=== PATIENT | male | born 1955 | race Caucasian/White ===

== ENCOUNTER 2017-07-20 21:57 | Inpatient (IN) | payer OTHER ==
[~2017-07-20] VITALS: Ht 172.7 cm; Wt 52.8 kg
[~2017-07-20 21:57] MED LIST: ALBUAER3 INH; AZIT250T3 PO; HYDR25TA5 PO; PRED20 PO; SYMB160A INH; TRAM50TA PO; TRAZ50TA12 PO; VENTAER INH
[2017-07-20 22:01] VITALS: BP 163/53; PULSE 104; RESP 24; TEMP 97.5; O2SAT 88
[2017-07-20 22:06] VITALS: BP 163/83; PULSE 104; RESP 26; TEMP 97.5; O2SAT 87
[2017-07-20] MEDS ORDERED: CLAR10CA3 PO (22:18)
[2017-07-20] MEDS ORDERED: GUAI400T32 (22:18)
[2017-07-20] MEDS ORDERED: NICO1DIS2 (22:18)
[2017-07-20 22:19] VITALS: BP 176/97; PULSE 101; RESP 24; O2SAT 96
[2017-07-20 22:25] VITALS: O2SAT 95
[2017-07-20 22:26] VITALS: BP_SYST 137; BP_SYST 150; BP_DIAS 87; BP_DIAS 91; PULSE 102; RESP 24
--- NOTE | 2017-07-20 22:27 | PD ---
HPI Chief Complaint: Respiratory Distress Time Seen by Provider: 22:17 Travel History International Travel<30 days: No Contact w/Intl Traveler<30days: No Traveled to known affect area: No History of Present Illness HPI 61-year-old male with history of emphysema/COPD who presents for evaluation of chest pain and dyspnea. He reports that symptoms started 4 days ago when he turned in bed and felt sudden substernal chest pressure "like an elephant sitting on my chest" which has been constant since then and somewhat improved when he leans forward. Associated dyspnea. He has been using his albuterol nebulizers at home but symptoms persisted which prompted evaluation. He endorses a dry cough. Denies fevers or chills, nausea or vomiting, diaphoresis , abdominal pain. Endorses mild hypertension as well as tobacco use. No personal history of coronary artery disease. No other complaints at this time. PFSH Past Medical History High Cholesterol: Yes COPD: Yes Musculoskeletal: Yes (CHRONIC KNEE AND BACK PAIN, FEET PAIN ) Neurologic: Yes (KHRIS. FEET TOES NUMBNESS) Respiratory: Yes (COPD) Immunizations Current: Yes Past Surgical History Abdominal Surgery: Yes (LEFT ING. HERNIA REP.) Joint Replacement: Yes (LEFT HIP) Oral Surgery: Yes (TONSILLECTOMY) Tonsillectomy: Yes Other Surgery: Yes (CANCEROUS MOLE LEFT BROW, INGUINAL HERNIA REPAIR) Social History Alcohol Use: No Tobacco Use: Yes (1 PACK PER 3 DAYS) Substance Use: No Allergies-Medications (Allergen,Severity, Reaction): Coded Allergies: No Known Allergies (Unverified Allergy, Unknown, 07/21/17) Reported Meds & Prescriptions Reported Meds & Active Scripts Active Proair Hfa 8.5 GM Inh (Albuterol Sulfate) 90 Mcg/Act Aer 2 Puff INH Q4-6H PRN 108 mcg/actuation Reported Claritin (Loratadine) 10 Mg Cap 10 Mg PO DAILY Nicotine Transdermal Syst (Nicotine) 21 Mg/24 Hour Dis Guaifenesin 400 Mg Tab 400 DAILY Hydrochlorothiazide 25 Mg Tab 25 Mg PO DAILY Ventolin Hfa 18 GM Inh (Albuterol Sulfate) 90 Mcg/Act Aer 2 Puff INH Q4-6H PRN Symbicort Inh (Budesonide/Formoterol Fumarate) 160-4.5 Mcg/Act Aero 2 Puff INH Q12HR Trazodone (Trazodone HCl) 50 Mg Tab 50 Mg PO HS Review of Systems Except as stated in HPI: all other systems reviewed are Neg Physical Exam Narrative GENERAL: Well-nourished male, somewhat tachypneic on initial examination. SKIN: Warm and dry. HEAD: Atraumatic. Normocephalic. EYES: Pupils equal and round. No scleral icterus. No injection or drainage. ENT: No nasal bleeding or discharge. Mucous membranes pink and moist. NECK: Trachea midline. No JVD. CARDIOVASCULAR: Regular rate and rhythm. No murmur appreciated. RESPIRATORY: Prolonged expiratory phase, slight wheezing, diminished breath sounds, accessory muscle use noted. GASTROINTESTINAL: Abdomen soft, non-tender, nondistended. Hepatic and splenic margins not palpable. MUSCULOSKELETAL: No obvious deformities. No clubbing. No cyanosis. No edema. NEUROLOGICAL: Awake and alert. No obvious cranial nerve deficits. Motor grossly within normal limits. Normal speech. PSYCHIATRIC: Appropriate mood and affect; insight and judgment normal. Data Data Last Documented VS Vital Signs Date Time Temp Pulse Resp B/P (MAP) Pulse Ox O2 Delivery O2 Flow Rate FiO2 07/20/17 22:26 102 24 150/91 (110) 137/87 (104) 07/20/17 22:25 95 Nasal Cannula 2.00 07/20/17 22:06 97.5 Orders Orders Electrocardiogram (07/20/17 22:23) Basic Metabolic Panel (Bmp) (07/20/17 22:23) Ckmb (Isoenzyme) Profile (07/20/17 22:23) Complete Blood Count With Diff (07/20/17 22:23) Magnesium (Mg) (07/20/17 22:23) Prothrombin Time / Inr (Pt) (07/20/17 22:23) Act Partial Throm Time (Ptt) (07/20/17 22:23) Troponin I (07/20/17 22:23) Chest, Single Ap (07/20/17 22:23) Ecg Monitoring (07/20/17 22:23) Bilateral Bp Monitoring (07/20/17 22:23) Iv Access Insert/Monitor (07/20/17 22:23) Oximetry (07/20/17 22:23) Oxygen Administration (07/20/17 22:23) Aspirin Chew (Aspirin Chew) (07/20/17 22:30) Sodium Chloride 0.9% Flush (Ns Flush) (07/20/17 22:30) Nitroglycerin Sl (Nitrostat Sl) (07/20/17 22:30) Methylprednisolone So Succ Inj (Solumedr (07/20/17 22:30) Albuterol-Ipratropium Neb (Duoneb Neb) (07/20/17 22:30) Lidocaine 1% Inj (50 Ml) (Xylocaine 1% I (07/20/17 23:00) Morphine Inj (Morphine Inj) (07/20/17 23:00) CKMB (07/20/17 22:47) CKMB% (07/20/17 22:47) Admit Order (Ed Use Only) (07/20/17 23:42) Labs Laboratory Tests Test 07/20/17 22:47 White Blood Count 12.1 TH/MM3 Red Blood Count 4.67 MIL/MM3 Hemoglobin 15.2 GM/DL Hematocrit 45.4 % Mean Corpuscular Volume 97.1 FL Mean Corpuscular Hemoglobin 32.5 PG Mean Corpuscular Hemoglobin Concent 33.4 % Red Cell Distribution Width 14.8 % Platelet Count 403 TH/MM3 Mean Platelet Volume 7.8 FL Neutrophils (%) (Auto) 79.9 % Lymphocytes (%) (Auto) 11.9 % Monocytes (%) (Auto) 6.8 % Eosinophils (%) (Auto) 1.1 % Basophils (%) (Auto) 0.3 % Neutrophils # (Auto) 9.7 TH/MM3 Lymphocytes # (Auto) 1.4 TH/MM3 Monocytes # (Auto) 0.8 TH/MM3 Eosinophils # (Auto) 0.1 TH/MM3 Basophils # (Auto) 0.0 TH/MM3 CBC Comment DIFF FINAL Differential Comment Prothrombin Time 12.0 SEC Prothromb Time International Ratio 1.2 RATIO Activated Partial Thromboplast Time 27.3 SEC Blood Urea Nitrogen 26 MG/DL Creatinine 1.02 MG/DL Random Glucose 125 MG/DL Calcium Level 9.4 MG/DL Magnesium Level 2.2 MG/DL Sodium Level 135 MEQ/L Potassium Level 3.7 MEQ/L Chloride Level 97 MEQ/L Carbon Dioxide Level 29.4 MEQ/L Anion Gap 9 MEQ/L Estimat Glomerular Filtration Rate 74 ML/MIN Total Creatine Kinase 140 U/L Creatine Kinase MB 5.7 NG/ML Troponin I 0.50 NG/ML MDM Medical Decision Making Medical Screen Exam Complete: Yes Emergency Medical Condition: Yes Medical Record Reviewed: Yes Interpretation(s) EKG reveals sinus tachycardia, rate 100, LVH, T-wave abnormalities noted in V4 and 5, poor baseline Differential Diagnosis copd exacerbation, pneumothorax, acute coronary syndrome, aortic dissection, pleural effusion, pneumonia Narrative Course The patient was placed on ECG monitoring and pulse oximetry. Twelve-lead EKG obtained. Plan is for basic lab work, chest x-ray, he'll be given DuoNeb therapy, Solu-Medrol, sublingual nitroglycerin, aspirin. Chest x-ray reveals CONCLUSION: At least moderate pneumothorax on the right. After informed consent was obtained, attempt was made with Dr. Macias perform thoracostomy however upon making incision at the fifth intercostal space there was blood vessel bleeding. Bleeding was controlled with 1-0 simple interrupted silk sutures, total 4. Dr. Macias discussed with on-call cardiothoracic surgeon Dr. Conner will see the patient in consultation in place up until in the morning. In addition his laboratory is been reviewed and his troponin is elevated at 0.5. Discussed with on-call gun welder Dr. Alcala who will admit the patient. Procedures EKG Prior to Arrival: Yes Diagnosis Primary Impression: Pneumothorax Qualified Codes: J93.11 - Primary spontaneous pneumothorax Additional Impression: Elevated troponin Admitting Information Admitting Physician Requests: Admit Scripts Prednisone (Prednisone) 20 Mg Tab 20 MG PO DIRECTED for Inflammation, #11 TAB 0 Refills Take 40mg daily for 3 days, 20mg daily for 3 days, 10mg daily for 3 days, 5 mg daily for 3 days, then stop. Prov: Jarred Stout MD 07/22/17 Aspirin (Aspirin DR) 81 Mg Tabdr 81 MG PO DAILY for Blood Clot Prevention, #31 TAB Prov: Jarred Stout MD 07/22/17 Azithromycin (Azithromycin) 250 Mg Tab 250 MG PO DAILY for Infection, #4 TAB Prov: Jarred Stout MD 07/22/17 Tramadol (Tramadol) 50 Mg Tab 50 MG PO Q6H Y for PAIN, #30 TAB 0 Refills Prov: Jarred Stout MD 07/22/17 Bertrand Blanchard Jul 20, 2017 22:27
[2017-07-20] MEDS ORDERED: ASPIRIN 81 MG CHEW TAB PO ONE (22:30)
[2017-07-20] MEDS ORDERED: SODIUM CHLORIDE 0.9% FLUSH 10 ML FLUSH IVF PRN (22:30)
[2017-07-20] MEDS ORDERED: methylPREDNISolone SOD SUCC 125 MG/2 ML VIAL IV PUSH ONE (22:30)
[2017-07-20] MEDS: NITROGLYCERIN 0.4 MG SL 25 TABS/BTL SL SCH ×3 (22:35→22:40)
[2017-07-20] MEDS: RESP: ALBUTEROL 2.5 MG/IPRATROPIUM 0.5 MG NEB (SCH) INH ×2 (22:45→23:00)
--- NOTE | 2017-07-20 22:54 | RADRPT ---
EXAM DATE/TIME: 07/20/2017 22:37 [facility] COMPARISON: No previous studies available for comparison. INDICATIONS : Shortness of breath. MEDICAL HISTORY : Chronic obstructive pulmonary disease. scoliosis SURGICAL HISTORY : None. ENCOUNTER: Initial ACUITY: 1 day PAIN SCORE: 0/10 LOCATION: Bilateral chest FINDINGS: There is at least a moderate pneumothorax seen along the lateral right chest. This measures up to 4 c m in thickness. There is questionable shift of the heart and mediastinal structures towards the left. 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 There is some atelectasis at the right lung base. The left lung is clear. The heart size is normal. CONCLUSION: At least moderate pneumothorax on the right. This information was relayed by telephone to Genie Hutton MD on July 20, 2017 at 22:48 Board Certified Radiologist. This report was verified electronically.
[2017-07-20] MEDS ORDERED: LIDOCAINE HCL 1% 50 ML VIAL INFIL ONE (23:00)
[2017-07-20] MEDS ORDERED: MORPHINE SULFATE 4 MG/ML INJ IV PUSH ONE (23:00)
[2017-07-20 23:02] LABS: AUTOMATED NEUTROPHIL # 9.7 TH/MM3 (1.8-7.7); BASOPHIL % 0.3 % (0.0-2.0); EOSINOPHIL # 0.1 TH/MM3 (0-0.4); EOSINOPHIL % 1.1 % (0.0-4.0); HEMATOCRIT 45.4 % (39.0-51.0); HEMO FLAGS DIFF FINAL; LYMPH % 11.9 % (9.0-44.0); LYMPHOCYTE # 1.4 TH/MM3 (1.0-4.8); MEAN CELL VOLUME 97.1 FL (80.0-100.0); MEAN CORPUSCULAR HEMOGLOBIN 32.5 PG (27.0-34.0); MEAN CORPUSCULAR HGB CONC 33.4 % (32.0-36.0); MONO % 6.8 % (0.0-8.0); NEUT % 79.9 % (16.0-70.0); PLATELET COUNT 403 TH/MM3 (150-450); RED BLOOD COUNT 4.67 MIL/MM3 (4.50-5.90); RED CELL DISTRIBUTION WIDTH 14.8 % (11.6-17.2); WHITE BLOOD COUNT 12.1 TH/MM3 (4.0-11.0)
[2017-07-20 23:12] LABS: APTT (PATIENT) 27.3 SEC (24.3-30.1); INTERNATIONAL NORMALIZED RATIO 1.2 RATIO
[2017-07-20 23:13] LABS: ANION GAP 9 MEQ/L (5-15); BICARBONATE 29.4 MEQ/L (21.0-32.0); BLOOD UREA NITROGEN 26 MG/DL (7-18); CHLORIDE 97 MEQ/L (98-107); GLOMERULAR FILTRATION RATE 74 ML/MIN (>89); MAGNESIUM 2.2 MG/DL (1.5-2.5); POTASSIUM 3.7 MEQ/L (3.5-5.1); SODIUM (NA) 135 MEQ/L (136-145)
[2017-07-20 23:17] LABS: CREATINE KINASE 140 U/L (39-308)
[2017-07-20 23:31] LABS: CKMB 5.7 NG/ML (0.5-3.6)
--- NOTE | 2017-07-20 23:58 | HHI.HP ---
[facility] Service Critical Care Medicine Primary Care Physician Valentin [facility] Admission Diagnosis spontaneous pneumothorax, elevated troponin Diagnosis: Travel History International Travel<30 Days: No Contact w/Intl Traveler <30 Da: No Traveled to Known Affected Are: No History of Present Illness 61-year-old male with history of emphysema/COPD presents for evaluation of chest pain and dyspnea. His symptoms started 4 days ago when he turned in bed and felt sudden substernal chest pressure "like an elephant sitting on my chest " which has been constant since then and somewhat improved when he leans forward. Associated dyspnea. He has been using his albuterol nebulizers at home but symptoms persisted which prompted evaluation. He endorses a dry cough. The chest x-ray performed in the emergency department shows moderate- sized pneumothorax on the right side. Review of Systems Constitutional: DENIES: Diaphoretic episodes, Fatigue, Fever, Weight gain, Weight loss, Chills, Dizziness, Change in appetite, Night Sweats Endocrine: DENIES: Heat/cold intolerance, Polydipsia, Polyuria, Polyphagia Eyes: DENIES: Blurred vision, Diplopia, Eye inflammation, Eye pain, Vision loss , Photosensitivity, Double Vision Ears, nose, mouth, throat: DENIES: Tinnitus, Hearing loss, Vertigo, Nasal discharge, Oral lesions, Throat pain, Hoarseness, Ear Pain, Running Nose, Epistaxis, Sinus Pain, Toothache, Odynophagia Respiratory: COMPLAINS OF: Cough, Shortness of breath, DENIES: Apneas, Snoring , Wheezing, Hemoptysis, Sputum production Cardiovascular: COMPLAINS OF: Chest pain, Dyspnea on Exertion, DENIES: Palpitations, Syncope, PND, Lower Extremity Edema, Orthopnea, Claudication Gastrointestinal: DENIES: Abdominal pain, Black stools, Bloody stools, Constipation, Diarrhea, Nausea, Vomiting, Difficulty Swallowing, Anorexia Genitourinary: DENIES: Sexual dysfunction, Urinary frequency, Urinary incontinence, Urgency, Hematuria, Dysuria, Nocturia, Penile Discharge, Testicular Pain, Testicular Swelling Musculoskeletal: DENIES: Joint pain, Muscle aches, Stiffness, Joint Swelling, Back pain, Neck pain Integumentary: DENIES: Abnormal pigmentation, Nail changes, Pruritus, Rash Hematologic/lymphatic: DENIES: Bruising, Lymphadenopathy Immunologic/allergic: DENIES: Eczema, Urticaria Neurologic: DENIES: Abnormal gait, Headache, Localized weakness, Paresthesias, Seizures, Speech Problems, Tremor, Poor Balance Psychiatric: DENIES: Anxiety, Confusion, Mood changes, Depression, Hallucinations, Agitation, Suicidal Ideation, Homicidal Ideation, Delusions Past Family Social History Allergies: Coded Allergies: No Known Allergies (Unverified Allergy, Unknown, 07/21/17) Past Medical History High Cholesterol: Yes COPD: Yes Musculoskeletal: Yes (CHRONIC KNEE AND BACK PAIN, FEET PAIN ) Neurologic: Yes (KHRIS. FEET TOES NUMBNESS) Respiratory: Yes (COPD) Immunizations Current: Yes Past Surgical History Abdominal Surgery: Yes (LEFT ING. HERNIA REP.) Joint Replacement: Yes (LEFT HIP) Oral Surgery: Yes (TONSILLECTOMY) Tonsillectomy: Yes Other Surgery: Yes (CANCEROUS MOLE LEFT BROW, INGUINAL HERNIA REPAIR) Reported Medications Reported Meds & Active Scripts Active Proair Hfa 8.5 GM Inh (Albuterol Sulfate) 90 Mcg/Act Aer 2 Puff INH Q4-6H PRN 108 mcg/actuation Prednisone 20 Mg Tab 50 Mg PO DAILY 5 Days Azithromycin 250 Mg Tab 250 Mg PO DIRECTED Take 2 tabs (500 mg) on day 1 then 1 tab daily x 4 days. Reported Claritin (Loratadine) 10 Mg Cap 10 Mg PO DAILY Nicotine Transdermal Syst (Nicotine) 21 Mg/24 Hour Dis Guaifenesin 400 Mg Tab 400 DAILY Hydrochlorothiazide 25 Mg Tab 25 Mg PO DAILY Ventolin Hfa 18 GM Inh (Albuterol Sulfate) 90 Mcg/Act Aer 2 Puff INH Q4-6H PRN Symbicort Inh (Budesonide/Formoterol Fumarate) 160-4.5 Mcg/Act Aero 2 Puff INH Q12HR Trazodone (Trazodone HCl) 50 Mg Tab 50 Mg PO HS Tramadol (Tramadol HCl) 50 Mg Tab 50 Mg PO Q6H PRN Active Ordered Medications Current Medications Medications (Trade) Dose Ordered Sig/Jacqueline Route PRN Reason Start Time Stop Time Status Last Admin Dose Admin Albuterol Sulfate (Proair Hfa Inh) 2 puff Q4H PRN INH SHORTNESS OF BREATH 07/21/17 00:15 Azithromycin (Zithromax) 250 mg DAILY PO 07/21/17 09:00 Budesonide/ Formoterol Fumarate (Symbicort 160-4.5 Mcg Inh) 2 puff Q12HR INH 07/21/17 09:00 Loratadine (Claritin) 10 mg DAILY PO 07/21/17 09:00 Prednisone (Deltasone) 50 mg DAILY PO 07/21/17 09:00 Trazodone HCl (Desyrel) 50 mg HS PO 07/21/17 21:00 Sodium Chloride 1,000 ml @ 84 mls/hr [id number] IV 07/21/17 00:03 07/21/17 00:42 Sodium Chloride (NS Flush) 2 ml UNSCH PRN IV FLUSH FLUSH AFTER USING IV ACCESS 07/21/17 00:15 Sodium Chloride (NS Flush) 2 ml BID IV FLUSH 07/21/17 09:00 Oxycodone/ Acetaminophen (Percocet 5-325 Mg) 1 tab Q4H PRN PO PAIN SCALE 1 TO 5 07/21/17 00:15 07/21/17 04:15 Morphine Sulfate (Morphine Inj) 2 mg Q2H PRN IV PAIN 6-10 07/21/17 00:15 07/21/17 02:00 Famotidine (Pepcid Inj) 20 mg Q12HR IV PUSH 07/21/17 09:00 Ondansetron HCl (Zofran Inj) 4 mg Q6H PRN IV PUSH NAUSEA OR VOMITING 07/21/17 00:15 Zolpidem Tartrate (Ambien) 5 mg HS PRN PO INSOMNIA 07/21/17 00:15 Miscellaneous Information 1 [id number] XX 07/21/17 00:15 Chlorhexidine Gluconate (Chlorhexidine 2% Cloth) 3 pack Taper DAILY@04 TOP 07/21/17 04:00 07/17/18 03:59 07/21/17 03:25 Chlorhexidine Gluconate (Chlorhexidine 2% Cloth) 3 pack UNSCH PRN TOP HYGIENIC CARE 07/21/17 00:15 Senna/Docusate Sodium (Michelle-Colace) 1 tab BID PO 07/21/17 09:00 Magnesium Hydroxide (Milk Of Magnesia Liq) 30 ml Q12H PRN PO Mild constipation 07/21/17 00:15 Sennosides (Senokot) 17.2 mg Q12H PRN PO Moderate constipation 07/21/17 00:15 Bisacodyl (Dulcolax Supp) 10 mg DAILY PRN RECTAL SEVERE CONSITIPATION 07/21/17 00:15 Lactulose (Lactulose Liq) 30 ml DAILY PRN PO SEVERE CONSITIPATION 07/21/17 00:15 Potassium Chloride 100 ml @ 50 mls/hr Q2H PRN IV For Potassium 2.8 - 3.2 mEq/L 07/21/17 02:45 Potassium Chloride 100 ml @ 50 mls/hr Q2H PRN IV For Potassium 2.8 - 3.2 mEq/L 07/21/17 02:45 Potassium Bicarb/ Potassium Chloride (K-Lyte Cl Eff) 50 meq UNSCH PRN PO For Potassium 3.3 - 3.5 mEq/L 07/21/17 02:45 Potassium Chloride 100 ml @ 25 mls/hr UNSCH PRN IV For Potassium 3.3 - 3.5 mEq/L 07/21/17 02:45 Potassium Chloride 100 ml @ 50 mls/hr Q2H PRN IV For Potassium 3.3 - 3.5 mEq/L 07/21/17 02:45 Magnesium Sulfate 4 gm/Sodium Chloride 100 ml @ 50 mls/hr UNSCH PRN IV For Magnesium 0.9 - 1.1 mg/dL 07/21/17 02:45 Magnesium Oxide (Mag-Ox) 800 mg UNSCH PRN PO For Magnesium 1.2 - 1.6 mg/dL 07/21/17 02:45 Magnesium Sulfate 2 gm/Sodium Chloride 100 ml @ 50 mls/hr UNSCH PRN IV For Magnesium 1.2 - 1.6 mg/dL 07/21/17 02:45 Potassium Phosphate (K-Phos) 2,000 mg Q4H PRN PO For Phosphorus < 2.5 mg/dL 07/21/17 02:45 Sodium Phosphate 30 mmol/Sodium Chloride 250 ml @ 42 mls/hr UNSCH PRN IV For Phosphorus < 2.5 mg/dL 07/21/17 02:45 Potassium Phosphate (K-Phos) 2,000 mg UNSCH PRN PO/TUBE SEE LABEL COMMENTS 07/21/17 02:45 Potassium Phosphate 30 mmol/ Sodium Chloride 260 ml @ 42 mls/hr UNSCH PRN IV SEE LABEL COMMENTS 07/21/17 02:45 Family History No Family history significant for early coronary artery disease or malignancy Social History Alcohol Use: No Tobacco Use: Yes (1 PACK PER 3 DAYS) Substance Use: No Physical Exam Vital Signs Vital Signs Date Time Temp Pulse Resp B/P (MAP) Pulse Ox O2 Delivery O2 Flow Rate FiO2 07/20/17 22:26 102 24 150/91 (110) 137/87 (104) 07/20/17 22:25 95 Nasal Cannula 2.00 07/20/17 22:25 Nasal Cannula 2.00 07/20/17 22:19 101 24 176/97 (123) 96 Nasal Cannula 2.00 07/20/17 22:09 102 26 90 Nasal Cannula 2.00 07/20/17 22:06 97.5 104 26 163/83 (109) 87 07/20/17 22:01 97.5 104 24 163/53 (89) 88 Room Air Physical Exam GENERAL: Cachectic sick gentleman in moderate respiratory distress SKIN: Warm and dry. HEAD: Normocephalic. EYES: No scleral icterus. No injection or drainage. NECK: Supple, trachea midline. No JVD or lymphadenopathy. CARDIOVASCULAR: Regular rate and rhythm without murmurs, gallops, or rubs. RESPIRATORY: Breath sounds equal bilaterally. No accessory muscle use. GASTROINTESTINAL: Abdomen soft, non-tender, nondistended. MUSCULOSKELETAL: No cyanosis, or edema. BACK: Nontender without obvious deformity. NEURO EXAM: GCS: M 6V 5 E4 Mental Status: The patient is alert and oriented to person, place, and time with normal speech. Cranial Nerves: Visual acuity intact bilaterally. Visual [place] normal in all quadrants. Pupils are round, reactive to light. Extraocular movements are intact without ptosis. Hearing is normal bilaterally. Voice is normal. Tongue protrudes midline and moves symmetrically. Reflexes: Biceps, patellar, and Achilles are 2/4 bilaterally. No clonus. Laboratory Laboratory Tests Test 07/20/17 22:47 White Blood Count 12.1 Red Blood Count 4.67 Hemoglobin 15.2 Hematocrit 45.4 Mean Corpuscular Volume 97.1 Mean Corpuscular Hemoglobin 32.5 Mean Corpuscular Hemoglobin Concent 33.4 Red Cell Distribution Width 14.8 Platelet Count 403 Mean Platelet Volume 7.8 Neutrophils (%) (Auto) 79.9 Lymphocytes (%) (Auto) 11.9 Monocytes (%) (Auto) 6.8 Eosinophils (%) (Auto) 1.1 Basophils (%) (Auto) 0.3 Neutrophils # (Auto) 9.7 Lymphocytes # (Auto) 1.4 Monocytes # (Auto) 0.8 Eosinophils # (Auto) 0.1 Basophils # (Auto) 0.0 CBC Comment DIFF FINAL Differential Comment Prothrombin Time 12.0 Prothromb Time International Ratio 1.2 Activated Partial Thromboplast Time 27.3 Blood Urea Nitrogen 26 Creatinine 1.02 Random Glucose 125 Calcium Level 9.4 Magnesium Level 2.2 Sodium Level 135 Potassium Level 3.7 Chloride Level 97 Carbon Dioxide Level 29.4 Anion Gap 9 Estimat Glomerular Filtration Rate 74 Total Creatine Kinase 140 Creatine Kinase MB 5.7 Troponin I 0.50 Result Diagram: 07/20/17224607/20/172246 Imaging Last 24 hours Impressions Chest X-Ray 07/21/17 0000 Signed Impressions: Service Date/Time: Friday, July 21, 2017 02:19 - CONCLUSION: The right chest tube is located very peripherally in the right mid hemithorax with near-complete resolution of the right pneumothorax. Only a small right apical pneumothorax remains. Smooth Nunez MD Chest X-Ray 07/20/172222 Signed Impressions: Service Date/Time: June 22:37 - CONCLUSION: At least moderate pneumothorax on the right. This information was relayed by telephone to Jp David. MD Pam Peralesi VTE Risk Assessment Caprini VTE Risk Assessment: Mod/High Risk (score >= 2) Caprini Risk Assessment Model Point Value = 1 Point Value = 2 Point Value = 3 Point Value = 5 Age 41-60 Minor surgery BMI > 25 kg/m2 Swollen legs Varicose veins or History of unexplained or recurrent spontaneous Oral contraceptives or hormone replacement Sepsis (< 1 month) Serious lung disease, including pneumonia (< 1 month) Abnormal pulmonary function Acute myocardial infarction Congestive heart failure (< 1 month) History of inflammatory bowel disease Medical patient at bed rest Age 61-74 Arthroscopic surgery Major open surgery (> 45 min) Laparoscopic surgery (> 45 min) Malignancy Confined to bed (> 72 hours) Immobilizing plaster cast Central venous access Age >= 75 History of VTE Family history of VTE Factor V Leiden Prothrombin [id number] Lupus anticoagulant Anticardiolipin antibodies Elevated serum homocysteine Heparin-induced thrombocytopenia Other congenital or acquired thrombophilia Stroke (< 1 month) Elective arthroplasty Hip, pelvis, or leg fracture Acute spinal cord injury (< 1 month) Prophylaxis Regimen Total Risk Factor Score Risk Level Prophylaxis Regimen 0-1 Low Early ambulation 2 Moderate Order ONE of the following: *Sequential Compression Device (SCD) *Heparin 5000 units SQ BID 3-4 Higher Order ONE of the following medications: *Heparin 5000 units SQ TID *Enoxaparin/Lovenox 40 mg SQ daily (WT < 150 kg, CrCl > 30 mL/min) *Enoxaparin/Lovenox 30 mg SQ daily (WT < 150 kg, CrCl > 10-29 mL/min) *Enoxaparin/Lovenox 30 mg SQ BID (WT < 150 kg, CrCl > 30 mL/min) AND/OR *Sequential Compression Device (SCD) 5 or more Highest Order ONE of the following medications: *Heparin 5000 units SQ TID (Preferred with Epidurals) *Enoxaparin/Lovenox 40 mg SQ daily (WT < 150 kg, CrCl > 30 mL/min) *Enoxaparin/Lovenox 30 mg SQ daily (WT < 150 kg, CrCl > 10-29 mL/min) *Enoxaparin/Lovenox 30 mg SQ BID (WT < 150 kg, CrCl > 30 mL/min) AND *Sequential Compression Device (SCD) Assessment and Plan Assessment and Plan Pneumothorax - Emergent chest tube placement with resolution of pneumothorax - The chest tube was dislodged during patient's positioning - Repeat x-ray without pneumothorax - Continue to monitor and repeat CXR in 6 hours COPD - Continue DuoNeb scheduled and when necessary - No indication for steroid Chest pain with elevated troponin - No EKG changes suggestive acute coronary syndrome - Series of EKGs and troponins to follow - Cardiology consult DVT GI prophylaxis - Teds SCDs - Early aggressive mobilization - Regular diet Critical Care: The total critical care time was 35 minutes. Time to perform other separately billable procedures was not included in the critical care time. Carrillo Alcala MD Jul 20, 2017 23:58
[2017-07-21] VITALS (15 sets, daily range): BP systolic 144–178; BP diastolic 72–99; PULSE 81–103; RESP 16–36; TEMP 97.8–98.6; O2SAT 94–99
[2017-07-21] MEDS ORDERED: ONDANSETRON HCL 4 MG/2 ML VIAL IV PUSH PRN (00:15)
[2017-07-21] MEDS ORDERED: MAGNESIUM HYDROXIDE SUSP 30 ML CUP PO PRN (00:15)
[2017-07-21] MEDS ORDERED: ALBUTEROL SULFATE 90 MCG/ACT HFA 8 GM INHALER INH PRN ×2 (00:15)
[2017-07-21] MEDS ORDERED: LACTULOSE SYRUP 20 GM/30 ML CUP PO PRN (00:15)
[2017-07-21] MEDS ORDERED: CHLORHEXIDINE GLUCONATE 2 % 1 PACK (2 CLOTHS) TOP PRN (00:15)
[2017-07-21] MEDS ORDERED: ZOLPIDEM TARTRATE 5 MG TAB PO PRN (00:15)
[2017-07-21] MEDS ORDERED: SENNOSIDES 8.6 MG TAB PO PRN (00:15)
[2017-07-21] MEDS ORDERED: BISACODYL 10 MG SUPP RECTAL PRN (00:15)
[2017-07-21] MEDS ORDERED: SODIUM CHLORIDE 0.9% FLUSH 10 ML FLUSH IV FLUSH PRN (00:15)
[2017-07-21] MEDS ORDERED: traMADol HCL 50 MG TAB PO PRN (00:15)
[2017-07-21] MEDS ORDERED: MISCELLANEOUS NURSING INFORMATION XX SCH (00:15)
[2017-07-21] MEDS ORDERED: MORPHINE SULFATE 4 MG/ML INJ IV PUSH ONE (00:30)
[2017-07-21] MEDS: SODIUM CHLOR 0.9% 1000 ML INJ 1,000 ML IV SCH ×3 (00:42→11:58)
[2017-07-21] MEDS ORDERED: LIDOCAINE 1%/EPINEPHrine 1:100,000 SOLN 20 ML VIAL ONE (02:00)
[2017-07-21] MEDS: MORPHINE SULFATE 2 MG/ML INJ IV PRN ×3 (02:00→23:31)
[2017-07-21] MEDS ORDERED: MAGNESIUM OXIDE 400 MG TAB PO PRN (02:45)
[2017-07-21] MEDS ORDERED: MAGNESIUM SULFATE INJ 2 GM in SODIUM CHLORIDE 0.9% INJ 96 ML IV PRN (02:45)
[2017-07-21] MEDS ORDERED: POTASSIUM PHOSPHATE MONOBASIC 500 MG TAB PO PRN (02:45)
[2017-07-21] MEDS ORDERED: POTASSIUM PHOSPHATE INJ 30 MMOL in SODIUM CHLOR 0.9% 250 ML INJ 250 ML IV PRN (02:45)
[2017-07-21] MEDS ORDERED: POTASSIUM CHLOR 20 MEQ PREMIX 100 ML IV PRN ×2 (02:45)
[2017-07-21] MEDS ORDERED: MAGNESIUM SULFATE INJ 4 GM in SODIUM CHLORIDE 0.9% INJ 92 ML IV PRN (02:45)
[2017-07-21] MEDS ORDERED: POTASSIUM CHLORIDE 25 MEQ EFFERVESCENT TAB PO PRN (02:45)
[2017-07-21] MEDS ORDERED: POTASSIUM PHOSPHATE MONOBASIC 500 MG TAB PO/TUBE PRN (02:45)
[2017-07-21] MEDS ORDERED: SODIUM PHOSPHATE INJ 30 MMOL in SODIUM CHLOR 0.9% 250 ML INJ 240 ML IV PRN (02:45)
[2017-07-21] MEDS ORDERED: POTASSIUM CHLOR 40 MEQ PREMIX 100 ML IV PRN ×2 (02:45)
[2017-07-21] MEDS: CHLORHEXIDINE GLUCONATE 2 % 1 PACK (2 CLOTHS) TOP SCH (03:25)
--- NOTE | 2017-07-21 03:37 | RADRPT ---
EXAM DATE/TIME: 07/21/2017 02:19 [facility] COMPARISON: CHEST SINGLE AP, July 20, 2017, 22:37. INDICATIONS : Evaluate right side chest tube placement MEDICAL HISTORY : Chronic obstructive pulmonary disease. SURGICAL HISTORY : None. ENCOUNTER: Subsequent ACUITY: 1 day PAIN SCORE: 7/10 LOCATION: Bilateral chest FINDINGS: Rotated portable AP view of the chest demonstrates a right chest tube in place laterally in the mid h emithorax. The pneumothorax has nearly completely resolved with a small residual right apical pneumot horax remaining. There is mild right chest wall subcutaneous air. No other acute finding is identifie d. CONCLUSION: The right chest tube is located very peripherally in the right mid hemithorax with near-complete reso lution of the right pneumothorax. Only a small right apical pneumothorax remains. Smooth Nunez MD on July 21, 2017 at 3:35 Board Certified Radiologist. This report was verified electronically.
[2017-07-21] MEDS: oxyCODONE/ACETAMINOPHEN 5 MG/325 MG TAB PO PRN ×4 (04:15→18:24)
--- NOTE | 2017-07-21 05:24 | PD.PROCEDR ---
Procedure Note Procedure Chest tube placement Procedure: CHEST TUBE Indication: Large pneumothorax Performed by: Carrillo Gutierrez time out procedure was performed Initials Consent obtained JV Correct patient JV Correct procedure JV Correct site JV Correct positioning JV Correct supplies JV Patient was positioned, prepped and draped in usual sterile fashion. ccs 1% Lidocaine was used to anesthetize the area. An incision was made and blunt dissection was performed and curved forceps were used to enter the pleural space. A 10 fr chest tube was placed to 15cm. The tube was secured and taped. A chest xray was ordered to evaluate for placement of the chest tube. A pigtail catheter was placed using the seldinger technique. Initial Fluid Removed: 50 Patient tolerated the procedure well and there were no complications. Carrillo Alcala MD Jul 21, 2017 5:24 am
--- NOTE | 2017-07-21 05:57 | RADRPT ---
EXAM DATE/TIME: 07/21/2017 05:00 [facility] COMPARISON: CHEST SINGLE AP, July 21, 2017, 2:19. INDICATIONS : Chest tube removal- Evaluate pneumothorax MEDICAL HISTORY : Chronic obstructive pulmonary disease. SURGICAL HISTORY : None. ENCOUNTER: Subsequent ACUITY: 2 days PAIN SCORE: 7/10 LOCATION: Bilateral chest FINDINGS: Portable AP view of the chest demonstrates a normal-sized cardiac silhouette. Patient is rotated seco ndary to the dextroscoliosis of the thoracic spine. The right chest tube has been removed. No pneumot horax is visualized. There is mild right chest wall subcutaneous air. No pleural effusion is present. CONCLUSION: The right chest tube has been removed and no pneumothorax is visualized. There is minimal right chest wall subcutaneous air. Smooth Nunez MD on July 21, 2017 at 5:55 Board Certified Radiologist. This report was verified electronically.
[2017-07-21] MEDS: AZITHROMYCIN 250 MG TAB PO SCH (08:28)
[2017-07-21] MEDS: FAMOTIDINE 20 MG/2 ML VIAL IV PUSH SCH ×2 (08:28→20:48)
[2017-07-21] MEDS: DOCUSATE SODIUM 50 MG/SENNA 8.6 MG TAB PO SCH ×2 (08:29→20:54)
[2017-07-21] MEDS: LORATADINE 10 MG TAB PO SCH (08:29)
[2017-07-21] MEDS: predniSONE 50 MG TAB PO SCH (08:29)
[2017-07-21] MEDS: SODIUM CHLORIDE 0.9% FLUSH 10 ML FLUSH IV FLUSH SCH ×2 (09:00→20:53)
--- NOTE | 2017-07-21 11:01 | MB ---
cc: GUERRERO STEWART DATE OF CONSULTATION 07/21/2017 DATE OF 1955 REASON FOR CONSULTATION Elevated troponins HISTORY OF PRESENT ILLNESS 61-year-old male with a past medical history significant for COPD, chronic smoker, hypercholesterinemia, hypertension who was admitted to the hospital with sudden onset of acute chest pressure associated with dyspnea. This was improved by leaning forward. Chest x-ray done in the emergency department showed a moderate size pneumothorax for which an emergent chest tube was placed with resolution of symptoms. Cardiology has been consulted because of elevated troponins of 0.5 and 0.39. EKG normal sinus rhythm with an acute ST changes and LVH. REVIEW OF SYSTEMS Negative except for what is mentioned in the HPI. PAST MEDICAL HISTORY 1. COPD 2. Chronic smoker 3. Hypertension 4. Hyperlipidemia PAST SURGICAL HISTORY 1. Hernia repair 2. Tonsillectomy 3. Left hip surgery. CARDIAC HOME MEDICATIONS Hydrochlorothiazide 25 mg p.o. daily FAMILY HISTORY Noncontributory SOCIAL HISTORY He is chronic smoker. No illicit drug use. PHYSICAL EXAM VITAL SIGNS: Temperature 98.3, respiratory rate 18, heart rate 81, blood pressure 157/78, O2 sat 99% on room air. GENERAL: He is awake, alert, and oriented in no acute distress. NECK: No JVD or carotid bruits. HEART: Regular rate and rhythm. No murmurs, rubs or gallops. LUNGS: Bilateral wheezing. ABDOMEN: Benign. EXTREMITIES: No cyanosis or edema. Pulses throughout. LABORATORY DATA CBC hemoglobin 15, hematocrit 45, platelet count 403, INR 1.2. Chemistries sodium 135, potassium 3.7, BUN 26, creatinine 1.02, troponin 0.5 and 0.39, INR 1.2. ASSESSMENT/PLAN 61-year-old male with cardiac risk factors that include age, hypertension, chronic smoker who presented to the hospital with chest pain in the setting of a spontaneous pneumothorax. The patient has been successfully treated with chest tube which was has been pulled out. The patient denies any chest pain, shortness of breath, palpitations, syncope or PND. EKG, no acute ST changes. Troponin slightly elevated. Troponin elevation secondary to the pneumothorax likely from demand ischemia. No need for a cardiac workup at this time. However, the patient should definitely have aggressive medical management for cardiac risk factors and therapeutic lifestyle changes such as smoking cessation. Thank you for the opportunity to take part in the care of this patient. Will be available on a as needed basis for any other questions or concerns. MD YOKO Pratt/ISAIAH /10:39 AM /10:50 AM DREA
--- NOTE | 2017-07-21 12:14 | RADRPT ---
EXAM DATE/TIME: 07/21/2017 11:48 [facility] COMPARISON: CHEST SINGLE AP, July 21, 2017, 5:00. INDICATIONS : Evaluate pneumothorax. MEDICAL HISTORY : Chronic obstructive pulmonary disease. SURGICAL HISTORY : None. ENCOUNTER: Subsequent ACUITY: 1 day PAIN SCORE: 0/10 LOCATION: Bilateral chest FINDINGS: The chest is stable following chest tube removal. There is no evidence of pneumothorax. Pulmonary hyperinflation is again noted. There is no subacute airspace disease. Heart and mediastinal structures are stable. CONCLUSION: Stable chest without evidence of pneumothorax. COPD. Sebastian Barreto MD on July 21, 2017 at 12:10 Board Certified Radiologist. This report was verified electronically.
[2017-07-21] MEDS: NICOTINE 14 MG/24 HR PATCH T-DERMAL SCH (15:19)
--- NOTE | 2017-07-21 16:51 | EKG ---
Date Performed: 07/20/2017 Time Performed: 22:28:05 PTAGE: 61 years EKG: Sinus rhythm MINIMAL VOLTAGE CRITERIA FOR LVH, CONSIDER NORMAL VARIANT NONSPECIFIC T-WAVE ABNORMALITY Since previ ous tracing, no significant change noted BORDERLINE ECG PREVIOUS TRACING : 08/18/2016 14.03 DOCTOR: Trini Prieto Interpretating Date/Time 07/21/2017 16:50:22
--- NOTE | 2017-07-21 16:51 | EKG ---
Date Performed: 07/21/2017 Time Performed: 03:54:54 PTAGE: 61 years EKG: Sinus rhythm . Leftward axis Possible septal infarct - age undetermined Lateral T wave changes may be due to myoca rdial ischemia Since previous tracing, no significant change noted Abnormal ECG PREVIOUS TRACING : 07/20/2017 22.28.05 DOCTOR: Trini Prieto Interpretating Date/Time 07/21/2017 16:51:34
--- NOTE | 2017-07-21 16:52 | EKG ---
Date Performed: 07/21/2017 Time Performed: 06:50:23 PTAGE: 61 years EKG: Sinus rhythm SEPTAL MYOCARDIAL INFARCTION , PROBABLY OLD Since previous tracing, no significant change noted ABNO RMAL ECG PREVIOUS TRACING : 03.54.54 DOCTOR: Trini Prieto Interpretating Date/Time 07/21/2017 16:52:05
--- NOTE | 2017-07-21 17:18 | MB ---
cc: IVONNE CORONADO DATE OF CONSULTATION 07/21/17 REASON FOR CONSULTATION Spontaneous pneumothorax status post chest tube removal. HISTORY OF PRESENT ILLNESS Mr. Johnson is a 61-year-old male with known history of COPD, long heavy smoking history, continues to smoke up until the time of presentation to the hospital. The patient presents to the emergency room with chest pain and chest x-ray evidence of a pneumothorax which was drained via chest tube with resolution. Chest x-ray remained stable post chest tube removal. The patient does have less than half a block dyspnea on exertion. No fever or chills. No cough, no expectoration or hemoptysis. His troponin was noted to be elevated. He was seen by cardiology without evidence of significant cardiac abnormality. PAST MEDICAL HISTORY 1. COPD 2. Hypertension 3. Hyperlipidemia, 4. Previous hernia surgery 5. Tonsillectomy and adenoidectomy as a child 6. Left hip surgery. MEDICATIONS At one HCTZ one a day. SOCIAL HISTORY Long heavy smoking history, a pack a day, continues to smoke until present. Does not use drugs and drinks alcohol socially. No TB or industrial exposure. FAMILY HISTORY Noncontributory. REVIEW OF SYSTEMS A 12-point review of systems as per HPI and past history otherwise negative. PHYSICAL EXAMINATION VITAL SIGNS: Temperature 98, pulse 80, respirations 16, blood pressure 160/80. HEENT: Exam unremarkable. Eyes without icterus. NECK: Without adenopathy or thyroid enlargement. Central trachea. CHEST: Without dullness to percussion, clear to auscultation. CARDIAC: PMI not appreciated. S1-S2 audible. No murmur or rub. ABDOMEN: Lax, bowel sounds audible. EXTREMITIES: No clubbing, cyanosis or edema. SKIN: Normal. No lymphadenopathy. IMAGING STUDIES Chest x-ray upon presentation with a moderate right pneumothorax. Follow up done on July 20, 2017. Follow up today post chest tube removal without evidence of pneumothorax. LABORATORY DATA White count 12,000, hemoglobin 15, hematocrit 45, platelets at 403,000. Sodium 135, potassium 3.7, BUN 26, creatinine 1.0, INR 1.2. IMPRESSION 1. Spontaneous pneumothorax resolved with chest tube placement and subsequent removal 2. Chronic obstructive pulmonary disease 3. Hypertension 4. Hyperlipidemia 5. Tobacco abuse. PLAN The patient is stable at present without respiratory distress. His bronchodilator therapy should be should be maintained. Should he remains stable without recurrent symptomatology, he may be discharged and followed as an outpatient with precautions to be followed in view of the recent pneumothorax, especially as far as exercise limitation, weight lifting and so forth. I do thank you for asking me to partake in Mr. Johnson' care. Ivonne Coronado MD WWW/ /4:15 PM /4:55 PM
--- NOTE | 2017-07-21 17:21 | HHI.CCPN ---
Subjective Remarks/Hospital Course 07/20: 61-year-old male with history of emphysema/COPD presents for evaluation of chest pain and dyspnea. His symptoms started 4 days ago when he turned in bed and felt sudden substernal chest pressure "like an elephant sitting on my chest" which has been constant since then and somewhat improved when he leans forward. Associated dyspnea. He has been using his albuterol nebulizers at home but symptoms persisted which prompted evaluation. He endorses a dry cough. The chest x-ray performed in the emergency department shows moderate- sized pneumothorax on the right side. 07/21: Resting comfortably in bed. Pigtail catheter dislodged early this morning however subsequent chest x-ray does not show any residual pneumothorax. Objective Vital Signs Date Time Temp Pulse Resp B/P (MAP) Pulse Ox O2 Delivery O2 Flow Rate FiO2 07/21/17 16:00 98.4 85 18 178/84 (115) 97 07/21/17 00:51 Nasal Cannula 4.00 Intake and Output 07/21/17 07/21/17 07/22/17 08:00 16:00 00:00 Intake Total 906 ml 574 ml 2052 ml Output Total 400 ml 850 ml Balance 506 ml 574 ml 1202 ml Result Diagram: 07/20/17 2247 07/20/17 2247 Imaging Last Impressions Chest X-Ray 07/21/17 1200 Signed Impressions: Service Date/Time: Friday, July 21, 2017 11:48 - CONCLUSION: Stable chest without evidence of pneumothorax. COPD. Sebastian Barreto MD Objective Remarks GENERAL: Cachectic sick gentleman in moderate respiratory distress SKIN: Warm and dry. HEAD: Normocephalic. EYES: No scleral icterus. No injection or drainage. NECK: Supple, trachea midline. No JVD or lymphadenopathy. CARDIOVASCULAR: Regular rate and rhythm without murmurs, gallops, or rubs. RESPIRATORY: Breath sounds equal bilaterally. No accessory muscle use. GASTROINTESTINAL: Abdomen soft, non-tender, nondistended. MUSCULOSKELETAL: No cyanosis, or edema. BACK: Nontender without obvious deformity. NEURO EXAM: GCS: M 6V 5 E4 Mental Status: The patient is alert and oriented to person, place, and time with normal speech. Cranial Nerves: Visual acuity intact bilaterally. Visual [place] normal in all quadrants. Pupils are round, reactive to light. Extraocular movements are intact without ptosis. Hearing is normal bilaterally. Voice is normal. Tongue protrudes midline and moves symmetrically. Reflexes: Biceps, patellar, and Achilles are 2/4 bilaterally. No clonus. A/P Assessment and Plan Pneumothorax - Emergent chest tube placement with resolution of pneumothorax - The chest tube was dislodged during patient's positioning - Repeat x-ray without pneumothorax - Continue to monitor and repeat CXR in 6 hours did not show any pneumothorax. COPD - Continue DuoNeb scheduled and when necessary - No indication for steroid Chest pain with elevated troponin - No EKG changes suggestive acute coronary syndrome - Cardiology consult noted-no intervention planned DVT GI prophylaxis - Teds SCDs - Early aggressive mobilization - Regular diet Patient will be transferred out of ICU. Transfer to hospitalist service for further medical management. Pulmonary consult requested. Critical care signing off, please reconsult if needed. Justin Covington MD Jul 21, 2017 17:21
[2017-07-21] MEDS: ASPIRIN EC 81 MG TABEC PO SCH (18:24)
[2017-07-21] MEDS: BUDESONIDE-FORMOTEROL 160/4.5 MCG INHALER INH SCH (20:47)
[2017-07-21] MEDS ORDERED: traZODone HCL 50 MG TAB PO SCH (21:00)
[2017-07-22] VITALS (7 sets, daily range): BP systolic 152–158; BP diastolic 62–79; PULSE 73–99; RESP 18–20; TEMP 97.4–98.6; O2SAT 96–97
[2017-07-22] MEDS: SODIUM CHLOR 0.9% 1000 ML INJ 1,000 ML IV SCH (01:40)
[2017-07-22] MEDS: CHLORHEXIDINE GLUCONATE 2 % 1 PACK (2 CLOTHS) TOP SCH (03:35)
[2017-07-22] MEDS: MORPHINE SULFATE 2 MG/ML INJ IV PRN (03:36)
[2017-07-22 05:17] LABS: AUTOMATED NEUTROPHIL # 13.2 TH/MM3 (1.8-7.7); BASOPHIL % 0.2 % (0.0-2.0); EOSINOPHIL % 0.1 % (0.0-4.0); HEMATOCRIT 35.6 % (39.0-51.0); HEMO FLAGS DIFF FINAL; LYMPH % 9.8 % (9.0-44.0); LYMPHOCYTE # 1.6 TH/MM3 (1.0-4.8); MEAN CELL VOLUME 97.1 FL (80.0-100.0); MEAN CORPUSCULAR HEMOGLOBIN 33.7 PG (27.0-34.0); MEAN CORPUSCULAR HGB CONC 34.7 % (32.0-36.0); MONO % 7.8 % (0.0-8.0); NEUT % 82.1 % (16.0-70.0); PLATELET COUNT 324 TH/MM3 (150-450); RED BLOOD COUNT 3.67 MIL/MM3 (4.50-5.90); RED CELL DISTRIBUTION WIDTH 14.6 % (11.6-17.2)
[2017-07-22 05:32] LABS: ALKALINE PHOSPHATASE 30 U/L (45-117); ALT (GPT) 24 U/L (12-78); ANION GAP 8 MEQ/L (5-15); AST (GOT) 21 U/L (15-37); BICARBONATE 23.5 MEQ/L (21.0-32.0); BLOOD UREA NITROGEN 19 MG/DL (7-18); CHLORIDE 109 MEQ/L (98-107); GLOMERULAR FILTRATION RATE 131 ML/MIN (>89); MAGNESIUM 2.2 MG/DL (1.5-2.5); POTASSIUM 3.7 MEQ/L (3.5-5.1); SODIUM (NA) 140 MEQ/L (136-145); TOTAL BILIRUBIN ADULT 0.6 MG/DL (0.2-1.0)
[2017-07-22 05:38] LABS: INTERNATIONAL NORMALIZED RATIO 1.2 RATIO; PROTHROMBIN TIME - PATIENT 12.6 SEC (9.8-11.6)
--- NOTE | 2017-07-22 06:23 | RADRPT ---
EXAM DATE/TIME: 07/22/2017 05:06 [facility] COMPARISON: CHEST SINGLE AP, July 21, 2017, 11:48. INDICATIONS : Evaluate for pneumothorax MEDICAL HISTORY : Chronic obstructive pulmonary disease. SURGICAL HISTORY : None. ENCOUNTER: Subsequent ACUITY: 2 days PAIN SCORE: 7/10 LOCATION: Bilateral chest FINDINGS: Portable AP view of the chest demonstrates a normal-sized cardiac silhouette. Lungs are hyperaerated plated. No effusion, consolidation, or pneumothorax is appreciated. Bones and soft tissues demonstrat e no acute finding. There is dextroscoliosis of the thoracic spine. CONCLUSION: Stable chest x-ray without findings characteristic of emphysema. Otherwise, no acute finding is ident ified. No pneumothorax is visualized. Smooth Nunez MD on July 22, 2017 at 6:20 Board Certified Radiologist. This report was verified electronically.
[2017-07-22] MEDS: FAMOTIDINE 20 MG/2 ML VIAL IV PUSH SCH (08:38)
[2017-07-22] MEDS: AZITHROMYCIN 250 MG TAB PO SCH (08:38)
[2017-07-22] MEDS: NICOTINE 14 MG/24 HR PATCH T-DERMAL SCH (08:38)
[2017-07-22] MEDS: predniSONE 50 MG TAB PO SCH (08:38)
[2017-07-22] MEDS: ASPIRIN EC 81 MG TABEC PO SCH (08:38)
[2017-07-22] MEDS: LORATADINE 10 MG TAB PO SCH (08:38)
[2017-07-22] MEDS: DOCUSATE SODIUM 50 MG/SENNA 8.6 MG TAB PO SCH (08:38)
[2017-07-22] MEDS: BUDESONIDE-FORMOTEROL 160/4.5 MCG INHALER INH SCH (08:41)
[2017-07-22] MEDS: oxyCODONE/ACETAMINOPHEN 5 MG/325 MG TAB PO PRN ×2 (08:48→13:07)
[2017-07-22] MEDS: SODIUM CHLORIDE 0.9% FLUSH 10 ML FLUSH IV FLUSH SCH (08:49)
[2017-07-22] MEDS ORDERED: REMOVE OLD PATCH T-DERMAL SCH (09:00)
[2017-07-22] MEDS ORDERED: GLUCAGON 1 MG/ML VIAL IV PUSH ONE (12:45)
[2017-07-22] MEDS ORDERED: AZIT250T3 PO (13:03)
[2017-07-22] MEDS ORDERED: TRAM50TA PO (13:03)
[2017-07-22] MEDS ORDERED: ECASA81 PO (13:03)
[2017-07-22] MEDS ORDERED: PRED20 PO (13:03)
--- NOTE | 2017-07-22 13:04 | HHI.DCPOC ---
Discharge Care Plan Diagnosis: (1) Left ventricular hypertrophy by electrocardiogram (2) Lung nodule, solitary (3) COPD exacerbation (4) Elevated troponin (5) Pneumothorax Goals to Promote Your Health * To prevent worsening of your condition and complications * To maintain your health at the optimal level Directions to Meet Your Goals Take your medications as prescribed Follow your dietary instruction Follow activity as directed Keep your appointments as scheduled Take your immunizations and boosters as scheduled If your symptoms worsen call your PCP, if no PCP go to Urgent Care Center or Emergency Room Smoking is Dangerous to Your Health. Avoid second hand smoke Call the 24-hour hour crisis hotline for domestic abuse at Jarred Stout MD Jul 22, 2017 13:04
--- NOTE | 2017-07-22 13:08 | HHI.DS ---
Discharge Summary Admission Date Jul 20, 2017 at 23:43 Discharge Date: Jul 22, 2017 Admitting Diagnosis spontaneous pneumothorax, elevated troponin Brief History - From Admission 61-year-old male with history of emphysema/COPD presents for evaluation of chest pain and dyspnea. His symptoms started 4 days ago when he turned in bed and felt sudden substernal chest pressure "like an elephant sitting on my chest " which has been constant since then and somewhat improved when he leans forward. Associated dyspnea. He has been using his albuterol nebulizers at home but symptoms persisted which prompted evaluation. He endorses a dry cough. The chest x-ray performed in the emergency department shows moderate- sized pneumothorax on the right side. CBC/BMP: 07/22/17 0326 07/22/17 0326 Significant Findings Laboratory Tests Test 07/20/17 22:47 07/21/17 01:00 07/21/17 05:25 07/21/17 12:14 White Blood Count 12.1 TH/MM3 (4.0-11.0) Neutrophils (%) (Auto) 79.9 % (16.0-70.0) Neutrophils # (Auto) 9.7 TH/MM3 (1.8-7.7) Prothrombin Time 12.0 SEC (9.8-11.6) Blood Urea Nitrogen 26 MG/DL (7-18) Random Glucose 125 MG/DL (74-106) Sodium Level 135 MEQ/L (136-145) Chloride Level 97 MEQ/L (98-107) Estimat Glomerular Filtration Rate 74 ML/MIN (>89) Creatine Kinase MB 5.7 NG/ML (0.5-3.6) Troponin I 0.50 NG/ML (0.02-0.05) 0.39 NG/ML (0.02-0.05) 0.38 NG/ML (0.02-0.05) Test 07/22/17 03:26 White Blood Count 16.0 TH/MM3 (4.0-11.0) Red Blood Count 3.67 MIL/MM3 (4.50-5.90) Hemoglobin 12.4 GM/DL (13.0-17.0) Hematocrit 35.6 % (39.0-51.0) Neutrophils (%) (Auto) 82.1 % (16.0-70.0) Neutrophils # (Auto) 13.2 TH/MM3 (1.8-7.7) Monocytes # (Auto) 1.3 TH/MM3 (0-0.9) Prothrombin Time 12.6 SEC (9.8-11.6) Blood Urea Nitrogen 19 MG/DL (7-18) Total Protein 6.1 GM/DL (6.4-8.2) Albumin 3.0 GM/DL (3.4-5.0) Phosphorus Level 2.2 MG/DL (2.5-4.9) Alkaline Phosphatase 30 U/L (45-117) Chloride Level 109 MEQ/L (98-107) Imaging Last Impressions Chest X-Ray 07/22/17 0000 Signed Impressions: Service Date/Time: Monday, July 22, 2017 05:06 - CONCLUSION: Stable chest x-ray without findings characteristic of emphysema. Otherwise, no acute finding is identified. No pneumothorax is visualized. Smooth Nunez MD Pt Condition on Discharge: Stable Discharge Disposition: Discharge Home Discharge Time: <= 30 minutes Discharge Instructions DIET: Follow Instructions for: As Tolerated, No Restrictions Activities you can perform: See Additionl Instruction Activities to Avoid: Lifting/Bending, Strenuous Activity Other Activity Instructions: Avoid lifting heavy objects, also doing strenous exercises. Follow up Referrals: PCP Follow-up - 2-3 Days New Medications: Prednisone (Prednisone) 20 Mg Tab 20 MG PO DIRECTED for Inflammation, #11 TAB 0 Refills Take 40mg daily for 3 days, 20mg daily for 3 days, 10mg daily for 3 days, 5 mg daily for 3 days, then stop. Aspirin DR (Aspirin DR) 81 Mg Tabdr 81 MG PO DAILY for Blood Clot Prevention, #31 TAB Azithromycin (Azithromycin) 250 Mg Tab 250 MG PO DAILY for Infection, #4 TAB Continued Medications: Albuterol 18 GM Inh (Ventolin Hfa 18 GM Inh) 90 Mcg/Act Aer 2 PUFF INH Q4-6H PRN for SHORTNESS OF BREATH, #1 INHALER 0 Refills Albuterol 8.5 GM Inh (Proair Hfa 8.5 GM Inh) 90 Mcg/Act Aer 2 PUFF INH Q4-6H PRN for SHORTNESS OF BREATH, #1 INHALER 108 mcg/actuation Budesonide-Formoterol Inh (Symbicort Inh) 160-4.5 Mcg/Act Aero 2 PUFF INH Q12HR, #1 INHALER 0 Refills Guaifenesin (Guaifenesin) 400 Mg Tab 400 DAILY Hydrochlorothiazide (Hydrochlorothiazide) 25 Mg Tab 25 MG PO DAILY, #30 TAB Loratadine (Claritin) 10 Mg Cap 10 MG PO DAILY for Allergy Management, CAP 0 Refills Nicotine (Nicotine Transdermal Syst) 21 Mg/24 Hour Dis Tramadol (Tramadol) 50 Mg Tab 50 MG PO Q6H PRN for PAIN, #30 TAB 0 Refills (This prescription has been renewed ) Trazodone (Trazodone) 50 Mg Tab 50 MG PO HS for Control Depression, #30 TAB 0 Refills Discontinued Medications: Azithromycin (Azithromycin) 250 Mg Tab 250 MG PO DIRECTED for Infection, #6 TAB Take 2 tabs (500 mg) on day 1 then 1 tab daily x 4 days. Prednisone (Prednisone) 20 Mg Tab 50 MG PO DAILY for 5 Days, TAB Jarred Stout MD Jul 22, 2017 13:08
== END 2017-07-22 14:55 | disposition home or self-care (01) | DRG 200 ==
LOC: NEPC 21:57 → NEDA 23:43 → HIME 07-21 01:10 → N04B 07-21 17:10
PROVIDERS: ADMIT Hospitalist; ATTEND Hospitalist
PROC: 0W9930Z Drainage of Right Pleural Cavity with Drainage Device, Percutaneous Approach (ICD-10-PCS; principal; 2017-07-21)
DX: J93.11 Primary spontaneous pneumothorax (principal); I24.8 Other forms of acute ischemic heart disease; R64 Cachexia; Z68.1 Body mass index [BMI] 19.9 or less, adult; F17.210 Nicotine dependence, cigarettes, uncomplicated; Z96.642 Presence of left artificial hip joint; M54.9 Dorsalgia, unspecified; G89.29 Other chronic pain; I10 Essential (primary) hypertension; J44.9 Chronic obstructive pulmonary disease, unspecified; E78.00 Pure hypercholesterolemia, unspecified; Z85.820 Personal history of malignant melanoma of skin
CPT/HCPCS: 32551; 71010; 80048; 80053; 82550; 82552; 83735; 84100; 84484; 85025; 85610; 85730; 87641; 93005; 96374; 96375; J2270; J2930; J7030; J7512

== ENCOUNTER 2017-07-25 08:39 | Inpatient (IN) | payer OTHER ==
[2017-07-25] VITALS (8 sets, daily range): BP systolic 138–213; BP diastolic 79–96; PULSE 77–97; RESP 18–22; TEMP 96.7–97.9; O2SAT 88–100
[~2017-07-25] VITALS: Ht 167.6 cm; Wt 55.0 kg
[~2017-07-25 08:39] MED LIST changes: +CLAR10CA3 PO; +ECASA81 PO; +GUAI400T32; +NICO1DIS2
[2017-07-25] MEDS ORDERED: LIDOCAINE HCL 1% 50 ML VIAL INFIL ONE (09:00)
[2017-07-25] MEDS ORDERED: LIDOCAINE 1%/EPINEPHrine 1:100,000 SOLN 20 ML VIAL INFIL ONE (09:00)
[2017-07-25] MEDS ORDERED: MORPHINE SULFATE 4 MG/ML INJ IV PUSH ONE ×2 (09:00→10:15)
--- NOTE | 2017-07-25 09:00 | PD ---
HPI Chief Complaint: Respiratory Distress Time Seen by Provider: 08:50 Travel History International Travel<30 days: No Contact w/Intl Traveler<30days: No History of Present Illness HPI This is a 61-year-old male who has a history of COPD who was recently hospitalized in the setting of a spontaneous pneumothorax who woke up this morning with sudden onset shortness of breath, and severe right sided chest discomfort, constant, described as a pressure feeling like he can't take a deep breath. Patient was just hospitalized and discharged 3 days ago in the setting of a spontaneous pneumothorax. At that time he had a chest tube placed and he had resolution of the pneumothorax. PFSH Past Medical History Cancer: No Cardiovascular Problems: No High Cholesterol: Yes COPD: Yes Diabetes: No Endocrine: No Gastrointestinal Disorders: No Genitourinary: No Hepatitis: No Hiatal Hernia: No Hypertension: No Immune Disorder: No Medical other: No Musculoskeletal: Yes (CHRONIC KNEE AND BACK PAIN, FEET PAIN ) Neurologic: Yes (KHRIS. FEET TOES NUMBNESS) Psychiatric: No Respiratory: Yes (COPD) Immunizations Current: Yes Thyroid Disease: No Past Surgical History Abdominal Surgery: Yes (LEFT ING. HERNIA REP.) AICD: No Joint Replacement: Yes (LEFT HIP) Oral Surgery: Yes (TONSILLECTOMY) Pacemaker: No Tonsillectomy: Yes Other Surgery: Yes (CANCEROUS MOLE LEFT BROW, INGUINAL HERNIA REPAIR) Social History Alcohol Use: No Tobacco Use: Yes (1 PACK PER 3 DAYS) Substance Use: No Allergies-Medications (Allergen,Severity, Reaction): Coded Allergies: No Known Allergies (Unverified Allergy, Unknown, 07/21/17) Reported Meds & Prescriptions Reported Meds & Active Scripts Active Prednisone 20 Mg Tab 20 Mg PO DIRECTED Take 40mg daily for 3 days, 20mg daily for 3 days, 10mg daily for 3 days, 5 mg daily for 3 days, then stop. Aspirin DR (Aspirin) 81 Mg Tabdr 81 Mg PO DAILY Azithromycin 250 Mg Tab 250 Mg PO DAILY Tramadol (Tramadol HCl) 50 Mg Tab 50 Mg PO Q6H PRN Proair Hfa 8.5 GM Inh (Albuterol Sulfate) 90 Mcg/Act Aer 2 Puff INH Q4-6H PRN 108 mcg/actuation Reported Claritin (Loratadine) 10 Mg Cap 10 Mg PO DAILY Nicotine Transdermal Syst (Nicotine) 21 Mg/24 Hour Dis Guaifenesin 400 Mg Tab 400 DAILY Hydrochlorothiazide 25 Mg Tab 25 Mg PO DAILY Ventolin Hfa 18 GM Inh (Albuterol Sulfate) 90 Mcg/Act Aer 2 Puff INH Q4-6H PRN Symbicort Inh (Budesonide/Formoterol Fumarate) 160-4.5 Mcg/Act Aero 2 Puff INH Q12HR Trazodone (Trazodone HCl) 50 Mg Tab 50 Mg PO HS Review of Systems Except as stated in HPI: all other systems reviewed are Neg Physical Exam Narrative GENERAL: Uncomfortable appearing. SKIN: Focused skin assessment warm and dry. HEAD: Atraumatic. Normocephalic. EYES: Pupils equal and round. No injection or drainage. ENT: Moist mucous membranes NECK: Trachea midline. CARDIOVASCULAR: Regular rate and rhythm. No murmur appreciated. RESPIRATORY: Splinting, tachypneic, accessory muscle use, poor air movement on the right GASTROINTESTINAL: Abdomen soft, non-tender, nondistended. MUSCULOSKELETAL: No obvious deformities. NEUROLOGICAL: Awake and alert. No obvious cranial nerve deficits. Moving all extremities. PSYCHIATRIC: Appropriate mood and affect; insight and judgment normal. Data Data Last Documented VS Vital Signs Date Time Temp Pulse Resp B/P (MAP) Pulse Ox O2 Delivery O2 Flow Rate FiO2 07/25/17 09:59 85 18 138/91 (107) 98 Nasal Cannula 2.00 07/25/17 08:40 97.9 Orders Orders Prothrombin Time / Inr (Pt) (07/25/17 08:50) Act Partial Throm Time (Ptt) (07/25/17 08:50) Complete Blood Count With Diff (07/25/17 08:50) Basic Metabolic Panel (Bmp) (07/25/17 08:50) ^ Insert Iv (07/25/17 08:50) Chest, Single Ap (07/25/17 ) Lidocai-Epi 1%-1:100,000 Inj (Xylocaine- (07/25/17 09:00) Morphine Inj (Morphine Inj) (07/25/17 09:00) Lidocaine 1% Inj (50 Ml) (Xylocaine 1% I (07/25/17 09:00) Chest, Single Ap (07/25/17 ) Morphine Inj (Morphine Inj) (07/25/17 10:15) Admit Order (Ed Use Only) (07/25/17 11:24) Labs Laboratory Tests Test 07/25/17 08:00 07/25/17 08:18 07/25/17 09:01 White Blood Count 18.3 TH/MM3 Red Blood Count 4.21 MIL/MM3 Hemoglobin 14.4 GM/DL Hematocrit 41.1 % Mean Corpuscular Volume 97.8 FL Mean Corpuscular Hemoglobin 34.3 PG Mean Corpuscular Hemoglobin Concent 35.1 % Red Cell Distribution Width 14.7 % Platelet Count 397 TH/MM3 Mean Platelet Volume 7.6 FL Neutrophils (%) (Auto) 81.7 % Lymphocytes (%) (Auto) 10.0 % Monocytes (%) (Auto) 8.0 % Eosinophils (%) (Auto) 0.2 % Basophils (%) (Auto) 0.1 % Neutrophils # (Auto) 15.0 TH/MM3 Lymphocytes # (Auto) 1.8 TH/MM3 Monocytes # (Auto) 1.5 TH/MM3 Eosinophils # (Auto) 0.0 TH/MM3 Basophils # (Auto) 0.0 TH/MM3 CBC Comment DIFF FINAL Differential Comment Blood Urea Nitrogen 33 MG/DL Creatinine 1.00 MG/DL Random Glucose 107 MG/DL Calcium Level 9.3 MG/DL Sodium Level 138 MEQ/L Potassium Level 4.4 MEQ/L Chloride Level 102 MEQ/L Carbon Dioxide Level 28.8 MEQ/L Anion Gap 7 MEQ/L Estimat Glomerular Filtration Rate 76 ML/MIN Prothrombin Time 11.8 SEC Prothromb Time International Ratio 1.2 RATIO Activated Partial Thromboplast Time 21.9 SEC MDM Medical Decision Making Medical Screen Exam Complete: Yes Emergency Medical Condition: Yes Interpretation(s) Afebrile, tachycardic, hypertensive, hypoxic Last 24 hours Impressions Chest X-Ray 07/25/17 0000 Signed Impressions: Service Date/Time: Tuesday, July 25, 2017 10:09 - CONCLUSION: 1. Right chest tube placement with significant decrease in the right pneumothorax Pj Li MD Chest X-Ray 07/25/17 0000 Signed Impressions: Service Date/Time: Tuesday, July 25, 2017 09:00 - CONCLUSION: Pneumothorax on right requiring chest tube. Yovani Jiménez MD FACR Differential Diagnosis Pneumothorax, hemothorax, COPD exacerbation Narrative Course This is a 61-year-old male who presents to the emergency department with chest discomfort and shortness of breath. He has a history of a recent pneumothorax. Chest x-ray confirmed right sided pneumothorax. Pigtail catheter was placed on the right and patient improved significantly. He has some residual pain in his right shoulder from holding his arm up during the procedure. He was given morphine and patient will be admitted for further management. Critical Care Narrative CHEST TUBE THORACOSTOMY: The right chest was prepped with chlorhexidine and sterilely draped. The area of the fifth intercostal interspace was infiltrated with 1% lidocaine plain. A 1 centimeter incision was made with a scalpel at the fifth intercostal space. A pigtail catheter was inserted. Tube draining well. The thoracostomy tube was secured with sterile dressing. Patient tolerated procedure well. Physician Communication Physician Communication Discussed with Dr. Luis Diagnosis Primary Impression: Spontaneous pneumothorax Admitting Information Admitting Physician Requests: Admit Jeni Alanis MD Jul 25, 2017 09:00
[2017-07-25 09:30] LABS: BASOPHIL % 0.1 % (0.0-2.0); EOSINOPHIL % 0.2 % (0.0-4.0); HEMATOCRIT 41.1 % (39.0-51.0); HEMO FLAGS DIFF FINAL; LYMPHOCYTE # 1.8 TH/MM3 (1.0-4.8); MEAN CELL VOLUME 97.8 FL (80.0-100.0); MEAN CORPUSCULAR HEMOGLOBIN 34.3 PG (27.0-34.0); MEAN CORPUSCULAR HGB CONC 35.1 % (32.0-36.0); NEUT % 81.7 % (16.0-70.0); PLATELET COUNT 397 TH/MM3 (150-450); RED BLOOD COUNT 4.21 MIL/MM3 (4.50-5.90); RED CELL DISTRIBUTION WIDTH 14.7 % (11.6-17.2); WHITE BLOOD COUNT 18.3 TH/MM3 (4.0-11.0)
[2017-07-25 09:39] LABS: APTT (PATIENT) 21.9 SEC (24.3-30.1); INTERNATIONAL NORMALIZED RATIO 1.2 RATIO; PROTHROMBIN TIME - PATIENT 11.8 SEC (9.8-11.6)
--- NOTE | 2017-07-25 09:47 | RADRPT ---
EXAM DATE/TIME: 07/25/2017 09:00 [facility] COMPARISON: CHEST SINGLE AP, July 22, 2017, 5:06. INDICATIONS : Short of breath chest tube removed 3 days ago. MEDICAL HISTORY : Chronic obstructive pulmonary disease. SURGICAL HISTORY : Chest tube. ENCOUNTER: Initial ACUITY: 1 day PAIN SCORE: 0/10 LOCATION: Bilateral chest FINDINGS: Moderate pneumothorax on the right knee to chest tube. Left lung is clear. Moderate scoliosis. CONCLUSION: Pneumothorax on right requiring chest tube. Yovani Jiménez MD FACR on July 25, 2017 at 9:44 Board Certified Radiologist. This report was verified electronically.
[2017-07-25 09:58] LABS: BICARBONATE 28.8 MEQ/L (21.0-32.0); POTASSIUM 4.4 MEQ/L (3.5-5.1)
--- NOTE | 2017-07-25 10:53 | RADRPT ---
EXAM DATE/TIME: 07/25/2017 10:09 [facility] COMPARISON: CHEST SINGLE AP, July 25, 2017, 9:00. INDICATIONS : Evaluate for pneumothorax. MEDICAL HISTORY : Chronic obstructive pulmonary disease. SURGICAL HISTORY : None. ENCOUNTER: Subsequent ACUITY: 1 day PAIN SCORE: 9/10 LOCATION: Right chest FINDINGS: The cardiac silhouette is normal in transverse diameter. A right-sided chest tube is in place with si gnificant decrease in the right pneumothorax with approximately 2 cm separation of the apex. There ar e no signs of tension. The lungs are free of acute parenchymal opacity. No effusions are identified. CONCLUSION: 1. Right chest tube placement with significant decrease in the right pneumothorax Pj Li MD on July 25, 2017 at 10:50 Board Certified Radiologist. This report was verified electronically.
[2017-07-25] MEDS ORDERED: CYCLOBENZAPRINE HCL 10 MG TAB PO ONE (12:15)
[2017-07-25] MEDS: HEPARIN SODIUM - SQ 10,000 UNITS/ML VIAL SQ SCH ×2 (15:45→20:13)
[2017-07-25] MEDS ORDERED: NALOXONE HCL 0.4 MG/ML AMP IV PUSH PRN (15:45)
[2017-07-25] MEDS ORDERED: BISACODYL 10 MG SUPP RECTAL PRN (15:45)
[2017-07-25] MEDS ORDERED: MAGNESIUM HYDROXIDE SUSP 30 ML CUP PO PRN (15:45)
[2017-07-25] MEDS ORDERED: HYDROmorphone HCL PF 1 MG/ML VIAL IV PUSH PRN (15:45)
[2017-07-25] MEDS ORDERED: SODIUM CHLORIDE 0.9% FLUSH 10 ML FLUSH IV FLUSH PRN (15:45)
[2017-07-25] MEDS ORDERED: LACTULOSE SYRUP 20 GM/30 ML CUP PO PRN (15:45)
[2017-07-25] MEDS ORDERED: SENNOSIDES 8.6 MG TAB PO PRN (15:45)
[2017-07-25] MEDS: HYDROmorphone HCL PF 1 MG/ML VIAL IV PUSH PRN ×2 (15:58→20:07)
[2017-07-25] MEDS ORDERED: HYDROmorphone HCL PF 1 MG/ML VIAL IV PUSH ONE (17:30)
--- NOTE | 2017-07-25 17:57 | HHI.HP ---
[facility] Admission Diagnosis pneumothorax Diagnoses: Chief Complaint: SOB Travel History International Travel<30 Days: No Contact w/Intl Traveler <30 Da: No History of Present Illness This is a 61-year-old male with past medical history of COPD with very well- known to me as recently he was hospitalized the setting with spontaneous pneumothorax a few days ago. The patient at the time was treated with chest tube after which the pneumothorax resolved. The patient states that he went home and he woke up the morning of admission with side onset shortness of breath and severe right-sided chest discomfort but denies any pain. He described the discomfort as pressure feeling like he could not take a deep breath. Otherwise the patient denies any increasing cough, sputum production, fevers, chills, nausea, vomiting or diarrhea. Patient states that he did not take things as easy as he should. Review of Systems As per HPI, other systems reviewed by me and negative Past Family Social History Past Medical History COPD, obstructive sleep apnea, DJD. Past Surgical History Hip replacement in 2013 Right knee replacement in 2012. Reported Medications Reported Meds & Active Scripts Active Prednisone 20 Mg Tab 20 Mg PO DIRECTED Take 40mg daily for 3 days, 20mg daily for 3 days, 10mg daily for 3 days, 5 mg daily for 3 days, then stop. Aspirin DR (Aspirin) 81 Mg Tabdr 81 Mg PO DAILY Azithromycin 250 Mg Tab 250 Mg PO DAILY Tramadol (Tramadol HCl) 50 Mg Tab 50 Mg PO Q6H PRN Proair Hfa 8.5 GM Inh (Albuterol Sulfate) 90 Mcg/Act Aer 2 Puff INH Q4-6H PRN 108 mcg/actuation Reported Claritin (Loratadine) 10 Mg Cap 10 Mg PO DAILY Nicotine Transdermal Syst (Nicotine) 21 Mg/24 Hour Dis Guaifenesin 400 Mg Tab 400 DAILY Hydrochlorothiazide 25 Mg Tab 25 Mg PO DAILY Ventolin Hfa 18 GM Inh (Albuterol Sulfate) 90 Mcg/Act Aer 2 Puff INH Q4-6H PRN Symbicort Inh (Budesonide/Formoterol Fumarate) 160-4.5 Mcg/Act Aero 2 Puff INH Q12HR Trazodone (Trazodone HCl) 50 Mg Tab 50 Mg PO HS Allergies: Coded Allergies: No Known Allergies (Unverified Allergy, Unknown, 07/21/17) Family History Patient's mother has multiple sclerosis. Social History Patient denies an alcohol, however states that he smokes cigarettes about half a pack per day. Physical Exam Vital Signs Vital Signs Date Time Temp Pulse Resp B/P (MAP) Pulse Ox O2 Delivery O2 Flow Rate FiO2 07/25/17 16:38 96.7 78 19 171/81 (111) 97 07/25/17 16:28 18 07/25/17 13:56 83 18 172/79 (110) 100 Nasal Cannula 1.00 07/25/17 11:50 81 18 156/80 (105) 98 Nasal Cannula 2.00 07/25/17 09:59 85 18 138/91 (107) 98 Nasal Cannula 2.00 07/25/17 08:50 94 18 100 Non-Rebreather 15.00 07/25/17 08:40 97.9 97 22 213/96 (135) 88 Room Air Physical Exam GENERAL: This is a well-nourished, well-developed patient, in no apparent distress. SKIN: No rashes, ecchymoses or lesions. Cool and dry. HEAD: Atraumatic. Normocephalic. No temporal or scalp tenderness. EYES: Pupils equal round and reactive. Extraocular motions intact. No scleral icterus. No injection or drainage. ENT: Nose without bleeding, purulent drainage or septal hematoma. Throat without erythema, tonsillar hypertrophy or exudate. Uvula midline. Airway patent. NECK: Trachea midline. No JVD or lymphadenopathy. Supple, nontender, no meningeal signs. CARDIOVASCULAR: Regular rate and rhythm without murmurs, gallops, or rubs. RESPIRATORY: Clear to auscultation. Breath sounds decreased on left lower lung field with some mild diffuse expiratory wheezing over same site. GASTROINTESTINAL: Abdomen soft, non-tender, nondistended. No hepato-splenomegaly , or palpable masses. No guarding. MUSCULOSKELETAL: Extremities without clubbing, cyanosis, or edema. No joint tenderness, effusion, or edema noted. No calf tenderness. Negative Homans sign bilaterally. NEUROLOGICAL: Awake and alert. Cranial nerves II through XII intact. Motor and sensory grossly within normal limits. Five out of 5 muscle strength in all muscle groups. Normal speech. Laboratory Laboratory Tests Test 07/25/17 08:00 07/25/17 08:18 07/25/17 09:01 White Blood Count 18.3 Red Blood Count 4.21 Hemoglobin 14.4 Hematocrit 41.1 Mean Corpuscular Volume 97.8 Mean Corpuscular Hemoglobin 34.3 Mean Corpuscular Hemoglobin Concent 35.1 Red Cell Distribution Width 14.7 Platelet Count 397 Mean Platelet Volume 7.6 Neutrophils (%) (Auto) 81.7 Lymphocytes (%) (Auto) 10.0 Monocytes (%) (Auto) 8.0 Eosinophils (%) (Auto) 0.2 Basophils (%) (Auto) 0.1 Neutrophils # (Auto) 15.0 Lymphocytes # (Auto) 1.8 Monocytes # (Auto) 1.5 Eosinophils # (Auto) 0.0 Basophils # (Auto) 0.0 CBC Comment DIFF FINAL Differential Comment Blood Urea Nitrogen 33 Creatinine 1.00 Random Glucose 107 Calcium Level 9.3 Sodium Level 138 Potassium Level 4.4 Chloride Level 102 Carbon Dioxide Level 28.8 Anion Gap 7 Estimat Glomerular Filtration Rate 76 Prothrombin Time 11.8 Prothromb Time International Ratio 1.2 Activated Partial Thromboplast Time 21.9 Result Diagram: 07/25/17 0800 07/25/17 0818 Imaging Last Impressions Chest X-Ray 07/25/17 0000 Signed Impressions: Service Date/Time: Tuesday, July 25, 2017 10:09 - CONCLUSION: 1. Right chest tube placement with significant decrease in the right pneumothorax Pj Li MD Reviewed by la Capmilenai VTE Risk Assessment Caprini VTE Risk Assessment: Mod/High Risk (score >= 2) Caprini Risk Assessment Model Point Value = 1 Point Value = 2 Point Value = 3 Point Value = 5 Age 41-60 Minor surgery BMI > 25 kg/m2 Swollen legs Varicose veins or History of unexplained or recurrent spontaneous Oral contraceptives or hormone replacement Sepsis (< 1 month) Serious lung disease, including pneumonia (< 1 month) Abnormal pulmonary function Acute myocardial infarction Congestive heart failure (< 1 month) History of inflammatory bowel disease Medical patient at bed rest Age 61-74 Arthroscopic surgery Major open surgery (> 45 min) Laparoscopic surgery (> 45 min) Malignancy Confined to bed (> 72 hours) Immobilizing plaster cast Central venous access Age >= 75 History of VTE Family history of VTE Factor V Leiden Prothrombin [id number] Lupus anticoagulant Anticardiolipin antibodies Elevated serum homocysteine Heparin-induced thrombocytopenia Other congenital or acquired thrombophilia Stroke (< 1 month) Elective arthroplasty Hip, pelvis, or leg fracture Acute spinal cord injury (< 1 month) Prophylaxis Regimen Total Risk Factor Score Risk Level Prophylaxis Regimen 0-1 Low Early ambulation 2 Moderate Order ONE of the following: *Sequential Compression Device (SCD) *Heparin 5000 units SQ BID 3-4 Higher Order ONE of the following medications: *Heparin 5000 units SQ TID *Enoxaparin/Lovenox 40 mg SQ daily (WT < 150 kg, CrCl > 30 mL/min) *Enoxaparin/Lovenox 30 mg SQ daily (WT < 150 kg, CrCl > 10-29 mL/min) *Enoxaparin/Lovenox 30 mg SQ BID (WT < 150 kg, CrCl > 30 mL/min) AND/OR *Sequential Compression Device (SCD) 5 or more Highest Order ONE of the following medications: *Heparin 5000 units SQ TID (Preferred with Epidurals) *Enoxaparin/Lovenox 40 mg SQ daily (WT < 150 kg, CrCl > 30 mL/min) *Enoxaparin/Lovenox 30 mg SQ daily (WT < 150 kg, CrCl > 10-29 mL/min) *Enoxaparin/Lovenox 30 mg SQ BID (WT < 150 kg, CrCl > 30 mL/min) AND *Sequential Compression Device (SCD) Assessment and Plan Problem List: (1) Recurrent spontaneous pneumothorax ICD Code: J93.83 - Other pneumothorax (2) COPD (chronic obstructive pulmonary disease) ICD Code: J44.9 - Chronic obstructive pulmonary disease, unspecified Assessment and Plan Admit the patient to the medical floor Continue prednisone Continue Albuterol inhaler Will place on duoneb treatments as needed. Pulmonary consult Pigtail chest tube to low suction pain control w IV dilaudid Supplemntal o2 to keep o2 sat > 92% heparin Sq for DVT prophylaxis repeat cxr in am Code Status Full code Discussed Condition With ED physician Physician Certification 2 Midnight Certification Type: Admission for Inpatient Services Order for Inpatient Services The services are ordered in accordance with Medicare regulations or non- Medicare payer requirements, as applicable. In the case of services not specified as inpatient-only, they are appropriately provided as inpatient services in accordance with the 2-midnight benchmark. Estimated LOS (days): 2 days is the estimated time the patient will need to remain in the hospital, assuming treatment plan goals are met and no additional complications. Post-Hospital Plan: Home Jarred Stout MD Jul 25, 2017 17:56
[2017-07-25] MEDS: DOCUSATE SODIUM 50 MG/SENNA 8.6 MG TAB PO SCH (20:05)
[2017-07-25] MEDS: SODIUM CHLORIDE 0.9% FLUSH 10 ML FLUSH IV FLUSH SCH (20:08)
[2017-07-25] MEDS ORDERED: ZOLPIDEM TARTRATE 5 MG TAB PO ONE (22:15)
--- NOTE | 2017-07-25 22:30 | EKG ---
Date Performed: 07/25/2017 Time Performed: 08:58:39 PTAGE: 61 years EKG: Sinus rhythm NONSPECIFIC T-WAVE ABNORMALITY BORDERLINE ECG Compared to prior tracing no significant change DOCTOR: Isauro Trejo Interpretating Date/Time 07/25/2017 22:28:58
[2017-07-26] VITALS: BP 166/78; PULSE 81; RESP 18; TEMP 96.4; O2SAT 97
[2017-07-26] MEDS: HYDROmorphone HCL PF 1 MG/ML VIAL IV PUSH PRN ×6 (00:06→20:15)
[2017-07-26] MEDS ORDERED: HYDROCHLOROTHIAZIDE 25 MG TAB PO ONE (01:00)
[2017-07-26] MEDS ORDERED: ALBUTEROL SULFATE 90 MCG/ACT HFA 8 GM INHALER INH PRN (02:00)
[2017-07-26] MEDS ORDERED: RESP: ALBUTEROL 2.5 MG/IPRATROPIUM 0.5 MG NEB (PRN) NEB (02:00)
[2017-07-26 04:00] VITALS: BP 171/81; PULSE 69; RESP 18; TEMP 96.2; O2SAT 96
[2017-07-26] MEDS: HEPARIN SODIUM - SQ 10,000 UNITS/ML VIAL SQ SCH ×3 (06:24→20:04)
[2017-07-26 08:00] VITALS: BP 177/82; PULSE 74; PULSE 76; RESP 18; TEMP 97.3; O2SAT 96
[2017-07-26] MEDS: predniSONE 20 MG TAB PO SCH (08:11)
[2017-07-26] MEDS: LORATADINE 10 MG TAB PO SCH (08:12)
[2017-07-26] MEDS: HYDROCHLOROTHIAZIDE 25 MG TAB PO SCH (08:12)
[2017-07-26] MEDS: SODIUM CHLORIDE 0.9% FLUSH 10 ML FLUSH IV FLUSH SCH ×2 (08:13→20:04)
[2017-07-26] MEDS: DOCUSATE SODIUM 50 MG/SENNA 8.6 MG TAB PO SCH ×2 (08:17→20:04)
[2017-07-26] MEDS ORDERED: AZITHROMYCIN 250 MG TAB PO SCH (09:00)
[2017-07-26] MEDS ORDERED: ACETAMINOPHEN/HYDROcodone 325 MG/5 MG TAB PO PRN (09:00)
[2017-07-26] MEDS ORDERED: cloNIDine HCL 0.1 MG TAB PO PRN (09:00)
[2017-07-26] MEDS ORDERED: ENALAPRILAT 1.25 MG/ML VIAL IV PUSH PRN (09:00)
[2017-07-26] MEDS: ACETAMINOPHEN/HYDROcodone 325 MG/10 MG TAB PO PRN ×4 (10:10→22:38)
[2017-07-26] MEDS: BUDESONIDE-FORMOTEROL 160/4.5 MCG INHALER INH SCH ×2 (10:15→20:03)
[2017-07-26 12:00] VITALS: BP 146/74; PULSE 81; RESP 17; TEMP 96.2; O2SAT 95
[2017-07-26 16:00] VITALS: BP 132/90; PULSE 90; RESP 17; TEMP 95.3; O2SAT 97
--- NOTE | 2017-07-26 17:27 | HHI.PR ---
Subjective Remarks F/u Ptx. Doing ok wants CT removed dw RN. Recent chest CT to follow up lung nodule did not show bleb per patient. Also [facility]. Also dw Pulmo, may need repeat chest CT and CTS consult. Objective Vitals Vital Signs Date Time Temp Pulse Resp B/P (MAP) Pulse Ox O2 Delivery O2 Flow Rate FiO2 07/26/17 16:00 95.3 90 17 132/90 (104) 97 07/26/17 15:25 18 07/26/17 12:48 18 07/26/17 12:00 96.2 81 17 146/74 (98) 95 07/26/17 08:00 74 07/26/17 08:00 97.3 76 18 177/82 (113) 96 07/26/17 04:00 96.2 69 18 171/81 (111) 96 07/26/17 00:00 81 07/26/17 00:00 96.4 81 18 166/78 (107) 97 07/25/17 20:01 81 07/25/17 20:00 97.5 77 18 163/79 (107) 97 07/25/17 18:08 18 07/25/17 18:04 97 Nasal Cannula 1.00 I/O 07/25/17 07/25/17 07/25/17 07/26/17 07/26/17 07/26/17 07:00 15:00 23:00 07:00 15:00 23:00 Intake Total 480 ml Output Total 201 ml 1632 ml Balance -201 ml -1152 ml Intake Oral 480 ml Output Urine Total 200 ml 1625 ml Chest Tube Drainage Total 1 ml 7 ml # Bowel Movements 0 Result Diagram: 07/25/17 0800 07/25/17 0818 Imaging Last Impressions Chest X-Ray 07/25/17 0000 Signed Impressions: Service Date/Time: Tuesday, July 25, 2017 10:09 - CONCLUSION: 1. Right chest tube placement with significant decrease in the right pneumothorax Pj Li MD Objective Remarks GENERAL: Well-developed, well-nourished in no distress SKIN: Warm and dry. HEAD: Atraumatic. Normocephalic. EYES: Pupils equal and round. No scleral icterus. No injection or drainage. ENT: No nasal bleeding or discharge. Mucous membranes pink and moist. NECK: Trachea midline. No JVD. CARDIOVASCULAR: Regular rate and rhythm. RESPIRATORY: No accessory muscle use. Clear to auscultation. Breath sounds equal bilaterally. CT in place GASTROINTESTINAL: Abdomen soft, non-tender, nondistended. MUSCULOSKELETAL: Extremities without clubbing, cyanosis, or edema. No obvious deformities. NEUROLOGICAL: Awake and alert. No obvious cranial nerve deficits. Motor grossly within normal limits. Five out of 5 muscle strength in the arms and legs. Normal speech. PSYCHIATRIC: Appropriate mood and affect; insight and judgment normal. A/P Problem List: (1) Recurrent spontaneous pneumothorax ICD Code: J93.83 - Other pneumothorax (2) COPD (chronic obstructive pulmonary disease) ICD Code: J44.9 - Chronic obstructive pulmonary disease, unspecified Assessment and Plan Recurrent pneumothorax in a patient with history of COPD. Continue chest tube management per pulmonary. Discussed with Dr. Coronado, consider repeat chest CT without contrast and consult CTS. [facility]btain records from [facility] regarding recent [facility] CT and nuclear study. Leukocytosis secondary to steroids. Monitor Hyperglycemia. Obtain A1c Hypertension. Continue Hydrocort thiazide DVT prophylaxis with heparin Discharge Planning Not ready for discharge Enrique Starr MD Jul 26, 2017 17:27
--- NOTE | 2017-07-26 18:06 | MB ---
cc: DENA FERNANDES M.D. DATE OF CONSULTATION 07/26/2017 REASON FOR CONSULTATION Recurrent right pneumothorax. HISTORY OF PRESENT ILLNESS Mr. Johnson is a 61-year-old male with known history of COPD admitted last week with evidence of a right pneumothorax. Chest tube was placed, pneumothorax resolved, chest tube removed. The patient discharged to return again with recurrent right pneumothorax. Chest tube in place with resolution of the right pneumothorax. The patient has no shortness of breath. No fever. No chills. No cough or expectoration. PAST MEDICAL HISTORY His past history is that of: 1. COPD. 2. Hypertension. 3. Hyperlipidemia. 4. Previous hernia repair. 5. T&A as a child. 6. And left hip surgery. MEDICATIONS AT HOME Blood pressure medication ALLERGIES None known to medications. FAMILY HISTORY Noncontributory. SOCIAL HISTORY Long heavy smoking history, continues to smoke til present time. Does not use drugs. Drinks alcohol socially. No TB or industrial exposure. REVIEW OF SYSTEMS 12-point review of systems as per HPI and past history otherwise negative. PHYSICAL EXAMINATION GENERAL: The patient is alert, oriented x3 in no distress. VITAL SIGNS: Temperature 98, pulse 78, respirations 18, blood pressure 140/78. HEENT: Exam unremarkable. Eyes without icterus. NECK: Without adenopathy or thyroid enlargement. Central trachea. CHEST: Without dullness to percussion, clear to auscultation. CARDIOVASCULAR: Cardiac exam PMI distant. S1-S2 audible. No murmur or rub. ABDOMEN: Lax. Bowel sounds audible. EXTREMITIES: No clubbing, cyanosis or edema. IMPRESSION 1. Recurrent right pneumothorax. 2. Hypertension. 3. Hyperlipidemia. 4. Tobacco abuse. 5. COPD. PLAN The patient has a chest tube in place. The pneumothorax is resolved. I discussed the options with the patient as to future management and care. He does not want to pursue any surgical intervention at this point. Would like to treat conservatively as long as possible. Therefore will continue chest tube drainage. There does not seem to be a leak at present. We will give one or two days prior to removing chest tube, hopefully this will prevent future recurrence. I do thank you for asking me to partake in Mr. Johnson' care. MD JHON Portillo/AUDELIA /4:43 PM /5:44 PM
[2017-07-26 20:00] VITALS: BP 165/84; PULSE 86; PULSE 95; RESP 20; TEMP 96.6; O2SAT 97
[2017-07-26] MEDS: traZODone HCL 50 MG TAB PO SCH (20:09)
[2017-07-26 21:50] LABS: HEMOGLOBIN A1a 0.9 %; HEMOGLOBIN A1b 1.1 %; HEMOGLOBIN Ao 84.1 %; HEMOGLOBIN LA1C 2.7 %; HEMOGLOBIN P3 5.6 %
[2017-07-27] VITALS (7 sets, daily range): BP systolic 139–168; BP diastolic 77–82; PULSE 70–101; RESP 16–20; TEMP 96.4–97.9; O2SAT 95–97
[2017-07-27] MEDS: HYDROmorphone HCL PF 1 MG/ML VIAL IV PUSH PRN ×6 (00:50→21:40)
[2017-07-27] MEDS: ACETAMINOPHEN/HYDROcodone 325 MG/10 MG TAB PO PRN ×6 (03:07→20:42)
[2017-07-27] MEDS: HEPARIN SODIUM - SQ 10,000 UNITS/ML VIAL SQ SCH ×3 (05:08→20:48)
--- NOTE | 2017-07-27 07:33 | HHI.DCPOC ---
Discharge Care Plan Diagnosis: (1) Spontaneous pneumothorax (2) COPD (chronic obstructive pulmonary disease) (3) Recurrent spontaneous pneumothorax Your Health Problems Are: Shortness of Breath Goals to Promote Your Health * To prevent worsening of your condition and complications * To maintain your health at the optimal level Directions to Meet Your Goals Take your medications as prescribed Follow your dietary instruction Follow activity as directed Keep your appointments as scheduled Take your immunizations and boosters as scheduled If your symptoms worsen call your PCP, if no PCP go to Urgent Care Center or Emergency Room Smoking is Dangerous to Your Health. Avoid second hand smoke Call the 24-hour hour crisis hotline for domestic abuse at Marcus Faulkner Jul 27, 2017 07:33
[2017-07-27] MEDS: DOCUSATE SODIUM 50 MG/SENNA 8.6 MG TAB PO SCH ×2 (07:59→20:46)
[2017-07-27] MEDS: SODIUM CHLORIDE 0.9% FLUSH 10 ML FLUSH IV FLUSH SCH ×2 (07:59→20:49)
[2017-07-27] MEDS: HYDROCHLOROTHIAZIDE 25 MG TAB PO SCH (07:59)
[2017-07-27] MEDS: predniSONE 20 MG TAB PO SCH (08:00)
[2017-07-27] MEDS: BUDESONIDE-FORMOTEROL 160/4.5 MCG INHALER INH SCH ×2 (08:03→20:46)
[2017-07-27 08:08] LABS: AUTOMATED NEUTROPHIL # 10.9 TH/MM3 (1.8-7.7); BASOPHIL % 0.1 % (0.0-2.0); EOSINOPHIL # 0.2 TH/MM3 (0-0.4); EOSINOPHIL % 1.4 % (0.0-4.0); HEMATOCRIT 41.5 % (39.0-51.0); HEMO FLAGS DIFF FINAL; LYMPH % 17.4 % (9.0-44.0); LYMPHOCYTE # 2.6 TH/MM3 (1.0-4.8); MEAN CELL VOLUME 97.5 FL (80.0-100.0); MEAN CORPUSCULAR HEMOGLOBIN 33.8 PG (27.0-34.0); MEAN CORPUSCULAR HGB CONC 34.6 % (32.0-36.0); MONO % 8.5 % (0.0-8.0); NEUT % 72.6 % (16.0-70.0); PLATELET COUNT 381 TH/MM3 (150-450); RED BLOOD COUNT 4.26 MIL/MM3 (4.50-5.90); RED CELL DISTRIBUTION WIDTH 14.4 % (11.6-17.2)
[2017-07-27 08:28] LABS: BICARBONATE 33.3 MEQ/L (21.0-32.0); MAGNESIUM 2.2 MG/DL (1.5-2.5); POTASSIUM 3.9 MEQ/L (3.5-5.1)
[2017-07-27] MEDS: LORATADINE 10 MG TAB PO SCH (09:00)
--- NOTE | 2017-07-27 14:03 | HHI.PR ---
Subjective Remarks Follow-up pneumothorax. Patient doing okay wants chest tube removed so he can go home. Discussed with RN Objective Vitals Vital Signs Date Time Temp Pulse Resp B/P (MAP) Pulse Ox O2 Delivery O2 Flow Rate FiO2 07/27/17 12:00 97.9 91 18 145/78 (100) 95 07/27/17 08:00 96.5 70 18 160/77 (104) 95 07/27/17 04:00 96.4 72 20 161/81 (107) 96 07/27/17 00:00 96.4 78 20 168/82 (110) 96 07/26/17 20:00 95 07/26/17 20:00 96.6 86 20 165/84 (111) 97 07/26/17 16:00 95.3 90 17 132/90 (104) 97 07/26/17 15:25 18 I/O 07/26/17 07/26/17 07/26/17 07/27/17 07/27/17 07/27/17 07:00 15:00 23:00 07:00 15:00 23:00 Intake Total 480 ml 740 ml 480 ml Output Total 1632 ml 2060 ml 775 ml Balance -1152 ml -1320 ml -295 ml Intake Oral 480 ml 740 ml 480 ml Output Urine Total 1625 ml 2050 ml 775 ml Chest Tube Drainage Total 7 ml 10 ml 0 ml # Bowel Movements 0 0 0 Result Diagram: 07/27/17 0725 07/27/17 0725 Imaging Last Impressions Chest X-Ray 07/25/17 0000 Signed Impressions: Service Date/Time: Tuesday, July 25, 2017 10:09 - CONCLUSION: 1. Right chest tube placement with significant decrease in the right pneumothorax Pj Li MD Objective Remarks GENERAL: Well-developed, well-nourished in no distress SKIN: Warm and dry. CARDIOVASCULAR: Regular rate and rhythm. RESPIRATORY: No accessory muscle use. Clear to auscultation. Breath sounds equal bilaterally. CT in place GASTROINTESTINAL: Abdomen soft, non-tender, nondistended. MUSCULOSKELETAL: Extremities without clubbing, cyanosis, or edema. No obvious deformities. NEUROLOGICAL: Awake and alert. No obvious cranial nerve deficits. Motor grossly within normal limits. Five out of 5 muscle strength in the arms and legs. Normal speech. PSYCHIATRIC: Appropriate mood and affect; insight and judgment normal. Procedures Chest tube insertion A/P Problem List: (1) Recurrent spontaneous pneumothorax ICD Code: J93.83 - Other pneumothorax (2) COPD (chronic obstructive pulmonary disease) ICD Code: J44.9 - Chronic obstructive pulmonary disease, unspecified Assessment and Plan Recurrent pneumothorax in a patient with history of COPD. Continue chest tube management per pulmonary. Discussed with Dr. Coronado, consider repeat chest CT without contrast and consult CTS however patient does not want surgical intervention at this time. Obtain records from [place] regarding recent chest CT and nuclear study. Leukocytosis secondary to steroids. Improving. Monitor Hyperglycemia. A1c 5.5 Hypertension. Continue hydrochlorothiazide DVT prophylaxis with heparin Discharge Planning Discharge when chest tube removed. Patient aware he is not allowed to ride in an airplane until cleared by pulmonary because of recent pneumothorax Enrique Starr MD Jul 27, 2017 14:03
[2017-07-27] MEDS ORDERED: HYDR-3583 PO (14:15)
--- NOTE | 2017-07-27 16:13 | HHI.PR ---
Subjective Remarks ALERT NO SOB CT NO LEAK Objective Vital Signs Date Time Temp Pulse Resp B/P (MAP) Pulse Ox O2 Delivery O2 Flow Rate FiO2 07/27/17 12:00 97.9 91 18 145/78 (100) 95 07/27/17 08:00 96.5 70 18 160/77 (104) 95 07/27/17 04:00 96.4 72 20 161/81 (107) 96 07/27/17 00:00 96.4 78 20 168/82 (110) 96 07/26/17 20:00 95 07/26/17 20:00 96.6 86 20 165/84 (111) 97 I/O 07/26/17 07/26/17 07/26/17 07/27/17 07/27/17 07/27/17 07:00 15:00 23:00 07:00 15:00 23:00 Intake Total 480 ml 740 ml 480 ml Output Total 1632 ml 2060 ml 775 ml Balance -1152 ml -1320 ml -295 ml Intake Oral 480 ml 740 ml 480 ml Output Urine Total 1625 ml 2050 ml 775 ml Chest Tube Drainage Total 7 ml 10 ml 0 ml # Bowel Movements 0 0 0 Result Diagram: 07/27/1772407/27/17724 Objective Remarks GENERAL: SKIN: Warm and dry. HEAD: Atraumatic. Normocephalic. EYES: Pupils equal and round. No scleral icterus. No injection or drainage. ENT: No nasal bleeding or discharge. Mucous membranes pink and moist. NECK: Trachea midline. No JVD. CARDIOVASCULAR: Regular rate and rhythm. RESPIRATORY: No accessory muscle use. Clear to auscultation. Breath sounds equal bilaterally. GASTROINTESTINAL: Abdomen soft, non-tender, nondistended. Hepatic and splenic margins not palpable. MUSCULOSKELETAL: Extremities without clubbing, cyanosis, or edema. No obvious deformities. NEUROLOGICAL: Awake and alert. No obvious cranial nerve deficits. Motor grossly within normal limits. Five out of 5 muscle strength in the arms and legs. Normal speech. PSYCHIATRIC: Appropriate mood and affect; insight and judgment normal. Assessment and Plan Assessment and Plan [id number] RIGHT CT IN PLACE NO LEAK PLAN CLAMP TUBE REMOVE IF POSSIBLE Ivonne Coronado MD Jul 27, 2017 16:13
[2017-07-27] MEDS: traZODone HCL 50 MG TAB PO SCH (20:46)
[2017-07-27] MEDS ORDERED: ZOLPIDEM TARTRATE 5 MG TAB PO ONE (21:45)
[2017-07-28] VITALS (7 sets, daily range): BP systolic 130–171; BP diastolic 72–81; PULSE 77–95; RESP 18–20; TEMP 96.1–97.9; O2SAT 95–98
[2017-07-28] MEDS: ACETAMINOPHEN/HYDROcodone 325 MG/10 MG TAB PO PRN ×6 (00:35→22:23)
[2017-07-28] MEDS: HYDROmorphone HCL PF 1 MG/ML VIAL IV PUSH PRN ×4 (03:18→21:27)
[2017-07-28] MEDS: HEPARIN SODIUM - SQ 10,000 UNITS/ML VIAL SQ SCH ×3 (04:49→21:26)
--- NOTE | 2017-07-28 06:46 | RADRPT ---
EXAM DATE/TIME: 07/28/2017 06:23 [facility] COMPARISON: CHEST SINGLE AP, July 25, 2017, 10:09. INDICATIONS : Evaluate for pneumothorax. MEDICAL HISTORY : Chronic obstructive pulmonary disease. SURGICAL HISTORY : None. ENCOUNTER: Subsequent ACUITY: 1 week PAIN SCORE: 4/10 LOCATION: chest FINDINGS: A right-sided chest tube is again seen, partially uncoiled distally since the previous study. Severe emphysematous changes are identified. There is hyperinflation on the right. A right-sided pneumothora x is present, visualized laterally from the right mid lung to the right lung base. Left lung is clear . Heart size normal. CONCLUSION: Moderate right-sided pneumothorax. Emphysema. Bobby Goodwin MD on July 28, 2017 at 6:44 Board Certified Radiologist. This report was verified electronically.
[2017-07-28] MEDS: BUDESONIDE-FORMOTEROL 160/4.5 MCG INHALER INH SCH ×2 (07:52→21:27)
[2017-07-28] MEDS: LORATADINE 10 MG TAB PO SCH (08:00)
[2017-07-28] MEDS: predniSONE 20 MG TAB PO SCH (08:00)
[2017-07-28] MEDS: SODIUM CHLORIDE 0.9% FLUSH 10 ML FLUSH IV FLUSH SCH ×2 (08:00→21:27)
[2017-07-28] MEDS: HYDROCHLOROTHIAZIDE 25 MG TAB PO SCH (08:00)
[2017-07-28] MEDS ORDERED: ZOLPIDEM TARTRATE 5 MG TAB PO PRN (08:00)
[2017-07-28] MEDS: DOCUSATE SODIUM 50 MG/SENNA 8.6 MG TAB PO SCH ×2 (08:00→21:26)
--- NOTE | 2017-07-28 10:58 | HHI.PR ---
Subjective Remarks Follow-up pneumothorax. Denies chest pain and shortness of breath despite repeat chest x-ray today showing moderate right sided pneumothorax. This time he agrees to be evaluated by cardiothoracic surgery secondary to recurrent pneumothorax. Discussed with RN Objective Vitals Vital Signs Date Time Temp Pulse Resp B/P (MAP) Pulse Ox O2 Delivery O2 Flow Rate FiO2 07/28/17 08:00 96.8 89 18 154/81 (105) 95 07/28/17 04:00 97.9 82 20 130/76 (94) 97 07/28/17 00:48 77 07/28/17 00:00 97.0 81 20 140/72 (94) 95 07/27/17 20:50 97.7 88 17 156/80 (105) 97 07/27/17 19:45 87 07/27/17 16:00 97.3 101 16 139/78 (98) 95 07/27/17 12:00 97.9 91 18 145/78 (100) 95 I/O 07/27/17 07/27/17 07/27/17 07/28/17 07/28/17 07/28/17 07:00 15:00 23:00 07:00 15:00 23:00 Intake Total 480 ml 1490 ml 400 ml Output Total 775 ml 1600 ml 500 ml Balance -295 ml -110 ml -100 ml Intake Oral 480 ml 1490 ml 400 ml Output Urine Total 775 ml 1600 ml 500 ml Chest Tube Drainage Total 0 ml # Bowel Movements 0 0 Result Diagram: 07/27/17 0725 07/27/17 0725 Imaging Last Impressions Chest X-Ray 07/28/17 06 Signed Impressions: Service Date/Time: Friday, July 28, 2017 06:23 - CONCLUSION: Moderate right-sided pneumothorax. Emphysema. Bobby Goodwin MD Objective Remarks GENERAL: Well-developed, well-nourished in no distress SKIN: Warm and dry. CARDIOVASCULAR: Regular rate and rhythm. RESPIRATORY: No accessory muscle use. Clear to auscultation. Breath sounds equal bilaterally. CT in place GASTROINTESTINAL: Abdomen soft, non-tender, nondistended. MUSCULOSKELETAL: Extremities without clubbing, cyanosis, or edema. No obvious deformities. NEUROLOGICAL: Awake and alert. No obvious cranial nerve deficits. Motor grossly within normal limits. Five out of 5 muscle strength in the arms and legs. Normal speech. PSYCHIATRIC: Appropriate mood and affect; insight and judgment normal. Procedures Chest tube insertion A/P Problem List: (1) Recurrent spontaneous pneumothorax ICD Code: J93.83 - Other pneumothorax (2) COPD (chronic obstructive pulmonary disease) ICD Code: J44.9 - Chronic obstructive pulmonary disease, unspecified Assessment and Plan Recurrent pneumothorax in a patient with history of COPD. IR to place another chest tube because of moderate pneumothorax on repeat chest x-ray today. Consult cardiothoracic surgery. Repeat chest CT since records from [place] regarding recent chest CT and nuclear study still pending. Leukocytosis secondary to steroids. Improving. Monitor Hyperglycemia. A1c 5.5 Hypertension. Continue hydrochlorothiazide Anxiety. Start Ativan DVT prophylaxis with heparin Discharge Planning Discharge when chest tube removed. Patient aware he is not allowed to ride in an airplane until cleared by pulmonary because of recent pneumothorax Enrique Starr MD Jul 28, 2017 10:58
[2017-07-28] MEDS ORDERED: LIDOCAINE 1%/EPINEPHrine 1:100,000 SOLN 20 ML VIAL ONE (12:49)
[2017-07-28] MEDS: LORazepam 0.5 MG TAB PO PRN ×2 (15:14→21:26)
--- NOTE | 2017-07-28 15:15 | HHI.PR ---
Subjective Remarks ALERT NO SOB CT NO LEAK cxray , recurrent PNX Objective Vital Signs Date Time Temp Pulse Resp B/P (MAP) Pulse Ox O2 Delivery O2 Flow Rate FiO2 07/28/17 12:00 96.2 95 18 168/78 (108) 98 07/28/17 08:00 96.8 89 18 154/81 (105) 95 07/28/17 04:00 97.9 82 20 130/76 (94) 97 07/28/17 00:48 77 07/28/17 00:00 97.0 81 20 140/72 (94) 95 07/27/17 20:50 97.7 88 17 156/80 (105) 97 07/27/17 19:45 87 07/27/17 16:00 97.3 101 16 139/78 (98) 95 I/O 07/27/17 07/27/17 07/27/17 07/28/17 07/28/17 07/28/17 07:00 15:00 23:00 07:00 15:00 23:00 Intake Total 480 ml 1490 ml 400 ml Output Total 775 ml 1600 ml 500 ml Balance -295 ml -110 ml -100 ml Intake Oral 480 ml 1490 ml 400 ml Output Urine Total 775 ml 1600 ml 500 ml Chest Tube Drainage Total 0 ml # Bowel Movements 0 0 Result Diagram: 07/27/1772407/27/17724 Objective Remarks GENERAL: SKIN: Warm and dry. HEAD: Atraumatic. Normocephalic. EYES: Pupils equal and round. No scleral icterus. No injection or drainage. ENT: No nasal bleeding or discharge. Mucous membranes pink and moist. NECK: Trachea midline. No JVD. CARDIOVASCULAR: Regular rate and rhythm. RESPIRATORY: No accessory muscle use. Clear to auscultation. Breath sounds equal bilaterally. GASTROINTESTINAL: Abdomen soft, non-tender, nondistended. Hepatic and splenic margins not palpable. MUSCULOSKELETAL: Extremities without clubbing, cyanosis, or edema. No obvious deformities. NEUROLOGICAL: Awake and alert. No obvious cranial nerve deficits. Motor grossly within normal limits. Five out of 5 muscle strength in the arms and legs. Normal speech. PSYCHIATRIC: Appropriate mood and affect; insight and judgment normal. Assessment and Plan Assessment and Plan SPONTANEOUSPNX RIGHT CT IN PLACE NO LEAK PLAN IR REPOSITIONED CT Ivonne Coronado MD Jul 28, 2017 15:15
--- NOTE | 2017-07-28 15:18 | RADRPT ---
EXAM DATE/TIME: 07/28/2017 13:14 INDICATIONS : Right pneumothorax and chest tube. DEVICE(S): 1.) 10 Fr Luiz MEDICAL HISTORY : Chronic obstructive pulmonary disease. Hypertension. SURGICAL HISTORY : Tonsillectomy. ENCOUNTER: Initial ACUITY: 1 day PAIN SCORE: 3/10 LOCATION: Right chest PROCEDURE: PROCEDURE : 1. CT-guided tube exchange. 2. Conscious sedation with continuous EKG and Oximetry monitoring. Using automated exposure control and adjustment of the mA and/or kV according to patient size, radiat ion dose was kept as low as reasonably achievable to obtain optimal diagnostic quality images. DICOM format image data is available electronically for review and comparison. The site was prepped in sterile fashion. Full sterile technique was used, including cap, mask, steri le gloves and gown and a large sterile sheet. Hand hygiene and 2% chlorhexidine and/or betadine/alco hol prep was utilized per protocol for cutaneous antisepsis. The skin and subcutaneous tissues were infiltrated with local anesthetic solution. With CT guidance, the previously placed tube was exchanged for the prescribed catheter as above. Pos t procedure image demonstrates satisfactory position of the tube. The catheter was sutured in place and a Percu-Stay was applied. Conscious sedation was performed with the prescribed dosages and duration as above in the presence of an independent trained radiology nurse to assist in the monitoring of the patient. EKG and oximetry remained stable throughout the procedure. The patient tolerated the procedure well and there were n o complications. The patient was sent to post anesthesia recovery in stable condition. CONCLUSION: Uncomplicated tube exchange as above. Pj Li MD on July 28, 2017 at 15:16 Board Certified Radiologist. This report was verified electronically.
--- NOTE | 2017-07-28 15:51 | RADRPT ---
EXAM DATE/TIME: 07/28/2017 13:10 [facility] COMPARISON: CT GUIDED CATHETER EXCHANGE, July 28, 2017, 13:14. INDICATIONS : Right pneumothorax. RADIATION DOSE: 5.98 CTDIvol (mGy) MEDICAL HISTORY : Chronic obstructive pulmonary disease. Hypertension. SURGICAL HISTORY : Tonsillectomy. ENCOUNTER: Initial ACUITY: 1 day PAIN SCALE: 3/10 LOCATION: Right chest TECHNIQUE: Volumetric scanning of the chest was performed. Using automated exposure control and adjustment of t he mA and/or kV according to patient size, radiation dose was kept as low as reasonably achievable to obtain optimal diagnostic quality images. DICOM format image data is available electronically for r eview and comparison. Follow-up recommendations for detected pulmonary nodules are based at a minimum on nodule size and pa tient risk factors according to Fleischner Society Guidelines. FINDINGS: LUNGS: Severe emphysematous changes are identified throughout both hemithoraces. There is a 6.2 cm bleb medi ally in the left upper lobe. A [place] loop catheter is identified in the right hemithorax. There is a s mall anterior and anteromedial pneumothorax with possibly a loculated pneumothorax posteriorly in the apex. The 1.4 x 0.6 cm nodule in the left upper lobe laterally. MEDIASTINUM: 4.1 cm descending thoracic aortic aneurysm. Atherosclerotic calcification of the coronary arteries. N o lymphadenopathy. AXILLAE: Within normal limits. No lymphadenopathy. MUSCULOSKELETAL: Within normal limits for patient age. MISCELLANEOUS: The visualized upper abdominal organs demonstrate no acute abnormality. Adjacent to the right-sided t horacostomy tube, there is a small hematoma in the lateral chest wall. CONCLUSION: 1. Severe bilateral emphysematous changes with a small, middle lobe anterior and medial pneumothorax and possibly a loculated right upper lobe posterior pneumothorax. 2. Mild 0.4 x 0.6 cm nodule laterally in the left upper lung. Recommend followup noncontrasted CT sca n of the chest in 6 months to ensure stability. 3. Small chest wall hematoma laterally on the right adjacent to the small [place] loop thoracostomy tube . 4. 4.1 cm descending thoracic aortic aneurysm. Hugo Buenrostro MD on July 28, 2017 at 15:41 Board Certified Radiologist. This report was verified electronically.
--- NOTE | 2017-07-28 18:34 | MB ---
cc: JORDYN REESE M.D. DATE OF CONSULTATION: 07/28/2017. HISTORY OF PRESENT ILLNESS: 61-year-old male with history of COPD who was recently admitted July 20 and discharged July 22 for chest pressure. Chest x-ray in the emergency department showed a moderate-sized right pneumothorax. Chest tube was inserted by the emergency room physician and the pneumothorax resolved and he was then discharged home. The patient continued to smoke cigarettes. He was readmitted on the 25 of July with recurrent spontaneous pneumothorax. A pigtail catheter was inserted by the emergency department again. CT scan of the chest shows bilateral blebs. Apparently they had a change out the right chest tube by interventional radiology under CT-guided exchange. The patient continues to have a right-sided chest tube. There is no air leak. It is to suction. We were consulted because of recurrent spontaneous pneumothorax. After speaking with the patient, at this time he says he was told by interventional radiology that it is possible for his pneumothorax to resolve and that he would rather have it be taken out without any complications and did not want to undergo any thoracic surgery at this time unless there was no other alternative. Dr. Reese spoke directly to the patient and there is a possibility that interventional radiology could possibly do a pleurodesis through the tube that he has; if not, please re-consult us. PAST MEDICAL HISTORY: 1. Recurrent spontaneous pneumothorax. 2. Severe COPD. 3. Obstructive sleep apnea. 4. Degenerative joint disease. PAST SURGICAL HISTORY: 1. Hip replacement. 2. Right knee replacement. 3. Arthritis. ALLERGIES: NO KNOWN ALLERGIES. HOME MEDICATIONS: 1. Claritin. 2. Zithromax. 3. Ventolin. 4. Nicotine patch. 5. Aspirin. 6. Lortab. 7. Tramadol. 8. Trazodone. 9. Hydrochlorothiazide. 10. Symbicort. 11. Prednisone. FAMILY HISTORY: Noncontributory. SOCIAL HISTORY: The patient continues to smoke. He smoked up to three packs of cigarettes at one time. He is down to half a pack. He has been smoking since he was in his early teens. Denies any alcohol. REVIEW OF SYSTEMS: GENERAL: In general, no night sweats, fever, heat or cold intolerance SKIN: No psoriasis, itching or hives. HEAD, EYES, EARS, NOSE, THROAT: No blurred vision, hearing loss. RESPIRATORY: Positive for shortness of breath. Occasional cough. CARDIOVASCULAR: No current chest pain. No paroxysmal nocturnal dyspnea. No orthopnea. GASTROINTESTINAL: No diarrhea, vomiting. GENITOURINARY: No burning frequency, urgency STERILE SUPERVISOR: No history of TIA, CVA, seizure disorder. ENDOCRINE: No history of diabetes and/or hypothyroidism. PHYSICAL EXAMINATION: VITAL SIGNS: Blood pressure 150/80, heart rate of 80, afebrile, 02 saturation 98. GENERAL: Patient is awake, alert and in no acute distress. HEAD, EYES, EARS, NOSE, THROAT: Head is normocephalic, atraumatic. Pupils equal and reactive. Oral mucosa pink, moist. NECK: The neck is supple. No jugular venous distention. HEART: Heart sounds S1-S2 regular rate and rhythm. No rubs, murmurs, gallops. He has the right-sided chest tube to wall suction. No air leak noted. Minimal drainage. LUNGS: Diminished in the right lower lobe, otherwise clear to auscultation. EXTREMITIES: No cyanosis, clubbing or edema. LABORATORY FINDINGS: Shows hemoglobin 14, hematocrit of 41, white cell count of 15, platelet count 381,000. Sodium 134, potassium 3.9, BUN 24, creatinine 0.89, magnesium 2.2, INR 1.2. RADIOLOGICAL STUDIES: Radiological exams as above. IMPRESSION: This is a gentleman who is recurrent spontaneous pneumothorax. Currently he is refusing any surgical procedure at this time. Recommend possible evaluation by interventional radiology for pleurodesis if possible through the chest tube that he currently has. If he does not resolve his pneumothorax, the patient said he will think about having surgery, which would include right video-assisted thoracoscopy with bulla resection and possible right upper lobectomy. Please re-consult accordingly. Dictated by CARLYN Car. PRASANTH Car/MALI /3:44 PM /6:00 PM
[2017-07-28] MEDS ORDERED: PILL SPLITTER OTHER PRN (19:30)
[2017-07-28] MEDS: METOPROLOL TARTRATE 25 MG TAB PO SCH (21:26)
[2017-07-28] MEDS: traZODone HCL 50 MG TAB PO SCH (21:26)
[2017-07-29] VITALS (9 sets, daily range): BP systolic 110–156; BP diastolic 60–84; PULSE 66–94; RESP 16–18; TEMP 96–97.6; O2SAT 94–98
[2017-07-29] MEDS: HEPARIN SODIUM - SQ 10,000 UNITS/ML VIAL SQ SCH ×3 (05:47→22:08)
[2017-07-29] MEDS: ACETAMINOPHEN/HYDROcodone 325 MG/10 MG TAB PO PRN ×5 (05:47→22:08)
--- NOTE | 2017-07-29 06:11 | RADRPT ---
EXAM DATE/TIME: 07/29/2017 05:19 [facility] COMPARISON: No previous studies available for comparison. INDICATIONS : Pneumothorax. MEDICAL HISTORY : Chronic obstructive pulmonary disease. SURGICAL HISTORY : None. ENCOUNTER: Subsequent ACUITY: 1 week PAIN SCORE: 4/10 LOCATION: Bilateral chest FINDINGS: There is hyperinflation consistent with underlying emphysema again noted. Aorta is tortuous. There is cardiomegaly. There has been interval placement of a right-sided chest tube. No pneumothorax noted o n the previous study is not well visualized on the current study, not clearly seen. CONCLUSION: Interval chest tube placement on the right. A pneumothorax is not clearly seen. Bobby Goodwin MD on July 29, 2017 at 6:09 Board Certified Radiologist. This report was verified electronically.
[2017-07-29] MEDS: SODIUM CHLORIDE 0.9% FLUSH 10 ML FLUSH IV FLUSH SCH ×2 (10:08→19:30)
[2017-07-29] MEDS: LORATADINE 10 MG TAB PO SCH (10:09)
[2017-07-29] MEDS: predniSONE 20 MG TAB PO SCH (10:09)
[2017-07-29] MEDS: METOPROLOL TARTRATE 25 MG TAB PO SCH ×2 (10:10→19:29)
[2017-07-29] MEDS: DOCUSATE SODIUM 50 MG/SENNA 8.6 MG TAB PO SCH ×2 (10:10→19:28)
[2017-07-29] MEDS: HYDROCHLOROTHIAZIDE 25 MG TAB PO SCH (10:10)
[2017-07-29] MEDS: BUDESONIDE-FORMOTEROL 160/4.5 MCG INHALER INH SCH ×2 (10:14→19:29)
[2017-07-29] MEDS: HYDROmorphone HCL PF 1 MG/ML VIAL IV PUSH PRN ×4 (11:14→23:34)
[2017-07-29] MEDS: NICOTINE 21 MG/24 HR PATCH T-DERMAL SCH (11:15)
--- NOTE | 2017-07-29 14:34 | HHI.PR ---
Subjective Remarks Follow-up pneumothorax. Denies chest pain and shortness of breath. Discussed with RN Objective Vitals Vital Signs Date Time Temp Pulse Resp B/P (MAP) Pulse Ox O2 Delivery O2 Flow Rate FiO2 07/29/17 12:00 96.9 78 18 141/81 (101) 95 07/29/17 08:00 96.0 67 17 125/60 (81) 97 07/29/17 04:00 97.6 85 16 132/68 (89) 96 07/29/17 04:00 70 07/29/17 00:00 96.6 82 17 142/83 (102) 96 07/29/17 00:00 71 07/28/17 20:00 86 07/28/17 20:00 Nasal Cannula 2.00 07/28/17 20:00 97.0 92 18 143/76 (98) 96 07/28/17 16:00 96.1 89 19 171/80 (110) 95 I/O 07/28/17 07/28/17 07/28/17 07/29/17 07/29/17 07/29/17 07:00 15:00 23:00 07:00 15:00 23:00 Intake Total 400 ml 720 ml 360 ml Output Total 500 ml 900 ml 300 ml Balance -100 ml -180 ml 60 ml Intake Oral 400 ml 720 ml 360 ml IV Total 0 ml Output Urine Total 500 ml 900 ml 300 ml Chest Tube Drainage Total 0 ml Result Diagram: 07/27/17 0725 07/27/17 0725 Imaging Last Impressions Chest X-Ray 07/29/17 0600 Signed Impressions: Service Date/Time: Saturday, July 29, 2017 05:19 - CONCLUSION: Interval chest tube placement on the right. A pneumothorax is not clearly seen. Bobby Goodwin MD Chest CT 07/28/17 0000 Signed Impressions: Service Date/Time: Friday, July 28, 2017 13:10 - CONCLUSION: 1. Severe bilateral emphysematous changes with a small, middle lobe anterior and medial pneumothorax and possibly a loculated right upper lobe posterior pneumothorax. 2. Mild 0.4 x 0.6 cm nodule laterally in the left upper lung. Recommend followup noncontrasted CT scan of the chest in 6 months to ensure stability. 3. Small chest wall hematoma laterally on the right adjacent to the small [place] loop thoracostomy tube. 4. 4.1 cm descending thoracic aortic aneurysm. Hugo Buenrostro MD Catheter Change 07/28/17 0000 Signed Impressions: Service Date/Time: Friday, July 28, 2017 13:14 - CONCLUSION: Uncomplicated tube exchange as above. Pj Li MD Objective Remarks GENERAL: Well-developed, well-nourished in no distress SKIN: Warm and dry. CARDIOVASCULAR: Regular rate and rhythm. RESPIRATORY: No accessory muscle use. Clear to auscultation. Breath sounds equal bilaterally. CT in place GASTROINTESTINAL: Abdomen soft, non-tender, nondistended. MUSCULOSKELETAL: Extremities without clubbing, cyanosis, or edema. No obvious deformities. NEUROLOGICAL: Awake and alert. No obvious cranial nerve deficits. Motor grossly within normal limits. Five out of 5 muscle strength in the arms and legs. Normal speech. PSYCHIATRIC: Appropriate mood and affect; insight and judgment normal. Procedures Chest tube insertion and repositioning A/P Problem List: (1) Recurrent spontaneous pneumothorax ICD Code: J93.83 - Other pneumothorax (2) COPD (chronic obstructive pulmonary disease) ICD Code: J44.9 - Chronic obstructive pulmonary disease, unspecified Assessment and Plan Recurrent pneumothorax in a patient with history of COPD. Status post exchange of chest tube. Repeat chest x-ray today showed no pneumothorax. He is stable he does not want any surgery but willing to undergo pleurodesis. Will consult IR. Follow-up records from [place] regarding recent chest CT and nuclear study still pending. Tobacco cessation Also has nodule in the left upper lung. Repeat CAT scan in 6 months Thoracic aortic aneurysm. Start beta edu. Status post cardiothoracic surgery evaluation. Leukocytosis secondary to steroids. Improving. Monitor Hyperglycemia. A1c 5.5 Hypertension. Continue hydrochlorothiazide Anxiety. Continue Ativan DVT prophylaxis with heparin Discharge Planning Discharge when chest tube removed. Patient aware he is not allowed to ride in an airplane until cleared by pulmonary because of recent pneumothorax Enrique Starr MD Jul 29, 2017 14:34
[2017-07-29] MEDS: LORazepam 0.5 MG TAB PO PRN ×2 (16:51→22:43)
[2017-07-29] MEDS: traZODone HCL 50 MG TAB PO SCH (19:28)
[2017-07-30 00:02] VITALS: PULSE 86
--- NOTE | 2017-07-30 00:21 | RADRPT ---
EXAM DATE/TIME: 07/29/2017 23:53 [facility] COMPARISON: CHEST SINGLE AP, July 29, 2017, 5:19. INDICATIONS : Possible pneumothorax as a result of a premature accidental removal of a right sided pigtail catheter . MEDICAL HISTORY : Chronic obstructive pulmonary disease. SURGICAL HISTORY : None. ENCOUNTER: Subsequent ACUITY: 4 - 6 days PAIN SCORE: 3/10 LOCATION: Right chest FINDINGS: Tarsi is normal. Scoliosis is present and unchanged. Marked hyperinflation of both lungs. A pigtail c atheter seen previously on the right is not present. There is vague parenchymal infiltrate in the rig ht upper lobe the region of the previous catheter placement. I do not see a pneumothorax. CONCLUSION: No definite pneumothorax. Bobby Goodwin MD on July 30, 2017 at 0:19 Board Certified Radiologist. This report was verified electronically.
[2017-07-30] MEDS: ACETAMINOPHEN/HYDROcodone 325 MG/10 MG TAB PO PRN ×4 (01:58→14:47)
[2017-07-30] MEDS: HYDROmorphone HCL PF 1 MG/ML VIAL IV PUSH PRN ×3 (03:28→12:38)
[2017-07-30 03:55] VITALS: PULSE 84
[2017-07-30 04:40] VITALS: BP 139/79; PULSE 74; RESP 18; TEMP 96.6; O2SAT 96
[2017-07-30] MEDS: HEPARIN SODIUM - SQ 10,000 UNITS/ML VIAL SQ SCH ×2 (05:58→12:35)
[2017-07-30 08:00] VITALS: BP 129/96; PULSE 78; RESP 18; TEMP 95.7; O2SAT 98
[2017-07-30 08:26] VITALS: PULSE 86
[2017-07-30] MEDS: HYDROCHLOROTHIAZIDE 25 MG TAB PO SCH (08:26)
[2017-07-30] MEDS: BUDESONIDE-FORMOTEROL 160/4.5 MCG INHALER INH SCH (08:26)
[2017-07-30] MEDS: SODIUM CHLORIDE 0.9% FLUSH 10 ML FLUSH IV FLUSH SCH (08:26)
[2017-07-30] MEDS: LORATADINE 10 MG TAB PO SCH (08:26)
[2017-07-30] MEDS: METOPROLOL TARTRATE 25 MG TAB PO SCH (08:26)
[2017-07-30] MEDS: DOCUSATE SODIUM 50 MG/SENNA 8.6 MG TAB PO SCH (08:26)
[2017-07-30] MEDS: NICOTINE 21 MG/24 HR PATCH T-DERMAL SCH (08:27)
[2017-07-30] MEDS ORDERED: REMOVE OLD PATCH T-DERMAL SCH (09:00)
--- NOTE | 2017-07-30 09:59 | RADRPT ---
EXAM DATE/TIME: 07/30/2017 09:15 [facility] COMPARISON: CHEST SINGLE AP, July 29, 2017, 23:53. INDICATIONS : Pneumothorax. MEDICAL HISTORY : Chronic obstructive pulmonary disease. SURGICAL HISTORY : None. ENCOUNTER: Subsequent ACUITY: 4 - 6 days PAIN SCORE: 4/10 LOCATION: Right chest FINDINGS: Mild patchy consolidation in both upper lobes again noted, not significantly changed. No pleural effu kirt. No pneumothorax. Heart size stable, normal. CONCLUSION: 1. Mild patchy upper lobe consolidation not significantly changed. 2. No pneumothorax. Smooth Pathak MD on July 30, 2017 at 9:55 Board Certified Radiologist. This report was verified electronically.
[2017-07-30] MEDS: LORazepam 0.5 MG TAB PO PRN (10:17)
[2017-07-30 12:00] VITALS: BP 142/76; PULSE 80; PULSE 83; RESP 17; TEMP 96.2; O2SAT 97
[2017-07-30] MEDS ORDERED: METO25TA3 PO (13:19)
--- NOTE | 2017-07-30 13:40 | HHI.DS ---
Discharge Summary Admission Date Jul 25, 2017 at 11:25 Discharge Date: Jul 30, 2017 Admitting Diagnosis pneumothorax (1) Recurrent spontaneous pneumothorax ICD Code: J93.83 - Other pneumothorax Diagnosis: Principal (2) COPD (chronic obstructive pulmonary disease) ICD Code: J44.9 - Chronic obstructive pulmonary disease, unspecified Diagnosis: Principal Procedures Chest tube insertion and repositioning Brief History - From Admission This is a 61-year-old male with past medical history of COPD with very well- known to me as recently he was hospitalized the setting with spontaneous pneumothorax a few days ago. The patient at the time was treated with chest tube after which the pneumothorax resolved. The patient states that he went home and he woke up the morning of admission with side onset shortness of breath and severe right-sided chest discomfort but denies any pain. He described the discomfort as pressure feeling like he could not take a deep breath. Otherwise the patient denies any increasing cough, sputum production, fevers, chills, nausea, vomiting or diarrhea. Patient states that he did not take things as easy as he should. CBC/BMP: 07/27/17 0725 07/27/17 0725 Imaging Last Impressions Chest X-Ray 07/30/17 0000 Signed Impressions: Service Date/Time: Sunday, July 30, 2017 09:15 - CONCLUSION: 1. Mild patchy upper lobe consolidation not significantly changed. 2. No pneumothorax. Smooth Pathak MD Chest CT 07/28/17 0000 Signed Impressions: Service Date/Time: Friday, July 28, 2017 13:10 - CONCLUSION: 1. Severe bilateral emphysematous changes with a small, middle lobe anterior and medial pneumothorax and possibly a loculated right upper lobe posterior pneumothorax. 2. Mild 0.4 x 0.6 cm nodule laterally in the left upper lung. Recommend followup noncontrasted CT scan of the chest in 6 months to ensure stability. 3. Small chest wall hematoma laterally on the right adjacent to the small [place] loop thoracostomy tube. 4. 4.1 cm descending thoracic aortic aneurysm. Hugo Buenrostro MD Catheter Change 07/28/17 0000 Signed Impressions: Service Date/Time: Friday, July 28, 2017 13:14 - CONCLUSION: Uncomplicated tube exchange as above. Pj Li MD PE at Discharge GENERAL: Well-developed, well-nourished in no distress SKIN: Warm and dry. CARDIOVASCULAR: Regular rate and rhythm. RESPIRATORY: No accessory muscle use. Clear to auscultation. Breath sounds equal bilaterally. CT in place GASTROINTESTINAL: Abdomen soft, non-tender, nondistended. MUSCULOSKELETAL: Extremities without clubbing, cyanosis, or edema. No obvious deformities. NEUROLOGICAL: Awake and alert. No obvious cranial nerve deficits. Motor grossly within normal limits. Five out of 5 muscle strength in the arms and legs. Normal speech. PSYCHIATRIC: Appropriate mood and affect; insight and judgment normal. Hospital Course Recurrent pneumothorax in a patient with history of COPD. Chest tube was inserted and later exchanged. Then it was accidentally removed 07/29/17. Follow up chest x-ray x 2 showed no pneumothorax. He is stable he does not want any surgery but willing to undergo pleurodesis(when he still had CT). Tobacco cessation Hx nodule in the left upper lung. [facility]. Again does not want sx ct beta edu. Leukocytosis secondary to steroids. Improving. Monitor Hyperglycemia. A1c 5.5 Hypertension. Continue hydrochlorothiazide Anxiety. Continue Ativan DVT prophylaxis with heparin Pt Condition on Discharge: Stable Discharge Disposition: Discharge Home Discharge Time: > 30 minutes Discharge Instructions DIET: Follow Instructions for: As Tolerated, No Restrictions Activities you can perform: Regular-No Restrictions Activities to Avoid: Driving Follow up Referrals: PCP Follow-up - 1 Week Pulmonology - 1 Week New Medications: Hydrocodone/Acetaminophen (Hydrocodone-Acetamin 10-325 mg) 10 Mg-325 Mg Tablet 1 TAB PO Q6H PRN for PAIN SCALE 6 TO 10, #20 TAB Metoprolol Tartrate (Metoprolol Tartrate) 25 Mg Tab 12.5 MG PO Q12HR for Regulate Heart Beat, #60 TAB Continued Medications: Albuterol 18 GM Inh (Ventolin Hfa 18 GM Inh) 90 Mcg/Act Aer 2 PUFF INH Q4-6H PRN for SHORTNESS OF BREATH, #1 INHALER [address] (Aspirin DR) 81 Mg Tabdr 81 MG PO DAILY for Blood Clot Prevention, #31 TAB Budesonide-Formoterol Inh (Symbicort Inh) 160-4.5 Mcg/Act Aero 2 PUFF INH Q12HR, #1 INHALER 0 Refills Guaifenesin (Guaifenesin) 400 Mg Tab 400 DAILY Hydrochlorothiazide (Hydrochlorothiazide) 25 Mg Tab 25 MG PO DAILY, #30 TAB Loratadine (Claritin) 10 Mg Cap 10 MG PO DAILY for Allergy Management, CAP 0 Refills Nicotine (Nicotine Transdermal Syst) 21 Mg/24 Hour Dis Trazodone (Trazodone) 50 Mg Tab 50 MG PO HS for Control Depression, #30 TAB 0 Refills Discontinued Medications: Albuterol 8.5 GM Inh (Proair Hfa 8.5 GM Inh) 90 Mcg/Act Aer 2 PUFF INH Q4-6H PRN for SHORTNESS OF BREATH, #1 INHALER 108 mcg/actuation Azithromycin (Azithromycin) 250 Mg Tab 250 MG PO DAILY for Infection, #4 TAB Prednisone (Prednisone) 20 Mg Tab 20 MG PO DIRECTED for Inflammation, #11 TAB 0 Refills Take 40mg daily for 3 days, 20mg daily for 3 days, 10mg daily for 3 days, 5 mg daily for 3 days, then stop. Tramadol (Tramadol) 50 Mg Tab 50 MG PO Q6H PRN for PAIN, #30 TAB 0 Refills Enrique Starr MD Jul 30, 2017 13:40
== END 2017-07-30 15:08 | disposition home or self-care (01) | DRG 201 ==
LOC: NEPE 08:39 → NEDA 11:25 → N07B 16:26
PROVIDERS: ADMIT Internal Medicine; ATTEND Internal Medicine
PROC: 0W9930Z Drainage of Right Pleural Cavity with Drainage Device, Percutaneous Approach (ICD-10-PCS; principal; 2017-07-25)
PROC: 0W29X0Z Change Drainage Device in Right Pleural Cavity, External Approach (ICD-10-PCS; 2017-07-28)
DX: J93.83 Other pneumothorax (principal); I71.2 Thoracic aortic aneurysm, without rupture; J44.9 Chronic obstructive pulmonary disease, unspecified; M54.9 Dorsalgia, unspecified; M25.569 Pain in unspecified knee; G89.29 Other chronic pain; R20.0 Anesthesia of skin; F17.210 Nicotine dependence, cigarettes, uncomplicated; G47.33 Obstructive sleep apnea (adult) (pediatric); M19.90 Unspecified osteoarthritis, unspecified site; Z79.82 Long term (current) use of aspirin; Z79.52 Long term (current) use of systemic steroids; R91.1 Solitary pulmonary nodule; R73.9 Hyperglycemia, unspecified; I10 Essential (primary) hypertension; F41.9 Anxiety disorder, unspecified; E78.5 Hyperlipidemia, unspecified; D72.829 Elevated white blood cell count, unspecified; Z85.828 Personal history of other malignant neoplasm of skin; Z96.651 Presence of right artificial knee joint; Z96.642 Presence of left artificial hip joint
CPT/HCPCS: 32551; 71010; 71250; 75984; 80048; 83036; 83735; 84100; 85025; 85610; 85730; 93005; 96374; 96376; C1729; C1769; J1170; J1644; J2270; J7512

== ENCOUNTER 2017-07-30 18:09 | Inpatient (IN) | payer OTHER ==
[~2017-07-30] VITALS: Ht 172.7 cm; Wt 52.5 kg
[~2017-07-30 18:09] MED LIST changes: -ALBUAER3 INH; -AZIT250T3 PO; +HYDR-3583 PO; +METO25TA3 PO; -PRED20 PO; -TRAM50TA PO
[2017-07-30 18:21] VITALS: BP 205/117; PULSE 102; RESP 26; TEMP 98.5; O2SAT 92
[2017-07-30] MEDS ORDERED: ETOMIDATE 20 MG/10 ML VIAL IV PUSH ONE (18:45)
--- NOTE | 2017-07-30 18:45 | RADRPT ---
EXAM DATE/TIME: 07/30/2017 18:35 [facility] COMPARISON: CHEST SINGLE AP, July 30, 2017, 9:15. INDICATIONS : Short of Breath MEDICAL HISTORY : Chronic obstructive pulmonary disease. SURGICAL HISTORY : None. ENCOUNTER: Initial ACUITY: 1 day PAIN SCORE: 7/10 LOCATION: Right chest FINDINGS: There is a large pneumothorax on the right. There is shift of the heart and mediastinal structures to wards the left consistent with tension. The left lung is clear. CONCLUSION: Large right tension pneumothorax. This information was called to E pod in the emergency room. I was i nformed the ER was inserted a chest tube. Smooth Buck MD on July 30, 2017 at 18:41 Board Certified Radiologist. This report was verified electronically.
[2017-07-30 19:00] VITALS: BP 216/112; PULSE 101; RESP 24; O2SAT 100
[2017-07-30] MEDS ORDERED: LIDOCAINE 1%/EPINEPHrine 1:100,000 SOLN 20 ML VIAL INFIL ONE (19:00)
[2017-07-30 19:15] VITALS: RESP 28; O2SAT 92
--- NOTE | 2017-07-30 19:28 | HHI.HP ---
[facility] Service Family Medicine Primary Care Physician [facility] Admission Diagnosis spont tension PTX, COPD Diagnoses: International Travel<30 Days: No Contact w/Intl Traveler<30days: No Known Affected Area: No History of Present Illness 61 year old man arriving to the ED after being discharged from the hospital earlier today after being treated for a right pneumothorax. Patient states he got home earlier today and felt fine, was walking steadily with use of a walker , decided to take a shower and shortly thereafter developed sudden onset shortness of breath and states he knew his pneumothorax had reoccurred, he then decided to come back to the ED. On arrival he had O2 saturations in the 70s on room air, stat CXR was obtained that showed a large right tension pneumothorax for which a chest tube was placed by Dr. Real in the ED. Patient was admitted from 07/20-07/22 for the same problem and again from 07/25-. Patient had serial chest x-rays obtained which showed resolution of the pneumothorax prior to discharge. Pulmonology and cardiothoracic surgery were consulted during his previous admission due to him having recurrent spontaneous pneumothorax. Patient opted to monitor his pneumothorax for resolution and refused any surgical procedure by CTS. Patient denies other significant symptoms associated with sudden onset SOB earlier today. Denies fevers, chills, CP prior to chest tube insertion. States he is having chest pain at least a 7/10 after the chest tube was placed. Denies headaches, cough, SOB currently. Review of Systems Constitutional: DENIES: Fever, Chills Respiratory: COMPLAINS OF: Shortness of breath, DENIES: Cough, Wheezing Cardiovascular: COMPLAINS OF: Chest pain Gastrointestinal: DENIES: Black stools, Bloody stools, Constipation, Diarrhea, Nausea, Vomiting Genitourinary: DENIES: Hematuria, Dysuria Neurologic: COMPLAINS OF: Headache (slight headache this morning, currently no pain) Past Family Social History Past Medical History COPD Spontaneous pneumothorax DJD Insomnia Past Surgical History Hip replacement in 2013 Right knee replacement in 2016 Left knee arthroscopic surgery Inguinal hernia repair Tonsillectomy Allergies: Coded Allergies: No Known Allergies (Verified Allergy, Unknown, 07/30/17) Family History Patient's mother has multiple sclerosis Social History Etoh: denies Tobacco: 2 PPD x 50 years, cut back to 1/2 PPD recently Illicit drug use: denies, 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 Normal speech. relay motorman grossly intact. Motor grossly normal. Retirement Manager and LE strength 5/5. SKIN: Warm and dry. Chest tube insertion site covered with bandages. No obvious leakage or bleeding. HEAD: Normocephalic. Atraumatic. EYES: PERRL. EOMI. No scleral icterus. No injection or drainage. ENT: No nasal drainage. Mucous membranes slightly dry. NECK: Supple, trachea midline. No JVD or lymphadenopathy. CARDIOVASCULAR: Regular rate and rhythm without murmurs, rubs, or gallops. Peripheral pulses 2+. Capillary refill ~2 seconds. RESPIRATORY: Breath sounds diminished along the right anterior lung [place], clear left anterior lung [place], without wheezes, rales, or rhonchi. No accessory muscle use. GASTROINTESTINAL: Abdomen soft, nontender, nondistended, normal BS. No organomegaly or masses. No rebound tenderness. No guarding. MUSCULOSKELETAL: No lower extremity edema. Imaging Last 72 hours Impressions Chest X-Ray 07/30/17 0000 Signed Impressions: Service Date/Time: Sunday, July 30, 2017 18:35 - CONCLUSION: Large right tension pneumothorax. This information was called to E pod in the emergency room. I was informed the ER was inserted a chest tube. Smooth Buck MD [place] VTE Risk Assessment Caprini VTE Risk Assessment: Mod/High Risk (score >= 2) Caprini Risk Assessment Model Point Value = 1 Point Value = 2 Point Value = 3 Point Value = 5 Age 41-60 Minor surgery BMI > 25 kg/m2 Swollen legs Varicose veins or History of unexplained or recurrent spontaneous Oral contraceptives or hormone replacement Sepsis (< 1 month) Serious lung disease, including pneumonia (< 1 month) Abnormal pulmonary function Acute myocardial infarction Congestive heart failure (< 1 month) History of inflammatory bowel disease Medical patient at bed rest Age 61-74 Arthroscopic surgery Major open surgery (> 45 min) Laparoscopic surgery (> 45 min) Malignancy Confined to bed (> 72 hours) Immobilizing plaster cast Central venous access Age >= 75 History of VTE Family history of VTE Factor V Leiden Prothrombin [id number] Lupus anticoagulant Anticardiolipin antibodies Elevated serum homocysteine Heparin-induced thrombocytopenia Other congenital or acquired thrombophilia Stroke (< 1 month) Elective arthroplasty Hip, pelvis, or leg fracture Acute spinal cord injury (< 1 month) Prophylaxis Regimen Total Risk Factor Score Risk Level Prophylaxis Regimen 0-1 Low Early ambulation 2 Moderate Order ONE of the following: *Sequential Compression Device (SCD) *Heparin 5000 units SQ BID 3-4 Higher Order ONE of the following medications: *Heparin 5000 units SQ TID *Enoxaparin/Lovenox 40 mg SQ daily (WT < 150 kg, CrCl > 30 mL/min) *Enoxaparin/Lovenox 30 mg SQ daily (WT < 150 kg, CrCl > 10-29 mL/min) *Enoxaparin/Lovenox 30 mg SQ BID (WT < 150 kg, CrCl > 30 mL/min) AND/OR *Sequential Compression Device (SCD) 5 or more Highest Order ONE of the following medications: *Heparin 5000 units SQ TID (Preferred with Epidurals) *Enoxaparin/Lovenox 40 mg SQ daily (WT < 150 kg, CrCl > 30 mL/min) *Enoxaparin/Lovenox 30 mg SQ daily (WT < 150 kg, CrCl > 10-29 mL/min) *Enoxaparin/Lovenox 30 mg SQ BID (WT < 150 kg, CrCl > 30 mL/min) AND *Sequential Compression Device (SCD) Assessment and Plan Assessment and Plan 61-year-old man being admitted for recurrent spontaneous pneumothorax. Code Status Full code Discussed Condition With wdw Dr. Mendieta Problem List: (1) Recurrent spontaneous pneumothorax ICD Codes: J93.83 - Other pneumothorax Status: Acute Plan: s/p right chest tube placement by ED physician with repeat chest x-ray showing successful placement O2 sats appropriate with chest tube Continue O2 via NC to maintain O2 sats > 90% Will place consult to Dr. Coronado, pulmonology Consult IR for eval of possible pleurodesis [place] 1 tab po q4h prn pain 6-10 Dilaudid 1 mg IV q4h prn breakthrough pain (2) Hypertension ICD Codes: I10 - Essential (primary) hypertension Status: Chronic Plan: BP on admission 205/117, pain likely contributing Patient had stable BPs near within normal limits throughout previous hospitalization Patient had been started on HCTZ 25 mg po daily Treat pain as above Clonidine 0.1 mg po q6h prn BP > 180/100 Monitor vitals q4h (3) COPD (chronic obstructive pulmonary disease) ICD Codes: J44.9 - Chronic obstructive pulmonary disease, unspecified Status: Chronic Plan: Continue Symbicort 2 puffs q12h Duonebs q4h prn O2 via NC (4) Nutrition, metabolism, and development symptoms ICD Codes: R63.8 - Other symptoms and signs concerning food and fluid intake Status: Acute Plan: Fluids: per PO Nutrition: heart healthy DVT ppx: Heparin 5000 units sq q12h Physician Certification 2 Midnight Certification Type: Admission for Inpatient Services Order for Inpatient Services The services are ordered in accordance with Medicare regulations or non- Medicare payer requirements, as applicable. In the case of services not specified as inpatient-only, they are appropriately provided as inpatient services in accordance with the 2-midnight benchmark. Estimated LOS (days): 3 days is the estimated time the patient will need to remain in the hospital, assuming treatment plan goals are met and no additional complications. Post-Hospital Plan: Not yet determined Problem Qualifiers (1) COPD (chronic obstructive pulmonary disease): Qualified Codes: J44.9 - Chronic obstructive pulmonary disease, unspecified Ky Samuel MD R2 Jul 30, 2017 19:28
--- NOTE | 2017-07-30 19:28 | PD ---
HPI Chief Complaint: Respiratory Distress Time Seen by Provider: 18:19 Travel History International Travel<30 days: No Contact w/Intl Traveler<30days: No Traveled to known affect area: No History of Present Illness HPI This patient arrives critically ill. He was discharged today after being treated for pneumothorax. He has severe COPD and developed spontaneous pneumothorax which was treated with a chest tube. He got home and decided to take a shower. Within 1 hour of being home he got abruptly severely short of breath and came back to the emergency room. He was in extremis upon arrival with saturations in the 70s on room air. Symptoms are severe. Duration 1 hour. No alleviating factors. No exacerbating factors. PFSH Past Medical History Cancer: No Cardiovascular Problems: No High Cholesterol: No COPD: Yes Diabetes: No Endocrine: No Gastrointestinal Disorders: No Genitourinary: No Hepatitis: No Hiatal Hernia: No Hypertension: No Immune Disorder: No Medical other: No Musculoskeletal: Yes Neurologic: No Psychiatric: No Respiratory: Yes (COPD, pneumothoraxs x3) Immunizations Current: Yes Thyroid Disease: No ?: Not Past Surgical History Abdominal Surgery: No AICD: No Cardiac Surgery: No Ear Surgery: No Endocrine Surgery: No Eye Surgery: No Genitourinary Surgery: No Gynecologic Surgery: No Joint Replacement: Yes (LEFT HIP) Oral Surgery: No Pacemaker: No Thoracic Surgery: No Tonsillectomy: Yes Other Surgery: Yes (CANCEROUS MOLE LEFT BROW, INGUINAL HERNIA REPAIR) Social History Alcohol Use: No Tobacco Use: Yes (1 PACK PER 3 DAYS) Substance Use: No Allergies-Medications (Allergen,Severity, Reaction): Coded Allergies: No Known Allergies (Unverified Allergy, Unknown, 07/21/17) Reported Meds & Prescriptions Reported Meds & Active Scripts Active Metoprolol Tartrate 25 Mg Tab 12.5 Mg PO Q12HR Hydrocodone-Acetamin 10-325 mg (Hydrocodone/Acetaminophen) 10 Mg-325 Mg Tablet 1 Tab PO Q6H PRN Aspirin DR (Aspirin) 81 Mg Tabdr 81 Mg PO DAILY Reported Claritin (Loratadine) 10 Mg Cap 10 Mg PO DAILY Nicotine Transdermal Syst (Nicotine) 21 Mg/24 Hour Dis Guaifenesin 400 Mg Tab 400 DAILY Hydrochlorothiazide 25 Mg Tab 25 Mg PO DAILY Ventolin Hfa 18 GM Inh (Albuterol Sulfate) 90 Mcg/Act Aer 2 Puff INH Q4-6H PRN Symbicort Inh (Budesonide/Formoterol Fumarate) 160-4.5 Mcg/Act Aero 2 Puff INH Q12HR Trazodone (Trazodone HCl) 50 Mg Tab 50 Mg PO HS Review of Systems General / Constitutional: No: Fever Eyes: No: Visual changes HENT: No: Headaches Cardiovascular: No: Chest Pain or Discomfort Respiratory: Positive: Shortness of Breath Gastrointestinal: No: Abdominal Pain Genitourinary: No: Dysuria Musculoskeletal: No: Pain Skin: No Rash Neurologic: No: Weakness Psychiatric: No: Depression Endocrine: No: Polydipsia Hematologic/Lymphatic: No: Easy Bruising Physical Exam Narrative GENERAL: Thin well-developed patient who is in respiratory distress. SKIN: Focused skin assessment reveals no rash and nodules. Skin is Warm and dry. HEAD: Atraumatic. Normocephalic. EYES: Pupils equal and round. No scleral icterus. No injection or drainage. ENT: No nasal bleeding or discharge. Mucous membranes pink and moist. NECK: Trachea reasonably midline. No JVD. CARDIOVASCULAR: Regular rate and rhythm. No murmur appreciated. RESPIRATORY: Positive accessory muscle use. Diminished breath sounds on the right . No wheezing GASTROINTESTINAL: Abdomen soft, non-tender, nondistended. Hepatic and splenic margins not palpable. MUSCULOSKELETAL: No obvious deformities. No clubbing. No cyanosis. No edema. NEUROLOGICAL: Awake and alert. No obvious cranial nerve deficits. Motor grossly within normal limits. Normal speech. PSYCHIATRIC: Appropriate mood and affect; insight and judgment normal. Data Data Last Documented VS Vital Signs Date Time Temp Pulse Resp B/P (MAP) Pulse Ox O2 Delivery O2 Flow Rate FiO2 07/30/17 19:15 28 92 Nasal Cannula 5.00 07/30/17 18:21 98.5 102 Orders Orders Chest, Single Ap (07/30/17 ) Iv Access Insert/Monitor (07/30/17 18:33) Food Service Counter Clerk / Telemetry [id number] (07/30/17 18:33) Oximetry (07/30/17 18:33) Oxygen Administration (07/30/17 18:33) Etomidate Inj (Amidate Inj) (07/30/17 18:45) Lidocai-Epi 1%-1:100,000 Inj (Xylocaine- (07/30/17 19:00) Chest, Single Ap (07/30/17 ) Admit Order (Ed Use Only) (07/30/17 19:18) Ondansetron Inj (Zofran Inj) (07/30/17 19:30) Morphine Inj (Morphine Inj) (07/30/17 19:30) MDM Medical Decision Making Medical Screen Exam Complete: Yes Emergency Medical Condition: Yes Medical Record Reviewed: Yes Differential Diagnosis Pneumothorax, tension pneumothorax, COPD exacerbation Narrative Course I have reviewed the patient's electronic medical record. Patient had been discharged earlier today but his pneumothorax that was resolved on discharge This patient arrives critically ill and respiratory distress Emergent portable chest x-ray was done which I reviewed and shows severe right sided pneumothorax with a degree of tension Procedure note: Patient agrees and signs written consent for chest tube placement. I gave him a total of 9 mg IV etomidate I used 3 cc of lidocaine with 1% epi for local anesthesia at a spot in the midaxillary line near the fifth intercostal space I used an 11 blade scalpel to open up a 2 cm incision I dissected down with [place] forceps to the intercostal muscles and opened them up Placed a 20 Italian chest tube and inserted it up toward the apex I then contacted due to the Pleur-evac I sutured it in place with a purse string suture and carpal with petroleum gauze and a dressing Patient tolerated the procedure well Saturations afterward are 100% I reviewed a post procedure x-ray which shows good resolution of pneumothorax Total bedside time by physician 20 minutes continuous I gave him 2 mg IV morphine and Zofran for symptom relief Case reviewed in detail with medical residents who will admit and consultation with card of thoracic surgery was recommended to consider more definitive procedure Critical Care Narrative Aggregate critical care time was 36 minutes. Time to perform other separately billable procedures was not included in the critical care time. My time did not include minutes spent treating any other patients simultaneously or on activities that did not directly contribute to the patient's treatment. The services I provided to this patient were to treat and/or prevent clinically significant deterioration that could result in: Cardiopulmonary arrest, hypoxemic brain injury, cardiac arrhythmia I provided critical care services requiring my management, as noted below: Chart data review, documentation time, medication orders and management, vital sign assessments/reviewing monitor data, ordering and reviewing lab tests, ordering and interpreting/reviewing x-rays and diagnostic studies, care of the patient and discussion of the patient with the admitting physicians. Diagnosis Primary Impression: Spontaneous tension pneumothorax Additional Impression: COPD (chronic obstructive pulmonary disease) Qualified Codes: J44.9 - Chronic obstructive pulmonary disease, unspecified Admitting Information Admitting Physician Requests: Admit Dirk Real MD Jul 30, 2017 19:28
[2017-07-30] MEDS ORDERED: ONDANSETRON HCL 4 MG/2 ML VIAL IV ONE (19:30)
[2017-07-30] MEDS ORDERED: MORPHINE SULFATE 4 MG/ML INJ IV PUSH ONE (19:30)
--- NOTE | 2017-07-30 19:36 | RADRPT ---
EXAM DATE/TIME: 07/30/2017 19:06 [facility] COMPARISON: CHEST SINGLE AP, July 30, 2017, 18:35. INDICATIONS : Chest tube placement. MEDICAL HISTORY : Chronic obstructive pulmonary disease. SURGICAL HISTORY : None. ENCOUNTER: Subsequent ACUITY: 1 day PAIN SCORE: 7/10 LOCATION: Right chest FINDINGS: There is a right chest tube in place. This has successfully corrected the right tension pneumothorax. No pneumothorax is seen on the current exam. The heart size is normal. The mediastinal shift is no l onger seen. There is a nodular density seen at the lateral right mid chest. This could relate to a ni pple shadow. Lung mass cannot be excluded. The left lung appears clear. The lungs do appear hyperinfl ated. CONCLUSION: 1. Successful treatment of a right tension pneumothorax with a right chest tube. 2. Hyperinflated lungs. 3. Questionable nodular density or nipple shadow seen over the right mid lateral chest. This could be further evaluated with a repeat chest x-ray with nipple markers.. Smooth Buck MD on July 30, 2017 at 19:32 Board Certified Radiologist. This report was verified electronically.
[2017-07-30 20:00] VITALS: BP 160/95; PULSE 92; RESP 24; O2SAT 94
[2017-07-30] MEDS ORDERED: SODIUM CHLORIDE 0.9% FLUSH 10 ML FLUSH IV FLUSH PRN (20:15)
[2017-07-30] MEDS ORDERED: SENNOSIDES 8.6 MG TAB PO PRN (20:15)
[2017-07-30] MEDS ORDERED: BISACODYL 10 MG SUPP RECTAL PRN (20:15)
[2017-07-30] MEDS ORDERED: NALOXONE HCL 0.4 MG/ML AMP IV PUSH PRN (20:15)
[2017-07-30] MEDS ORDERED: MAGNESIUM HYDROXIDE SUSP 30 ML CUP PO PRN (20:15)
[2017-07-30] MEDS ORDERED: HYDROmorphone HCL PF 2 MG/ML VIAL IV PUSH ONE (20:15)
[2017-07-30] MEDS ORDERED: LACTULOSE SYRUP 20 GM/30 ML CUP PO PRN (20:15)
[2017-07-30] MEDS ORDERED: ACETAMINOPHEN 325 MG TAB PO PRN (20:15)
[2017-07-30] MEDS ORDERED: RESP: ALBUTEROL 2.5 MG/3 ML NEB (PRN) NEB (20:30)
[2017-07-30] MEDS ORDERED: cloNIDine HCL 0.1 MG TAB PO PRN (20:45)
[2017-07-30] MEDS ORDERED: ENALAPRILAT 1.25 MG/ML VIAL IV PUSH PRN (20:45)
[2017-07-30 21:00] VITALS: BP 128/64; PULSE 86; RESP 23; O2SAT 94
[2017-07-30] MEDS ORDERED: traZODone HCL 50 MG TAB PO SCH (21:00)
[2017-07-30] MEDS: DOCUSATE SODIUM 50 MG/SENNA 8.6 MG TAB PO SCH (21:00)
[2017-07-30 21:34] VITALS: BP 143/73; PULSE 95; RESP 20; TEMP 97.8; O2SAT 95
[2017-07-30] MEDS: LORazepam 0.5 MG TAB PO PRN (22:13)
[2017-07-30] MEDS: ACETAMINOPHEN/HYDROcodone 325 MG/10 MG TAB PO PRN (22:13)
[2017-07-30] MEDS: HEPARIN SODIUM - SQ 10,000 UNITS/ML VIAL SQ SCH (22:14)
[2017-07-30] MEDS: SODIUM CHLORIDE 0.9% FLUSH 10 ML FLUSH IV FLUSH SCH (22:14)
[2017-07-30] MEDS: BUDESONIDE-FORMOTEROL 160/4.5 MCG INHALER INH SCH (22:15)
[2017-07-31] VITALS (12 sets, daily range): BP systolic 133–182; BP diastolic 67–94; PULSE 79–104; RESP 17–22; TEMP 97.3–98.4; O2SAT 92–98
[2017-07-31] MEDS: HYDROmorphone HCL PF 1 MG/ML VIAL IV PUSH PRN ×8 (00:10→22:33)
[2017-07-31] MEDS: ACETAMINOPHEN/HYDROcodone 325 MG/10 MG TAB PO PRN ×5 (02:15→20:32)
--- NOTE | 2017-07-31 05:29 | RADRPT ---
EXAM DATE/TIME: 07/31/2017 04:48 [facility] COMPARISON: CHEST SINGLE AP, July 30, 2017, 19:06. INDICATIONS : Shortness of breath, possible pneumothorax. MEDICAL HISTORY : Chronic obstructive pulmonary disease. SURGICAL HISTORY : None. ENCOUNTER: Subsequent ACUITY: 2 days PAIN SCORE: 5/10 LOCATION: Right chest FINDINGS: Right chest tube tip remains projected at the apex. There is a small apical pneumothorax with separa tion of visceral and parietal pleura measuring less than 3 mm. Lungs are hyperaerated. No focal are as of consolidation. Mild curvature of the upper thoracic spine convex towards the right. The heart is normal in size. CONCLUSION: 1. Tiny right apical pneumothorax with chest tube in place. 2. No consolidative infiltrates seen. Ben Contreras MD on July 31, 2017 at 5:25 Board Certified Radiologist. This report was verified electronically.
[2017-07-31] MEDS ORDERED: SODIUM CHLOR 0.9% 1000 ML INJ 1,000 ML IV SCH (08:45)
[2017-07-31] MEDS: BUDESONIDE-FORMOTEROL 160/4.5 MCG INHALER INH SCH ×2 (08:47→20:31)
[2017-07-31] MEDS: SODIUM CHLORIDE 0.9% FLUSH 10 ML FLUSH IV FLUSH SCH ×2 (08:47→20:32)
[2017-07-31] MEDS: DOCUSATE SODIUM 50 MG/SENNA 8.6 MG TAB PO SCH ×2 (09:00→20:32)
[2017-07-31] MEDS: HEPARIN SODIUM - SQ 10,000 UNITS/ML VIAL SQ SCH (09:00)
[2017-07-31 09:13] LABS: AUTOMATED NEUTROPHIL # 10.8 TH/MM3 (1.8-7.7); BASOPHIL % 0.3 % (0.0-2.0); EOSINOPHIL # 0.2 TH/MM3 (0-0.4); EOSINOPHIL % 1.2 % (0.0-4.0); HEMATOCRIT 37.3 % (39.0-51.0); HEMO FLAGS DIFF FINAL; LYMPH % 15.1 % (9.0-44.0); LYMPHOCYTE # 2.1 TH/MM3 (1.0-4.8); MEAN CELL VOLUME 97.5 FL (80.0-100.0); MEAN CORPUSCULAR HEMOGLOBIN 33.2 PG (27.0-34.0); MEAN CORPUSCULAR HGB CONC 34.1 % (32.0-36.0); NEUT % 76.4 % (16.0-70.0); PLATELET COUNT 372 TH/MM3 (150-450); RED BLOOD COUNT 3.83 MIL/MM3 (4.50-5.90); RED CELL DISTRIBUTION WIDTH 14.2 % (11.6-17.2); WHITE BLOOD COUNT 14.1 TH/MM3 (4.0-11.0)
[2017-07-31] MEDS ORDERED: LIDOCAINE 2% ONE ×3 (09:30)
[2017-07-31] MEDS ORDERED: SODIUM CHLORIDE 0.9% ONE ×3 (09:30)
[2017-07-31] MEDS ORDERED: [UNRECOGNIZED DRUG - OTHER] ONE ×3 (09:30)
[2017-07-31] MEDS ORDERED: DOXYCYCLINE ONE ×3 (09:30)
[2017-07-31 09:36] LABS: BICARBONATE 27.2 MEQ/L (21.0-32.0); POTASSIUM 3.2 MEQ/L (3.5-5.1)
--- NOTE | 2017-07-31 11:42 | HHI.FPPN ---
Subjective Remarks Patient seen, examined and discussed with the medicine team. This is a 61-year-old male with known COPD, obstructive sleep apnea, degenerative joint and disc disease, who is here for the third admission for pneumothorax. He was initially admitted July 20 to July 22, readmitted July 25 to July 30, at which time he returned to the hospital within hours of his discharge because of shortness of breath. He felt as though his pneumothorax had recurred. He had somewhat exerted himself by taking a shower and when he left the shower he felt very weak. He presented to the emergency department where his oxygen saturation was found to be 70%. His pain was 7 out of [address] CT showed a large right pneumothorax. Prior to this date, he has refused surgical intervention. He continues to smoke cigarettes with a 100-pack -year history. He is an [employer] . Please see history and physical examination for this admission for additional historical details. This morning, he is lying comfortably in bed with oxygen and chest tube. Thus far he has no chest pain this morning. He has agreed to discuss pleurodesis with interventional radiology. Objective Vitals Vital Signs Date Time Temp Pulse Resp B/P (MAP) Pulse Ox O2 Delivery O2 Flow Rate FiO2 07/31/17 08:00 Room Air 07/31/17 04:34 84 07/31/17 04:00 97.5 91 20 146/82 (103) 96 07/31/17 04:00 Nasal Cannula 2.00 07/31/17 00:07 101 07/31/17 00:00 97.6 84 20 133/74 (93) 94 07/31/17 00:00 Nasal Cannula 2.00 07/30/17 22:18 Nasal Cannula 2.00 07/30/17 21:53 07/30/17 21:34 97.8 95 20 143/73 (96) 95 07/30/17 21:00 94 Nasal Cannula 2.00 07/30/17 21:00 86 23 128/64 (85) 94 Nasal Cannula 2.00 07/30/17 20:23 16 07/30/17 20:00 92 24 160/95 (116) 94 Nasal Cannula 2.00 07/30/17 19:15 28 92 Nasal Cannula 5.00 07/30/17 19:15 92 Nasal Cannula 5.00 07/30/17 19:00 101 24 216/112 (146) 100 Nasal Cannula 4.00 07/30/17 18:21 98.5 102 26 205/117 (146) 92 Nasal Cannula 5.00 07/30/17 18:21 103 28 92 Nasal Cannula 5.00 I/O 07/30/17 07/30/17 07/30/17 07/31/17 07/31/17 07/31/17 07:00 15:00 23:00 07:00 15:00 23:00 Intake Total 500 ml Output Total 0 ml 400 ml Balance 0 ml 100 ml Intake Oral 500 ml Output Urine Total 400 ml Chest Tube Drainage Total 0 ml # Bowel Movements 0 Result Diagram: 07/31/17 0850 07/31/17 0850 Other Results Laboratory Tests Test 07/31/17 08:50 White Blood Count 14.1 TH/MM3 Red Blood Count 3.83 MIL/MM3 Hemoglobin 12.7 GM/DL Hematocrit 37.3 % Mean Corpuscular Volume 97.5 FL Mean Corpuscular Hemoglobin 33.2 PG Mean Corpuscular Hemoglobin Concent 34.1 % Red Cell Distribution Width 14.2 % Platelet Count 372 TH/MM3 Mean Platelet Volume 7.0 FL Neutrophils (%) (Auto) 76.4 % Lymphocytes (%) (Auto) 15.1 % Monocytes (%) (Auto) 7.0 % Eosinophils (%) (Auto) 1.2 % Basophils (%) (Auto) 0.3 % Neutrophils # (Auto) 10.8 TH/MM3 Lymphocytes # (Auto) 2.1 TH/MM3 Monocytes # (Auto) 1.0 TH/MM3 Eosinophils # (Auto) 0.2 TH/MM3 Basophils # (Auto) 0.0 TH/MM3 CBC Comment DIFF FINAL Differential Comment Blood Urea Nitrogen 21 MG/DL Creatinine 0.85 MG/DL Random Glucose 96 MG/DL Calcium Level 8.4 MG/DL Sodium Level 132 MEQ/L Potassium Level 3.2 MEQ/L Chloride Level 97 MEQ/L Carbon Dioxide Level 27.2 MEQ/L Anion Gap 8 MEQ/L Estimat Glomerular Filtration Rate 91 ML/MIN Imaging Last Impressions Chest X-Ray 07/31/17 0600 Signed Impressions: Service Date/Time: Monday, July 31, 2017 04:48 - CONCLUSION: 1. Tiny right apical pneumothorax with chest tube in place. 2. No consolidative infiltrates seen. Ben Contreras MD Objective Remarks GENERAL: Lying in bed, pale, no acute distress SKIN: No rashes, ecchymoses or lesions. Cool and dry. HEAD: NC/AT EYES: PERRL. EOMI. No conjunctival injection or drainage. ENT: MMM, OP without erythema, tonsillar swelling, or exudate. NECK: Supple CARDIOVASCULAR: NRRR. Normal S1/S2. No MRG. Distant heart sounds. RESPIRATORY: CTAB. No crackles or wheezes. Breath sounds barely audible; thorax with increased AP diameter. GASTROINTESTINAL: Abdomen soft, non-distended, nontender. No hepato- splenomegaly or palpable masses. MUSCULOSKELETAL: Extremities without clubbing, cyanosis, or edema. NEUROLOGICAL: Awake and alert. Cranial nerves II through XII grossly intact. Moves all extremities without difficulty. Normal speech. A/P Assessment and Plan 61-year-old man being admitted for recurrent spontaneous pneumothorax. Discharge Planning Case management Attending Attestation Patient seen and examined. Case reviewed and discussed with the resident team. Agree with plan of care as discussed with me and documented in the resident note. Problem List: (1) Recurrent spontaneous pneumothorax ICD Codes: J93.83 - Other pneumothorax Status: Acute Plan: s/p right chest tube placement by ED physician with repeat chest x-ray showing successful placement O2 sats appropriate with chest tube Continue O2 via NC to maintain O2 sats > 90% Will place consult to Dr. Coronado, pulmonology Consult IR for eval of possible pleurodesis [place] 10/325 1 tab po q4h prn pain 6-10 Dilaudid 1 mg IV q4h prn breakthrough pain (2) Hypertension ICD Codes: I10 - Essential (primary) hypertension Status: Chronic Plan: BP on admission 205/117, pain likely contributing Patient had stable BPs near within normal limits throughout previous hospitalization Patient had been started on HCTZ 25 mg po daily Treat pain as above Clonidine 0.1 mg po q6h prn BP > 180/100 Monitor vitals q4h (3) COPD (chronic obstructive pulmonary disease) ICD Codes: J44.9 - Chronic obstructive pulmonary disease, unspecified Status: Chronic Plan: Continue Symbicort 2 puffs q12h Duonebs q4h prn O2 via NC (4) Nutrition, metabolism, and development symptoms ICD Codes: R63.8 - Other symptoms and signs concerning food and fluid intake Status: Acute Plan: Fluids: per PO Nutrition: heart healthy DVT ppx: Heparin 5000 units sq q12h (5) Tobacco use disorder ICD Codes: F17.200 - Nicotine dependence, unspecified, uncomplicated Status: Chronic Plan: Recommended smoking cessation. Problem Qualifiers (1) COPD (chronic obstructive pulmonary disease): Qualified Codes: J44.9 - Chronic obstructive pulmonary disease, unspecified Fidelina Mendieta MD Jul 31, 2017 11:42
--- NOTE | 2017-07-31 12:22 | PD.RAD ---
Post Procedure Progress Note Pre Procedure Diagnosis: (1) Spontaneous tension pneumothorax (2) Recurrent spontaneous pneumothorax Post Procedure Diagnosis: (1) Spontaneous tension pneumothorax (2) Recurrent spontaneous pneumothorax Procedure Date: Jul 31, 2017 Supervising Radiologist: Hugo Buenrostro Proceduralist/Assist: Chris Gilman, RT(R), Jose Virk RT(R) Anesthesia: Local Plan of Activity Patient to Unit: ROPU Patient Condition: Fair See PACS Report for procedural detail/treatment Drainage Procedure Procedure 1 Imaging Guidance: Fluoroscopy Side: Right Procedure Type: Pleurodesis Findings: Severe pain with injection. Could only inject half of the total dose (30cc). Hugo Buenrostro MD Jul 31, 2017 12:22
[2017-07-31] MEDS ORDERED: MORPHINE SULFATE 8 MG/ML INJ ONE (13:32)
[2017-07-31] MEDS ORDERED: IOHEXOL 350 MG/ML 50 ML BTL (for RAD DIAG) OTHER ONE (13:41)
--- NOTE | 2017-07-31 14:03 | RADRPT ---
EXAM DATE/TIME: 07/31/2017 13:12 [facility] COMPARISON: No previous studies available for comparison. INDICATIONS : Patient presents with recurrent pneumothorax in need of pleurodesis through existing chest tube. MEDICAL HISTORY : COPD Spontaneous pneumothorax DJD Insomnia SURGICAL HISTORY : Hip replacement in 2014 Rt knee replacement in 2016 Left knee arthroscopic surgery Inguinal hernia repair Chest tube Tonsillectomy ENCOUNTER: Initial ACUITY: 1 day PAIN SCORE: 8/10 LOCATION: RT chest FLUORO TIME: 0.59 minutes IMAGE SERIES: CONTRAST: 10 cc Omnipaque (iohexol) 350 MEDICATION(S): 1.) Doxycycline Hyclate 2.) Lidocaine 3.) Sodium Chloride PROCEDURE : 1. Chemical pleurodesis. 2. Fluoroscopic guidance. The risks, benefits, and alternatives to paracentesis were explained to the patient in detail, [place] including the risk of bleeding and infection. Oral and written informed consent was obtained. The site was prepped in sterile fashion. Full sterile technique was used, including cap, mask, steri le gloves and gown and a large sterile sheet. Hand hygiene and 2% chlorhexidine and/or betadine/alco hol prep was utilized per protocol for cutaneous antisepsis. Initial image shows recurrence of the pneumothorax. Therefore, patient was placed to Pleur-evac sucti on to partially reexpand the lung. Position of the surgically placed thoracostomy tube was confirmed with positive contrast. The doxycycline/Xylocaine mixture was then infused through the surgical tube. I was able to inject approximately 30 cc or half the prescribed dosage before the patient was in exc ruciating discomfort and asked to stop. The tube was clamped and the patient placed back in a structure. Patient will be rotated 45 every allison lf hour for the next 2 hours to distribute the sclerosing dose. CONCLUSION: Chemical pleuradesis as above. Patient was in extreme discomfort with the doxycycline injection and only half the prescribed dose was administered. Hugo Buenrostro MD on July 31, 2017 at 13:57 Board Certified Radiologist. This report was verified electronically.
[2017-07-31] MEDS ORDERED: POTASSIUM CHLORIDE 10 MEQ CONTROLLED RELEASE TAB PO ONE (14:15)
--- NOTE | 2017-07-31 14:37 | RADRPT ---
EXAM DATE/TIME: 07/31/2017 14:18 [facility] COMPARISON: CHEST SINGLE AP, July 31, 2017, 4:48. INDICATIONS : Pneumothoax MEDICAL HISTORY : Chronic obstructive pulmonary disease. SURGICAL HISTORY : None. ENCOUNTER: Initial ACUITY: 1 week PAIN SCORE: 8/10 LOCATION: Bilateral chest FINDINGS: A single view of the chest demonstrates right-sided chest tube repositioned from previous study. Righ t apical pneumothorax measures 1.3 cm. Right basilar density. Left lung relatively clear. Mediastinal shift. Osseous structures are intact. CONCLUSION: 1. Right-sided pneumothorax larger measuring 1.3 cm of pleural separation. Gasper Thornton MD on July 31, 2017 at 14:34 Board Certified Radiologist. This report was verified electronically.
--- NOTE | 2017-07-31 17:15 | HHI.PR ---
Subjective Remarks pleurodesis was done this am no sob Objective Vital Signs Date Time Temp Pulse Resp B/P (MAP) Pulse Ox O2 Delivery O2 Flow Rate FiO2 07/31/17 13:35 84 17 175/72 (106) 98 07/31/17 13:05 88 18 182/80 (114) 98 07/31/17 12:35 92 20 182/88 (119) 92 07/31/17 12:20 98.4 81 22 181/94 (123) 93 07/31/17 08:00 Room Air 07/31/17 08:00 79 07/31/17 08:00 98.1 82 19 163/67 (99) 97 07/31/17 04:34 84 07/31/17 04:00 97.5 91 20 146/82 (103) 96 07/31/17 04:00 Nasal Cannula 2.00 07/31/17 00:07 101 07/31/17 00:00 97.6 84 20 133/74 (93) 94 07/31/17 00:00 Nasal Cannula 2.00 07/30/17 22:18 Nasal Cannula 2.00 07/30/17 21:53 07/30/17 21:34 97.8 95 20 143/73 (96) 95 07/30/17 21:00 94 Nasal Cannula 2.00 07/30/17 21:00 86 23 128/64 (85) 94 Nasal Cannula 2.00 07/30/17 20:23 16 07/30/17 20:00 92 24 160/95 (116) 94 Nasal Cannula 2.00 07/30/17 19:15 28 92 Nasal Cannula 5.00 07/30/17 19:15 92 Nasal Cannula 5.00 07/30/17 19:00 101 24 216/112 (146) 100 Nasal Cannula 4.00 07/30/17 18:21 98.5 102 26 205/117 (146) 92 Nasal Cannula 5.00 07/30/17 18:21 103 28 92 Nasal Cannula 5.00 I/O 07/30/17 07/30/17 07/30/17 07/31/17 07/31/17 07/31/17 07:00 15:00 23:00 07:00 15:00 23:00 Intake Total 500 ml Output Total 0 ml 400 ml Balance 0 ml 100 ml Intake Oral 500 ml Output Urine Total 400 ml Chest Tube Drainage Total 0 ml # Bowel Movements 0 Result Diagram: 07/31/17 0850 07/31/17 0850 Objective Remarks GENERAL: SKIN: Warm and dry. HEAD: Atraumatic. Normocephalic. EYES: Pupils equal and round. No scleral icterus. No injection or drainage. ENT: No nasal bleeding or discharge. Mucous membranes pink and moist. NECK: Trachea midline. No JVD. CARDIOVASCULAR: Regular rate and rhythm. RESPIRATORY: No accessory muscle use. Clear to auscultation. Breath sounds equal bilaterally. GASTROINTESTINAL: Abdomen soft, non-tender, nondistended. Hepatic and splenic margins not palpable. MUSCULOSKELETAL: Extremities without clubbing, cyanosis, or edema. No obvious deformities. NEUROLOGICAL: Awake and alert. No obvious cranial nerve deficits. Motor grossly within normal limits. Five out of 5 muscle strength in the arms and legs. Normal speech. PSYCHIATRIC: Appropriate mood and affect; insight and judgment normal. Assessment and Plan Assessment and Plan spontaneous recurrent PNX POST PLEURODESIS PLAN PULMONARUY TOILET REMOVE CT WHEN POSSIBLE Ivonne Coronado MD Jul 31, 2017 17:15
--- NOTE | 2017-07-31 18:06 | EKG ---
Date Performed: 07/30/2017 Time Performed: 18:13:24 PTAGE: 61 years EKG: SINUS TACHYCARDIA VOLTAGE CRITERIA FOR LVH NONSPECIFIC ST & T-WAVE ABNORMALITY Compared to previous tracing, sinus rate is faster ABNORMAL ECG PREVIOUS TRACING : 07/25/2017 08.58 DOCTOR: Wilfredo Larios Interpretating Date/Time 07/31/2017 18:05:44
[2017-07-31] MEDS: LORazepam 0.5 MG TAB PO PRN (19:34)
[2017-07-31] MEDS ORDERED: ZOLPIDEM TARTRATE 5 MG TAB PO ONE (19:45)
[2017-08-01] VITALS (15 sets, daily range): BP systolic 147–181; BP diastolic 60–91; PULSE 86–103; RESP 18–20; TEMP 97–98.6; O2SAT 92–97
[2017-08-01] MEDS: ACETAMINOPHEN/HYDROcodone 325 MG/10 MG TAB PO PRN ×6 (00:31→21:51)
[2017-08-01] MEDS: HYDROmorphone HCL PF 1 MG/ML VIAL IV PUSH PRN ×5 (02:52→19:23)
--- NOTE | 2017-08-01 05:57 | RADRPT ---
EXAM DATE/TIME: 08/01/2017 04:37 [facility] COMPARISON: CHEST SINGLE AP, July 31, 2017, 14:18. INDICATIONS : Short of breath. Follow up pleurodesis. MEDICAL HISTORY : Chronic obstructive pulmonary disease. SURGICAL HISTORY : None. ENCOUNTER: Subsequent ACUITY: 3 days PAIN SCORE: 0/10 LOCATION: Bilateral chest FINDINGS: Right apical pneumothorax has increased in size and now measures 2.6 cm (previously measured 1.3 cm). Right chest drainage tube is changed in position with the tip in lower lateral right chest and the side port projected over the level of the lateral ribs. There is some blunting of the costophrenic a ngle on the right side suggesting pleural fluid. The left lung is clear. The heart is normal in siz e. CONCLUSION: 1. Increase in size of right apical pneumothorax to 2.6 cm. 2. The right-sided chest tube has partially migrated laterally. Ben Contreras MD on August 01, 2017 at 5:46 Board Certified Radiologist. This report was verified electronically.
[2017-08-01 06:59] LABS: AUTOMATED NEUTROPHIL # 14.4 TH/MM3 (1.8-7.7); BASOPHIL # 0.1 TH/MM3 (0-0.2); BASOPHIL % 0.3 % (0.0-2.0); EOSINOPHIL # 0.1 TH/MM3 (0-0.4); EOSINOPHIL % 0.6 % (0.0-4.0); HEMATOCRIT 39.9 % (39.0-51.0); HEMO FLAGS DIFF FINAL; LYMPH % 7.6 % (9.0-44.0); LYMPHOCYTE # 1.3 TH/MM3 (1.0-4.8); MEAN CELL VOLUME 97.6 FL (80.0-100.0); MEAN CORPUSCULAR HEMOGLOBIN 34.1 PG (27.0-34.0); MEAN CORPUSCULAR HGB CONC 34.9 % (32.0-36.0); NEUT % 83.5 % (16.0-70.0); PLATELET COUNT 407 TH/MM3 (150-450); RED BLOOD COUNT 4.09 MIL/MM3 (4.50-5.90); RED CELL DISTRIBUTION WIDTH 14.3 % (11.6-17.2); WHITE BLOOD COUNT 17.3 TH/MM3 (4.0-11.0)
[2017-08-01 07:32] LABS: ALKALINE PHOSPHATASE 37 U/L (45-117); ALT (GPT) 23 U/L (12-78); ANION GAP 6 MEQ/L (5-15); AST (GOT) 16 U/L (15-37); BICARBONATE 27.8 MEQ/L (21.0-32.0); BLOOD UREA NITROGEN 15 MG/DL (7-18); CHLORIDE 100 MEQ/L (98-107); GLOMERULAR FILTRATION RATE 107 ML/MIN (>89); POTASSIUM 3.8 MEQ/L (3.5-5.1); SODIUM (NA) 134 MEQ/L (136-145)
[2017-08-01] MEDS: DOCUSATE SODIUM 50 MG/SENNA 8.6 MG TAB PO SCH ×2 (08:37→22:32)
[2017-08-01] MEDS: SODIUM CHLORIDE 0.9% FLUSH 10 ML FLUSH IV FLUSH SCH ×2 (08:39→22:34)
[2017-08-01] MEDS: LORazepam 0.5 MG TAB PO PRN (08:44)
[2017-08-01] MEDS: BUDESONIDE-FORMOTEROL 160/4.5 MCG INHALER INH SCH ×2 (08:44→22:32)
--- NOTE | 2017-08-01 09:42 | HHI.FPPN ---
Objective Vitals Vital Signs Date Time Temp Pulse Resp B/P (MAP) Pulse Ox O2 Delivery O2 Flow Rate FiO2 08/01/17 08:15 98.3 100 18 167/79 (108) 92 08/01/17 08:00 Room Air 08/01/17 04:08 94 08/01/17 04:00 97.9 98 20 147/83 (104) 93 08/01/17 04:00 Nasal Cannula 2.00 08/01/17 00:01 97 08/01/17 00:00 Nasal Cannula 2.00 08/01/17 00:00 97.3 96 20 161/60 (93) 95 07/31/17 20:00 97.7 97 18 138/73 (94) 94 07/31/17 20:00 Nasal Cannula 2.00 07/31/17 19:59 99 07/31/17 16:00 97.3 104 20 162/77 (105) 94 07/31/17 13:35 84 17 175/72 (106) 98 07/31/17 13:05 88 18 182/80 (114) 98 07/31/17 12:35 92 20 182/88 (119) 92 07/31/17 12:20 98.4 81 22 181/94 (123) 93 I/O 07/31/17 07/31/17 07/31/17 08/01/17 08/01/17 08/01/17 07:00 15:00 23:00 07:00 15:00 23:00 Intake Total 500 ml 0 ml Output Total 400 ml 150 ml Balance 100 ml -150 ml Intake Oral 500 ml 0 ml Output Urine Total 400 ml 150 ml # Bowel Movements 0 Result Diagram: 08/01/1739 08/01/17538 Objective Remarks GENERAL: Lying in bed, pale, no acute distress SKIN: No rashes, ecchymoses or lesions. Cool and dry. HEAD: NC/AT EYES: PERRL. EOMI. No conjunctival injection or drainage. ENT: MMM, OP without erythema, tonsillar swelling, or exudate. NECK: Supple CARDIOVASCULAR: NRRR. Normal S1/S2. No MRG. Distant heart sounds. RESPIRATORY: CTAB. No crackles or wheezes. Breath sounds barely audible; thorax with increased AP diameter. GASTROINTESTINAL: Abdomen soft, non-distended, nontender. No hepato- splenomegaly or palpable masses. MUSCULOSKELETAL: Extremities without clubbing, cyanosis, or edema. NEUROLOGICAL: Awake and alert. Cranial nerves II through XII grossly intact. Moves all extremities without difficulty. Normal speech. A/P Assessment and Plan 61-year-old man being admitted for recurrent spontaneous pneumothorax. Discharge Planning Case management Problem List: (1) Recurrent spontaneous pneumothorax ICD Codes: J93.83 - Other pneumothorax Status: Acute Plan: s/p right chest tube placement by ED physician with repeat chest x-ray showing successful placement O2 sats appropriate with chest tube Continue O2 via NC to maintain O2 sats > 90% Will place consult to Dr. Coronado, pulmonology Consult IR for eval of possible pleurodesis [place] 10/325 1 tab po q4h prn pain 6-10 Dilaudid 1 mg IV q4h prn breakthrough pain (2) Hypertension ICD Codes: I10 - Essential (primary) hypertension Status: Chronic Plan: BP on admission 205/117, pain likely contributing Patient had stable BPs near within normal limits throughout previous hospitalization Patient had been started on HCTZ 25 mg po daily Treat pain as above Clonidine 0.1 mg po q6h prn BP > 180/100 Monitor vitals q4h (3) COPD (chronic obstructive pulmonary disease) ICD Codes: J44.9 - Chronic obstructive pulmonary disease, unspecified Status: Chronic Plan: Continue Symbicort 2 puffs q12h Duonebs q4h prn O2 via NC (4) Nutrition, metabolism, and development symptoms ICD Codes: R63.8 - Other symptoms and signs concerning food and fluid intake Status: Acute Plan: Fluids: per PO Nutrition: heart healthy DVT ppx: Heparin 5000 units sq q12h (5) Tobacco use disorder ICD Codes: F17.200 - Nicotine dependence, unspecified, uncomplicated Status: Chronic Plan: Recommended smoking cessation. Problem Qualifiers (1) COPD (chronic obstructive pulmonary disease): Qualified Codes: J44.9 - Chronic obstructive pulmonary disease, unspecified Mariela Longoria MD R1 Aug 01, 2017 09:42
--- NOTE | 2017-08-01 09:47 | HHI.FPPN ---
Subjective Remarks No acute events overnight. Pt sitting up in bed, watching TV. Pt was unable to tolerate full pleurodesis procedure yesterday. Severe pain with injection. Could only inject half of the total dose (30cc).. Chest tube in place this AM. O2 Sats 92-96%. Denies SOB, CP, abdominal pain, and N/V. Afebile. VSS. Objective Vitals Vital Signs Date Time Temp Pulse Resp B/P (MAP) Pulse Ox O2 Delivery O2 Flow Rate FiO2 08/01/17 08:15 98.3 100 18 167/79 (108) 92 08/01/17 08:00 Room Air 08/01/17 04:08 94 08/01/17 04:00 97.9 98 20 147/83 (104) 93 08/01/17 04:00 Nasal Cannula 2.00 08/01/17 00:01 97 08/01/17 00:00 Nasal Cannula 2.00 08/01/17 00:00 97.3 96 20 161/60 (93) 95 07/31/17 20:00 97.7 97 18 138/73 (94) 94 07/31/17 20:00 Nasal Cannula 2.00 07/31/17 19:59 99 07/31/17 16:00 97.3 104 20 162/77 (105) 94 07/31/17 13:35 84 17 175/72 (106) 98 07/31/17 13:05 88 18 182/80 (114) 98 07/31/17 12:35 92 20 182/88 (119) 92 07/31/17 12:20 98.4 81 22 181/94 (123) 93 I/O 07/31/17 07/31/17 07/31/17 08/01/17 08/01/17 08/01/17 07:00 15:00 23:00 07:00 15:00 23:00 Intake Total 500 ml 0 ml Output Total 400 ml 150 ml Balance 100 ml -150 ml Intake Oral 500 ml 0 ml Output Urine Total 400 ml 150 ml # Bowel Movements 0 Result Diagram: 08/01/1753808/01/17538 Objective Remarks GENERAL: Lying in bed, pale, no acute distress SKIN: No rashes, ecchymoses or lesions. Cool and dry. HEAD: NC/AT EYES: PERRL. EOMI. No conjunctival injection or drainage. ENT: MMM, OP without erythema, tonsillar swelling, or exudate. NECK: Supple CARDIOVASCULAR: NRRR. Normal S1/S2. No MRG. Distant heart sounds. RESPIRATORY: CTAB. No crackles or wheezes. Breath sounds barely audible; thorax with increased AP diameter. chest tube in place. GASTROINTESTINAL: Abdomen soft, non-distended, nontender. No hepato- splenomegaly or palpable masses. MUSCULOSKELETAL: Extremities without clubbing, cyanosis, or edema. NEUROLOGICAL: Awake and alert. Oriented x3. A/P Assessment and Plan 61-year-old man being admitted for recurrent spontaneous pneumothorax. Discharge Planning Unclear timetable at this time Case management PT- patient has rolling walker and cane at home, no home PT needed Problem List: (1) Recurrent spontaneous pneumothorax ICD Codes: J93.83 - Other pneumothorax Status: Acute Plan: s/p right chest tube placement by ED physician with repeat chest x-ray showing successful placement 07/30 s/p pleurodesis by IR 07/31, Pt was unable to tolerate full pleurodesis procedure yesterday. Severe pain with injection. Could only inject half of the total dose (30cc). Consulted pulmonary, recommendations appreciated CXR 08/01 showed increase in size of right apical pneumothorax to 2.6cm. Right- sided chest tube has partially migrated laterally Pulmonary toilet, reposition or change tube IR to place new chest tube today Pain Control: [place] 10/325 1 tab po q4h prn pain 6-10 Dilaudid 1 mg IV q4h prn breakthrough pain (2) Hypertension ICD Codes: I10 - Essential (primary) hypertension Status: Chronic Plan: BP on admission 205/117, pain likely contributing Patient had stable BPs near within normal limits throughout previous hospitalization Patient had been started on HCTZ 25 mg po daily Treat pain as above Clonidine 0.1 mg po q6h prn BP > 180/100 Monitor vitals q4h (3) COPD (chronic obstructive pulmonary disease) ICD Codes: J44.9 - Chronic obstructive pulmonary disease, unspecified Status: Chronic Plan: Continue Symbicort 2 puffs q12h Duonebs q4h prn O2 via NC (4) Nutrition, metabolism, and development symptoms ICD Codes: R63.8 - Other symptoms and signs concerning food and fluid intake Status: Acute Plan: Fluids: per PO Nutrition: heart healthy DVT ppx: Heparin 5000 units sq q12h (5) Tobacco use disorder ICD Codes: F17.200 - Nicotine dependence, unspecified, uncomplicated Status: Chronic Plan: Recommended smoking cessation. Problem Qualifiers (1) COPD (chronic obstructive pulmonary disease): Qualified Codes: J44.9 - Chronic obstructive pulmonary disease, unspecified Mariela Longoria MD R1 Aug 01, 2017 09:47
[2017-08-01] MEDS ORDERED: MIDAZOLAM HCL 2 MG/2 ML VIAL ONE (14:07)
--- NOTE | 2017-08-01 14:19 | HHI.PR ---
Subjective Remarks pleurodesis was done this am no sob CXRAY increased PNX Objective Vital Signs Date Time Temp Pulse Resp B/P (MAP) Pulse Ox O2 Delivery O2 Flow Rate FiO2 08/01/17 12:00 98.6 94 18 163/75 (104) 92 08/01/17 08:15 98.3 100 18 167/79 (108) 92 08/01/17 08:00 Room Air 08/01/17 07:30 97 08/01/17 04:08 94 08/01/17 04:00 97.9 98 20 147/83 (104) 93 08/01/17 04:00 Nasal Cannula 2.00 08/01/17 00:01 97 08/01/17 00:00 Nasal Cannula 2.00 08/01/17 00:00 97.3 96 20 161/60 (93) 95 07/31/17 20:00 97.7 97 18 138/73 (94) 94 07/31/17 20:00 Nasal Cannula 2.00 07/31/17 19:59 99 07/31/17 16:00 97.3 104 20 162/77 (105) 94 I/O 07/31/17 07/31/17 07/31/17 08/01/17 08/01/17 08/01/17 07:00 15:00 23:00 07:00 15:00 23:00 Intake Total 500 ml 0 ml Output Total 400 ml 150 ml Balance 100 ml -150 ml Intake Oral 500 ml 0 ml Output Urine Total 400 ml 150 ml # Bowel Movements 0 Result Diagram: 08/01/1739 08/01/17538 Objective Remarks GENERAL: SKIN: Warm and dry. HEAD: Atraumatic. Normocephalic. EYES: Pupils equal and round. No scleral icterus. No injection or drainage. ENT: No nasal bleeding or discharge. Mucous membranes pink and moist. NECK: Trachea midline. No JVD. CARDIOVASCULAR: Regular rate and rhythm. RESPIRATORY: No accessory muscle use. Clear to auscultation. Breath sounds equal bilaterally. GASTROINTESTINAL: Abdomen soft, non-tender, nondistended. Hepatic and splenic margins not palpable. MUSCULOSKELETAL: Extremities without clubbing, cyanosis, or edema. No obvious deformities. NEUROLOGICAL: Awake and alert. No obvious cranial nerve deficits. Motor grossly within normal limits. Five out of 5 muscle strength in the arms and legs. Normal speech. PSYCHIATRIC: Appropriate mood and affect; insight and judgment normal. Assessment and Plan Assessment and Plan spontaneous recurrent PNX POST PLEURODESISTUBE NEEDS REPOSITIONING PLAN PULMONARUY TOILET REPOSITION OR CHANGE TUBE Ivonne Coronado MD Aug 01, 2017 14:19
--- NOTE | 2017-08-01 14:49 | PD.RAD ---
Post Procedure Progress Note Pre Procedure Diagnosis: (1) Pneumothorax on right Post Procedure Diagnosis: (1) Pneumothorax on right Procedure Date: Aug 01, 2017 Supervising Radiologist: Hugo Buenrostro Proceduralist/Assist: RT Delmy(R), RT Awa(R) Anesthesia: Local, Analgesia, Conscious Sedation Plan of Activity Patient to Unit: ROPU Patient Condition: Good See PACS Report for procedural detail/treatment Drainage Procedure Procedure 1 Imaging Guidance: Fluoroscopy Side: Right Procedure Type: Chest Tube Non-Tunneled Procedure: Placement [place]ese: 10 Drainage: Pleurovac (40 cm H2O) Hugo Buenrostro MD Aug 01, 2017 14:49
--- NOTE | 2017-08-01 17:37 | RADRPT ---
EXAM DATE/TIME: 08/01/2017 14:03 [facility] COMPARISON: No previous studies available for comparison. INDICATIONS : Patient with recurrent spontaneous pneumothorax in need of right chest tube placement. MEDICAL HISTORY : COPD, Spontaneous pneumothorax, Emphysema SURGICAL HISTORY : Left hip replacement, Right knee replacement, Left knee arthroscopic surgery, Inguinal hernia repair ENCOUNTER: Subsequent ACUITY: 2 days PAIN SCORE: 8/10 LOCATION: Right side low back FLUORO TIME: 2.2 minutes IMAGE SERIES: 3 SEDATION TIME: 30 minutes MEDICATION(S): 1.) 1 mg midazolam (Versed) IV 2.) 100 mcg fentanyl (Sublimaze) IV DEVICE(S): 1.) 10 [place] non-locking catheter [place] PROCEDURE : 1. Fluoroscopically guided chest tube placement. 2. Conscious sedation with continuous EKG and oximetry monitoring. The risks, benefits and alternatives to the procedure were explained and verbal and written consent w as obtained. The site was prepped in sterile fashion. Full sterile technique was used, including ca p, mask, sterile gloves and gown and a large sterile sheet. Hand hygiene and 2% chlorhexidine and/or betadine/alcohol prep was utilized per protocol for cutaneous antisepsis. The skin and subcutaneous tissues were infiltrated with local anesthetic solution. Athletic Monitor image demonstrates a right-sided surg ical thoracostomy tube just inside of the hemithorax with a large right-sided pneumothorax. With fluoroscopic guidance the chest was punctured between the first and second interspace and the pr escribed catheter was placed in the lung apex. Wall suction was applied. Post procedure images demon strate satisfactory position of the tube and resolution of the previously seen large right pneumothor ax. The catheter was sutured in place and a Percu-Stay was applied. Conscious sedation was performed with the prescribed dosages and duration as above in the presence of an independent trained radiology nurse to assist in the monitoring of the patient. EKG and oximetry remained stable throughout the procedure. The patient tolerated the procedure well and there were n o complications. The patient was sent to post anesthesia recovery in stable condition. CONCLUSION: 1. Uncomplicated chest tube placement as above. 2. Resolution of previously identified pneumothorax. 3. Please note, the patient has a surgical placed thoracostomy tube which is just inside the chest wa ll laterally and the newly placed [place] loop thoracostomy tube position in the apex of the hemithorax. Both tubes were connected to Pleur-evac devices. Both Pleur-evacs need to be connected to active suc tion and set to 40 cm. If only one tube is connected, it will simply suck air through the tube on roberta er seal and produce a persistent air leak. Hugo Buenrostro MD on August 01, 2017 at 17:30 Board Certified Radiologist. This report was verified electronically.
[2017-08-02] VITALS (10 sets, daily range): BP systolic 144–169; BP diastolic 72–80; PULSE 82–107; RESP 16–18; TEMP 97.2–98.6; O2SAT 93–97
[2017-08-02] MEDS: HYDROmorphone HCL PF 1 MG/ML VIAL IV PUSH PRN ×6 (00:03→21:15)
[2017-08-02] MEDS: LORazepam 0.5 MG TAB PO PRN (02:01)
[2017-08-02] MEDS: ACETAMINOPHEN/HYDROcodone 325 MG/10 MG TAB PO PRN ×3 (02:01→10:26)
[2017-08-02] MEDS: SODIUM CHLORIDE 0.9% FLUSH 10 ML FLUSH IV FLUSH SCH ×2 (07:25→21:17)
--- NOTE | 2017-08-02 08:20 | RADRPT ---
EXAM DATE/TIME: 08/02/2017 07:54 [facility] COMPARISON: CHEST SINGLE AP, August 01, 2017, 4:37. INDICATIONS : Evaluate for pneumothorax. MEDICAL HISTORY : COPD, Spontaneous pneumothorax, Emphysema SURGICAL HISTORY : Left hip replacement, Right knee replacement, Left knee arthroscopic surgery,Inguinal hernia repair ENCOUNTER: Subsequent ACUITY: 3 days PAIN SCORE: 0/10 LOCATION: Bilateral chest FINDINGS: A single frontal expiratory view of the chest was performed. Patient is rotated to the left. Right-si ded chest tube seen. Small apical pneumothorax measures 5-6 mm pleural separation. Minimal right basi lar density.. The cardio-mediastinal contours and bronchopulmonary markings are unremarkable for an expiratory exam . Osseous structures are intact. CONCLUSION: Small right apical pneumothorax, significantly improved. Gasper Thornton MD on August 02, 2017 at 8:17 Board Certified Radiologist. This report was verified electronically.
[2017-08-02] MEDS: BUDESONIDE-FORMOTEROL 160/4.5 MCG INHALER INH SCH ×2 (08:33→21:20)
[2017-08-02] MEDS: DOCUSATE SODIUM 50 MG/SENNA 8.6 MG TAB PO SCH ×3 (08:33→21:17)
[2017-08-02 08:47] LABS: HEMATOCRIT 38.5 % (39.0-51.0); MEAN CELL VOLUME 98.4 FL (80.0-100.0); MEAN CORPUSCULAR HEMOGLOBIN 33.6 PG (27.0-34.0); MEAN CORPUSCULAR HGB CONC 34.1 % (32.0-36.0); PLATELET COUNT 390 TH/MM3 (150-450); RED BLOOD COUNT 3.91 MIL/MM3 (4.50-5.90); RED CELL DISTRIBUTION WIDTH 14.7 % (11.6-17.2); REVIEW FLAG FINAL
[2017-08-02 09:13] LABS: BICARBONATE 27.5 MEQ/L (21.0-32.0); POTASSIUM 3.6 MEQ/L (3.5-5.1)
[2017-08-02] MEDS: ZOLPIDEM TARTRATE 5 MG TAB PO SCH ×2 (11:15→23:23)
--- NOTE | 2017-08-02 11:42 | HHI.FPPN ---
Subjective Remarks No acute events overnight. Pt sitting up in bed, watching TV. Posterior and anterior chest tube in place. Posterior chest tube will be removed by Dr. Olivares this AM. He complains of pain and requested that we adjust his pain meds. Also he complains of insomnia and would like a medication for sleep. No BM yet. He denies CP, SOB, abdominal pain, and N/V. (Mariela Longoria MD R1) Objective Vitals Vital Signs Date Time Temp Pulse Resp B/P (MAP) Pulse Ox O2 Delivery O2 Flow Rate FiO2 08/02/17 08:11 97.2 92 16 169/79 (109) 97 08/02/17 07:54 Room Air 08/02/17 05:34 97.5 89 18 154/80 (104) 93 08/02/17 00:10 156/72 (100) 08/02/17 00:00 88 08/01/17 23:12 97.8 96 18 181/87 (118) 96 08/01/17 21:38 97.1 99 18 174/84 (114) 97 08/01/17 20:00 Room Air 08/01/17 20:00 94 08/01/17 16:00 89 18 149/74 (99) 95 08/01/17 16:00 97.0 97 18 169/74 (105) 92 08/01/17 15:30 93 18 148/74 (98) 93 08/01/17 15:00 86 18 150/91 (110) 96 08/01/17 14:45 97.5 96 18 152/89 (110) 95 08/01/17 12:19 103 08/01/17 12:00 98.6 94 18 163/75 (104) 92 I/O 08/01/17 08/01/17 08/01/17 08/02/17 08/02/17 08/02/17 07:00 15:00 23:00 07:00 15:00 23:00 Intake Total 480 ml 600 ml Output Total 600 ml 400 ml Balance -120 ml 200 ml Intake Oral 480 ml 600 ml Output Urine Total 600 ml 400 ml # Bowel Movements 1 0 (Mariela Longoria MD R1) Result Diagram: 08/02/1771308/02/1714 Objective Remarks GENERAL: Lying in bed, watching TV, in NAD SKIN: No rashes, ecchymoses or lesions. Cool and dry. HEAD: NC/AT EYES: PERRL. EOMI. No conjunctival injection or drainage. ENT: MMM, OP without erythema, tonsillar swelling, or exudate. NECK: Supple CARDIOVASCULAR: NRRR. Normal S1/S2. No MRG. Distant heart sounds. RESPIRATORY: CTAB. No crackles or wheezes. Breath sounds barely audible; thorax with increased AP diameter. Posterior and anterior chest tube in place. GASTROINTESTINAL: Abdomen soft, non-distended, nontender. No hepato- splenomegaly or palpable masses. MUSCULOSKELETAL: Extremities without clubbing, cyanosis, or edema. NEUROLOGICAL: Awake and alert. Oriented x3. (Mariela Longoria MD R1) A/P Assessment and Plan 61-year-old man being admitted for recurrent spontaneous pneumothorax. Discharge Planning Unclear timetable at this time Case management PT- patient has rolling walker and cane at home, no home PT needed (Mariela Longoria MD R1) Attending Attestation Patient seen and examined. Case reviewed and discussed with the resident team. Agree with plan of care as discussed with me and documented in the resident note. (Fidelina Mendieta MD) Problem List: (1) Recurrent spontaneous pneumothorax ICD Codes: J93.83 - Other pneumothorax Status: Acute Plan: s/p right chest tube placement by ED physician with repeat chest x-ray showing successful placement 07/30 s/p pleurodesis by IR 07/31, Pt was unable to tolerate full pleurodesis procedure yesterday. Severe pain with injection. Could only inject half of the total dose (30cc). Patient refused to attempt pleurodesis again. IR to placed anterior chest tube 08/02 Consulted pulmonary, recommendations appreciated CXR 08/01 showed increase in size of right apical pneumothorax to 2.6cm. Right- sided chest tube has partially migrated laterally Dr. Olivares will remove posterior chest tube this AM. Pain Control: Mason 10/325 1 tab po q4h SCHpain 6-10 Dilaudid 1 mg IV q4h prn breakthrough pain (2) Hypertension ICD Codes: I10 - Essential (primary) hypertension Status: Chronic Plan: BP on admission 205/117, pain likely contributing Patient had stable BPs near within normal limits throughout previous hospitalization Patient had been started on HCTZ 25 mg po daily Treat pain as above Clonidine 0.1 mg po q6h prn BP > 180/100 Monitor vitals q4h (3) COPD (chronic obstructive pulmonary disease) ICD Codes: J44.9 - Chronic obstructive pulmonary disease, unspecified Status: Chronic Plan: Continue Symbicort 2 puffs q12h Duonebs q4h prn O2 via NC (4) Nutrition, metabolism, and development symptoms ICD Codes: R63.8 - Other symptoms and signs concerning food and fluid intake Status: Acute Plan: Fluids: per PO Nutrition: heart healthy DVT ppx: Heparin 5000 units sq q12h (5) Tobacco use disorder ICD Codes: F17.200 - Nicotine dependence, unspecified, uncomplicated Status: Chronic Plan: Recommended smoking cessation. (Mariela Longoria MD R1) Problem Qualifiers (1) COPD (chronic obstructive pulmonary disease): Qualified Codes: J44.9 - Chronic obstructive pulmonary disease, unspecified Mariela Longoria MD R1 Aug 02, 2017 11:42 Fidelina Mendieta MD Aug 02, 2017 13:35
[2017-08-02] MEDS: ACETAMINOPHEN/HYDROcodone 325 MG/10 MG TAB PO SCH ×3 (14:59→23:23)
--- NOTE | 2017-08-02 18:59 | HHI.PR ---
Subjective Remarks pleurodesis was done this am no sob CXRAYimproved after second tube inserted Objective Vital Signs Date Time Temp Pulse Resp B/P (MAP) Pulse Ox O2 Delivery O2 Flow Rate FiO2 08/02/17 15:38 95 08/02/17 12:12 98.6 82 18 144/80 (101) 95 08/02/17 08:11 97.2 92 16 169/79 (109) 97 08/02/17 07:54 Room Air 08/02/17 05:34 97.5 89 18 154/80 (104) 93 08/02/17 00:10 156/72 (100) 08/02/17 00:00 88 08/01/17 23:12 97.8 96 18 181/87 (118) 96 08/01/17 21:38 97.1 99 18 174/84 (114) 97 08/01/17 20:00 Room Air 08/01/17 20:00 94 I/O 08/01/17 08/01/17 08/01/17 08/02/17 08/02/17 08/02/17 07:00 15:00 23:00 07:00 15:00 23:00 Intake Total 480 ml 600 ml Output Total 600 ml 400 ml Balance -120 ml 200 ml Intake Oral 480 ml 600 ml Output Urine Total 600 ml 400 ml # Bowel Movements 1 0 Result Diagram: 08/02/1771308/02/17713 Objective Remarks GENERAL: SKIN: Warm and dry. HEAD: Atraumatic. Normocephalic. EYES: Pupils equal and round. No scleral icterus. No injection or drainage. ENT: No nasal bleeding or discharge. Mucous membranes pink and moist. NECK: Trachea midline. No JVD. CARDIOVASCULAR: Regular rate and rhythm. RESPIRATORY: No accessory muscle use. Clear to auscultation. Breath sounds equal bilaterally. GASTROINTESTINAL: Abdomen soft, non-tender, nondistended. Hepatic and splenic margins not palpable. MUSCULOSKELETAL: Extremities without clubbing, cyanosis, or edema. No obvious deformities. NEUROLOGICAL: Awake and alert. No obvious cranial nerve deficits. Motor grossly within normal limits. Five out of 5 muscle strength in the arms and legs. Normal speech. PSYCHIATRIC: Appropriate mood and affect; insight and judgment normal. Assessment and Plan Assessment and Plan spontaneous recurrent PNX POST PLEURODESIS PLAN PULMONARY TOILET REPOSITION OR CHANGE TUBE older tube removed by myself well tolerated Ivonne Coronado MD Aug 02, 2017 18:59
[2017-08-03] VITALS (12 sets, daily range): BP systolic 136–169; BP diastolic 72–81; PULSE 75–105; RESP 16–20; TEMP 97.3–98.1; O2SAT 94–99
[2017-08-03] MEDS: HYDROmorphone HCL PF 1 MG/ML VIAL IV PUSH PRN ×6 (01:30→22:50)
[2017-08-03] MEDS: RESP: ALBUTEROL 2.5 MG/IPRATROPIUM 0.5 MG NEB (PRN) NEB (02:40)
[2017-08-03] MEDS: ACETAMINOPHEN/HYDROcodone 325 MG/10 MG TAB PO SCH ×2 (03:07→07:40)
[2017-08-03 08:21] LABS: HEMATOCRIT 37.9 % (39.0-51.0); MEAN CELL VOLUME 98.4 FL (80.0-100.0); MEAN CORPUSCULAR HEMOGLOBIN 33.3 PG (27.0-34.0); MEAN CORPUSCULAR HGB CONC 33.8 % (32.0-36.0); PLATELET COUNT 377 TH/MM3 (150-450); RED BLOOD COUNT 3.85 MIL/MM3 (4.50-5.90); RED CELL DISTRIBUTION WIDTH 14.6 % (11.6-17.2); REVIEW FLAG FINAL; WHITE BLOOD COUNT 15.7 TH/MM3 (4.0-11.0)
[2017-08-03] MEDS: SODIUM CHLORIDE 0.9% FLUSH 10 ML FLUSH IV FLUSH SCH ×2 (08:42→20:13)
[2017-08-03] MEDS: DOCUSATE SODIUM 50 MG/SENNA 8.6 MG TAB PO SCH ×2 (08:42→20:13)
[2017-08-03] MEDS: BUDESONIDE-FORMOTEROL 160/4.5 MCG INHALER INH SCH ×2 (08:43→20:14)
--- NOTE | 2017-08-03 09:23 | HHI.FPPN ---
Subjective Remarks No acute events overnight. Afebrile, vitals stable. Patient seen and examined this AM. Patient stated his pain overall has remained at tayo. 7-8/10, stating his current regimen for pain control has not been adequate for pain control. Denies new chest pain apart from chest tube insertion site. Denies SOB, worsening cough, fevers/chills. Ambulating around his bed. Objective Vitals Vital Signs Date Time Temp Pulse Resp B/P (MAP) Pulse Ox O2 Delivery O2 Flow Rate FiO2 08/03/17 09:00 Nasal Cannula 3.00 08/03/17 04:53 97.5 102 18 150/81 (104) 97 08/03/17 04:00 96 08/03/17 02:45 95 Nasal Cannula 3.00 08/03/17 00:28 97.3 92 18 136/76 (96) 94 08/03/17 00:00 82 08/02/17 20:55 97.5 107 18 147/77 (100) 93 08/02/17 20:00 Room Air 08/02/17 20:00 92 08/02/17 16:12 98.1 89 18 154/74 (100) 97 08/02/17 15:38 95 08/02/17 12:12 98.6 82 18 144/80 (101) 95 I/O 08/02/17 08/02/17 08/02/17 08/03/17 08/03/17 08/03/17 07:00 15:00 23:00 07:00 15:00 23:00 Intake Total 600 ml 380 ml 480 ml Output Total 400 ml 850 ml 550 ml Balance 200 ml -470 ml -70 ml Intake Oral 600 ml 380 ml 480 ml Output Urine Total 400 ml 850 ml 550 ml # Bowel Movements 0 0 0 Result Diagram: 08/03/17 0732 08/02/17 0714 Objective Remarks GENERAL: Lying in bed, NAD SKIN: No rashes, ecchymoses or lesions. Cool and dry. HEAD: NC/AT EYES: EOMI. No conjunctival injection or drainage. ENT: MMM, OP without erythema, tonsillar swelling, or exudate. NECK: Supple CARDIOVASCULAR: NRRR. Normal S1/S2. No MRG. Distant heart sounds. RESPIRATORY: CTAB. No crackles or wheezes. Breath sounds barely audible; thorax with increased AP diameter. Chest tube in place. GASTROINTESTINAL: Abdomen soft, non-distended, nontender. No hepato- splenomegaly or palpable masses. MUSCULOSKELETAL: Extremities without clubbing, cyanosis, or edema. NEUROLOGICAL: Awake and alert. Oriented x3. Normal speech. 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 A/P Assessment and Plan 61-year-old man admitted due to recurrent spontaneous pneumothorax. Discharge Planning Unclear timetable at this time Case management assisting with any discharge needs PT stating no home PT needed at this time as patient has rolling walker and cane at home Problem List: (1) Recurrent spontaneous pneumothorax ICD Codes: J93.83 - Other pneumothorax Status: Acute Plan: s/p right chest tube placement by ED physician with repeat chest x-ray showing successful placement on 07/30 s/p pleurodesis by IR 07/31, Pt was unable to tolerate full pleurodesis procedure. Severe pain with injection. Could only inject half of the total dose (30cc). Patient refused to attempt pleurodesis again. IR placed anterior chest tube on 08/02 Consulted pulmonology, Dr. Coronado following - Posterior chest tube removed on 08/02 Last CXR from 08/02 showing small right apical pneumothorax, significantly improved Pain Control: Percocet 1 tab po q4h scheduled Dilaudid 1 mg IV q4h prn breakthrough pain (2) Hypertension ICD Codes: I10 - Essential (primary) hypertension Status: Chronic Plan: Patient had stable BPs near within normal limits throughout previous hospitalization Patient had been started on HCTZ 25 mg po daily Treat pain as above Resume HCTZ Clonidine 0.1 mg po q6h prn BP > 180/100 Monitor vitals q4h (3) COPD (chronic obstructive pulmonary disease) ICD Codes: J44.9 - Chronic obstructive pulmonary disease, unspecified Status: Chronic Plan: Continue Symbicort 2 puffs q12h Duonebs q4h prn O2 via NC to maintain O2 sats between 88-92% (4) Leukocytosis ICD Codes: D72.829 - Elevated white blood cell count, unspecified Status: Acute Plan: WBC 14.1 on admission, consider reactive response due to steroid administration prior to admission Continue to monitor clinically for si/sxs of infection (5) Tobacco use disorder ICD Codes: F17.200 - Nicotine dependence, unspecified, uncomplicated Status: Chronic Plan: Recommended smoking cessation (6) Nutrition, metabolism, and development symptoms ICD Codes: R63.8 - Other symptoms and signs concerning food and fluid intake Status: Acute Plan: Fluids: per PO Electrolytes: WNL 08/02 Nutrition: heart healthy DVT ppx: resume heparin if not anticipating any surgical intervention Problem Qualifiers (1) COPD (chronic obstructive pulmonary disease): Qualified Codes: J44.9 - Chronic obstructive pulmonary disease, unspecified Ky Samuel MD R2 Aug 03, 2017 09:23
[2017-08-03] MEDS ORDERED: oxyCODONE/ACETAMINOPHEN 10 MG/325 MG TAB PO SCH (10:00)
[2017-08-03] MEDS: oxyCODONE/ACETAMINOPHEN 10 MG/325 MG TAB PO SCH ×3 (12:02→20:10)
--- NOTE | 2017-08-03 12:50 | RADRPT ---
EXAM DATE/TIME: 08/03/2017 12:22 [facility] COMPARISON: CHEST SINGLE AP, August 01, 2017, 4:37. INDICATIONS : Pneumothorax. MEDICAL HISTORY : Chronic obstructive pulmonary disease. Emphysema. Pneumothorax. SURGICAL HISTORY : Total knee replacement, right. Inguinal hernia repair. Left total hip. ENCOUNTER: Subsequent ACUITY: 4 - 6 days PAIN SCORE: 0/10 LOCATION: Right chest FINDINGS: A small right apical chest tube has been placed and is in good position. There has been resolution of the right-sided pneumothorax. A small right pleural effusion is noted. Right basilar consolidation i s stable. Degenerative changes and scoliosis of the thoracic spine are unchanged. Minimal streakiness is noted within the left lung base. CONCLUSION: 1. Resolution of the right-sided pneumothorax status post placement of small right apical chest tube. 2. Small right pleural effusion. 3. Stable right basilar consolidation and minimal streakiness with left lung base. 4. Degenerative changes and scoliosis of the thoracic spine. Juvenal Bautista MD on August 03, 2017 at 12:47 Board Certified Radiologist. This report was verified electronically.
[2017-08-03] MEDS: LORazepam 0.5 MG TAB PO PRN (15:29)
[2017-08-03] MEDS: HEPARIN SODIUM - SQ 10,000 UNITS/ML VIAL SQ SCH (20:13)
[2017-08-03] MEDS: ZOLPIDEM TARTRATE 5 MG TAB PO SCH (22:48)
[2017-08-04] VITALS (16 sets, daily range): BP systolic 146–165; BP diastolic 70–88; PULSE 90–116; RESP 17–21; TEMP 97.6–98.6; O2SAT 94–99
[2017-08-04] MEDS: oxyCODONE/ACETAMINOPHEN 10 MG/325 MG TAB PO SCH (00:09)
[2017-08-04] MEDS: RESP: ALBUTEROL 2.5 MG/IPRATROPIUM 0.5 MG NEB (PRN) NEB (01:53)
[2017-08-04] MEDS: LORazepam 0.5 MG TAB PO PRN (03:06)
--- NOTE | 2017-08-04 03:28 | RADRPT ---
EXAM DATE/TIME: 08/04/2017 02:48 [facility] COMPARISON: CHEST EXPIRATION ONLY, August 02, 2017, 7:54. CHEST SINGLE AP, August 03, 2017, 12:22. INDICATIONS : Dyspnea. MEDICAL HISTORY : Chronic obstructive pulmonary disease. Emphysema. Pneumothorax. SURGICAL HISTORY : Total knee replacement, right. Inguinal hernia repair. Left total hip. ENCOUNTER: Subsequent ACUITY: 2 weeks PAIN SCORE: 0/10 LOCATION: Bilateral chest FINDINGS: Single AP view of the chest. Right-sided pigtail chest catheter remains in place. Increase in size of right pneumothorax. It is now moderate in size at the lateral right lung base measuring 4.[address] [place] [address] right lower lobe atelectasis is increased. Small right pleural effusion also noted. Left lung is clear. No evidence of pleural effusion or pneumothorax on the left. CONCLUSION: Increase in size of right pneumothorax. Now moderate in size at the right lung base. Right-sided ches t tube remains in place. Jack Oseguera MD on August 04, 2017 at 3:17 Board Certified Radiologist. This report was verified electronically.
[2017-08-04 03:42] LABS: BLOOD GAS BASE EXCESS 0.1 mmol/L (-2-2); BLOOD GAS CARBOXYHEMOGLOBIN 1.2 % (0-4); BLOOD GAS HCO3 24 mmol/L (22-26); BLOOD GAS METHEMOGLOBIN 0.8 % (0-2); BLOOD GAS O2 HGB SATURATION 96 % (90-100); BLOOD GAS OXYGEN CONTENT 18.6 Vol % (12.0-20.0); BLOOD GAS PCO2 35 mmHg (38-42); BLOOD GAS PO2 100 mmHg (61-120); BLOOD GAS TOTAL HGB 13.7 G/DL (12.0-16.0); CRITICAL VALUE NO; DRAW SITE RT RADIAL; LITER FLOW 9 L/M; NUMBER OF ARTERIAL PUNCTURES 1; OXYGEN DEVICE SIMPLE MASK; STAT YES; TEMP CORR TO 98.6; ULNAR PULSE PRESENT
--- NOTE | 2017-08-04 03:47 | HHI.FPPN ---
Addendum to progress note ADDENDUM Reason for addendum: Additonal documentation Additional information Paged by RN due to patient having increased work of breathing upon waking up and having O2 desats into the mid 80s. Patient was seen and examined. Patient is sitting up on side of bed. On 9L via simple mask satting 100%. Respirations appear nonlabored. Patient does appear cold and shivering. He denies new chest pain or fevers. GENERAL: Sitting up in bed on simple mask, appearing anxious SKIN: Cool and dry. HEAD: NC/AT NECK: Supple CARDIOVASCULAR: Tachycardic rate into the 120s, regular rhythm, no m/r/g. Normal S1/S2. RESPIRATORY: CTAB. No crackles or wheezes. Chest tube in place. GASTROINTESTINAL: Abdomen soft, nondistended. MUSCULOSKELETAL: Extremities without clubbing, cyanosis, or edema. NEUROLOGICAL: Awake and alert. Normal speech. 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 Moving all extremities. A/P: 61 year old man admitted due to having recurrent spontaneous pneumothorax now with increased work of breathing and tachycardia upon awakening. - Consider worsening pneumothorax, pulmonary embolism, anxiety, sepsis, pneumonia, CHF, CA - Ordered stat CXR showing increase in size of right pneumothorax, now moderate in size at the right lung base - Discontinued previous order to clamp chest tube this AM at 03:00 - Obtain stat cbc, bmp, d-dimer, ABG - Patient noted to have refused heparin earlier today - Pt given ativan 0.5 mg po x1 - May require transfer to ICU and consult/call with critical care based on results of above Ky Samuel MD R2 Aug 04, 2017 03:46
[2017-08-04 04:19] LABS: AUTOMATED NEUTROPHIL # 11.8 TH/MM3 (1.8-7.7); BASOPHIL % 0.3 % (0.0-2.0); EOSINOPHIL # 0.2 TH/MM3 (0-0.4); EOSINOPHIL % 1.4 % (0.0-4.0); HEMATOCRIT 39.7 % (39.0-51.0); HEMO FLAGS DIFF FINAL; LYMPH % 9.2 % (9.0-44.0); LYMPHOCYTE # 1.3 TH/MM3 (1.0-4.8); MEAN CELL VOLUME 97.4 FL (80.0-100.0); MEAN CORPUSCULAR HEMOGLOBIN 34.2 PG (27.0-34.0); MEAN CORPUSCULAR HGB CONC 35.1 % (32.0-36.0); MONO % 6.9 % (0.0-8.0); NEUT % 82.2 % (16.0-70.0); PLATELET COUNT 416 TH/MM3 (150-450); RED BLOOD COUNT 4.07 MIL/MM3 (4.50-5.90); RED CELL DISTRIBUTION WIDTH 14.4 % (11.6-17.2); WHITE BLOOD COUNT 14.3 TH/MM3 (4.0-11.0)
[2017-08-04] MEDS: oxyCODONE/ACETAMINOPHEN 10 MG/325 MG TAB PO PRN ×4 (04:30→20:07)
[2017-08-04 04:44] LABS: BICARBONATE 27.7 MEQ/L (21.0-32.0); POTASSIUM 3.5 MEQ/L (3.5-5.1)
[2017-08-04] MEDS: DOCUSATE SODIUM 50 MG/SENNA 8.6 MG TAB PO SCH ×2 (09:00→22:23)
[2017-08-04] MEDS: HYDROmorphone HCL PF 1 MG/ML VIAL IV PUSH PRN ×4 (09:19→22:11)
[2017-08-04] MEDS: HYDROCHLOROTHIAZIDE 25 MG TAB PO SCH (09:22)
[2017-08-04] MEDS: SODIUM CHLORIDE 0.9% FLUSH 10 ML FLUSH IV FLUSH SCH ×2 (09:23→22:26)
[2017-08-04] MEDS: BUDESONIDE-FORMOTEROL 160/4.5 MCG INHALER INH SCH ×2 (09:24→21:00)
[2017-08-04] MEDS: HEPARIN SODIUM - SQ 10,000 UNITS/ML VIAL SQ SCH ×2 (09:28→22:24)
--- NOTE | 2017-08-04 09:37 | RADRPT ---
EXAM DATE/TIME: 08/04/2017 08:48 [facility] COMPARISON: CHEST SINGLE AP, August 04, 2017, 2:48. INDICATIONS : Short of breath for 5 years. MEDICAL HISTORY : Chronic obstructive pulmonary disease. Emphysema. Pneumothorax. Smoker SURGICAL HISTORY : None. ENCOUNTER: Subsequent ACUITY: 4 - 6 days PAIN SCORE: 0/10 LOCATION: Bilateral chest FINDINGS: There continues to be a small right-sided chest tube in place. There continues to be a moderate right pneumothorax with approximately 4.1 cm separation at the apex and 5.7 cm separation at the right cos tophrenic angle. This is either about the same or mildly increased compared to the prior exam. The le ft chest remains grossly clear. The heart size is stable. There is atelectasis in the right lower jacquie g area bony structures are stable. CONCLUSION: 1. There continues to be a moderate right-sided pneumothorax which is either about the same or mildly increased compared to the prior exam. There is a small right-sided chest tube in place which is most likely ineffective. If clinically indicated, recommend large bore right-sided chest tube Aidan Alvarez MD on August 04, 2017 at 9:32 Board Certified Radiologist. This report was verified electronically.
--- NOTE | 2017-08-04 12:50 | HHI.FPPN ---
Subjective Remarks Resident team paged overnight, patient had increased work of breathing and tachycardia upon awakening. Stat CXR showed increase in size of right pneumothorax, no moderate in size at the right lung base. Discontinued previous order to clamp chest tube this AM at 3:00. D-dimer elvated at 2.04. ABG showed ph 7.45 with elevated pCO2 of 35. Pt received ativan 0.5mg po x1. and required simple mask 6L O2. Pt lying in bed this AM, watching TV. Reports SOB. On 3 L O2 NC, sats 97%. Patient still tachycardic at 101. Denies CP, N/V, and abdominal pain. Objective Vitals Vital Signs Date Time Temp Pulse Resp B/P (MAP) Pulse Ox O2 Delivery O2 Flow Rate FiO2 08/04/17 12:13 98.6 109 17 165/88 (113) 94 08/04/17 08:35 Nasal Cannula 3.00 08/04/17 08:21 97.6 101 17 150/70 (96) 97 08/04/17 07:30 92 08/04/17 04:00 114 08/04/17 02:22 95 Simple Mask 6.00 08/04/17 00:00 98.0 90 20 164/79 (107) 99 08/03/17 20:00 98.1 90 19 156/77 (103) 97 08/03/17 20:00 98 08/03/17 20:00 Room Air 08/03/17 16:00 97.8 90 16 152/72 (98) 98 08/03/17 15:52 83 08/03/17 13:34 98 Nasal Cannula 3.00 I/O 08/03/17 08/03/17 08/03/17 08/04/17 08/04/17 08/04/17 07:00 15:00 23:00 07:00 15:00 23:00 Intake Total 480 ml 960 ml 120 ml Output Total 550 ml 510 ml 480 ml Balance -70 ml 450 ml -360 ml Intake Oral 480 ml 960 ml 120 ml Output Urine Total 550 ml 480 ml 450 ml Chest Tube Drainage Total 15 ml Drainage Total 15 ml 30 ml # Bowel Movements 0 1 Result Diagram: 08/04/1733808/04/17338 Imaging Last Impressions Chest X-Ray 08/04/17 09 Signed Impressions: Service Date/Time: Friday, August 04, 2017 08:48 - CONCLUSION: 1. There continues to be a moderate right-sided pneumothorax which is either about the same or mildly increased compared to the prior exam. There is a small right-sided chest tube in place which is most likely ineffective. If clinically indicated, recommend large bore right-sided chest tube Aidan Alvarez MD Chest Tube Insertion 08/01/17 0000 Signed Impressions: Service Date/Time: Tuesday, August 01, 2017 14:03 - CONCLUSION: 1. Uncomplicated chest tube placement as above. 2. Resolution of previously identified pneumothorax. 3. Please note, the patient has a surgical placed thoracostomy tube which is just inside the chest wall laterally and the newly placed [place] loop thoracostomy tube position in the apex of the hemithorax. Both tubes were connected to Pleur-evac devices. Both Pleur-evacs need to be connected to active suction and set to 40 cm. If only one tube is connected, it will simply suck air through the tube on water seal and produce a persistent air leak. Hugo Buenrostro MD Pleurodesis 07/31/17 0000 Signed Impressions: Service Date/Time: Monday, July 31, 2017 13:12 - CONCLUSION: Chemical pleuradesis as above. Patient was in extreme discomfort with the doxycycline injection and only half the prescribed dose was administered. Hugo Buenrostro MD Objective Remarks GENERAL: lying in bed, having slight SOB SKIN: No rashes, ecchymoses or lesions. Cool and dry. HEAD: NC/AT EYES: EOMI. No conjunctival injection or drainage. ENT: MMM, OP without erythema, tonsillar swelling, or exudate. NECK: Supple CARDIOVASCULAR: NRRR. Normal S1/S2. No MRG. Distant heart sounds. RESPIRATORY: CTAB. No crackles or wheezes. Breath sounds barely audible; thorax with increased AP diameter. Anterior right chest tube in place. GASTROINTESTINAL: Abdomen soft, non-distended, nontender. No hepato- splenomegaly or palpable masses. MUSCULOSKELETAL: Extremities without clubbing, cyanosis, or edema. NEUROLOGICAL: Awake and alert. Oriented x3. Normal speech. A/P Assessment and Plan 61-year-old man admitted due to recurrent spontaneous pneumothorax. Discharge Planning Unclear timetable at this time Case management assisting with any discharge needs PT stating no home PT needed at this time as patient has rolling walker and cane at home Problem List: (1) Recurrent spontaneous pneumothorax ICD Codes: J93.83 - Other pneumothorax Status: Acute Plan: s/p right chest tube placement by ED physician with repeat chest x-ray showing successful placement on 07/30 s/p pleurodesis by IR 07/31, Pt was unable to tolerate full pleurodesis procedure. Severe pain with injection. Could only inject half of the total dose (30cc). Patient refused to attempt pleurodesis again. IR placed anterior chest tube on 08/02 Consulted pulmonology, Dr. Coronado following Posterior chest tube removed on 08/02 Last CXR from 08/02 showing small right apical pneumothorax, significantly improved CXR 08/04 02:38 increase in size of right pneumothorax, no moderate in size at the right lung base CXR 08/03 08:48 continue to be moderate right-sided pneumothorax. IR consulted, appreciate recs. Spoke with Dr. Buenrostro, 3x chest tube attempts with recurrent pneumothorax. Patient most likely will need surgery. Cardiothoracic consulted, recs appreciated Pain Control: Percocet 1 tab po q4h scheduled Dilaudid 1 mg IV q4h prn breakthrough pain (2) Hypertension ICD Codes: I10 - Essential (primary) hypertension Status: Chronic Plan: Patient had stable BPs near within normal limits throughout previous hospitalization Patient had been started on HCTZ 25 mg po daily Treat pain as above Resume HCTZ Clonidine 0.1 mg po q6h prn BP > 180/100 Monitor vitals q4h (3) COPD (chronic obstructive pulmonary disease) ICD Codes: J44.9 - Chronic obstructive pulmonary disease, unspecified Status: Chronic Plan: Continue Symbicort 2 puffs q12h Duonebs q4h prn O2 via NC to maintain O2 sats between 88-92% (4) Leukocytosis ICD Codes: D72.829 - Elevated white blood cell count, unspecified Status: Acute Plan: WBC 14.1 on admission, consider reactive response due to steroid administration prior to admission Continue to monitor clinically for si/sxs of infection (5) Tobacco use disorder ICD Codes: F17.200 - Nicotine dependence, unspecified, uncomplicated Status: Chronic Plan: Recommended smoking cessation (6) Nutrition, metabolism, and development symptoms ICD Codes: R63.8 - Other symptoms and signs concerning food and fluid intake Status: Acute Plan: Fluids: per PO Electrolytes: WNL 08/02 Nutrition: heart healthy DVT ppx: resume heparin if not anticipating any surgical intervention Problem Qualifiers (1) COPD (chronic obstructive pulmonary disease): Qualified Codes: J44.9 - Chronic obstructive pulmonary disease, unspecified Mariela Longoria MD R1 Aug 04, 2017 12:50
--- NOTE | 2017-08-04 16:21 | HHI.PR ---
Subjective Remarks again has right pnx no acute distress Objective Vital Signs Date Time Temp Pulse Resp B/P (MAP) Pulse Ox O2 Delivery O2 Flow Rate FiO2 08/04/17 15:35 21 08/04/17 12:13 98.6 109 17 165/88 (113) 94 08/04/17 12:00 103 08/04/17 08:35 Nasal Cannula 3.00 08/04/17 08:21 97.6 101 17 150/70 (96) 97 08/04/17 07:30 92 08/04/17 04:00 114 08/04/17 02:22 95 Simple Mask 6.00 08/04/17 00:00 98.0 90 20 164/79 (107) 99 08/03/17 20:00 98.1 90 19 156/77 (103) 97 08/03/17 20:00 98 08/03/17 20:00 Room Air I/O 08/03/17 08/03/17 08/03/17 08/04/17 08/04/17 08/04/17 07:00 15:00 23:00 07:00 15:00 23:00 Intake Total 480 ml 960 ml 120 ml Output Total 550 ml 510 ml 480 ml 250 ml Balance -70 ml 450 ml -360 ml -250 ml Intake Oral 480 ml 960 ml 120 ml Output Urine Total 550 ml 480 ml 450 ml 250 ml Chest Tube Drainage Total 15 ml Drainage Total 15 ml 30 ml # Bowel Movements 0 1 Result Diagram: 08/04/17 0339 08/04/17 0339 Objective Remarks GENERAL: SKIN: Warm and dry. HEAD: Atraumatic. Normocephalic. EYES: Pupils equal and round. No scleral icterus. No injection or drainage. ENT: No nasal bleeding or discharge. Mucous membranes pink and moist. NECK: Trachea midline. No JVD. CARDIOVASCULAR: Regular rate and rhythm. RESPIRATORY: No accessory muscle use. Clear to auscultation. Breath sounds equal bilaterally. GASTROINTESTINAL: Abdomen soft, non-tender, nondistended. Hepatic and splenic margins not palpable. MUSCULOSKELETAL: Extremities without clubbing, cyanosis, or edema. No obvious deformities. NEUROLOGICAL: Awake and alert. No obvious cranial nerve deficits. Motor grossly within normal limits. Five out of 5 muscle strength in the arms and legs. Normal speech. PSYCHIATRIC: Appropriate mood and affect; insight and judgment normal. Assessment and Plan Assessment and Plan Recurrent PNX POST PLEURODESIS PLAN PULMONARY TOILET REPOSITION OR CHANGE TUBE Thoracic surgery consult Ivonne Coronado MD Aug 04, 2017 16:21
[2017-08-04] MEDS ORDERED: SODIUM CHLORIDE 0.9% FLUSH 10 ML FLUSH IV FLUSH PRN (17:00)
[2017-08-04] MEDS ORDERED: CHLORHEXIDINE GLUCONATE 4% SOLN 120 ML BTL TOPICAL SCH (17:00)
[2017-08-04] MEDS ORDERED: CEFAZOLIN INJ 500 MG in SODIUM CHLORIDE 0.9% IRR BTL 500 ML IRRIGATION SCH (17:00)
[2017-08-04] MEDS ORDERED: ceFAZolin 2 GM PREMIX 50 ML IV SCH (17:00)
[2017-08-04] MEDS: ZOLPIDEM TARTRATE 5 MG TAB PO SCH (21:00)
[2017-08-05] VITALS (27 sets, daily range): BP systolic 120–148; BP diastolic 67–78; PULSE 77–108; RESP 16–20; TEMP 97.6–98.3; O2SAT 97–100
[2017-08-05] MEDS: oxyCODONE/ACETAMINOPHEN 10 MG/325 MG TAB PO PRN ×6 (00:04→21:52)
[2017-08-05] MEDS: HYDROmorphone HCL PF 1 MG/ML VIAL IV PUSH PRN ×6 (02:15→23:38)
[2017-08-05 06:28] LABS: AUTOMATED NEUTROPHIL # 6.8 TH/MM3 (1.8-7.7); BASOPHIL # 0.1 TH/MM3 (0-0.2); BASOPHIL % 0.7 % (0.0-2.0); EOSINOPHIL # 0.3 TH/MM3 (0-0.4); HEMATOCRIT 38.3 % (39.0-51.0); HEMO FLAGS DIFF FINAL; LYMPH % 16.5 % (9.0-44.0); LYMPHOCYTE # 1.6 TH/MM3 (1.0-4.8); MEAN CELL VOLUME 98.1 FL (80.0-100.0); MEAN CORPUSCULAR HEMOGLOBIN 32.9 PG (27.0-34.0); MEAN CORPUSCULAR HGB CONC 33.6 % (32.0-36.0); MONO % 8.2 % (0.0-8.0); NEUT % 71.6 % (16.0-70.0); PLATELET COUNT 386 TH/MM3 (150-450); RED CELL DISTRIBUTION WIDTH 14.5 % (11.6-17.2); WHITE BLOOD COUNT 9.5 TH/MM3 (4.0-11.0)
[2017-08-05 06:52] LABS: ALT (GPT) 15 U/L (12-78); ANION GAP 7 MEQ/L (5-15); AST (GOT) 14 U/L (15-37); BICARBONATE 26.6 MEQ/L (21.0-32.0); BLOOD UREA NITROGEN 22 MG/DL (7-18); CHLORIDE 103 MEQ/L (98-107); GLOMERULAR FILTRATION RATE 124 ML/MIN (>89); POTASSIUM 3.2 MEQ/L (3.5-5.1); SODIUM (NA) 137 MEQ/L (136-145)
[2017-08-05 06:54] LABS: ALKALINE PHOSPHATASE 31 U/L (45-117); TOTAL BILIRUBIN ADULT 0.5 MG/DL (0.2-1.0)
[2017-08-05] MEDS: HEPARIN SODIUM - SQ 10,000 UNITS/ML VIAL SQ SCH ×2 (08:15→21:47)
[2017-08-05] MEDS: SODIUM CHLORIDE 0.9% FLUSH 10 ML FLUSH IV FLUSH SCH ×2 (08:16→21:48)
[2017-08-05] MEDS: DOCUSATE SODIUM 50 MG/SENNA 8.6 MG TAB PO SCH ×2 (08:16→21:47)
[2017-08-05] MEDS: BUDESONIDE-FORMOTEROL 160/4.5 MCG INHALER INH SCH ×2 (08:16→21:00)
[2017-08-05] MEDS: HYDROCHLOROTHIAZIDE 25 MG TAB PO SCH (08:19)
[2017-08-05] MEDS ORDERED: POTASSIUM CHLORIDE 10 MEQ CAP PO ONE (09:00)
[2017-08-05] MEDS: LORazepam 0.5 MG TAB PO PRN (09:53)
--- NOTE | 2017-08-05 10:50 | RADRPT ---
EXAM DATE/TIME: 08/05/2017 10:00 [facility] COMPARISON: CHEST SINGLE AP, August 04, 2017, 8:48. INDICATIONS : Evaluate right pneumothorax MEDICAL HISTORY : Chronic obstructive pulmonary disease. Emphysema. Pneumothorax SURGICAL HISTORY : None. ENCOUNTER: Subsequent ACUITY: 4 - 6 days PAIN SCORE: Non-responsive. LOCATION: Bilateral chest FINDINGS: There has been interval improvement of the right-sided pneumothorax with no residual pneumothorax not ed. Small right chest tube remains in good position with its tip in the apex. Mild subcutaneous emphy sema is noted within the right chest wall. Bibasilar atelectasis and/or infiltrates are noted. The he art is stable. CONCLUSION: 1. Interval improvement of the right-sided pneumothorax with no residual pneumothorax noted. 2. Bibasilar atelectasis and/or infiltrates. 3. Mild subcutaneous emphysema within the right chest wall. Juvenal Bautista MD on August 05, 2017 at 10:47 Board Certified Radiologist. This report was verified electronically.
--- NOTE | 2017-08-05 10:52 | HHI.FPPN ---
Subjective Remarks No acute events overnight. Pt moved to a different room yesterday for better suction equipment. Since being moved, pt reports doing well this AM. Feels that he can breath better. He reports being anxious and not be able to sleep well because he is scared he'll wake up with SOB. Otherwise, has no other complaints. Afebrile. VSS. On 2L O2 NC. (Mariela Longoria MD R1) Objective Vitals Vital Signs Date Time Temp Pulse Resp B/P (MAP) Pulse Ox O2 Delivery O2 Flow Rate FiO2 08/05/17 08:22 99 Nasal Cannula 2.00 08/05/17 05:03 77 08/05/17 04:59 98.0 77 20 120/75 (90) 97 08/05/17 04:00 80 08/05/17 03:00 94 08/05/17 01:00 90 08/05/17 00:00 98.0 98 20 140/75 (96) 97 08/05/17 00:00 94 08/04/17 23:00 94 08/04/17 22:00 102 08/04/17 21:00 104 08/04/17 20:00 106 08/04/17 20:00 98.2 93 20 163/83 (109) 97 08/04/17 20:00 96 Nasal Cannula 3.00 Humidified 08/04/17 19:00 100 08/04/17 18:00 109 08/04/17 17:22 96 Nasal Cannula 4.00 08/04/17 17:11 101 08/04/17 17:11 19 08/04/17 15:35 21 08/04/17 15:30 97.9 108 21 146/83 (104) 96 Manual Cuff/Auscultation 08/04/17 15:30 116 08/04/17 15:30 96 Nasal Cannula 4.00 Humidified 08/04/17 12:13 98.6 109 17 165/88 (113) 94 08/04/17 12:00 103 I/O 08/04/17 08/04/17 08/04/17 08/05/17 08/05/17 08/05/17 07:00 15:00 23:00 07:00 15:00 23:00 Intake Total 120 ml 240 ml 420 ml Output Total 480 ml 250 ml 110 ml 312 ml Balance -360 ml -250 ml 130 ml 108 ml Intake Oral 120 ml 240 ml 420 ml Output Urine Total 450 ml 250 ml 100 ml 300 ml Chest Tube Drainage Total 10 ml 12 ml Drainage Total 30 ml (Mariela Longoria MD R1) Result Diagram: 08/05/1753908/05/17539 Objective Remarks GENERAL: lying in bed, NAD SKIN: No rashes, ecchymoses or lesions. Cool and dry. HEAD: NC/AT EYES: EOMI. No conjunctival injection or drainage. ENT: MMM, OP without erythema, tonsillar swelling, or exudate. NECK: Supple CARDIOVASCULAR: NRRR. Normal S1/S2. No MRG. Distant heart sounds. RESPIRATORY: CTAB. No crackles or wheezes. Breath sounds barely audible; thorax with increased AP diameter. Anterior right chest tube in place. GASTROINTESTINAL: Abdomen soft, non-distended, nontender. No hepato- splenomegaly or palpable masses. MUSCULOSKELETAL: Extremities without clubbing, cyanosis, or edema. NEUROLOGICAL: Awake and alert. Oriented x3. Normal speech. (Mariela Longoria MD R1) A/P Assessment and Plan 61-year-old man admitted due to recurrent spontaneous pneumothorax. See below for plan. Discharge Planning Unclear timetable at this time Case management assisting with any discharge needs PT stating no home PT needed at this time as patient has rolling walker and cane at home (Mariela Longoria MD R1) Attending Attestation Medical rounds reguarding this patient performed with Dr Ricardo Longoria this morning, detailed discussion relating to patients hospital course held, patient seen and examined, agree to documentation in this note, See Orders (Kwame Vick MD) Problem List: (1) Recurrent spontaneous pneumothorax ICD Codes: J93.83 - Other pneumothorax Status: Acute Plan: s/p right chest tube placement by ED physician with repeat chest x-ray showing successful placement on 07/30 s/p pleurodesis by IR 07/31, Pt was unable to tolerate full pleurodesis procedure. Severe pain with injection. Could only inject half of the total dose (30cc). Patient refused to attempt pleurodesis again. IR placed anterior chest tube on 08/02 Consulted pulmonology, Dr. Coronado following Posterior chest tube removed on 08/02 Last CXR from 08/02 showing small right apical pneumothorax, significantly improved CXR 08/04 02:38 increase in size of right pneumothorax, no moderate in size at the right lung base CXR 08/03 08:48 continue to be moderate right-sided pneumothorax. CXR 08/05 interval improvement of the right-sided pneumothorax with no resuidual pneumothorax noted. Bibasilar atelectasis and/or infiltrates. Mild subcutaneous emphysema within the right chest wall. IR consulted, appreciate recs. Spoke with Dr. Buenrostro, 3x chest tube attempts with recurrent pneumothorax. Patient most likely will need surgery. Cardiothoracic consulted, appreciated recs Patient will have right thoracotomy for exploration of recurrent pneumothorax on Tuesday 08/07 Pain Control: Percocet 10/325 1 tab po q4h scheduled Dilaudid 1 mg IV q4h prn breakthrough pain (2) Hypertension ICD Codes: I10 - Essential (primary) hypertension Status: Chronic Plan: Patient had stable BPs near within normal limits throughout previous hospitalization Patient had been started on HCTZ 25 mg po daily Treat pain as above Resume HCTZ Clonidine 0.1 mg po q6h prn BP > 180/100 Monitor vitals q4h (3) COPD (chronic obstructive pulmonary disease) ICD Codes: J44.9 - Chronic obstructive pulmonary disease, unspecified Status: Chronic Plan: Continue Symbicort 2 puffs q12h Duonebs q4h prn O2 via NC to maintain O2 sats between 88-92% (4) Leukocytosis ICD Codes: D72.829 - Elevated white blood cell count, unspecified Status: Resolved Plan: WBC 14.1 on admission, consider reactive response due to steroid administration prior to admission Continue to monitor clinically for si/sxs of infection Resolved, WBC today 9.5 (5) Tobacco use disorder ICD Codes: F17.200 - Nicotine dependence, unspecified, uncomplicated Status: Chronic Plan: Recommended smoking cessation (6) Nutrition, metabolism, and development symptoms ICD Codes: R63.8 - Other symptoms and signs concerning food and fluid intake Status: Acute Plan: Fluids: per PO Electrolytes: WNL 08/02 Nutrition: heart healthy DVT ppx: Heparin 5000 units q12h (Mariela Longoria MD R1) Problem Qualifiers (1) COPD (chronic obstructive pulmonary disease): Qualified Codes: J44.9 - Chronic obstructive pulmonary disease, unspecified Mariela Longoria MD R1 Aug 05, 2017 10:52 Kwame Vick MD Aug 06, 2017 10:51
[2017-08-05] MEDS: ZOLPIDEM TARTRATE 5 MG TAB PO SCH (21:00)
[2017-08-06] VITALS (28 sets, daily range): BP systolic 122–156; BP diastolic 58–72; PULSE 76–100; RESP 16–20; TEMP 97.6–98; O2SAT 95–100
[2017-08-06] MEDS: oxyCODONE/ACETAMINOPHEN 10 MG/325 MG TAB PO PRN ×6 (01:55→22:22)
[2017-08-06] MEDS: HYDROmorphone HCL PF 1 MG/ML VIAL IV PUSH PRN ×5 (03:51→20:28)
[2017-08-06 05:56] LABS: HEMATOCRIT 39.8 % (39.0-51.0); MEAN CELL VOLUME 98.4 FL (80.0-100.0); MEAN CORPUSCULAR HEMOGLOBIN 33.6 PG (27.0-34.0); MEAN CORPUSCULAR HGB CONC 34.2 % (32.0-36.0); PLATELET COUNT 390 TH/MM3 (150-450); RED BLOOD COUNT 4.05 MIL/MM3 (4.50-5.90); RED CELL DISTRIBUTION WIDTH 14.3 % (11.6-17.2); REVIEW FLAG FINAL; WHITE BLOOD COUNT 10.9 TH/MM3 (4.0-11.0)
[2017-08-06 06:19] LABS: BICARBONATE 27.4 MEQ/L (21.0-32.0); POTASSIUM 3.3 MEQ/L (3.5-5.1)
[2017-08-06] MEDS: SODIUM CHLORIDE 0.9% FLUSH 10 ML FLUSH IV FLUSH SCH ×2 (07:55→20:29)
[2017-08-06] MEDS: HEPARIN SODIUM - SQ 10,000 UNITS/ML VIAL SQ SCH (08:03)
[2017-08-06] MEDS: DOCUSATE SODIUM 50 MG/SENNA 8.6 MG TAB PO SCH ×2 (08:03→20:28)
[2017-08-06] MEDS: HYDROCHLOROTHIAZIDE 25 MG TAB PO SCH (08:04)
[2017-08-06] MEDS: BUDESONIDE-FORMOTEROL 160/4.5 MCG INHALER INH SCH ×2 (08:04→20:29)
[2017-08-06] MEDS ORDERED: POTASSIUM CHLORIDE 20 MEQ CONTROLLED RELEASE TAB PO ONE (08:15)
--- NOTE | 2017-08-06 08:59 | RADRPT ---
EXAM DATE/TIME: 08/06/2017 08:36 [facility] COMPARISON: CHEST SINGLE AP, August 05, 2017, 10:00. INDICATIONS : Pneumothorax right side. MEDICAL HISTORY : Chronic obstructive pulmonary disease. Emphysema. Pneumothorax. SURGICAL HISTORY : None. ENCOUNTER: Subsequent ACUITY: 1 week PAIN SCORE: 7/10 LOCATION: Right posterior chest. FINDINGS: Subcutaneous emphysema is noted within the right chest wall. No recurrent pneumothorax is noted. The right-sided chest tube remains in good position. Small right pleural effusion is noted. Right basilar patchiness is stable consistent with probable pneumonia. Degenerative changes and scoliosis of the t horacolumbar spine are noted. CONCLUSION: 1. No definite recurrent pneumothorax on the right. 2. Right basilar patchiness consistent with probable pneumonia. 3. Small right pleural effusion. 4. Persistent subcutaneous emphysema within the right chest wall. 5. Degenerative changes and scoliosis of the thoracolumbar spine. Juvenal Bautista MD on August 06, 2017 at 8:54 Board Certified Radiologist. This report was verified electronically.
[2017-08-06] MEDS: LORazepam 0.5 MG TAB PO PRN (09:46)
[2017-08-06 09:54] LABS: MAGNESIUM 2.2 MG/DL (1.5-2.5)
--- NOTE | 2017-08-06 10:18 | HHI.FPPN ---
Subjective Remarks Pt sitting up in bed this AM, watching TV. Reports that he was filling SOB overnight, felt his R-side pneumothorax was returning. Nurse assisted with turning on/off suction with improvement of SOB. He states that keeping a small pillow underneath his right armpit helps. He states that he is anxious and still couldn't sleep last night. Reports that he was able to drink a couple of Ensures yesterday. Otherwise, no other complaints. Afebrile. VSS. (Mariela Schwarz MD R1) Objective Vitals Vital Signs Date Time Temp Pulse Resp B/P (MAP) Pulse Ox O2 Delivery O2 Flow Rate FiO2 08/06/17 07:34 97 21 08/06/17 07:27 89 08/06/17 07:27 97 Room Air 08/06/17 07:27 97.8 89 20 146/72 (96) 97 08/06/17 06:02 83 08/06/17 05:12 85 08/06/17 04:36 91 08/06/17 03:14 98.0 86 18 156/68 (97) 100 08/06/17 03:14 100 Nasal Cannula 2.00 08/06/17 03:14 84 08/06/17 02:25 93 08/06/17 01:20 97 08/06/17 00:00 92 08/05/17 23:20 98.1 101 19 148/72 (97) 100 08/05/17 23:20 100 Nasal Cannula 2.00 08/05/17 23:11 96 08/05/17 22:00 94 08/05/17 21:00 102 08/05/17 20:15 98 Room Air 08/05/17 20:15 98.3 104 16 139/76 (97) 98 08/05/17 20:15 92 08/05/17 19:20 106 08/05/17 18:00 98 08/05/17 17:00 94 08/05/17 16:00 93 08/05/17 15:30 97.6 93 20 145/67 (93) 97 08/05/17 15:30 93 08/05/17 15:30 97 Room Air 08/05/17 15:00 94 08/05/17 14:00 90 08/05/17 13:00 92 08/05/17 12:00 96 08/05/17 11:30 97.8 97 20 128/78 (95) 99 08/05/17 11:30 99 Nasal Cannula 2.00 08/05/17 11:00 96 I/O 08/05/17 08/05/17 08/05/17 08/06/17 08/06/17 08/06/17 07:00 15:00 23:00 07:00 15:00 23:00 Intake Total 420 ml 800 ml 720 ml Output Total 312 ml 391 ml 720 ml Balance 108 ml 409 ml 0 ml Intake Oral 420 ml 800 ml 720 ml Output Urine Total 300 ml 375 ml 700 ml Chest Tube Drainage Total 12 ml 16 ml 20 ml # Bowel Movements 0 0 (Mariela Schwarz MD R1) Result Diagram: 08/06/1744808/06/17448 Objective Remarks GENERAL: sitting up in bed, in NAD SKIN: No rashes, ecchymoses or lesions. Cool and dry. HEAD: NC/AT EYES: EOMI. No conjunctival injection or drainage. ENT: MMM, OP without erythema, tonsillar swelling, or exudate. NECK: Supple CARDIOVASCULAR: NRRR. Normal S1/S2. No MRG. Distant heart sounds. RESPIRATORY: CTAB. No crackles or wheezes. Breath sounds barely audible; thorax with increased AP diameter. Anterior right chest tube in place. GASTROINTESTINAL: Abdomen soft, non-distended, nontender. No hepato- splenomegaly or palpable masses. MUSCULOSKELETAL: Extremities without clubbing, cyanosis, or edema. NEUROLOGICAL: Awake and alert. Oriented x3. Normal speech. (Mariela Schwarz MD R1) A/P Assessment and Plan 61-year-old man admitted due to recurrent spontaneous pneumothorax. See below for plan. Discharge Planning Unclear timetable at this time Case management assisting with any discharge needs PT stating no home PT needed at this time as patient has rolling walker and cane at home (Mariela Schwarz MD R1) Attending Attestation THIS CASE WAS DISCUSSED WITH THE RESIDENT PHYSICIAN,DR Ricardo SCHWARZ. I HAVE REVIEWED THE RECORD,PATIENT SEEN AND EXAMINED AND AGREE WITH THE ABOVE NOTE AND PLAN OF CARE WAS DISCUSSED. I HAVE AUTHORIZED THE ORDERS. (Kwame Vick MD) Problem List: (1) Recurrent spontaneous pneumothorax ICD Codes: J93.83 - Other pneumothorax Status: Acute Plan: s/p right chest tube placement by ED physician with repeat chest x-ray showing successful placement on 07/30 s/p pleurodesis by IR 07/31, Pt was unable to tolerate full pleurodesis procedure. Severe pain with injection. Could only inject half of the total dose (30cc). Patient refused to attempt pleurodesis again. IR placed anterior chest tube on 08/02 Consulted pulmonology, Dr. Coronado following Posterior chest tube removed on 08/02 Last CXR from 08/02 showing small right apical pneumothorax, significantly improved CXR 08/04 02:38 increase in size of right pneumothorax, no moderate in size at the right lung base CXR 08/03 08:48 continue to be moderate right-sided pneumothorax. CXR 08/05 interval improvement of the right-sided pneumothorax with no residual pneumothorax noted. Bibasilar atelectasis and/or infiltrates. Mild subcutaneous emphysema within the right chest wall. CXR 08/06 no definite recurrent pneumothorax on the right. Right basilar patchiness consistent with probable pneumonia. Small right pleural effusion. Persistent subcutaneous emphysema within the right chest wall. IR consulted, appreciate recs. Spoke with Dr. Buenrostro, 3x chest tube attempts with recurrent pneumothorax. Patient most likely will need surgery. Cardiothoracic consulted, appreciated recs Patient will have right thoracotomy for exploration of recurrent pneumothorax on Tuesday 08/07 Pain Control: Percocet 10/325 1 tab po q4h scheduled Dilaudid 1 mg IV q4h prn breakthrough pain (2) HCAP (healthcare-associated pneumonia) ICD Codes: J18.9 - Pneumonia, unspecified organism Plan: CXR 08/06 demonstrated right basilar patchiness consistent with probable pneumonia -Start Zosyn 4.5 gm IV q6h (08/06) -Start Vancomycin 1000 mg IV, pharmacy consulted for dosing (08/06) (3) Hypertension ICD Codes: I10 - Essential (primary) hypertension Status: Chronic Plan: Patient had stable BPs near within normal limits throughout previous hospitalization Patient had been started on HCTZ 25 mg po daily Treat pain as above Resume HCTZ Clonidine 0.1 mg po q6h prn BP > 180/100 Monitor vitals q4h (4) COPD (chronic obstructive pulmonary disease) ICD Codes: J44.9 - Chronic obstructive pulmonary disease, unspecified Status: Chronic Plan: Continue Symbicort 2 puffs q12h Duonebs q4h prn O2 via NC to maintain O2 sats between 88-92% (5) Anxiety ICD Codes: F41.9 - Anxiety disorder, unspecified Plan: Lorazepam 0.5 mg PO q8h for severe anxiety (6) Tobacco use disorder ICD Codes: F17.200 - Nicotine dependence, unspecified, uncomplicated Status: Chronic Plan: Recommended smoking cessation (7) Nutrition, metabolism, and development symptoms ICD Codes: R63.8 - Other symptoms and signs concerning food and fluid intake Status: Acute Plan: Fluids: per PO Electrolytes: WNL 08/02 Nutrition: heart healthy DVT ppx: Heparin 5000 units q12h (Mariela Schwarz MD R1) Problem Qualifiers (1) Hypertension: Qualified Codes: I10 - Essential (primary) hypertension (2) COPD (chronic obstructive pulmonary disease): Qualified Codes: J44.9 - Chronic obstructive pulmonary disease, unspecified Mariela Schwarz MD R1 Aug 06, 2017 10:18 Kwame Vick MD Aug 08, 2017 21:13
--- NOTE | 2017-08-06 10:38 | PD.CAR.PN ---
CVT Progress Note Subjective/Hospital Course: No complaints. Lung is re-expanded with catheter to suction. Small air leak persists. Objective: Vital Signs Date Time Temp Pulse Resp B/P (MAP) Pulse Ox O2 Delivery O2 Flow Rate FiO2 08/06/17 07:34 97 21 08/06/17 07:27 89 08/06/17 07:27 97 Room Air 08/06/17 07:27 97.8 89 20 146/72 (96) 97 08/06/17 06:02 83 08/06/17 05:12 85 08/06/17 04:36 91 08/06/17 03:14 98.0 86 18 156/68 (97) 100 08/06/17 03:14 100 Nasal Cannula 2.00 08/06/17 03:14 84 08/06/17 02:25 93 08/06/17 01:20 97 08/06/17 00:00 92 08/05/17 23:20 98.1 101 19 148/72 (97) 100 08/05/17 23:20 100 Nasal Cannula 2.00 08/05/17 23:11 96 08/05/17 22:00 94 08/05/17 21:00 102 08/05/17 20:15 98 Room Air 08/05/17 20:15 98.3 104 16 139/76 (97) 98 08/05/17 20:15 92 08/05/17 19:20 106 08/05/17 18:00 98 08/05/17 17:00 94 08/05/17 16:00 93 08/05/17 15:30 97.6 93 20 145/67 (93) 97 08/05/17 15:30 93 08/05/17 15:30 97 Room Air 08/05/17 15:00 94 08/05/17 14:00 90 08/05/17 13:00 92 08/05/17 12:00 96 08/05/17 11:30 97.8 97 20 128/78 (95) 99 08/05/17 11:30 99 Nasal Cannula 2.00 08/05/17 11:00 96 Labs: Laboratory Tests Test 08/06/17 04:49 White Blood Count 10.9 TH/MM3 (4.0-11.0) Red Blood Count 4.05 MIL/MM3 (4.50-5.90) Hemoglobin 13.6 GM/DL (13.0-17.0) Hematocrit 39.8 % (39.0-51.0) Mean Corpuscular Volume 98.4 FL (80.0-100.0) Mean Corpuscular Hemoglobin 33.6 PG (27.0-34.0) Mean Corpuscular Hemoglobin Concent 34.2 % (32.0-36.0) Red Cell Distribution Width 14.3 % (11.6-17.2) Platelet Count 390 TH/MM3 (150-450) Mean Platelet Volume 8.1 FL (7.0-11.0) Blood Urea Nitrogen 19 MG/DL (7-18) Creatinine 0.72 MG/DL (0.60-1.30) Random Glucose 106 MG/DL (74-106) Calcium Level 9.1 MG/DL (8.5-10.1) Magnesium Level 2.2 MG/DL (1.5-2.5) Sodium Level 135 MEQ/L (136-145) Potassium Level 3.3 MEQ/L (3.5-5.1) Chloride Level 97 MEQ/L (98-107) Carbon Dioxide Level 27.4 MEQ/L (21.0-32.0) Anion Gap 11 MEQ/L (5-15) Estimat Glomerular Filtration Rate 111 ML/MIN (>89) Result Diagram: 08/06/17 0449 08/06/17 0449 Imaging: Last 24 hours Impressions Chest X-Ray 08/06/17 0000 Signed Impressions: Service Date/Time: Sunday, August 06, 2017 08:36 - CONCLUSION: 1. No definite recurrent pneumothorax on the right. 2. Right basilar patchiness consistent with probable pneumonia. 3. Small right pleural effusion. 4. Persistent subcutaneous emphysema within the right chest wall. 5. Degenerative changes and scoliosis of the thoracolumbar spine. Juvenal Bautista MD Cardiovascular: RRR Telemetry: NSR Pulmonary: CTA GI/: NABS Plan: Will postpone surgery tomorrow as lung is re-expanded post multiple interventions and pleuradesis. CXR in AM Mary Barber MD Aug 06, 2017 10:38
[2017-08-06] MEDS ORDERED: VANCOMYCIN INJ 1,000 MG in SODIUM CHLOR 0.9% 250 ML INJ 250 ML IV ONE (11:00)
[2017-08-06] MEDS ORDERED: Vancomycin Consult Pharmacy 1 EA OTHER SCH ×2 (11:00→11:45)
[2017-08-06] MEDS: VANCOMYCIN 1,000 MG/NS 250 ML IV SCH ×2 (13:52)
[2017-08-06] MEDS: PIPERACIL-TAZO 4.5 GM PREMIX 100 ML IV SCH ×2 (13:52→18:26)
[2017-08-06] MEDS ORDERED: POTASSIUM CHLORIDE 10 MEQ CONTROLLED RELEASE TAB PO ONE ×2 (18:30→22:00)
--- NOTE | 2017-08-06 19:27 | HHI.PR ---
Addendum to Inpatient Note Addendum Reason: Additional Documentation Additional Information Off-Service Note: Mr. Johnson is a 61 yr old man with HTN, COPD, significant smoking hx admitted 7 days ago for recurrent spontaneous pneumothorax s/p right chest tub placement 08/02 by IR and pleurodesis 07/31. Pt was unable to tolerate full pleurodesis procedure due to severe pain with injection. Only half of total dose (30cc) was injected. Patient refused to attempt pleurodesis again. Pulmonary following. Cardiothoracic consulted. Right thoracotomy will be postpone as lung is re- expanded post multiple interventions and pleurodesis. Most recent CXR 08/06 demonstrated no definite pneumothorax on the right. However, there was right basilar patchiness consistent with probable pneumonia. Although patient was afebrile with no leukocytosis, patient was started on abx (Vanc and Zosyn) for treatment of HCAP due to complaints of R-sided chest pain this AM. Repeat CXR ordered for the AM. Patient has also had hypokalemia during this hospital stay. Mg wnl. Please continue to monitor and replace K+ as needed. Discharge: Unclear timetable at this time. Mariela Longoria MD R1 Aug 06, 2017 19:27
[2017-08-06] MEDS: ZOLPIDEM TARTRATE 5 MG TAB PO SCH (21:00)
[2017-08-07] VITALS (26 sets, daily range): BP systolic 127–152; BP diastolic 60–74; PULSE 63–110; RESP 16–18; TEMP 97.2–98.3; O2SAT 97–100
[2017-08-07] MEDS: PIPERACIL-TAZO 4.5 GM PREMIX 100 ML IV SCH ×4 (00:24→17:49)
[2017-08-07] MEDS: HYDROmorphone HCL PF 1 MG/ML VIAL IV PUSH PRN ×6 (00:24→22:55)
[2017-08-07] MEDS: oxyCODONE/ACETAMINOPHEN 10 MG/325 MG TAB PO PRN ×4 (02:36→20:51)
[2017-08-07 04:38] LABS: MEAN CELL VOLUME 97.2 FL (80.0-100.0); MEAN CORPUSCULAR HEMOGLOBIN 32.6 PG (27.0-34.0); MEAN CORPUSCULAR HGB CONC 33.5 % (32.0-36.0); PLATELET COUNT 339 TH/MM3 (150-450); RED CELL DISTRIBUTION WIDTH 14.3 % (11.6-17.2); REVIEW FLAG FINAL; WHITE BLOOD COUNT 9.8 TH/MM3 (4.0-11.0)
[2017-08-07 05:08] LABS: BICARBONATE 25.4 MEQ/L (21.0-32.0); POTASSIUM 4.3 MEQ/L (3.5-5.1)
--- NOTE | 2017-08-07 06:03 | RADRPT ---
EXAM DATE/TIME: 08/07/2017 05:22 [facility] COMPARISON: CHEST SINGLE AP, August 06, 2017, 8:36. INDICATIONS : Shortness of breath, possible pneumothorax. MEDICAL HISTORY : Emphysema. Chronic obstructive pulmonary disease. SURGICAL HISTORY : None. ENCOUNTER: Subsequent ACUITY: 1 week PAIN SCORE: 7/10 LOCATION: Right chest FINDINGS: The heart size is normal. There is a right chest tube in place. No pneumothorax is seen. There is a m inimal right effusion. There is subcutaneous air seen over the right lateral chest. There is a dextro scoliosis of thoracic spine. CONCLUSION: Right chest tube with a minimal residual right pleural effusion. Smooth Buck MD on August 07, 2017 at 6:00 Board Certified Radiologist. This report was verified electronically.
[2017-08-07] MEDS ORDERED: POTASSIUM CHLORIDE 10 MEQ CONTROLLED RELEASE TAB PO ONE (08:00)
--- NOTE | 2017-08-07 08:07 | MB ---
cc: MARY BARBER DATE OF CONSULTATION: 08/04/2017 REASON FOR CONSULTATION: 61-year-old male, date of ; 1955, known from our service that was seen on his prior admission by Dr. Conner, that was readmitted on the after he was discharged earlier that day after being treated for right pneumothorax. He was admitted twice from 07/20 to 07/22 and then again from 07/25 to 07/30 and we actually saw the patient for recurrent spontaneous pneumothorax. He had at pigtail catheter, CT did show bilateral blebs. We discussed surgical option however, the patient was refusing any surgical procedure at the time, the recommendation was for possible evaluation by interventional radiology for pleurodesis if possible. The chest tube apparently fell out on the night he had a chest x-ray that was followed up that showed no pneumothorax. He then went home and then was readmitted that same day. On this admission, he had to the patient had a large right tension pneumothorax. The emergency department inserted a chest tube, the patient then underwent pleurodesis on the through the existing chest tube. We were consulted after the patient had a persistent right sided pneumothorax, despite pleurodesis, despite the right chest tube in place. Past medical her is history includes recurrent spontaneous pneumothorax, severe COPD, obstructive sleep apnea, degenerative joint disease. SURGERIES Hep replacement, right knee replacement, arthritis. ALLERGIES NO KNOWN DRUG ALLERGIES MEDICATIONS Home meds include; 1. Liquid Claritin 2. Ventolin 3. Nicotine patch. 4. Aspirin. 5. Lortab. 6. Tramadol. 7. Trazodone. 8. Hydrochlorothiazide. 9. Symbicort. 10. Prednisone. FAMILY HISTORY Noncontributory SOCIAL HISTORY The patient continues to smoke, he did smoke up to three packs of cigarettes at one time down to half-a-pack he has been smoking since his early teens no alcohol. REVIEW OF SYSTEMS Review of systems as above in HPI. Other 12 system unremarkable PHYSICAL EXAMINATION: VITAL SIGNS: On exam blood pressure 140/80, heart rate 109, afebrile. O2 sat 96 on 4 liters. IN GENERAL: Patient is awake, alert, slightly anxious. HEAD, EYES, EARS, NOSE, AND THROAT: Head is normocephalic, atraumatic. Pupils equal and reactive. Oral mucosa pink, moist. NECK: Supple. No JVD. HEART: Heart sounds S1-S2 regular rate and rhythm, slightly tachycardiac. LUNGS: Diminished in the right lower lobe, He has a right chest tube with a small intermittent air leak to suction at 40 cm. ABDOMEN: Soft, nontender. No masses or organomegaly. EXTREMITIES: Reveal clubbing. No obvious deformities. LABORATORY FINDINGS: Lab work shows hemoglobin 13, hematocrit 39, white cell count 14, platelet count 416, sodium 137, potassium 3.5, BUN 16, creatinine 0.9. IMPRESSION Spontaneous recurrent spontaneous recurrent right spontaneous pneumothorax with multiple chest tube insertions in the past recent pleurodesis now with moderate sized recurrent pneumothorax. The patient has been evaluated now by Dr. Mary Barber plan will be for right thoracotomy, exploration for recurrent pneumothorax and related procedures on MondayAugust 07. The patient is agreeable to proceed. Thank you. DICTATED BY: PRASANTH Car MD ISRAEL Sal[place]/aracelis /4:53 PM /8:03 AM
[2017-08-07] MEDS: BUDESONIDE-FORMOTEROL 160/4.5 MCG INHALER INH SCH ×2 (09:00→21:00)
[2017-08-07] MEDS: DOCUSATE SODIUM 50 MG/SENNA 8.6 MG TAB PO SCH ×2 (09:12→20:52)
[2017-08-07] MEDS: HYDROCHLOROTHIAZIDE 25 MG TAB PO SCH (09:12)
[2017-08-07] MEDS: SODIUM CHLORIDE 0.9% FLUSH 10 ML FLUSH IV FLUSH SCH ×2 (09:14→20:53)
--- NOTE | 2017-08-07 09:37 | RSPPFT ---
DATE OF PROCEDURE: 08/01/17 COMMENTS: Spirometry with FVC of 1.9, FEV1 of 1.6 and FEV1/FVC ratio at 33%. Post-bronchodilator study was not performed. IMPRESSION: 1. Severe airways obstruction.
--- NOTE | 2017-08-07 10:48 | HHI.FPPN ---
Subjective Remarks Patient seen and examined this morning. Patient reports doing well. States his breathing has improved. Is anxious about discharge planning. He denies any chest pain or shortness of breath. Denies any other complaints or concerns. Denies fever/chills, abdominal pain, nausea/vomiting, diarrhea/constipation, leg pain. Objective Vitals Vital Signs Date Time Temp Pulse Resp B/P (MAP) Pulse Ox O2 Delivery O2 Flow Rate FiO2 08/07/17 09:15 16 08/07/17 08:32 98 Nasal Cannula 2.00 08/07/17 06:00 66 08/07/17 05:00 63 08/07/17 04:00 66 08/07/17 03:00 92 08/07/17 03:00 97 Nasal Cannula 2.00 08/07/17 03:00 97.2 94 18 142/69 (93) 97 08/07/17 02:00 70 08/07/17 01:00 72 08/07/17 00:00 70 08/06/17 23:45 97.6 86 16 154/71 (98) 100 08/06/17 23:45 100 Nasal Cannula 2.00 08/06/17 23:00 87 08/06/17 22:00 84 08/06/17 21:00 82 08/06/17 20:00 86 08/06/17 20:00 98.0 88 18 122/60 (80) 99 08/06/17 20:00 99 Nasal Cannula 2.00 08/06/17 19:00 99 08/06/17 18:00 92 08/06/17 17:00 86 08/06/17 16:00 86 08/06/17 15:30 98.0 76 16 125/58 (80) 95 08/06/17 15:30 95 Room Air 08/06/17 15:30 76 08/06/17 15:00 92 08/06/17 14:00 94 08/06/17 13:00 90 08/06/17 12:00 100 08/06/17 11:26 85 08/06/17 11:26 97 Room Air 08/06/17 11:26 97.6 85 18 127/62 (83) 97 08/06/17 11:00 84 I/O 08/06/17 08/06/17 08/06/17 08/07/17 08/07/1708/07/17 07:00 15:00 23:00 07:00 15:00 23:00 Intake Total 720 ml 350 ml 920 ml Output Total 720 ml 436 ml Balance 0 ml 350 ml 484 ml Intake Oral 720 ml 720 ml IV Total 350 ml 200 ml Output Urine Total 700 ml 400 ml Chest Tube Drainage Total 20 ml 36 ml # Voids 1 # Bowel Movements 0 1 Result Diagram: 08/07/1740808/07/17408 Objective Remarks GENERAL: sitting up in bed, in NAD SKIN: No rashes, ecchymoses or lesions. Cool and dry. CARDIOVASCULAR: NRRR. Normal S1/S2. No MRG. Distant heart sounds. RESPIRATORY: CTAB. No crackles or wheezes. Breath sounds barely audible; thorax with increased AP diameter. Anterior right chest tube in place. GASTROINTESTINAL: Abdomen soft, non-distended, nontender. No hepato- splenomegaly or palpable masses. MUSCULOSKELETAL: Extremities without clubbing, cyanosis, or edema. NEUROLOGICAL: Awake and alert. Oriented x3. Normal speech. A/P Assessment and Plan 61-year-old man admitted due to recurrent spontaneous pneumothorax. See below for plan. Discharge Planning Pending clearance from [facility] Case management assisting with any discharge needs PT stating no home PT needed at this time as patient has rolling walker and cane at home Problem List: (1) Recurrent spontaneous pneumothorax ICD Codes: J93.83 - Other pneumothorax Status: Acute Plan: s/p right chest tube placement by ED physician with repeat chest x-ray showing successful placement on 07/30 s/p pleurodesis by IR 07/31, Pt was unable to tolerate full pleurodesis procedure. Severe pain with injection. Could only inject half of the total dose (30cc). Patient refused to attempt pleurodesis again. IR placed anterior chest tube on 08/02 Consulted pulmonology, Dr. Coronado following Posterior chest tube removed on 08/02 Last CXR from 08/02 showing small right apical pneumothorax, significantly improved CXR 08/04 02:38 increase in size of right pneumothorax, no moderate in size at the right lung base CXR 08/03 08:48 continue to be moderate right-sided pneumothorax. CXR 08/05 interval improvement of the right-sided pneumothorax with no residual pneumothorax noted. Bibasilar atelectasis and/or infiltrates. Mild subcutaneous emphysema within the right chest wall. CXR 08/06 no definite recurrent pneumothorax on the right. Right basilar patchiness consistent with probable pneumonia. Small right pleural effusion. Persistent subcutaneous emphysema within the right chest wall. CXR 08/07: right chest tube with minimal residual right pleural effusion IR consulted, appreciate recs. Spoke with Dr. Buenrostro, 3x chest tube attempts with recurrent pneumothorax. Patient most likely will need surgery. Cardiothoracic consulted, appreciated recs -Hold off on thoracotomy due to lung re-expansion Pain Control: Percocet 10/325 1 tab po q4h scheduled Dilaudid 1 mg IV q4h prn breakthrough pain (2) HCAP (healthcare-associated pneumonia) ICD Codes: J18.9 - Pneumonia, unspecified organism Plan: CXR 08/06 demonstrated right basilar patchiness consistent with probable pneumonia CXR 08/07, no signs of infection, however will continue antibiotics for now for empiric coverage -Start Zosyn 4.5 gm IV q6h (08/06) -Start Vancomycin 1000 mg IV, pharmacy consulted for dosing (08/06) (3) Hypertension ICD Codes: I10 - Essential (primary) hypertension Status: Chronic Plan: Patient had stable BPs near within normal limits throughout previous hospitalization Patient had been started on HCTZ 25 mg po daily Clonidine 0.1 mg po q6h prn BP > 180/100 Monitor vitals q4h (4) COPD (chronic obstructive pulmonary disease) ICD Codes: J44.9 - Chronic obstructive pulmonary disease, unspecified Status: Chronic Plan: Continue Symbicort 2 puffs q12h Duonebs q4h prn O2 via NC to maintain O2 sats between 88-92% (5) Anxiety ICD Codes: F41.9 - Anxiety disorder, unspecified Plan: Lorazepam 0.5 mg PO q8h for severe anxiety (6) Tobacco use disorder ICD Codes: F17.200 - Nicotine dependence, unspecified, uncomplicated Status: Chronic Plan: Recommended smoking cessation (7) Nutrition, metabolism, and development symptoms ICD Codes: R63.8 - Other symptoms and signs concerning food and fluid intake Status: Acute Plan: Fluids: per PO Electrolytes: WNL Nutrition: heart healthy DVT ppx: Heparin 5000 units q12h Problem Qualifiers (1) Hypertension: Qualified Codes: I10 - Essential (primary) hypertension (2) COPD (chronic obstructive pulmonary disease): Qualified Codes: J44.9 - Chronic obstructive pulmonary disease, unspecified Colt Ribera MD, R2 Aug 07, 2017 10:48
--- NOTE | 2017-08-07 12:49 | PD.CAR.PN ---
CVT Progress Note Subjective/Hospital Course: 61-year-old male, date of ; 1955, known from our service that was seen on his prior admission by Dr. Conner, that was readmitted on the after he was discharged earlier that day after being treated for right pneumothorax. He was admitted twice from 07/20 to 07/22 and then again from 07/25 to 07/30 and we actually saw the patient for recurrent spontaneous pneumothorax. He had at pigtail catheter, CT did show bilateral blebs. We discussed surgical option however, the patient was refusing any surgical procedure at the time, the recommendation was for possible evaluation by interventional radiology for pleurodesis if possible. The chest tube apparently fell out on the night he had a chest x-ray that was followed up that showed no pneumothorax. He then went home and then was readmitted that same day. On this admission, he had to the patient had a large right tension pneumothorax. The emergency department inserted a chest tube, the patient then underwent pleurodesis on the through the existing chest tube. We were consulted after the patient had a persistent right sided pneumothorax, despite pleurodesis, despite the right chest tube in place. Past medical history: recurrent spontaneous pneumothorax, severe COPD, obstructive sleep apnea, degenerative joint disease. 08/06No complaints. Lung is re-expanded with catheter to suction. Small air leak persists. 08/07 cxr noted no pTX placed to water seal this am , pt became very anxious SOB , the pt placed himself back on suction stat cxr pending , placed back to suction at 20cm , still has small air leak Objective: GENERAL: very anxious SKIN: Warm and dry. HEAD: Normocephalic. EYES: No scleral icterus. No injection or drainage. NECK: Supple, trachea midline. No JVD or lymphadenopathy. CARDIOVASCULAR: Regular rate and rhythm without murmurs, gallops, or rubs. RESPIRATORY: diminished right lower lobe chest tube back to 20cm suction Breath sounds equal bilaterally. No accessory muscle use. GASTROINTESTINAL: Abdomen soft, non-tender, nondistended. MUSCULOSKELETAL: No cyanosis, or edema. BACK: Nontender without obvious deformity. No CVA tenderness. Vital Signs Date Time Temp Pulse Resp B/P (MAP) Pulse Ox O2 Delivery O2 Flow Rate FiO2 08/07/17 09:15 16 08/07/17 08:32 98 Nasal Cannula 2.00 08/07/17 06:00 66 08/07/17 05:00 63 08/07/17 04:00 66 08/07/17 03:00 92 08/07/17 03:00 97 Nasal Cannula 2.00 08/07/17 03:00 97.2 94 18 142/69 (93) 97 08/07/17 02:00 70 08/07/17 01:00 72 08/07/17 00:00 70 08/06/17 23:45 97.6 86 16 154/71 (98) 100 08/06/17 23:45 100 Nasal Cannula 2.00 08/06/17 23:00 87 08/06/17 22:00 84 08/06/17 21:00 82 08/06/17 20:00 86 08/06/17 20:00 98.0 88 18 122/60 (80) 99 08/06/17 20:00 99 Nasal Cannula 2.00 08/06/17 19:00 99 08/06/17 18:00 92 08/06/17 17:00 86 08/06/17 16:00 86 08/06/17 15:30 98.0 76 16 125/58 (80) 95 08/06/17 15:30 95 Room Air 08/06/17 15:30 76 08/06/17 15:00 92 08/06/17 14:00 94 08/06/17 13:00 90 Labs: Laboratory Tests Test 08/07/17 04:09 White Blood Count 9.8 TH/MM3 (4.0-11.0) Red Blood Count 3.70 MIL/MM3 (4.50-5.90) Hemoglobin 12.1 GM/DL (13.0-17.0) Hematocrit 36.0 % (39.0-51.0) Mean Corpuscular Volume 97.2 FL (80.0-100.0) Mean Corpuscular Hemoglobin 32.6 PG (27.0-34.0) Mean Corpuscular Hemoglobin Concent 33.5 % (32.0-36.0) Red Cell Distribution Width 14.3 % (11.6-17.2) Platelet Count 339 TH/MM3 (150-450) Mean Platelet Volume 7.2 FL (7.0-11.0) Blood Urea Nitrogen 20 MG/DL (7-18) Creatinine 0.92 MG/DL (0.60-1.30) Random Glucose 94 MG/DL (74-106) Calcium Level 8.9 MG/DL (8.5-10.1) Sodium Level 134 MEQ/L (136-145) Potassium Level 4.3 MEQ/L (3.5-5.1) Chloride Level 101 MEQ/L (98-107) Carbon Dioxide Level 25.4 MEQ/L (21.0-32.0) Anion Gap 8 MEQ/L (5-15) Estimat Glomerular Filtration Rate 83 ML/MIN (>89) Result Diagram: 08/07/1740808/07/17408 Telemetry: NSR (1) COPD exacerbation (2) Pneumothorax on right (3) Recurrent spontaneous pneumothorax Plan: chest back to 20 cm suction , repeat CXR pending did not tolerate water seal will need to wean suction very slowly (4) HCAP (healthcare-associated pneumonia) Michelle Adler Aug 07, 2017 12:49
--- NOTE | 2017-08-07 13:13 | RADRPT ---
EXAM DATE/TIME: 08/07/2017 12:02 [facility] COMPARISON: CHEST SINGLE AP, August 07, 2017, 5:22. INDICATIONS : Short of breath. MEDICAL HISTORY : Emphysema. Chronic obstructive pulmonary disease. SURGICAL HISTORY : Chest tube, right. ENCOUNTER: Subsequent ACUITY: 1 week PAIN SCORE: 2/10 LOCATION: Bilateral chest FINDINGS: Small bore chest tube in place on the left with no residual pneumothorax. Moderate subcutaneous emph ysema. Moderate hyperinflation. The lungs are clear. CONCLUSION: No residual pneumothorax with small bore chest tube in place on the right Moderate hyperinflation Yovani Jiménez MD FACR on August 07, 2017 at 13:08 Board Certified Radiologist. This report was verified electronically.
[2017-08-07] MEDS: VANCOMYCIN 1,000 MG/NS 250 ML IV SCH ×2 (14:03)
--- NOTE | 2017-08-07 15:41 | HHI.PR ---
Subjective Remarks alert no acute distress Objective Vital Signs Date Time Temp Pulse Resp B/P (MAP) Pulse Ox O2 Delivery O2 Flow Rate FiO2 08/07/17 09:15 16 08/07/17 08:32 98 Nasal Cannula 2.00 08/07/17 08:00 98.2 86 17 135/63 (87) 100 08/07/17 08:00 97 Nasal Cannula 2.00 08/07/17 06:00 66 08/07/17 05:00 63 08/07/17 04:00 66 08/07/17 03:00 92 08/07/17 03:00 97 Nasal Cannula 2.00 08/07/17 03:00 97.2 94 18 142/69 (93) 97 08/07/17 02:00 70 08/07/17 01:00 72 08/07/17 00:00 70 08/06/17 23:45 97.6 86 16 154/71 (98) 100 08/06/17 23:45 100 Nasal Cannula 2.00 08/06/17 23:00 87 08/06/17 22:00 84 08/06/17 21:00 82 08/06/17 20:00 86 08/06/17 20:00 98.0 88 18 122/60 (80) 99 08/06/17 20:00 99 Nasal Cannula 2.00 08/06/17 19:00 99 08/06/17 18:00 92 08/06/17 17:00 86 08/06/17 16:00 86 I/O 08/06/17 08/06/17 08/06/17 08/07/17 08/07/17 08/07/17 07:00 15:00 23:00 07:00 15:00 23:00 Intake Total 720 ml 350 ml 920 ml Output Total 720 ml 436 ml Balance 0 ml 350 ml 484 ml Intake Oral 720 ml 720 ml IV Total 350 ml 200 ml Output Urine Total 700 ml 400 ml Chest Tube Drainage Total 20 ml 36 ml # Voids 1 # Bowel Movements 0 1 Result Diagram: 08/07/1740808/07/17408 Objective Remarks GENERAL: SKIN: Warm and dry. HEAD: Atraumatic. Normocephalic. EYES: Pupils equal and round. No scleral icterus. No injection or drainage. ENT: No nasal bleeding or discharge. Mucous membranes pink and moist. NECK: Trachea midline. No JVD. CARDIOVASCULAR: Regular rate and rhythm. RESPIRATORY: No accessory muscle use. Clear to auscultation. Breath sounds equal bilaterally. GASTROINTESTINAL: Abdomen soft, non-tender, nondistended. Hepatic and splenic margins not palpable. MUSCULOSKELETAL: Extremities without clubbing, cyanosis, or edema. No obvious deformities. NEUROLOGICAL: Awake and alert. No obvious cranial nerve deficits. Motor grossly within normal limits. Five out of 5 muscle strength in the arms and legs. Normal speech. PSYCHIATRIC: Appropriate mood and affect; insight and judgment normal. Assessment and Plan Assessment and Plan Recurrent PNX POST PLEURODESIS CT STILL WITH LEAK PLAN PULMONARY TOILET REPOSITION OR CHANGE TUBE Thoracic surgery consult Ivonne Coronado MD Aug 07, 2017 15:41
[2017-08-07] MEDS: ZOLPIDEM TARTRATE 5 MG TAB PO SCH (20:49)
[2017-08-08] VITALS (27 sets, daily range): BP systolic 124–155; BP diastolic 8–78; PULSE 78–114; RESP 17–20; TEMP 97.9–98.3; O2SAT 97–100
[2017-08-08] MEDS: PIPERACIL-TAZO 4.5 GM PREMIX 100 ML IV SCH ×5 (00:13→23:31)
[2017-08-08] MEDS: oxyCODONE/ACETAMINOPHEN 10 MG/325 MG TAB PO PRN ×6 (00:48→23:11)
[2017-08-08] MEDS: HYDROmorphone HCL PF 2 MG/ML VIAL IV PUSH PRN ×4 (04:09→21:32)
[2017-08-08 05:28] LABS: HEMATOCRIT 37.8 % (39.0-51.0); MEAN CELL VOLUME 97.1 FL (80.0-100.0); MEAN CORPUSCULAR HEMOGLOBIN 33.2 PG (27.0-34.0); MEAN CORPUSCULAR HGB CONC 34.2 % (32.0-36.0); PLATELET COUNT 367 TH/MM3 (150-450); RED CELL DISTRIBUTION WIDTH 14.1 % (11.6-17.2); REVIEW FLAG FINAL; WHITE BLOOD COUNT 9.4 TH/MM3 (4.0-11.0)
[2017-08-08 05:47] LABS: BICARBONATE 30.2 MEQ/L (21.0-32.0); POTASSIUM 3.7 MEQ/L (3.5-5.1)
--- NOTE | 2017-08-08 08:43 | HHI.PR ---
Subjective Remarks alert no acute distress Objective Vital Signs Date Time Temp Pulse Resp B/P (MAP) Pulse Ox O2 Delivery O2 Flow Rate FiO2 08/08/17 06:11 78 08/08/17 05:16 93 08/08/17 04:00 90 08/08/17 03:39 99 Nasal Cannula 2.00 08/08/17 03:39 94 18 155/78 (103) 99 08/08/17 03:00 88 08/08/17 02:00 78 08/08/17 01:00 88 08/08/17 00:00 82 08/07/17 23:00 91 08/07/17 23:00 97.6 96 16 152/74 (100) 98 08/07/17 23:00 99 Nasal Cannula 2.00 08/07/17 22:00 84 08/07/17 21:00 102 08/07/17 20:58 99 Nasal Cannula 2.00 08/07/17 20:58 97.8 98 16 127/60 (82) 99 08/07/17 20:00 100 08/07/17 19:58 Nasal Cannula 2.00 08/07/17 19:00 90 08/07/17 18:00 96 08/07/17 17:00 86 08/07/17 16:51 18 08/07/17 16:00 94 08/07/17 15:00 98.3 100 17 141/69 (93) 97 08/07/17 15:00 97 Nasal Cannula 2.00 08/07/17 15:00 96 08/07/17 14:00 96 08/07/17 13:00 104 08/07/17 12:00 110 08/07/17 11:00 98.2 97 17 140/70 (93) 98 08/07/17 11:00 97 Nasal Cannula 2.00 08/07/17 11:00 96 08/07/17 10:00 82 08/07/17 09:15 16 08/07/17 09:00 88 I/O 08/07/17 08/07/17 08/07/17 08/08/17 08/08/17 08/08/17 06:59 14:59 22:59 06:59 14:59 22:59 Intake Total 920 ml 840 ml 240 ml Output Total 436 ml 750 ml 590 ml Balance 484 ml 90 ml -350 ml Intake Oral 720 ml 840 ml 240 ml IV Total 200 ml Output Urine Total 400 ml 740 ml 550 ml Stool Total 0 ml Chest Tube Drainage Total 36 ml 10 ml 40 ml # Voids 1 # Bowel Movements 1 1 Result Diagram: 08/08/1745508/08/17455 Objective Remarks GENERAL: SKIN: Warm and dry. HEAD: Atraumatic. Normocephalic. EYES: Pupils equal and round. No scleral icterus. No injection or drainage. ENT: No nasal bleeding or discharge. Mucous membranes pink and moist. NECK: Trachea midline. No JVD. CARDIOVASCULAR: Regular rate and rhythm. RESPIRATORY: No accessory muscle use. Clear to auscultation. Breath sounds equal bilaterally. GASTROINTESTINAL: Abdomen soft, non-tender, nondistended. Hepatic and splenic margins not palpable. MUSCULOSKELETAL: Extremities without clubbing, cyanosis, or edema. No obvious deformities. NEUROLOGICAL: Awake and alert. No obvious cranial nerve deficits. Motor grossly within normal limits. Five out of 5 muscle strength in the arms and legs. Normal speech. PSYCHIATRIC: Appropriate mood and affect; insight and judgment normal. Assessment and Plan Assessment and Plan Recurrent PNX POST PLEURODESIS CT STILL WITH LEAK PLAN PULMONARY TOILET bronchodilator therapy Ivonne Coronado MD Aug 08, 2017 08:43
[2017-08-08] MEDS: HYDROCHLOROTHIAZIDE 25 MG TAB PO SCH (08:55)
[2017-08-08] MEDS: BUDESONIDE-FORMOTEROL 160/4.5 MCG INHALER INH SCH ×2 (08:55→21:00)
[2017-08-08] MEDS: DOCUSATE SODIUM 50 MG/SENNA 8.6 MG TAB PO SCH ×2 (08:55→21:35)
[2017-08-08] MEDS: SODIUM CHLORIDE 0.9% FLUSH 10 ML FLUSH IV FLUSH SCH ×2 (08:56→21:35)
[2017-08-08] MEDS: LORazepam 0.5 MG TAB PO PRN ×2 (09:16→18:50)
--- NOTE | 2017-08-08 11:02 | PD.CAR.PN ---
CVT Progress Note Subjective/Hospital Course: 61-year-old male, date of ; 1955, known from our service that was seen on his prior admission by Dr. Conner, that was readmitted on the after he was discharged earlier that day after being treated for right pneumothorax. He was admitted twice from 07/20 to 07/22 and then again from 07/25 to 07/30 and we actually saw the patient for recurrent spontaneous pneumothorax. He had at pigtail catheter, CT did show bilateral blebs. We discussed surgical option however, the patient was refusing any surgical procedure at the time, the recommendation was for possible evaluation by interventional radiology for pleurodesis if possible. The chest tube apparently fell out on the night he had a chest x-ray that was followed up that showed no pneumothorax. He then went home and then was readmitted that same day. On this admission, he had to the patient had a large right tension pneumothorax. The emergency department inserted a chest tube, the patient then underwent pleurodesis on the through the existing chest tube. We were consulted after the patient had a persistent right sided pneumothorax, despite pleurodesis, despite the right chest tube in place. Past medical history: recurrent spontaneous pneumothorax, severe COPD, obstructive sleep apnea, degenerative joint disease. 08/06No complaints. Lung is re-expanded with catheter to suction. Small air leak persists. 08/07 cxr noted no pTX placed to water seal this am , pt became very anxious SOB , the pt placed himself back on suction stat cxr pending , placed back to suction at 20cm , still has small air leak 08/08 repeat CXR showed no ptx pt reassured, suction down to 10cm , will attempt to place on waterseal today pt has very high anxiety level, instructed not to manipulate suction on Chest tube increase activity, will consult pt Objective: GENERAL: SKIN: Warm and dry. HEAD: Normocephalic. EYES: No scleral icterus. No injection or drainage. NECK: Supple, trachea midline. No JVD or lymphadenopathy. CARDIOVASCULAR: Regular rate and rhythm without murmurs, gallops, or rubs. RESPIRATORY: Breath sounds equal bilaterally. No accessory muscle use. very diminished throughout, chest tube to 10 cm, intermittent small air leak will place on water seal later today GASTROINTESTINAL: Abdomen soft, non-tender, nondistended. MUSCULOSKELETAL: No cyanosis, or edema. BACK: Nontender without obvious deformity. No CVA tenderness. Vital Signs Date Time Temp Pulse Resp B/P (MAP) Pulse Ox O2 Delivery O2 Flow Rate FiO2 08/08/17 09:00 99 Nasal Cannula 2.00 08/08/17 09:00 92 08/08/17 08:00 90 08/08/17 07:00 99 Nasal Cannula 2.00 08/08/17 07:00 87 08/08/17 07:00 98.2 96 20 139/72 (94) 99 08/08/17 06:11 78 08/08/17 05:16 93 08/08/17 04:00 90 08/08/17 03:39 99 Nasal Cannula 2.00 08/08/17 03:39 94 18 155/78 (103) 99 08/08/17 03:00 88 08/08/17 02:00 78 08/08/17 01:00 88 08/08/17 00:00 82 08/07/17 23:00 91 08/07/17 23:00 97.6 96 16 152/74 (100) 98 08/07/17 23:00 99 Nasal Cannula 2.00 08/07/17 22:00 84 08/07/17 21:00 102 08/07/17 20:58 99 Nasal Cannula 2.00 08/07/17 20:58 97.8 98 16 127/60 (82) 99 08/07/17 20:00 100 08/07/17 19:58 Nasal Cannula 2.00 08/07/17 19:00 90 08/07/17 18:00 96 08/07/17 17:00 86 08/07/17 16:51 18 08/07/17 16:00 94 08/07/17 15:00 98.3 100 17 141/69 (93) 97 08/07/17 15:00 97 Nasal Cannula 2.00 08/07/17 15:00 96 08/07/17 14:00 96 08/07/17 13:00 104 08/07/17 12:00 110 08/07/17 11:00 98.2 97 17 140/70 (93) 98 08/07/17 11:00 97 Nasal Cannula 2.00 08/07/17 11:00 96 Labs: Laboratory Tests Test 08/08/17 04:56 White Blood Count 9.4 TH/MM3 (4.0-11.0) Red Blood Count 3.90 MIL/MM3 (4.50-5.90) Hemoglobin 12.9 GM/DL (13.0-17.0) Hematocrit 37.8 % (39.0-51.0) Mean Corpuscular Volume 97.1 FL (80.0-100.0) Mean Corpuscular Hemoglobin 33.2 PG (27.0-34.0) Mean Corpuscular Hemoglobin Concent 34.2 % (32.0-36.0) Red Cell Distribution Width 14.1 % (11.6-17.2) Platelet Count 367 TH/MM3 (150-450) Mean Platelet Volume 7.2 FL (7.0-11.0) Blood Urea Nitrogen 15 MG/DL (7-18) Creatinine 0.92 MG/DL (0.60-1.30) Random Glucose 106 MG/DL (74-106) Calcium Level 8.9 MG/DL (8.5-10.1) Sodium Level 135 MEQ/L (136-145) Potassium Level 3.7 MEQ/L (3.5-5.1) Chloride Level 98 MEQ/L (98-107) Carbon Dioxide Level 30.2 MEQ/L (21.0-32.0) Anion Gap 7 MEQ/L (5-15) Estimat Glomerular Filtration Rate 83 ML/MIN (>89) Result Diagram: 08/08/1745508/08/17455 (1) COPD exacerbation (2) Pneumothorax on right (3) Recurrent spontaneous pneumothorax Plan: chest 10 cm suction , then water seal later today repeat CXR in am antianxiety meds will need to wean suction very slowly (4) HCAP (healthcare-associated pneumonia) Michelle Adler Aug 08, 2017 11:02
[2017-08-08] MEDS: VANCOMYCIN 1,000 MG/NS 250 ML IV SCH ×2 (13:24)
--- NOTE | 2017-08-08 15:02 | HHI.FPPN ---
Subjective Remarks Patient seen and examined this morning. Yesterday, patient was placed to waterseal and then patient place himself back on suction. Today, suction down to 10 cm and attempting to place on waterseal. Otherwise, he reports doing well. States his breathing is at baseline. Denies any chest pain, abdominal pain , leg pain. Eating/drinking well, no diarrhea or constipation. Objective Vitals Vital Signs Date Time Temp Pulse Resp B/P (MAP) Pulse Ox O2 Delivery O2 Flow Rate FiO2 08/08/17 14:00 93 08/08/17 13:00 99 08/08/17 12:00 103 08/08/17 11:00 98.3 108 20 124/70 (88) 100 08/08/17 11:00 114 08/08/17 11:00 100 Nasal Cannula 2.00 08/08/17 10:00 108 08/08/17 09:00 99 Nasal Cannula 2.00 08/08/17 09:00 92 08/08/17 08:00 90 08/08/17 07:00 99 Nasal Cannula 2.00 08/08/17 07:00 87 08/08/17 07:00 98.2 96 20 139/72 (94) 99 08/08/17 06:11 78 08/08/17 05:16 93 08/08/17 04:00 90 08/08/17 03:39 99 Nasal Cannula 2.00 08/08/17 03:39 94 18 155/78 (103) 99 08/08/17 03:00 88 08/08/17 02:00 78 08/08/17 01:00 88 08/08/17 00:00 82 08/07/17 23:00 91 08/07/17 23:00 97.6 96 16 152/74 (100) 98 08/07/17 23:00 99 Nasal Cannula 2.00 08/07/17 22:00 84 08/07/17 21:00 102 08/07/17 20:58 99 Nasal Cannula 2.00 08/07/17 20:58 97.8 98 16 127/60 (82) 99 08/07/17 20:00 100 08/07/17 19:58 Nasal Cannula 2.00 08/07/17 19:00 90 08/07/17 18:00 96 08/07/17 17:00 86 08/07/17 16:51 18 12/18/17 16:00 94 08/07/17 15:00 98.3 100 17 141/69 (93) 97 08/07/17 15:00 97 Nasal Cannula 2.00 08/07/17 15:00 96 I/O 08/07/17 08/07/17 08/07/17 08/08/17 08/08/17 08/08/17 07:00 15:00 23:00 07:00 15:00 23:00 Intake Total 920 ml 840 ml 240 ml Output Total 436 ml 750 ml 590 ml Balance 484 ml 90 ml -350 ml Intake Oral 720 ml 840 ml 240 ml IV Total 200 ml Output Urine Total 400 ml 740 ml 550 ml Stool Total 0 ml Chest Tube Drainage Total 36 ml 10 ml 40 ml # Voids 1 # Bowel Movements 1 1 Result Diagram: 08/08/17 0456 08/08/176 Objective Remarks GENERAL: sitting up in bed, in NAD SKIN: No rashes, ecchymoses or lesions. Cool and dry. CARDIOVASCULAR: RRR. Normal S1/S2. No MRG. Distant heart sounds. RESPIRATORY: CTAB. Breath sounds barely audible; thorax with increased AP diameter. Anterior right chest tube in place. GASTROINTESTINAL: Abdomen soft, non-distended, nontender. MUSCULOSKELETAL: Extremities without clubbing, cyanosis, or edema. NEUROLOGICAL: Awake and alert. Oriented x3. Normal speech. A/P Assessment and Plan 61-year-old man admitted due to recurrent spontaneous pneumothorax. See below for plan. Discharge Planning Pending clearance from CTS, and chest tube management Case management assisting with any discharge needs PT stating no home PT needed at this time as patient has rolling walker and cane at home Problem List: (1) Recurrent spontaneous pneumothorax ICD Codes: J93.83 - Other pneumothorax Status: Acute Plan: s/p right chest tube placement by ED physician with repeat chest x-ray showing successful placement on 07/30 s/p pleurodesis by IR 07/31, Pt was unable to tolerate full pleurodesis procedure. Severe pain with injection. Could only inject half of the total dose (30cc). Patient refused to attempt pleurodesis again. IR placed anterior chest tube on 08/02 IR consulted initially. Spoke with Dr. Buenrostro, 3x chest tube attempts with recurrent pneumothorax. Patient most likely will need surgery. CXR (08/07): no pneumothorax, residual right pleural effusion Consulted pulmonology, Dr. Coronado following -Recommending pulm toilet -Bronchodilator therapy Cardiothoracic consulted, appreciated recs -Hold off on thoracotomy due to lung re-expansion -Wean suction down slowly, transition to water seal Pain Control: Percocet 10/325 1 tab po q4h scheduled Dilaudid 1 mg IV q4h prn breakthrough pain (2) HCAP (healthcare-associated pneumonia) ICD Codes: J18.9 - Pneumonia, unspecified organism Plan: CXR 08/06 demonstrated right basilar patchiness consistent with probable pneumonia CXR 08/07, no signs of infection, however will continue antibiotics for now for empiric coverage -Start Zosyn 4.5 gm IV q6h (08/06) -Start Vancomycin 1000 mg IV, pharmacy consulted for dosing (08/06) (3) Hypertension ICD Codes: I10 - Essential (primary) hypertension Status: Chronic Plan: Patient had stable BPs near within normal limits throughout previous hospitalization Patient had been started on HCTZ 25 mg po daily Clonidine 0.1 mg po q6h prn BP > 180/100 Monitor vitals q4h (4) COPD (chronic obstructive pulmonary disease) ICD Codes: J44.9 - Chronic obstructive pulmonary disease, unspecified Status: Chronic Plan: Continue Symbicort 2 puffs q12h Duonebs q4h prn O2 via NC to maintain O2 sats between 88-92% (5) Anxiety ICD Codes: F41.9 - Anxiety disorder, unspecified Plan: Lorazepam 0.5 mg PO q8h for severe anxiety (6) Tobacco use disorder ICD Codes: F17.200 - Nicotine dependence, unspecified, uncomplicated Status: Chronic Plan: Recommended smoking cessation (7) Nutrition, metabolism, and development symptoms ICD Codes: R63.8 - Other symptoms and signs concerning food and fluid intake Status: Acute Plan: Fluids: per PO Electrolytes: WNL Nutrition: heart healthy DVT ppx: Heparin 5000 units q12h Problem Qualifiers (1) Hypertension: Qualified Codes: I10 - Essential (primary) hypertension (2) COPD (chronic obstructive pulmonary disease): Qualified Codes: J44.9 - Chronic obstructive pulmonary disease, unspecified Colt Ribera MD, R2 Aug 08, 2017 15:02
[2017-08-08] MEDS: ZOLPIDEM TARTRATE 5 MG TAB PO SCH (21:00)
[2017-08-08] MEDS: HEPARIN SODIUM - SQ 10,000 UNITS/ML VIAL SQ SCH (21:34)
[2017-08-09] VITALS (28 sets, daily range): BP systolic 126–150; BP diastolic 60–71; PULSE 75–112; RESP 16–19; TEMP 97.6–98.5; O2SAT 95–100
[2017-08-09] MEDS: HYDROmorphone HCL PF 2 MG/ML VIAL IV PUSH PRN ×6 (01:26→22:09)
[2017-08-09] MEDS: MENTHOL LOZENGE BUCCAL PRN ×2 (03:51→11:30)
[2017-08-09] MEDS: oxyCODONE/ACETAMINOPHEN 10 MG/325 MG TAB PO PRN ×6 (03:52→23:42)
[2017-08-09 04:37] LABS: HEMATOCRIT 39.6 % (39.0-51.0); MEAN CELL VOLUME 97.8 FL (80.0-100.0); MEAN CORPUSCULAR HEMOGLOBIN 32.9 PG (27.0-34.0); MEAN CORPUSCULAR HGB CONC 33.6 % (32.0-36.0); PLATELET COUNT 379 TH/MM3 (150-450); RED BLOOD COUNT 4.04 MIL/MM3 (4.50-5.90); RED CELL DISTRIBUTION WIDTH 14.5 % (11.6-17.2); REVIEW FLAG FINAL; WHITE BLOOD COUNT 11.3 TH/MM3 (4.0-11.0)
[2017-08-09 04:38] LABS: BICARBONATE 30.6 MEQ/L (21.0-32.0); POTASSIUM 4.1 MEQ/L (3.5-5.1)
[2017-08-09] MEDS: PIPERACIL-TAZO 4.5 GM PREMIX 100 ML IV SCH (05:49)
[2017-08-09] MEDS: LORazepam 0.5 MG TAB PO PRN ×2 (06:42→15:16)
[2017-08-09] MEDS: DOCUSATE SODIUM 50 MG/SENNA 8.6 MG TAB PO SCH ×2 (08:02→21:01)
[2017-08-09] MEDS: HEPARIN SODIUM - SQ 10,000 UNITS/ML VIAL SQ SCH ×2 (08:02→21:03)
[2017-08-09] MEDS: SODIUM CHLORIDE 0.9% FLUSH 10 ML FLUSH IV FLUSH SCH ×2 (08:03→21:00)
[2017-08-09] MEDS: HYDROCHLOROTHIAZIDE 25 MG TAB PO SCH (08:03)
[2017-08-09] MEDS: BUDESONIDE-FORMOTEROL 160/4.5 MCG INHALER INH SCH ×2 (08:03→21:03)
--- NOTE | 2017-08-09 10:19 | HHI.FPPN ---
Subjective Remarks Patient seen and examined this morning. No acute events overnight. Patient reports he's been on a chest tube vacuum of 10 for the past day he has been tolerating this well. No increased shortness of breath at rest, chest pain. He does note that when he is doing his physical therapy he has some mild shortness of breath while walking around. No nausea, vomiting, fever, chills, abdominal pain. No other complaints today. Objective Vitals Vital Signs Date Time Temp Pulse Resp B/P (MAP) Pulse Ox O2 Delivery O2 Flow Rate FiO2 08/09/17 09:06 16 08/09/17 06:02 84 08/09/17 05:06 79 08/09/17 04:07 96 08/09/17 03:28 78 08/09/17 03:20 95 Room Air 08/09/17 03:20 97.7 96 16 144/71 (95) 95 08/09/17 02:16 80 08/09/17 01:08 80 08/09/17 00:28 95 08/08/17 23:58 99 Nasal Cannula 2.00 08/08/17 23:58 98.3 91 17 131/74 (93) 99 08/08/17 23:53 86 08/08/17 22:00 90 08/08/17 21:21 Nasal Cannula 2.00 08/08/17 21:00 90 08/08/17 20:15 102 08/08/17 19:35 98.2 98 18 125/58 (80) 97 08/08/17 19:35 97 Room Air 08/08/17 19:32 98 08/08/17 18:00 97 08/08/17 17:00 95 08/08/17 16:00 101 08/08/17 15:00 99 Nasal Cannula 2.00 08/08/17 15:00 97.9 103 18 133/73 (93) 99 08/08/17 15:00 105 08/08/17 14:00 93 08/08/17 13:00 99 08/08/17 12:00 103 08/08/17 11:00 98.3 108 20 124/70 (88) 100 08/08/17 11:00 114 08/08/17 11:00 100 Nasal Cannula 2.00 I/O 08/08/17 08/08/17 08/08/17 08/09/1720/17 12/20/17 06:59 14:59 22:59 06:59 14:59 22:59 Intake Total 240 ml 720 ml 360 ml Output Total 590 ml 710 ml 504 ml Balance -350 ml 10 ml -144 ml Intake Oral 240 ml 720 ml 360 ml Output Urine Total 550 ml 700 ml 500 ml Chest Tube Drainage Total 40 ml 10 ml 4 ml # Bowel Movements 1 0 Result Diagram: 08/09/1740808/09/17408 Objective Remarks GENERAL: sitting up in bed, in NAD SKIN: No rashes, ecchymoses or lesions. Cool and dry. CARDIOVASCULAR: RRR. Normal S1/S2. No MRG. Distant heart sounds. RESPIRATORY: CTAB. Breath sounds barely audible; thorax with increased AP diameter. Anterior right chest tube in place, C/D/I GASTROINTESTINAL: Abdomen soft, non-distended, nontender. MUSCULOSKELETAL: Extremities without clubbing, cyanosis, or edema. NEUROLOGICAL: Awake and alert. Oriented x3. Normal speech. A/P Assessment and Plan 61-year-old man admitted due to recurrent spontaneous pneumothorax. See below for plan. Discharge Planning Pending clearance from CTS, and chest tube management Case management assisting with any discharge needs PT stating no home PT needed at this time as patient has rolling walker and cane at home Problem List: (1) Recurrent spontaneous pneumothorax ICD Codes: J93.83 - Other pneumothorax Status: Acute Plan: s/p right chest tube placement by ED physician with repeat chest x-ray showing successful placement on 07/30 s/p pleurodesis by IR 07/31, Pt was unable to tolerate full pleurodesis procedure. Severe pain with injection. Could only inject half of the total dose (30cc). Patient refused to attempt pleurodesis again. IR placed anterior chest tube on 08/02 IR consulted initially. Spoke with Dr. Buenrostro, 3x chest tube attempts with recurrent pneumothorax. Patient most likely will need surgery. CXR (08/07): no pneumothorax, residual right pleural effusion Consulted pulmonology, Dr. Coronado following -Recommending pulm toilet -Bronchodilator therapy Cardiothoracic consulted, appreciated recs -Hold off on thoracotomy due to lung re-expansion -Wean suction down slowly, transition to water seal Pain Control: Percocet 10/325 1 tab po q4h scheduled Dilaudid 1 mg IV q4h prn breakthrough pain (2) HCAP (healthcare-associated pneumonia) ICD Codes: J18.9 - Pneumonia, unspecified organism Plan: CXR 08/06 demonstrated right basilar patchiness consistent with probable pneumonia CXR 08/07, no signs of infection, however continued antibiotics for empiric coverage 08/09 reviewed recent chest x-rays with radiologist- due to changes on x-rays, no fevers, limited symptoms concerning for pneumonia, hospital acquired pneumonia can be considered low probability at this point and antibiotics will be stopped. -Zosyn 4.5 gm IV q6h (08/06) - (08/09) -Vancomycin 1000 mg IV, pharmacy consulted for dosing (08/06) - (08/09) (3) Hypertension ICD Codes: I10 - Essential (primary) hypertension Status: Chronic Plan: Patient had stable BPs near within normal limits throughout previous hospitalization Patient had been started on HCTZ 25 mg po daily Clonidine 0.1 mg po q6h prn BP > 180/100 Monitor vitals q4h (4) COPD (chronic obstructive pulmonary disease) ICD Codes: J44.9 - Chronic obstructive pulmonary disease, unspecified Status: Chronic Plan: Continue Symbicort 2 puffs q12h Duonebs q4h prn O2 via NC to maintain O2 sats between 88-92% (5) Anxiety ICD Codes: F41.9 - Anxiety disorder, unspecified Plan: Lorazepam 0.5 mg PO q8h for severe anxiety (6) Tobacco use disorder ICD Codes: F17.200 - Nicotine dependence, unspecified, uncomplicated Status: Chronic Plan: Recommended smoking cessation (7) Nutrition, metabolism, and development symptoms ICD Codes: R63.8 - Other symptoms and signs concerning food and fluid intake Status: Acute Plan: Fluids: per PO Electrolytes: WNL Nutrition: heart healthy DVT ppx: Heparin 5000 units q12h Problem Qualifiers (1) Hypertension: Qualified Codes: I10 - Essential (primary) hypertension (2) COPD (chronic obstructive pulmonary disease): Qualified Codes: J44.9 - Chronic obstructive pulmonary disease, unspecified Moi Nieves MD R1 Aug 09, 2017 10:19
[2017-08-09] MEDS ORDERED: PHARMACY ORDERED LAB ONE (12:45)
--- NOTE | 2017-08-09 15:34 | PD.CAR.PN ---
CVT Progress Note Subjective/Hospital Course: 61-year-old male, date of ; 1955, known from our service that was seen on his prior admission by Dr. Conner, that was readmitted on the after he was discharged earlier that day after being treated for right pneumothorax. He was admitted twice from 07/20 to 07/22 and then again from 07/25 to 07/30 and we actually saw the patient for recurrent spontaneous pneumothorax. He had at pigtail catheter, CT did show bilateral blebs. We discussed surgical option however, the patient was refusing any surgical procedure at the time, the recommendation was for possible evaluation by interventional radiology for pleurodesis if possible. The chest tube apparently fell out on the night he had a chest x-ray that was followed up that showed no pneumothorax. He then went home and then was readmitted that same day. On this admission, he had to the patient had a large right tension pneumothorax. The emergency department inserted a chest tube, the patient then underwent pleurodesis on the through the existing chest tube. We were consulted after the patient had a persistent right sided pneumothorax, despite pleurodesis, despite the right chest tube in place. Past medical history: recurrent spontaneous pneumothorax, severe COPD, obstructive sleep apnea, degenerative joint disease. 08/06No complaints. Lung is re-expanded with catheter to suction. Small air leak persists. 08/07 cxr noted no pTX placed to water seal this am , pt became very anxious SOB , the pt placed himself back on suction stat cxr pending , placed back to suction at 20cm , still has small air leak 08/08 repeat CXR showed no ptx pt reassured, suction down to 10cm , will attempt to place on waterseal today pt has very high anxiety level, instructed not to manipulate suction on Chest tube increase activity, will consult pt 08/09 chest tube off to suction from the wall pt tolerated ambulation better today still has small air leak , will need Pneumostat at discharge will get walk test / f/u CXR in am Objective: GENERAL: less anxious today SKIN: Warm and dry. HEAD: Normocephalic. EYES: No scleral icterus. No injection or drainage. NECK: Supple, trachea midline. No JVD or lymphadenopathy. CARDIOVASCULAR: Regular rate and rhythm without murmurs, gallops, or rubs. RESPIRATORY: Breath sounds equal bilaterally. No accessory muscle use. chest tube right upper later chest wall intermittent air leak GASTROINTESTINAL: Abdomen soft, non-tender, nondistended. MUSCULOSKELETAL: No cyanosis, or edema. BACK: Nontender without obvious deformity. No CVA tenderness. Vital Signs Date Time Temp Pulse Resp B/P (MAP) Pulse Ox O2 Delivery O2 Flow Rate FiO2 08/09/17 14:28 16 08/09/17 14:25 92 08/09/17 13:06 98 08/09/17 12:41 16 08/09/17 12:12 82 08/09/17 11:17 97.7 89 18 126/66 (86) 96 08/09/17 11:17 96 Room Air 08/09/17 11:17 90 08/09/17 10:31 108 08/09/17 09:20 99 Nasal Cannula 2.00 08/09/17 09:00 105 08/09/17 08:30 97.6 90 18 150/64 (92) 100 08/09/17 08:30 82 08/09/17 08:30 100 Nasal Cannula 2.50 08/09/17 06:02 84 08/09/17 05:06 79 08/09/17 04:07 96 08/09/17 03:28 78 08/09/17 03:20 95 Room Air 08/09/17 03:20 97.7 96 16 144/71 (95) 95 08/09/17 02:16 80 08/09/17 01:08 80 08/09/17 00:28 95 08/08/17 23:58 99 Nasal Cannula 2.00 08/08/17 23:58 98.3 91 17 131/74 (93) 99 08/08/17 23:53 86 08/08/17 22:00 90 08/08/17 21:21 Nasal Cannula 2.00 08/08/17 21:00 90 08/08/17 20:15 102 08/08/17 19:35 98.2 98 18 125/58 (80) 97 08/08/17 19:35 97 Room Air 08/08/17 19:32 98 08/08/17 18:00 97 08/08/17 17:00 95 08/08/17 16:00 101 Labs: Laboratory Tests Test 08/09/17 04:09 White Blood Count 11.3 TH/MM3 (4.0-11.0) Red Blood Count 4.04 MIL/MM3 (4.50-5.90) Hemoglobin 13.3 GM/DL (13.0-17.0) Hematocrit 39.6 % (39.0-51.0) Mean Corpuscular Volume 97.8 FL (80.0-100.0) Mean Corpuscular Hemoglobin 32.9 PG (27.0-34.0) Mean Corpuscular Hemoglobin Concent 33.6 % (32.0-36.0) Red Cell Distribution Width 14.5 % (11.6-17.2) Platelet Count 379 TH/MM3 (150-450) Mean Platelet Volume 7.3 FL (7.0-11.0) Blood Urea Nitrogen 17 MG/DL (7-18) Creatinine 1.00 MG/DL (0.60-1.30) Random Glucose 102 MG/DL (74-106) Calcium Level 9.3 MG/DL (8.5-10.1) Sodium Level 133 MEQ/L (136-145) Potassium Level 4.1 MEQ/L (3.5-5.1) Chloride Level 94 MEQ/L (98-107) Carbon Dioxide Level 30.6 MEQ/L (21.0-32.0) Anion Gap 8 MEQ/L (5-15) Estimat Glomerular Filtration Rate 76 ML/MIN (>89) Result Diagram: 08/09/1740808/09/17408 Telemetry: NSR (1) COPD exacerbation (2) Pneumothorax on right (3) Recurrent spontaneous pneumothorax Plan: chest tube off of suction at the wall, pt tolerating repeat CXR in am antianxiety meds (4) HCAP (healthcare-associated pneumonia) Michelle Adler Aug 09, 2017 15:34
--- NOTE | 2017-08-09 19:40 | HHI.PR ---
Subjective Remarks alert no acute distress Objective Vital Signs Date Time Temp Pulse Resp B/P (MAP) Pulse Ox O2 Delivery O2 Flow Rate FiO2 08/09/17 18:31 100 08/09/17 17:15 85 08/09/17 16:24 18 08/09/17 16:22 2.00 08/09/17 16:01 88 08/09/17 15:56 97.7 87 18 126/60 (82) 97 08/09/17 15:56 89 08/09/17 15:56 97 Room Air 08/09/17 14:28 16 08/09/17 14:25 92 08/09/17 13:06 98 08/09/17 12:12 82 08/09/17 11:17 97.7 89 18 126/66 (86) 96 08/09/17 11:17 96 Room Air 08/09/17 11:17 90 08/09/17 10:31 108 08/09/17 09:20 99 Nasal Cannula 2.00 08/09/17 09:00 105 08/09/17 08:30 97.6 90 18 150/64 (92) 100 08/09/17 08:30 82 08/09/17 08:30 100 Nasal Cannula 2.50 08/09/17 06:02 84 08/09/17 05:06 79 08/09/17 04:07 96 08/09/17 03:28 78 08/09/17 03:20 95 Room Air 08/09/17 03:20 97.7 96 16 144/71 (95) 95 08/09/17 02:16 80 08/09/17 01:08 80 08/09/17 00:28 95 08/08/17 23:58 99 Nasal Cannula 2.00 08/08/17 23:58 98.3 91 17 131/74 (93) 99 08/08/17 23:53 86 08/08/17 22:00 90 08/08/17 21:21 Nasal Cannula 2.00 08/08/17 21:00 90 08/08/17 20:15 102 I/O 08/08/17 08/08/17 08/08/17 08/09/17 08/09/17 08/09/17 07:00 15:00 23:00 07:00 15:00 23:00 Intake Total 240 ml 720 ml 360 ml 600 ml Output Total 590 ml 710 ml 504 ml 750 ml Balance -350 ml 10 ml -144 ml -150 ml Intake Oral 240 ml 720 ml 360 ml 600 ml Output Urine Total 550 ml 700 ml 500 ml 700 ml Chest Tube Drainage Total 40 ml 10 ml 4 ml 50 ml # Bowel Movements 1 0 0 Result Diagram: 08/09/1740808/09/17408 Objective Remarks GENERAL: SKIN: Warm and dry. HEAD: Atraumatic. Normocephalic. EYES: Pupils equal and round. No scleral icterus. No injection or drainage. ENT: No nasal bleeding or discharge. Mucous membranes pink and moist. NECK: Trachea midline. No JVD. CARDIOVASCULAR: Regular rate and rhythm. RESPIRATORY: No accessory muscle use. Clear to auscultation. Breath sounds equal bilaterally. GASTROINTESTINAL: Abdomen soft, non-tender, nondistended. Hepatic and splenic margins not palpable. MUSCULOSKELETAL: Extremities without clubbing, cyanosis, or edema. No obvious deformities. NEUROLOGICAL: Awake and alert. No obvious cranial nerve deficits. Motor grossly within normal limits. Five out of 5 muscle strength in the arms and legs. Normal speech. PSYCHIATRIC: Appropriate mood and affect; insight and judgment normal. Assessment and Plan Assessment and Plan Recurrent PNX POST PLEURODESIS CT STILL WITH LEAK PLAN PULMONARY TOILET bronchodilator therapy Ivonne Coronado MD Aug 09, 2017 19:40
[2017-08-09] MEDS: ZOLPIDEM TARTRATE 5 MG TAB PO SCH (21:01)
[2017-08-10] VITALS (29 sets, daily range): BP systolic 128–156; BP diastolic 4–74; PULSE 71–98; RESP 16–20; TEMP 97–98.3; O2SAT 94–100
[2017-08-10] MEDS: HYDROmorphone HCL PF 2 MG/ML VIAL IV PUSH PRN ×5 (02:13→20:15)
[2017-08-10] MEDS: oxyCODONE/ACETAMINOPHEN 10 MG/325 MG TAB PO PRN ×5 (03:57→21:49)
[2017-08-10] MEDS: LORazepam 0.5 MG TAB PO PRN ×2 (03:57→17:37)
[2017-08-10 05:15] LABS: HEMATOCRIT 35.2 % (39.0-51.0); MEAN CELL VOLUME 97.4 FL (80.0-100.0); MEAN CORPUSCULAR HEMOGLOBIN 32.9 PG (27.0-34.0); MEAN CORPUSCULAR HGB CONC 33.7 % (32.0-36.0); PLATELET COUNT 340 TH/MM3 (150-450); RED BLOOD COUNT 3.61 MIL/MM3 (4.50-5.90); RED CELL DISTRIBUTION WIDTH 14.2 % (11.6-17.2); REVIEW FLAG FINAL; WHITE BLOOD COUNT 11.4 TH/MM3 (4.0-11.0)
[2017-08-10 05:34] LABS: BICARBONATE 30.9 MEQ/L (21.0-32.0); POTASSIUM 3.8 MEQ/L (3.5-5.1)
--- NOTE | 2017-08-10 08:06 | RADRPT ---
EXAM DATE/TIME: 08/10/2017 07:32 [facility] COMPARISON: CHEST SINGLE AP, August 07, 2017, 12:02. INDICATIONS : Chest pain and shortness of breath. MEDICAL HISTORY : Emphysema. Chronic obstructive pulmonary disease. SURGICAL HISTORY : Chest tube, right. ENCOUNTER: Subsequent ACUITY: 3 days PAIN SCORE: 8/10 LOCATION: Bilateral chest Middle. FINDINGS: 2 portable frontal views of the chest show a right-sided thoracostomy tube with the tip in the right apex. There is a small apical pneumothorax which is a new finding from the prior study. Subcutaneous air overlies the right shoulder. Left lung is clear. Heart is normal in size. CONCLUSION: Small apical pneumothorax on the right which is a new finding from the prior study. Ben Nixon Jr., MD on August 10, 2017 at 8:01 Board Certified Radiologist. This report was verified electronically.
[2017-08-10] MEDS: DOCUSATE SODIUM 50 MG/SENNA 8.6 MG TAB PO SCH ×2 (08:17→20:15)
[2017-08-10] MEDS: HEPARIN SODIUM - SQ 10,000 UNITS/ML VIAL SQ SCH ×2 (08:18→20:15)
[2017-08-10] MEDS: SODIUM CHLORIDE 0.9% FLUSH 10 ML FLUSH IV FLUSH SCH ×2 (08:18→20:16)
[2017-08-10] MEDS: HYDROCHLOROTHIAZIDE 25 MG TAB PO SCH (08:18)
[2017-08-10] MEDS: BUDESONIDE-FORMOTEROL 160/4.5 MCG INHALER INH SCH ×2 (08:19→20:16)
--- NOTE | 2017-08-10 09:37 | HHI.FPPN ---
Subjective Remarks Patient seen and examined this morning. No acute events overnight. He was placed on suction. Repeat chest x-ray today shows return of small pneumothorax. He reports feeling well, denies any chest pain. States his breathing is stable. Anxious about getting home. Objective Vitals Vital Signs Date Time Temp Pulse Resp B/P (MAP) Pulse Ox O2 Delivery O2 Flow Rate FiO2 08/10/17 08:08 94 Room Air 08/10/17 08:03 97.9 92 20 133/65 (87) 94 08/10/17 08:00 92 08/10/17 07:30 20 08/10/17 07:00 82 08/10/17 06:11 76 08/10/17 05:02 71 08/10/17 04:12 85 08/10/17 03:38 98.1 89 17 136/61 (86) 97 08/10/17 03:38 83 08/10/17 03:38 97 Room Air 08/10/17 02:18 79 08/10/17 01:17 86 08/10/17 00:05 80 08/09/17 23:45 98.5 88 19 131/68 (89) 99 08/09/17 23:45 98 Room Air 08/09/17 23:15 85 08/09/17 22:00 88 08/09/17 21:00 75 08/09/17 20:59 96 Nasal Cannula 2.00 08/09/17 20:00 78 08/09/17 19:45 100 08/09/17 19:35 98.1 112 18 131/66 (87) 96 08/09/17 19:35 96 Room Air 08/09/17 18:31 100 08/09/17 17:15 85 08/09/17 16:24 18 08/09/17 16:22 2.00 08/09/17 16:01 88 08/09/17 15:56 97.7 87 18 126/60 (82) 97 08/09/17 15:56 89 08/09/17 15:56 97 Room Air 08/09/17 14:25 92 08/09/17 13:06 98 08/09/17 12:12 82 08/09/17 11:17 97.7 89 18 126/66 (86) 96 08/09/17 11:17 96 Room Air 08/09/17 11:17 90 08/09/17 10:31 108 I/O 08/09/17 08/09/17 08/09/17 08/10/17 08/10/17 08/10/17 07:00 15:00 23:00 07:00 15:00 23:00 Intake Total 360 ml 600 ml 720 ml Output Total 504 ml 750 ml 550 ml Balance -144 ml -150 ml 170 ml Intake Oral 360 ml 600 ml 720 ml Output Urine Total 500 ml 700 ml 550 ml Chest Tube Drainage Total 4 ml 50 ml 0 ml # Bowel Movements 0 Result Diagram: 08/10/1741908/10/17419 Objective Remarks GENERAL: sitting up in bed, in NAD SKIN: No rashes, ecchymoses or lesions. Cool and dry. CARDIOVASCULAR: RRR. Normal S1/S2. No MRG. Distant heart sounds. RESPIRATORY: CTAB. Breath sounds barely audible; expiratory wheezes. GASTROINTESTINAL: Abdomen soft, non-distended, nontender. MUSCULOSKELETAL: Extremities without clubbing, cyanosis, or edema. NEUROLOGICAL: Awake and alert. Oriented x3. Normal speech. A/P Assessment and Plan 61-year-old man admitted due to recurrent spontaneous pneumothorax. See below for plan. Discharge Planning Pending clearance from CTS, and chest tube management Case management assisting with any discharge needs PT stating no home PT needed at this time as patient has rolling walker and cane at home Problem List: (1) Recurrent spontaneous pneumothorax ICD Codes: J93.83 - Other pneumothorax Status: Acute Plan: s/p right chest tube placement by ED physician with repeat chest x-ray showing successful placement on 07/30 s/p pleurodesis by IR 07/31, Pt was unable to tolerate full pleurodesis procedure. Severe pain with injection. Could only inject half of the total dose (30cc). Patient refused to attempt pleurodesis again. IR placed anterior chest tube on 08/02 IR consulted initially. Spoke with Dr. Buenrostro, 3x chest tube attempts with recurrent pneumothorax. Patient most likely will need surgery. CXR (08/07): no pneumothorax, residual right pleural effusion CXR (08/10): small apical pneumothorax on the right Consulted pulmonology, Dr. Coronado following -Recommending pulm toilet -Bronchodilator therapy Cardiothoracic consulted, appreciated recs -Weaned off suction, return of PTX today Pain Control: Percocet 1 tab po q4h scheduled Dilaudid 0.5 mg IV q4h prn breakthrough pain (2) HCAP (healthcare-associated pneumonia) ICD Codes: J18.9 - Pneumonia, unspecified organism Status: Resolved Plan: CXR 08/06 demonstrated right basilar patchiness consistent with probable pneumonia CXR 08/07, no signs of infection, however continued antibiotics for empiric coverage 08/09 reviewed recent chest x-rays with radiologist- due to changes on x-rays, no fevers, limited symptoms concerning for pneumonia, hospital acquired pneumonia can be considered low probability at this point and antibiotics will be stopped. -Zosyn 4.5 gm IV q6h (08/06) - (08/09) -Vancomycin 1000 mg IV, pharmacy consulted for dosing (08/06) - (08/09) (3) Hypertension ICD Codes: I10 - Essential (primary) hypertension Status: Chronic Plan: Patient had stable BPs near within normal limits throughout previous hospitalization Patient had been started on HCTZ 25 mg po daily Clonidine 0.1 mg po q6h prn BP > 180/100 Monitor vitals q4h (4) COPD (chronic obstructive pulmonary disease) ICD Codes: J44.9 - Chronic obstructive pulmonary disease, unspecified Status: Chronic Plan: Continue Symbicort 2 puffs q12h Duonebs q4h prn O2 via NC to maintain O2 sats between 88-92% (5) Anxiety ICD Codes: F41.9 - Anxiety disorder, unspecified Plan: Lorazepam 0.5 mg PO q8h for severe anxiety (6) Tobacco use disorder ICD Codes: F17.200 - Nicotine dependence, unspecified, uncomplicated Status: Chronic Plan: Recommended smoking cessation (7) Nutrition, metabolism, and development symptoms ICD Codes: R63.8 - Other symptoms and signs concerning food and fluid intake Status: Acute Plan: Fluids: per PO Electrolytes: WNL Nutrition: heart healthy DVT ppx: Heparin 5000 units q12h Problem Qualifiers (1) Hypertension: Qualified Codes: I10 - Essential (primary) hypertension (2) COPD (chronic obstructive pulmonary disease): Qualified Codes: J44.9 - Chronic obstructive pulmonary disease, unspecified Colt Ribera MD, R2 Aug 10, 2017 09:37
--- NOTE | 2017-08-10 15:03 | PD.CAR.PN ---
CVT Progress Note Subjective/Hospital Course: 61-year-old male, date of ; 1955, known from our service that was seen on his prior admission by Dr. Conner, that was readmitted on the after he was discharged earlier that day after being treated for right pneumothorax. He was admitted twice from 07/20 to 07/22 and then again from 07/25 to 07/30 and we actually saw the patient for recurrent spontaneous pneumothorax. He had at pigtail catheter, CT did show bilateral blebs. We discussed surgical option however, the patient was refusing any surgical procedure at the time, the recommendation was for possible evaluation by interventional radiology for pleurodesis if possible. The chest tube apparently fell out on the night he had a chest x-ray that was followed up that showed no pneumothorax. He then went home and then was readmitted that same day. On this admission, he had to the patient had a large right tension pneumothorax. The emergency department inserted a chest tube, the patient then underwent pleurodesis on the through the existing chest tube. We were consulted after the patient had a persistent right sided pneumothorax, despite pleurodesis, despite the right chest tube in place. Past medical history: recurrent spontaneous pneumothorax, severe COPD, obstructive sleep apnea, degenerative joint disease. 08/06No complaints. Lung is re-expanded with catheter to suction. Small air leak persists. 08/07 cxr noted no pTX placed to water seal this am , pt became very anxious SOB , the pt placed himself back on suction stat cxr pending , placed back to suction at 20cm , still has small air leak 08/08 repeat CXR showed no ptx pt reassured, suction down to 10cm , will attempt to place on waterseal today pt has very high anxiety level, instructed not to manipulate suction on Chest tube increase activity, will consult pt 08/09 chest tube off to suction from the wall pt tolerated ambulation better today still has small air leak , will need Pneumostat at discharge will get walk test / f/u CXR in am 08/10 small right PTX noted , discussed with Dr Barber keep chest tube to water seal, if PTX stable in am , will place pneumostat tolerated being off suction during the night Objective: GENERAL: less anxious today SKIN: Warm and dry. HEAD: Normocephalic. EYES: No scleral icterus. No injection or drainage. NECK: Supple, trachea midline. No JVD or lymphadenopathy. CARDIOVASCULAR: Regular rate and rhythm without murmurs, gallops, or rubs. RESPIRATORY: Breath sounds equal bilaterally. No accessory muscle use. diminished in bases , chest tube right upper chest wall , intermittent air leak no drainage GASTROINTESTINAL: Abdomen soft, non-tender, nondistended. MUSCULOSKELETAL: No cyanosis, or edema. BACK: Nontender without obvious deformity. No CVA tenderness. Vital Signs Date Time Temp Pulse Resp B/P (MAP) Pulse Ox O2 Delivery O2 Flow Rate FiO2 08/10/17 12:00 97.0 86 20 156/74 (101) 96 08/10/17 12:00 96 Room Air 08/10/17 09:48 99 21 08/10/17 08:08 94 Room Air 08/10/17 08:03 97.9 92 20 133/65 (87) 94 08/10/17 08:00 92 08/10/17 07:30 20 08/10/17 07:00 82 08/10/17 06:11 76 08/10/17 05:02 71 08/10/17 04:12 85 08/10/17 03:38 98.1 89 17 136/61 (86) 97 08/10/17 03:38 83 08/10/17 03:38 97 Room Air 08/10/17 02:18 79 08/10/17 01:17 86 08/10/17 00:05 80 08/09/17 23:45 98.5 88 19 131/68 (89) 99 08/09/17 23:45 98 Room Air 08/09/17 23:15 85 08/09/17 22:00 88 08/09/17 21:00 75 08/09/17 20:59 96 Nasal Cannula 2.00 08/09/17 20:00 78 08/09/17 19:45 100 08/09/17 19:35 98.1 112 18 131/66 (87) 96 08/09/17 19:35 96 Room Air 08/09/17 18:31 100 08/09/17 17:15 85 08/09/17 16:24 18 08/09/17 16:22 2.00 08/09/17 16:01 88 08/09/17 15:56 97.7 87 18 126/60 (82) 97 08/09/17 15:56 89 08/09/17 15:56 97 Room Air Labs: Laboratory Tests Test 08/10/17 04:20 White Blood Count 11.4 TH/MM3 (4.0-11.0) Red Blood Count 3.61 MIL/MM3 (4.50-5.90) Hemoglobin 11.9 GM/DL (13.0-17.0) Hematocrit 35.2 % (39.0-51.0) Mean Corpuscular Volume 97.4 FL (80.0-100.0) Mean Corpuscular Hemoglobin 32.9 PG (27.0-34.0) Mean Corpuscular Hemoglobin Concent 33.7 % (32.0-36.0) Red Cell Distribution Width 14.2 % (11.6-17.2) Platelet Count 340 TH/MM3 (150-450) Mean Platelet Volume 7.7 FL (7.0-11.0) Blood Urea Nitrogen 19 MG/DL (7-18) Creatinine 0.81 MG/DL (0.60-1.30) Random Glucose 100 MG/DL (74-106) Calcium Level 8.9 MG/DL (8.5-10.1) Sodium Level 135 MEQ/L (136-145) Potassium Level 3.8 MEQ/L (3.5-5.1) Chloride Level 98 MEQ/L (98-107) Carbon Dioxide Level 30.9 MEQ/L (21.0-32.0) Anion Gap 6 MEQ/L (5-15) Estimat Glomerular Filtration Rate 97 ML/MIN (>89) Result Diagram: 08/10/1741908/10/17 0420 Telemetry: NSR (1) COPD exacerbation (2) Pneumothorax on right (3) Recurrent spontaneous pneumothorax Plan: continue chest tube off of suction at the wall, pt tolerating small PTX , Dr Barber aware , keep to water seal nursing to notify IR repeat CXR in am antianxiety meds (4) HCAP (healthcare-associated pneumonia) Plan: resolved Michelle Adler Aug 10, 2017 15:03
--- NOTE | 2017-08-10 18:07 | HHI.PR ---
Subjective Remarks alert no acute distress CT with leak Objective Vital Signs Date Time Temp Pulse Resp B/P (MAP) Pulse Ox O2 Delivery O2 Flow Rate FiO2 08/10/17 15:18 98 Room Air 08/10/17 15:13 98.3 88 20 133/64 (87) 98 08/10/17 14:00 80 08/10/17 13:00 88 08/10/17 12:00 84 08/10/17 12:00 97.0 86 20 156/74 (101) 96 08/10/17 12:00 96 Room Air 08/10/17 11:00 80 08/10/17 10:00 88 08/10/17 09:48 99 21 08/10/17 09:00 86 08/10/17 08:08 94 Room Air 08/10/17 08:03 97.9 92 20 133/65 (87) 94 08/10/17 08:00 92 08/10/17 07:30 20 08/10/17 07:00 82 08/10/17 06:11 76 08/10/17 05:02 71 08/10/17 04:12 85 08/10/17 03:38 98.1 89 17 136/61 (86) 97 08/10/17 03:38 83 08/10/17 03:38 97 Room Air 08/10/17 02:18 79 08/10/17 01:17 86 08/10/17 00:05 80 08/09/17 23:45 98.5 88 19 131/68 (89) 99 08/09/17 23:45 98 Room Air 08/09/17 23:15 85 08/09/17 22:00 88 08/09/17 21:00 75 08/09/17 20:59 96 Nasal Cannula 2.00 08/09/17 20:00 78 08/09/17 19:45 100 08/09/17 19:35 98.1 112 18 131/66 (87) 96 08/09/17 19:35 96 Room Air 08/09/17 18:31 100 I/O 08/09/17 08/09/17 08/09/17 08/10/17 08/10/17 08/10/17 07:00 15:00 23:00 07:00 15:00 23:00 Intake Total 360 ml 600 ml 720 ml Output Total 504 ml 750 ml 550 ml Balance -144 ml -150 ml 170 ml Intake Oral 360 ml 600 ml 720 ml Output Urine Total 500 ml 700 ml 550 ml Chest Tube Drainage Total 4 ml 50 ml 0 ml # Bowel Movements 0 Result Diagram: 08/10/1741908/10/17419 Objective Remarks GENERAL: SKIN: Warm and dry. HEAD: Atraumatic. Normocephalic. EYES: Pupils equal and round. No scleral icterus. No injection or drainage. ENT: No nasal bleeding or discharge. Mucous membranes pink and moist. NECK: Trachea midline. No JVD. CARDIOVASCULAR: Regular rate and rhythm. RESPIRATORY: No accessory muscle use. Clear to auscultation. Breath sounds equal bilaterally. GASTROINTESTINAL: Abdomen soft, non-tender, nondistended. Hepatic and splenic margins not palpable. MUSCULOSKELETAL: Extremities without clubbing, cyanosis, or edema. No obvious deformities. NEUROLOGICAL: Awake and alert. No obvious cranial nerve deficits. Motor grossly within normal limits. Five out of 5 muscle strength in the arms and legs. Normal speech. PSYCHIATRIC: Appropriate mood and affect; insight and judgment normal. Assessment and Plan Assessment and Plan Recurrent PNX POST PLEURODESIS CT STILL WITH LEAK PLAN PULMONARY TOILET bronchodilator therapy ? home with tube Ivonne Coronado MD Aug 10, 2017 18:07
[2017-08-10] MEDS: ZOLPIDEM TARTRATE 5 MG TAB PO SCH ×2 (20:16→21:50)
[2017-08-10] MEDS: MENTHOL LOZENGE BUCCAL PRN (21:51)
[2017-08-11] VITALS (24 sets, daily range): BP systolic 112–145; BP diastolic 60–78; PULSE 77–115; RESP 17–22; TEMP 97.8–98.3; O2SAT 93–99
[2017-08-11] MEDS: HYDROmorphone HCL PF 2 MG/ML VIAL IV PUSH PRN ×3 (00:21→09:26)
[2017-08-11] MEDS: oxyCODONE/ACETAMINOPHEN 10 MG/325 MG TAB PO PRN ×6 (01:57→22:40)
[2017-08-11] MEDS: MENTHOL LOZENGE BUCCAL PRN (04:57)
--- NOTE | 2017-08-11 06:43 | RADRPT ---
EXAM DATE/TIME: 08/11/2017 04:56 [facility] COMPARISON: CHEST SINGLE AP, August 10, 2017, 7:32. INDICATIONS : Re-evaluate for pneumothorax. MEDICAL HISTORY : Emphysema. Chronic obstructive pulmonary disease. SURGICAL HISTORY : Chest tube, right. ENCOUNTER: Subsequent ACUITY: 1 month PAIN SCORE: 0/10 LOCATION: chest FINDINGS: Right apical pigtail thoracostomy tube is again noted. There is persistence of a tiny right apical pn eumothorax. There also appears to be some pneumothorax at the lateral right base. Slight blunting of the costophrenic angle indicates effusion which is unchanged. Left lung is grossly clear with emphyse ma. Cardiac contours are grossly stable accounting for significant rotation. CONCLUSION: Stable chest appearance with persistent small right hydropneumothorax. Smooth Hardin MD on August 11, 2017 at 6:39 Board Certified Radiologist. This report was verified electronically.
[2017-08-11] MEDS: RESP: ALBUTEROL 2.5 MG/IPRATROPIUM 0.5 MG NEB (PRN) NEB (08:28)
[2017-08-11 08:29] LABS: HEMATOCRIT 36.8 % (39.0-51.0); MEAN CELL VOLUME 96.2 FL (80.0-100.0); MEAN CORPUSCULAR HEMOGLOBIN 32.5 PG (27.0-34.0); MEAN CORPUSCULAR HGB CONC 33.7 % (32.0-36.0); PLATELET COUNT 347 TH/MM3 (150-450); RED BLOOD COUNT 3.83 MIL/MM3 (4.50-5.90); RED CELL DISTRIBUTION WIDTH 14.4 % (11.6-17.2); REVIEW FLAG FINAL
[2017-08-11 08:46] LABS: BICARBONATE 31.6 MEQ/L (21.0-32.0)
[2017-08-11] MEDS ORDERED: POTASSIUM CHLORIDE 25 MEQ EFFERVESCENT TAB PO ONE (09:00)
[2017-08-11] MEDS: BUDESONIDE-FORMOTEROL 160/4.5 MCG INHALER INH SCH ×2 (09:00→20:03)
[2017-08-11] MEDS: DOCUSATE SODIUM 50 MG/SENNA 8.6 MG TAB PO SCH ×2 (09:00→20:03)
--- NOTE | 2017-08-11 09:10 | PD.CAR.PN ---
CVT Progress Note Subjective/Hospital Course: 61-year-old male, date of ; 1955, known from our service that was seen on his prior admission by Dr. Conner, that was readmitted on the after he was discharged earlier that day after being treated for right pneumothorax. He was admitted twice from 07/20 to 07/22 and then again from 07/25 to 07/30 and we actually saw the patient for recurrent spontaneous pneumothorax. He had at pigtail catheter, CT did show bilateral blebs. We discussed surgical option however, the patient was refusing any surgical procedure at the time, the recommendation was for possible evaluation by interventional radiology for pleurodesis if possible. The chest tube apparently fell out on the night he had a chest x-ray that was followed up that showed no pneumothorax. He then went home and then was readmitted that same day. On this admission, he had to the patient had a large right tension pneumothorax. The emergency department inserted a chest tube, the patient then underwent pleurodesis on the through the existing chest tube. We were consulted after the patient had a persistent right sided pneumothorax, despite pleurodesis, despite the right chest tube in place. Past medical history: recurrent spontaneous pneumothorax, severe COPD, obstructive sleep apnea, degenerative joint disease. 08/06No complaints. Lung is re-expanded with catheter to suction. Small air leak persists. 08/07 cxr noted no pTX placed to water seal this am , pt became very anxious SOB , the pt placed himself back on suction stat cxr pending , placed back to suction at 20cm , still has small air leak 08/08 repeat CXR showed no ptx pt reassured, suction down to 10cm , will attempt to place on waterseal today pt has very high anxiety level, instructed not to manipulate suction on Chest tube increase activity, will consult pt 08/09 chest tube off to suction from the wall pt tolerated ambulation better today still has small air leak , will need Pneumostat at discharge will get walk test / f/u CXR in am 08/10 small right PTX noted , discussed with Dr Barber keep chest tube to water seal, if PTX stable in am , will place pneumostat tolerated being off suction during the night 08/11 off suction 48 hrs, no change in right apical ptx, pt still remains anxious about being off suction + will discuss with Dr Barber, to place pneumostat today and get CXR in am , if stable then dc home with pneumostat , CXR in one week and f/u with Dr Barber Objective: Vital Signs Date Time Temp Pulse Resp B/P (MAP) Pulse Ox O2 Delivery O2 Flow Rate FiO2 08/11/17 08:28 98 Nasal Cannula 2.00 08/11/17 06:21 98 08/11/17 05:10 84 08/11/17 04:05 77 08/11/17 03:09 96 Room Air 08/11/17 03:09 78 08/11/17 03:09 98.3 93 17 145/70 (95) 96 08/11/17 02:10 92 08/11/17 01:02 78 08/11/17 00:07 90 08/10/17 23:05 98.2 88 16 138/73 (94) 97 08/10/17 23:05 97 Room Air 08/10/17 23:05 80 08/10/17 22:24 79 08/10/17 21:34 96 08/10/17 20:15 92 08/10/17 20:05 100 Nasal Cannula 2.00 08/10/17 19:50 98 Room Air 08/10/17 19:50 98.0 93 18 128/64 (85) 98 08/10/17 19:20 91 08/10/17 18:00 98 08/10/17 17:00 82 08/10/17 16:00 94 08/10/17 15:18 98 Room Air 08/10/17 15:13 98.3 88 20 133/64 (87) 98 08/10/17 15:00 86 08/10/17 14:00 80 08/10/17 13:00 88 08/10/17 12:00 84 08/10/17 12:00 97.0 86 20 156/74 (101) 96 08/10/17 12:00 96 Room Air 08/10/17 11:00 80 08/10/17 10:00 88 08/10/17 09:48 99 21 Labs: Laboratory Tests Test 08/11/17 07:55 White Blood Count 12.0 TH/MM3 (4.0-11.0) Red Blood Count 3.83 MIL/MM3 (4.50-5.90) Hemoglobin 12.4 GM/DL (13.0-17.0) Hematocrit 36.8 % (39.0-51.0) Mean Corpuscular Volume 96.2 FL (80.0-100.0) Mean Corpuscular Hemoglobin 32.5 PG (27.0-34.0) Mean Corpuscular Hemoglobin Concent 33.7 % (32.0-36.0) Red Cell Distribution Width 14.4 % (11.6-17.2) Platelet Count 347 TH/MM3 (150-450) Mean Platelet Volume 7.3 FL (7.0-11.0) Blood Urea Nitrogen 17 MG/DL (7-18) Creatinine 0.87 MG/DL (0.60-1.30) Random Glucose 110 MG/DL (74-106) Calcium Level 8.8 MG/DL (8.5-10.1) Sodium Level 135 MEQ/L (136-145) Potassium Level 3.0 MEQ/L (3.5-5.1) Chloride Level 97 MEQ/L (98-107) Carbon Dioxide Level 31.6 MEQ/L (21.0-32.0) Anion Gap 6 MEQ/L (5-15) Estimat Glomerular Filtration Rate 89 ML/MIN (>89) Result Diagram: 08/11/17 0755 08/11/17 0755 (1) COPD exacerbation (2) Pneumothorax on right (3) Recurrent spontaneous pneumothorax Plan: continue chest tube off of suction at the wall, pt tolerating ( still becomes anxious ) pt re-assurred small PTX ,unchanged, place pneumostat today repeat CXR in am antianxiety meds (4) HCAP (healthcare-associated pneumonia) Plan: resolved Michelle Adler Aug 11, 2017 09:10
[2017-08-11] MEDS: HYDROCHLOROTHIAZIDE 25 MG TAB PO SCH (09:24)
[2017-08-11] MEDS: SODIUM CHLORIDE 0.9% FLUSH 10 ML FLUSH IV FLUSH SCH ×2 (09:25→20:03)
[2017-08-11] MEDS: HEPARIN SODIUM - SQ 10,000 UNITS/ML VIAL SQ SCH ×2 (09:25→20:02)
[2017-08-11] MEDS ORDERED: POTASSIUM CHLORIDE 10 MEQ CONTROLLED RELEASE TAB PO ONE (10:00)
--- NOTE | 2017-08-11 10:06 | HHI.FPPN ---
Subjective Remarks Patient seen and examined this morning. No acute events overnight. No increased shortness of breath at rest, chest pain. No nausea, vomiting, fever, chills, abdominal pain, change in bowel or bladder habits. Continues to have limited appetite, states he is doing well with Ensure. No other complaints today. Objective Vitals Vital Signs Date Time Temp Pulse Resp B/P (MAP) Pulse Ox O2 Delivery O2 Flow Rate FiO2 08/11/17 08:28 98 Nasal Cannula 2.00 08/11/17 06:21 98 08/11/17 05:10 84 08/11/17 04:05 77 08/11/17 03:09 96 Room Air 08/11/17 03:09 78 08/11/17 03:09 98.3 93 17 145/70 (95) 96 08/11/17 02:10 92 08/11/17 01:02 78 08/11/17 00:07 90 08/10/17 23:05 98.2 88 16 138/73 (94) 97 08/10/17 23:05 97 Room Air 08/10/17 23:05 80 08/10/17 22:24 79 08/10/17 21:34 96 08/10/17 20:15 92 08/10/17 20:05 100 Nasal Cannula 2.00 08/10/17 19:50 98 Room Air 08/10/17 19:50 98.0 93 18 128/64 (85) 98 08/10/17 19:20 91 08/10/17 18:00 98 08/10/17 17:00 82 08/10/17 16:00 94 08/10/17 15:18 98 Room Air 08/10/17 15:13 98.3 88 20 133/64 (87) 98 08/10/17 15:00 86 08/10/17 14:00 80 08/10/17 13:00 88 08/10/17 12:00 84 08/10/17 12:00 97.0 86 20 156/74 (101) 96 08/10/17 12:00 96 Room Air 08/10/17 11:00 80 I/O 08/10/17 08/10/17 08/10/17 08/11/17 08/11/17 08/11/17 07:00 15:00 23:00 07:00 15:00 23:00 Intake Total 720 ml 480 ml 240 ml Output Total 550 ml 300 ml 326 ml Balance 170 ml 180 ml -86 ml Intake Oral 720 ml 480 ml 240 ml Output Urine Total 550 ml 300 ml 325 ml Chest Tube Drainage Total 0 ml 1 ml # Voids 1 # Bowel Movements 1 Result Diagram: 08/11/17 0755 08/11/17 0755 Objective Remarks GENERAL: sitting up in bed, in NAD SKIN: No rashes, ecchymoses or lesions. Cool and dry. CARDIOVASCULAR: RRR. Normal S1/S2. No MRG. Distant heart sounds. RESPIRATORY: CTAB. Breath sounds barely audible; expiratory wheezes. GASTROINTESTINAL: Abdomen soft, non-distended, nontender. MUSCULOSKELETAL: Extremities without clubbing, cyanosis, or edema. NEUROLOGICAL: Awake and alert. Oriented x3. Normal speech. A/P Assessment and Plan 61-year-old man admitted due to recurrent spontaneous pneumothorax. See below for plan. Discharge Planning Pending clearance from CTS, and chest tube management Case management assisting with any discharge needs PT stating no home PT needed at this time as patient has rolling walker and cane at home Problem List: (1) Recurrent spontaneous pneumothorax ICD Codes: J93.83 - Other pneumothorax Status: Acute Plan: s/p right chest tube placement by ED physician with repeat chest x-ray showing successful placement on 07/30 s/p pleurodesis by IR 07/31, Pt was unable to tolerate full pleurodesis procedure. Severe pain with injection. Could only inject half of the total dose (30cc). Patient refused to attempt pleurodesis again. IR placed anterior chest tube on 08/02 IR consulted initially. Spoke with Dr. Buenrostro, 3x chest tube attempts with recurrent pneumothorax. Patient most likely will need surgery. CXR (08/07): no pneumothorax, residual right pleural effusion CXR (08/10): small apical pneumothorax on the right CXR (08/11): Stable chest appearance with persistent small right hydropneumothorax Consulted pulmonology, Dr. Coronado following -Recommending pulm toilet -Bronchodilator therapy Cardiothoracic consulted, appreciated recs -Weaned off suction, return of PTX 08/11 Pain Control: Percocet 10/325 1 tab po q4h scheduled Dilaudid 0.5 mg IV q4h prn breakthrough pain (2) HCAP (healthcare-associated pneumonia) ICD Codes: J18.9 - Pneumonia, unspecified organism Status: Resolved Plan: CXR 08/06 demonstrated right basilar patchiness consistent with probable pneumonia CXR 08/07, no signs of infection, however continued antibiotics for empiric coverage 08/09 reviewed recent chest x-rays with radiologist- due to changes on x-rays, no fevers, limited symptoms concerning for pneumonia, hospital acquired pneumonia can be considered low probability at this point and antibiotics will be stopped. -Zosyn 4.5 gm IV q6h (08/06) - (08/09) -Vancomycin 1000 mg IV, pharmacy consulted for dosing (08/06) - (08/09) (3) Hypertension ICD Codes: I10 - Essential (primary) hypertension Status: Chronic Plan: Patient had stable BPs near within normal limits throughout previous hospitalization Patient had been started on HCTZ 25 mg po daily Clonidine 0.1 mg po q6h prn BP > 180/100 Monitor vitals q4h (4) COPD (chronic obstructive pulmonary disease) ICD Codes: J44.9 - Chronic obstructive pulmonary disease, unspecified Status: Chronic Plan: Continue Symbicort 2 puffs q12h Duonebs q4h prn O2 via NC to maintain O2 sats between 88-92% (5) Anxiety ICD Codes: F41.9 - Anxiety disorder, unspecified Plan: Lorazepam 0.5 mg PO q8h for severe anxiety (6) Tobacco use disorder ICD Codes: F17.200 - Nicotine dependence, unspecified, uncomplicated Status: Chronic Plan: Recommended smoking cessation (7) Nutrition, metabolism, and development symptoms ICD Codes: R63.8 - Other symptoms and signs concerning food and fluid intake Status: Acute Plan: Fluids: per PO Electrolytes: WNL Nutrition: heart healthy DVT ppx: Heparin 5000 units q12h Problem Qualifiers (1) Hypertension: Qualified Codes: I10 - Essential (primary) hypertension (2) COPD (chronic obstructive pulmonary disease): Qualified Codes: J44.9 - Chronic obstructive pulmonary disease, unspecified Moi Nieves MD R1 Aug 11, 2017 10:06
[2017-08-11] MEDS: LORazepam 0.5 MG TAB PO PRN ×2 (11:11→19:34)
--- NOTE | 2017-08-11 12:50 | HHI.FF ---
Face to Face Verification Diagnosis: (1) Pneumothorax on right (2) COPD exacerbation Physical Therapy Order: Evaluate and Treat Home Health Nursing Order: Signs/symptoms of disease process Medication education-adverse effect Wound care and dressing changes Nursing assessment with vital signs Instructions: Incentive spirometry Q1 hr x 10, while awake, also use acapella device hourly whole awake chest wall Precautions: NO pushing or pulling, ( pt must use chest pillow to support chest with all activities and with coughing Daily incision care: ok to shower daily, no tub bath. Wash all incisions with liquid dial soap, clean wash cloth to each site, rinse and pat dry. Observe for any signs of infection, such as drainage which is dark yellow, santana, green or foul smelling. Immediately report to the surgeon any drainage from the chest incision, or legs, and for any abnormal drainage from the chest tube sites. Notify surgeon if any temp >101.5 degrees F. When specialty dressing removed/ or if you do not have one, continue to shower daily as above, then rinse and pat incision dry and paint with betadine daily x 5 days. Allow steri strips to fall off if you have any. Avoid lotions, creams, salves, oils, etc. for the first month, dry sterile dressing to site daily For Dr. Barber patients , please obtain PA & Lat CXR in 1 weeks, results to Dr. Barber ( please get Chest xray prior to office visit ( prescription will be given) ( ) (Tele: [phone]) , F/U appointment: as per MA instructions: PCP in 2 weeks, CV surgeon 1 weeks, For any questions regarding incisions/ dressing / meds / post op care or above Symptoms, Monday 8am-5pm Heart & Vascular Surgery Office ( Dr. Conner & Dr. Barber), After Hours / Nights (5pm -8am) Weekends and Holidays Please call [facility] Card[facility] ([facility]) Charge Nurse pt has pneumostat chest tube, has instructions in closed I have seen patient Joel Johnson on 08/11/17. My clinical findings support the need for the requested home health care services because: Patient has SOB Deconditioned w/ increased weakness I certify that my clinical findings support that this patient is homebound because: Post-op weakness Michelle Adler Aug 11, 2017 12:50
[2017-08-11] MEDS ORDERED: methylPREDNISolone SOD SUCC 40 MG/1 ML VIAL IV PUSH ONE (13:00)
[2017-08-11] MEDS: MORPHINE SULFATE 2 MG/ML INJ IV PUSH PRN ×2 (13:37→17:20)
--- NOTE | 2017-08-11 16:03 | HHI.PR ---
Subjective Remarks alert no acute distress Objective Vital Signs Date Time Temp Pulse Resp B/P (MAP) Pulse Ox O2 Delivery O2 Flow Rate FiO2 08/11/17 16:00 87 08/11/17 15:33 16 08/11/17 15:00 90 08/11/17 14:00 104 08/11/17 13:46 16 08/11/17 13:00 97.8 115 22 112/70 (84) 97 08/11/17 13:00 102 08/11/17 12:00 Room Air 08/11/17 12:00 103 08/11/17 09:56 18 08/11/17 08:28 98 Nasal Cannula 2.00 08/11/17 06:21 98 08/11/17 05:10 84 08/11/17 04:05 77 08/11/17 03:09 96 Room Air 08/11/17 03:09 78 08/11/17 03:09 98.3 93 17 145/70 (95) 96 08/11/17 02:10 92 08/11/17 01:02 78 08/11/17 00:07 90 08/10/17 23:05 98.2 88 16 138/73 (94) 97 08/10/17 23:05 97 Room Air 08/10/17 23:05 80 08/10/17 22:24 79 08/10/17 21:34 96 08/10/17 20:15 92 08/10/17 20:05 100 Nasal Cannula 2.00 08/10/17 19:50 98 Room Air 08/10/17 19:50 98.0 93 18 128/64 (85) 98 08/10/17 19:20 91 08/10/17 18:00 98 08/10/17 17:00 82 I/O 08/10/17 08/10/17 08/10/17 08/11/17 08/11/17 08/11/17 07:00 15:00 23:00 07:00 15:00 23:00 Intake Total 720 ml 480 ml 240 ml Output Total 550 ml 300 ml 326 ml Balance 170 ml 180 ml -86 ml Intake Oral 720 ml 480 ml 240 ml Output Urine Total 550 ml 300 ml 325 ml Chest Tube Drainage Total 0 ml 1 ml # Voids 1 # Bowel Movements 1 Result Diagram: 08/11/17 0755 08/11/17 0755 Objective Remarks GENERAL: SKIN: Warm and dry. HEAD: Atraumatic. Normocephalic. EYES: Pupils equal and round. No scleral icterus. No injection or drainage. ENT: No nasal bleeding or discharge. Mucous membranes pink and moist. NECK: Trachea midline. No JVD. CARDIOVASCULAR: Regular rate and rhythm. RESPIRATORY: No accessory muscle use. Clear to auscultation. Breath sounds equal bilaterally. GASTROINTESTINAL: Abdomen soft, non-tender, nondistended. Hepatic and splenic margins not palpable. MUSCULOSKELETAL: Extremities without clubbing, cyanosis, or edema. No obvious deformities. NEUROLOGICAL: Awake and alert. No obvious cranial nerve deficits. Motor grossly within normal limits. Five out of 5 muscle strength in the arms and legs. Normal speech. PSYCHIATRIC: Appropriate mood and affect; insight and judgment normal. Assessment and Plan Assessment and Plan Recurrent PNX POST PLEURODESIS PLAN PULMONARY TOILET bronchodilator therapy home with pleurodont F/U [facility]IC SURGERY , CALL PRN Ivonne Coronado MD Aug 11, 2017 16:03
[2017-08-11] MEDS: ZOLPIDEM TARTRATE 5 MG TAB PO SCH (22:40)
[2017-08-12] VITALS (18 sets, daily range): BP systolic 135–161; BP diastolic 69–86; PULSE 78–104; RESP 16–21; TEMP 97.7–98; O2SAT 94–97
[2017-08-12] MEDS: oxyCODONE/ACETAMINOPHEN 10 MG/325 MG TAB PO PRN ×4 (02:40→16:20)
[2017-08-12] MEDS: LORazepam 0.5 MG TAB PO PRN ×2 (05:07→13:41)
[2017-08-12 05:14] LABS: HEMATOCRIT 38.3 % (39.0-51.0); MEAN CORPUSCULAR HEMOGLOBIN 33.4 PG (27.0-34.0); PLATELET COUNT 406 TH/MM3 (150-450); RED BLOOD COUNT 3.91 MIL/MM3 (4.50-5.90); RED CELL DISTRIBUTION WIDTH 14.4 % (11.6-17.2); REVIEW FLAG FINAL; WHITE BLOOD COUNT 13.9 TH/MM3 (4.0-11.0)
[2017-08-12 05:37] LABS: BICARBONATE 27.8 MEQ/L (21.0-32.0); POTASSIUM 3.6 MEQ/L (3.5-5.1)
--- NOTE | 2017-08-12 06:49 | RADRPT ---
EXAM DATE/TIME: 08/12/2017 04:15 [place] COMPARISON: CHEST SINGLE AP, August 11, 2017, 4:56. INDICATIONS : Shortness of breath, possible pneumothorax. MEDICAL HISTORY : Emphysema. Chronic obstructive pulmonary disease. SURGICAL HISTORY : None. ENCOUNTER: Subsequent ACUITY: 1 month PAIN SCORE: 0/10 LOCATION: Bilateral chest FINDINGS: Right chest pigtail thoracostomy tube remains in place. There is persistence of small apical pneumoth orax and subpleural air at the lateral right base. There is mild basilar consolidation and effusion. Left lung is stable and grossly clear. Cardiac contours are unchanged. CONCLUSION: No significant interval change. Persistent right hydropneumothorax and parenchymal opacity Smooth Hardin MD on August 12, 2017 at 6:45 Board Certified Radiologist. This report was verified electronically.
[2017-08-12] MEDS: HYDROCHLOROTHIAZIDE 25 MG TAB PO SCH (08:07)
[2017-08-12] MEDS: HEPARIN SODIUM - SQ 10,000 UNITS/ML VIAL SQ SCH (08:08)
[2017-08-12] MEDS: DOCUSATE SODIUM 50 MG/SENNA 8.6 MG TAB PO SCH (08:09)
[2017-08-12] MEDS: BUDESONIDE-FORMOTEROL 160/4.5 MCG INHALER INH SCH (08:09)
[2017-08-12] MEDS: SODIUM CHLORIDE 0.9% FLUSH 10 ML FLUSH IV FLUSH SCH (08:13)
[2017-08-12] MEDS ORDERED: OXYGENDME NAS.CANULA (10:52)
[2017-08-12] MEDS ORDERED: HYDR-3583 PO (11:13)
[2017-08-12] MEDS ORDERED: OXYC1TAB36 PO (11:14)
--- NOTE | 2017-08-12 11:23 | HHI.DS ---
Discharge Summary Admission Date Jul 30, 2017 at 19:20 Discharge Date: Aug 12, 2017 Admitting Diagnosis Recurrent right PTX, COPD Tobacco abuse (1) COPD exacerbation Diagnosis: Secondary ICD Codes: J44.1 - Chronic obstructive pulmonary disease with (acute) exacerbation Status: Acute (2) Pneumothorax on right Diagnosis: Principal ICD Codes: J93.9 - Pneumothorax, unspecified (3) Tobacco use disorder Diagnosis: Secondary ICD Codes: F17.200 - Nicotine dependence, unspecified, uncomplicated Status: Chronic (4) Recurrent spontaneous pneumothorax Diagnosis: Principal ICD Codes: J93.83 - Other pneumothorax Status: Acute Procedures Right chest catheter placement by IR Brief History 61y/o male with longstanding tobacco abuse presents with recurrent right pneumothorax and severe dyspnea. He underwent right pigtail placement by IR and re-expanded the right lung. He had a persistent air leak and was managed conservatively due to very poor pulmonary function with an FEV1 = 0.6 liters. He was converted to a pneumostat 2 days ago and his chest xray is table with a persistent small loculated pneumothorax. He is a high-risk candidate for surgery and will be followed in the office weekly with a chest x-ray until this air leak and CXR improves. CBC/BMP: 08/12/17 0440 08/12/17 0440 Significant Findings Laboratory Tests Test 08/10/17 04:20 08/11/17 07:55 08/12/17 04:40 White Blood Count 11.4 TH/MM3 (4.0-11.0) 12.0 TH/MM3 (4.0-11.0) 13.9 TH/MM3 (4.0-11.0) Red Blood Count 3.61 MIL/MM3 (4.50-5.90) 3.83 MIL/MM3 (4.50-5.90) 3.91 MIL/MM3 (4.50-5.90) Hemoglobin 11.9 GM/DL (13.0-17.0) 12.4 GM/DL (13.0-17.0) Hematocrit 35.2 % (39.0-51.0) 36.8 % (39.0-51.0) 38.3 % (39.0-51.0) Blood Urea Nitrogen 19 MG/DL (7-18) Sodium Level 135 MEQ/L (136-145) 135 MEQ/L (136-145) 133 MEQ/L (136-145) Random Glucose 110 MG/DL (74-106) 107 MG/DL (74-106) Potassium Level 3.0 MEQ/L (3.5-5.1) Chloride Level 97 MEQ/L (98-107) 96 MEQ/L (98-107) Imaging Last 24 hours Impressions Chest X-Ray 08/12/17 0600 Signed Impressions: Service Date/Time: Saturday, August 12, 2017 04:15 - CONCLUSION: No significant interval change. Persistent right hydropneumothorax and parenchymal opacity Smooth Hardin MD PE at Discharge chest - bilat exp wheezes COR - RRR Catheter site is without erythema or induration. Hospital Course As above. Patient has been slow to recover from this air leak on the right. Pt Condition on Discharge: Good Discharge Disposition: Disch w/ Home Health Serv Discharge Instructions DIET: Follow Instructions for: Heart Healthy Diet Activities you can perform: Weight Bearing as Taran, Shower Only-No Bath Activities to avoid: Lifting/Bending, Strenuous Activity, Driving Follow up Referrals: PCP Follow-up - 2 Weeks with [facility] Pulmonology - [address] MICHELLE MCCALL [id number] [place] [address] Surgical - 2 Weeks with Michelle Adler New Orders: X-RAY CHEST PA & LAT - 1 Week New Medications: Oxygen (O2) (Oxygen (O2)) Device LITER RAE.CANULA CONTINUOUS for Prevent Hypoxemia, #2 Oxygen Concentrator Portable Gaseous 2 L/min via Nasal Canula Continuous For 99 months Oxycodone HCl/Acetaminophen (Oxycodone-Acetaminophen 10-325) 10 Mg-325 Mg Tablet 1 TAB PO Q4H PRN for PAIN SCALE 6 TO 10, #30 TAB Continued Medications: Albuterol 18 GM Inh (Ventolin Hfa 18 GM Inh) 90 Mcg/Act Aer 2 PUFF INH Q4-6H PRN for SHORTNESS OF BREATH, #1 INHALER [address] (Aspirin DR) 81 Mg Tabdr 81 MG PO DAILY for Blood Clot Prevention, #31 TAB Budesonide-Formoterol Inh (Symbicort Inh) 160-4.5 Mcg/Act Aero 2 PUFF INH Q12HR, #1 INHALER 0 Refills Guaifenesin (Guaifenesin) 400 Mg Tab 400 DAILY Hydrochlorothiazide (Hydrochlorothiazide) 25 Mg Tab 25 MG PO DAILY, #30 TAB Hydrocodone/Acetaminophen (Hydrocodone-Acetamin 10-325 mg) 10 Mg-325 Mg Tablet 1 TAB PO Q6H PRN for PAIN SCALE 6 TO 10, #30 TAB (This prescription has been renewed) Loratadine (Claritin) 10 Mg Cap 10 MG PO DAILY for Allergy Management, CAP 0 Refills Metoprolol Tartrate (Metoprolol Tartrate) 25 Mg Tab 12.5 MG PO Q12HR for Regulate Heart Beat, #60 TAB Nicotine (Nicotine Transdermal Syst) 21 Mg/24 Hour Dis Trazodone (Trazodone) 50 Mg Tab 50 MG PO HS for Control Depression, #30 TAB 0 Refills Mary Barber MD Aug 12, 2017 11:23
--- NOTE | 2017-08-12 12:01 | HHI.FPPN ---
Subjective Remarks Mr. Johnson was afebrile with mild HTN overnight; patient reports feeling ok overall. Patient occasionally feels short of breath and uses O2 PRN. Patient plans to use home O2 on discharge after failing walk test. Patient plans to follow-up with CT surgery in 1 week. Patient reports normal urination and bowel movements. Objective Vitals Vital Signs Date Time Temp Pulse Resp B/P (MAP) Pulse Ox O2 Delivery O2 Flow Rate FiO2 08/12/17 09:30 95 Nasal Cannula 2.00 08/12/17 08:00 97 Nasal Cannula 2.00 08/12/17 08:00 97.8 95 20 161/71 (101) 97 08/12/17 08:00 20 08/12/17 07:00 83 08/12/17 06:06 85 08/12/17 05:28 98 08/12/17 04:20 78 08/12/17 04:20 95 Room Air 08/12/17 04:20 97.8 89 16 145/75 (98) 95 08/12/17 03:52 81 08/12/17 02:23 86 08/12/17 01:28 96 08/12/17 00:49 95 Room Air 08/12/17 00:49 85 08/12/17 00:49 98.0 99 17 135/69 (91) 96 08/11/17 23:38 93 08/11/17 22:00 96 08/11/17 21:00 104 08/11/17 20:37 93 Nasal Cannula 2.00 08/11/17 20:25 96 Nasal Cannula 2.00 08/11/17 20:25 97.8 107 18 124/65 (84) 96 08/11/17 20:15 106 08/11/17 19:00 114 08/11/17 18:00 98 08/11/17 17:00 102 08/11/17 16:00 87 08/11/17 16:00 98.2 100 20 118/66 (83) 95 08/11/17 16:00 95 Room Air 08/11/17 15:00 90 08/11/17 14:00 104 08/11/17 13:46 16 08/11/17 13:00 97.8 115 22 112/70 (84) 97 08/11/17 13:00 102 08/11/17 12:00 Room Air 08/11/17 12:00 98.2 100 20 118/66 (83) 95 08/11/17 12:00 103 I/O 08/11/17 08/11/17 08/11/17 08/12/17 08/12/17 08/12/17 07:00 15:00 23:00 07:00 15:00 23:00 Intake Total 240 ml 920 ml 360 ml Output Total 326 ml 650 ml 325 ml Balance -86 ml 270 ml 35 ml Intake Oral 240 ml 920 ml 360 ml Output Urine Total 325 ml 650 ml 325 ml Chest Tube Drainage Total 1 ml 0 ml # Voids 2 # Bowel Movements 1 Result Diagram: 08/12/17 0440 08/12/17 0440 Imaging Last Impressions Chest X-Ray 08/12/17 0600 Signed Impressions: Service Date/Time: Saturday, August 12, 2017 04:15 - CONCLUSION: No significant interval change. Persistent right hydropneumothorax and parenchymal opacity Smooth Hardin MD Chest Tube Insertion 08/01/17 0000 Signed Impressions: Service Date/Time: Tuesday, August 01, 2017 14:03 - CONCLUSION: 1. Uncomplicated chest tube placement as above. 2. Resolution of previously identified pneumothorax. 3. Please note, the patient has a surgical placed thoracostomy tube which is just inside the chest wall laterally and the newly placed Drake loop thoracostomy tube position in the apex of the hemithorax. Both tubes were connected to Pleur-evac devices. Both Pleur-evacs need to be connected to active suction and set to 40 cm. If only one tube is connected, it will simply suck air through the tube on water seal and produce a persistent air leak. Hugo Buenrostro MD Pleurodesis 07/31/17 0000 Signed Impressions: Service Date/Time: Monday, July 31, 2017 13:12 - CONCLUSION: Chemical pleuradesis as above. Patient was in extreme discomfort with the doxycycline injection and only half the prescribed dose was administered. Hugo Buenrostro MD Objective Remarks GENERAL: sitting up in bed, in NAD SKIN: No rashes, ecchymoses or lesions. Cool and dry. Pleural catheter appears in place/working CARDIOVASCULAR: RRR. Normal S1/S2. No MRG. Distant heart sounds. RESPIRATORY: CTAB. Breath sounds barely audible; expiratory wheezes. GASTROINTESTINAL: Abdomen soft, non-distended, nontender. MUSCULOSKELETAL: Extremities without or edema. NEUROLOGICAL: Awake and alert. Oriented x3. Grossly normal CN. Grossly normal motor/sensory function. Normal speech. A/P Assessment and Plan 61-year-old man admitted due to recurrent spontaneous pneumothorax. See below for plan. Discharge Planning Discharge today with follow-up with CT surgery in ~1 week Problem List: (1) Recurrent spontaneous pneumothorax ICD Codes: J93.83 - Other pneumothorax Status: Acute Plan: Cardiothoracic consulted, appreciated recs -Plan for discharge home with pleumostat and f/u in 1 week -Weekly CXR until air leak and CXR improve Consulted pulmonology, Dr. Coronado following -Recommend pulm toilet -Bronchodilator therapy -F/U with CT Surgery Pain Control: Discharge home on Percocet 1 tab po q4h Impression: s/p right chest tube placement by ED physician with repeat chest x-ray showing successful placement on 07/30 s/p pleurodesis by IR 07/31, Pt was unable to tolerate full pleurodesis procedure. Severe pain with injection. Could only inject half of the total dose (30cc). Patient refused to attempt pleurodesis again. IR placed anterior chest tube on 08/02 IR consulted initially. Spoke with Dr. Buenrostro, 3x chest tube attempts with recurrent pneumothorax. CXR (08/07): no pneumothorax, residual right pleural effusion CXR (08/10): small apical pneumothorax on the right CXR (08/11): Stable chest appearance with persistent small right hydropneumothorax Pneumostat placed 08/11 CXR (08/12): No interval change. Persistent R hydropneumothorax and parenchymal opacity (2) HCAP (healthcare-associated pneumonia) ICD Codes: J18.9 - Pneumonia, unspecified organism Status: Resolved Plan: -Will plan to repeat CBC after discharge to confirm not uptrending since recent concern for pneumonia CXR 08/06 demonstrated right basilar patchiness consistent with probable pneumonia CXR 08/07, no signs of infection, however continued antibiotics for empiric coverage 08/09 reviewed recent chest x-rays with radiologist- due to changes on x-rays, no fevers, limited symptoms concerning for pneumonia, hospital acquired pneumonia can be considered low probability at this point and antibiotics will be stopped. -Zosyn 4.5 gm IV q6h (08/06) - (08/09) -Vancomycin 1000 mg IV, pharmacy consulted for dosing (08/06) - (08/09) (3) Hypertension ICD Codes: I10 - Essential (primary) hypertension Status: Chronic Plan: Patient had stable BPs near within normal limits throughout previous hospitalization -Continue HCTZ 25 mg po daily Clonidine 0.1 mg po q6h prn BP > 180/100 Monitor vitals q4h (4) COPD (chronic obstructive pulmonary disease) ICD Codes: J44.9 - Chronic obstructive pulmonary disease, unspecified Status: Chronic Plan: Continue Symbicort 2 puffs q12h Duonebs q4h prn O2 via NC to maintain O2 sats between 88-92% (5) Anxiety ICD Codes: F41.9 - Anxiety disorder, unspecified Plan: Lorazepam 0.5 mg PO q8h for severe anxiety (6) Tobacco use disorder ICD Codes: F17.200 - Nicotine dependence, unspecified, uncomplicated Status: Chronic Plan: Recommended smoking cessation (7) Nutrition, metabolism, and development symptoms ICD Codes: R63.8 - Other symptoms and signs concerning food and fluid intake Status: Acute Plan: Fluids: per PO Electrolytes: WNL Nutrition: heart healthy DVT ppx: Heparin 5000 units q12h Problem Qualifiers (1) Hypertension: Qualified Codes: I10 - Essential (primary) hypertension (2) COPD (chronic obstructive pulmonary disease): Qualified Codes: J44.9 - Chronic obstructive pulmonary disease, unspecified Joe Vee MD, R3 Aug 12, 2017 12:01
[2017-08-12] MEDS ORDERED: ACETAMINOPHEN/HYDROcodone 325 MG/10 MG TAB PO PRN (18:15)
[2017-08-12] MEDS ORDERED: oxyCODONE/ACETAMINOPHEN 10 MG/325 MG TAB PO PRN (18:15)
== END 2017-08-12 18:39 | disposition home health service (06) | DRG 199 ==
LOC: NEPE 18:09 → NEDA 19:20 → N04A 21:34 → HCPC 08-04 15:28
PROVIDERS: ADMIT Family Medicine; ATTEND Family Medicine
PROC: 0W9930Z Drainage of Right Pleural Cavity with Drainage Device, Percutaneous Approach (ICD-10-PCS; principal; 2017-07-30)
PROC: 3E0L3GC Introduction of Other Therapeutic Substance into Pleural Cavity, Percutaneous Approach (ICD-10-PCS; 2017-07-31)
PROC: 0W9930Z Drainage of Right Pleural Cavity with Drainage Device, Percutaneous Approach (ICD-10-PCS; 2017-08-01)
DX: J93.0 Spontaneous tension pneumothorax (principal); J18.9 Pneumonia, unspecified organism; J94.8 Other specified pleural conditions; T79.7XXA Traumatic subcutaneous emphysema, initial encounter; J44.0 Chronic obstructive pulmonary disease with (acute) lower respiratory infection; J44.1 Chronic obstructive pulmonary disease with (acute) exacerbation; I10 Essential (primary) hypertension; G47.00 Insomnia, unspecified; G47.33 Obstructive sleep apnea (adult) (pediatric); E87.6 Hypokalemia; R00.0 Tachycardia, unspecified; T38.0X5A Adverse effect of glucocorticoids and synthetic analogues, initial encounter; D72.828 Other elevated white blood cell count; F41.9 Anxiety disorder, unspecified; F17.210 Nicotine dependence, cigarettes, uncomplicated; Y95 Nosocomial condition; Z85.828 Personal history of other malignant neoplasm of skin; Z96.642 Presence of left artificial hip joint; Z96.651 Presence of right artificial knee joint
CPT/HCPCS: 32551; 32557; 32560; 36600; 71010; 77002; 80048; 80053; 82805; 83735; 84132; 85025; 85027; 85379; 86850; 86900; 86901; 87641; 93005; 94010; 94150; 94620; 94640; 94664; 99152; 99153; C1729; C1769; J1170; J1644; J2250; J2270; J2405; J2543; J2920; J3010; J3370; J7050; Q9967

== ENCOUNTER 2017-08-16 18:24 | Inpatient (IN) | payer OTHER ==
[~2017-08-16] VITALS: Ht 170.2 cm; Wt 52.5 kg
[2017-08-16] VITALS (7 sets, daily range): BP systolic 111–167; BP diastolic 65–85; PULSE 90–115; RESP 16–26; TEMP 98.2; O2SAT 95–100
[~2017-08-16 18:24] MED LIST changes: +OXYC1TAB36 PO; +OXYGENDME NAS.CANULA
--- NOTE | 2017-08-16 19:34 | PD ---
HPI Chief Complaint: Respiratory Distress Time Seen by Provider: 19:12 Travel History International Travel<30 days: No Contact w/Intl Traveler<30days: No Traveled to known affect area: No History of Present Illness HPI Patient is a 61 year old male presents to the ER for evaluation of SOB over the past 2 days. Patient has history of recurrent spontaneous pneumothorax and has had pigtail catheter in place. multiple admissions to this hospital for same. States he's had a pleurodesis in the past as well. States for 2 days worsening SOB [facility] showing pneumothorax at about 630 today showing re-accumulation of pneumothorax. EMS was called and he was brought to the ER. He states feels SOB currently, denies pain. Denies Fevers, denies cough. states symptoms for 2 days, gradually worsening, context as above , associated s/s as above. PFSH Past Medical History Cancer: No Cardiovascular Problems: No High Cholesterol: No COPD: Yes Diabetes: No Endocrine: No Gastrointestinal Disorders: No Genitourinary: No Hepatitis: No Hiatal Hernia: No Hypertension: No Immune Disorder: No Implanted Vascular Access Dvce: Yes Musculoskeletal: Yes Neurologic: No Psychiatric: No Respiratory: Yes (COPD, pneumothoraxs x3) Immunizations Current: Yes Thyroid Disease: No Past Surgical History Abdominal Surgery: No AICD: No Cardiac Surgery: No Ear Surgery: No Endocrine Surgery: No Eye Surgery: No Genitourinary Surgery: No Gynecologic Surgery: No Joint Replacement: Yes (LEFT HIP/right knee) Oral Surgery: No Pacemaker: No Thoracic Surgery: No Tonsillectomy: Yes Other Surgery: Yes (CANCEROUS MOLE LEFT BROW, INGUINAL HERNIA REPAIR) Social History Alcohol Use: No Tobacco Use: Yes (1 PACK PER 3 DAYS) Substance Use: No Allergies-Medications (Allergen,Severity, Reaction): Coded Allergies: No Known Allergies (Verified Allergy, Unknown, 07/30/17) Reported Meds & Prescriptions Reported Meds & Active Scripts Active Oxycodone-Acetaminophen 10-325 (Oxycodone HCl/Acetaminophen) 10 Mg-325 Mg Tablet 1 Tab PO Q4H PRN Hydrocodone-Acetamin 10-325 mg (Hydrocodone/Acetaminophen) 10 Mg-325 Mg Tablet 1 Tab PO Q6H PRN Oxygen (O2) Device Liter RAE.CANULA CONTINUOUS Oxygen Concentrator Portable Gaseous 2 L/min via Nasal Canula Continuous For 99 months Reported Tramadol (Tramadol HCl) 50 Mg Tab 50 Mg PO Q6H PRN Gabapentin 800 Mg Tab 800 Mg PO TID Claritin (Loratadine) 10 Mg Cap 10 Mg PO DAILY Nicotine Transdermal Syst (Nicotine) 21 Mg/24 Hour Dis Guaifenesin 400 Mg Tab 400 DAILY Hydrochlorothiazide 25 Mg Tab 25 Mg PO DAILY Ventolin Hfa 18 GM Inh (Albuterol Sulfate) 90 Mcg/Act Aer 2 Puff INH Q4-6H PRN Symbicort Inh (Budesonide/Formoterol Fumarate) 160-4.5 Mcg/Act Aero 2 Puff INH Q12HR Trazodone (Trazodone HCl) 50 Mg Tab 50 Mg PO HS Review of Systems Except as stated in HPI: all other systems reviewed are Neg Physical Exam Narrative GENERAL: WD/thin male with NRB minimally tachypneic. SKIN: Warm and dry. Right sided anterior pigtail catheter site c/d/i. Multiple healed scars to right axillary chest. HEAD: Atraumatic. Normocephalic. EYES: Pupils equal and round. No scleral icterus. No injection or drainage. ENT: No nasal bleeding or discharge. Mucous membranes pink and moist. NECK: Trachea midline. No JVD. CARDIOVASCULAR: Regular rate and rhythm. RESPIRATORY: No accessory muscle use. decreased bs in right base. Clear otherwise. GASTROINTESTINAL: Abdomen soft, non-tender, nondistended. Hepatic and splenic margins not palpable. MUSCULOSKELETAL: Extremities without clubbing, cyanosis, or edema. No obvious deformities. NEUROLOGICAL: Awake and alert. No obvious cranial nerve deficits. Motor grossly within normal limits. Five out of 5 muscle strength in the arms and legs. Normal speech. PSYCHIATRIC: Appropriate mood and affect; insight and judgment normal. Data Data Last Documented VS Vital Signs Date Time Temp Pulse Resp B/P (MAP) Pulse Ox O2 Delivery O2 Flow Rate FiO2 08/16/17 19:40 99 20 119/65 (83) 99 Non-Rebreather 15.00 Orders Orders Chest, Single Ap (08/16/17 ) Chest, Single Ap (08/16/17 ) Complete Blood Count With Diff (08/16/17 19:30) Comprehensive Metabolic Panel (08/16/17 19:30) Prothrombin Time / Inr (Pt) (08/16/17 19:30) Act Partial Throm Time (Ptt) (08/16/17 19:30) Ecg Monitoring (08/16/17 19:30) Iv Access Insert/Monitor (08/16/17 19:30) Oximetry (08/16/17 19:30) Oxygen Administration (08/16/17 19:30) Sodium Chloride 0.9% Flush (Ns Flush) (08/16/17 19:30) Cefazolin Inj (Ancef Inj) (08/16/17 19:45) Admit Order (Ed Use Only) (08/16/17 ) Labs Laboratory Tests Test 08/16/17 19:30 White Blood Count 14.9 TH/MM3 Red Blood Count 3.81 MIL/MM3 Hemoglobin 12.5 GM/DL Hematocrit 36.8 % Mean Corpuscular Volume 96.5 FL Mean Corpuscular Hemoglobin 32.8 PG Mean Corpuscular Hemoglobin Concent 34.0 % Red Cell Distribution Width 13.8 % Platelet Count 516 TH/MM3 Mean Platelet Volume 7.9 FL Neutrophils (%) (Auto) 88.4 % Lymphocytes (%) (Auto) 4.6 % Monocytes (%) (Auto) 6.9 % Eosinophils (%) (Auto) 0.0 % Basophils (%) (Auto) 0.1 % Neutrophils # (Auto) 13.1 TH/MM3 Lymphocytes # (Auto) 0.7 TH/MM3 Monocytes # (Auto) 1.0 TH/MM3 Eosinophils # (Auto) 0.0 TH/MM3 Basophils # (Auto) 0.0 TH/MM3 CBC Comment DIFF FINAL Differential Comment Prothrombin Time 11.6 SEC Prothromb Time International Ratio 1.1 RATIO Activated Partial Thromboplast Time 26.1 SEC Blood Urea Nitrogen 25 MG/DL Creatinine 0.76 MG/DL Random Glucose 151 MG/DL Total Protein 7.4 GM/DL Albumin 3.1 GM/DL Calcium Level 9.5 MG/DL Alkaline Phosphatase 67 U/L Aspartate Amino Transf (AST/SGOT) 43 U/L Alanine Aminotransferase (ALT/SGPT) 50 U/L Total Bilirubin 0.3 MG/DL Sodium Level 123 MEQ/L Potassium Level 4.6 MEQ/L Chloride Level 84 MEQ/L Carbon Dioxide Level 28.6 MEQ/L Anion Gap 10 MEQ/L Estimat Glomerular Filtration Rate 104 ML/MIN MDM Medical Decision Making Medical Screen Exam Complete: Yes Emergency Medical Condition: Yes Differential Diagnosis Pneumothorax, pneumonia, pleural effusion, hypoxia. Narrative Course Patient roomed in ER, [facility] reviewed shows significant recurrance of pneumothorax. Chest tube placed. Patient doing well afterwards, pain fairly well controlled. there is minimal sero-sanguinous drainage in chest tube. Patient will be weaned off of non-rebreather. Given the length of time the patient lung may have been down for i have asked Dr. Estrella to admit patient to ICU to watch for re-expansion pulmonary edema and she is agreeable. Critical Care Narrative Critical Care: The total critical care time was 35 minutes. Time to perform other separately billable procedures was not included in the critical care time. Procedures Procedure Narrative CHEST TUBE: After discussion of r/b/c/a at bedside patient verbally consented to chest tube. Patient prepped with chlorhexadine and draped, anesthetized with 8cc lidocaine 1% plain. 10 blade used for incision, blunt dissection through fatty tissue down to intercostals, génesis clamp inserted into pneumothorax at 7th intercostal midaxillary space on right. Estrada of air. 28fr chest tube placed. Condensation in tube, patient coughing. Tube secured with 0 silk, vaseline gauze and taped. Tube secured to pleurivac. Patient tolerated well. Ancef 1gm IV arlen-procedure for prophylaxis. Sepsis Criteria Severe Sepsis (+one): Acute Oliguria/Renal Failure Diagnosis Primary Impression: Pneumothorax on right Additional Impression: Recurrent spontaneous pneumothorax Admitting Information Admitting Physician Requests: Admit Condition: Stable Juvenal Cole MD Aug 16, 2017 19:34
--- NOTE | 2017-08-16 19:36 | RADRPT ---
EXAM DATE/TIME: 08/16/2017 18:50 [facility] COMPARISON: CHEST SINGLE AP, August 12, 2017, 4:15. INDICATIONS : Chest tube in place FINDINGS: There is a stable right apical chest tube. Interval progression of right-sided pneumothorax with mode rate size collection in the inferior and lateral right hemithorax. Cardiomediastinal contours are sta ble. Remainder of the exam is unchanged. CONCLUSION: 1. Stable right apical chest tube with interval enlargement of right pneumothorax. Moderate-sized pne umothorax in the inferior lateral right hemithorax. Evaluation of chest tube patency and/or Pleur-elda c suction is recommended. Rivera Howell MD on August 16, 2017 at 19:31 Board Certified Radiologist. This report was verified electronically.
[2017-08-16] MEDS ORDERED: TRAM50TA PO (19:52)
[2017-08-16] MEDS ORDERED: GABA800T PO (19:52)
[2017-08-16 20:19] LABS: AUTOMATED NEUTROPHIL # 13.1 TH/MM3 (1.8-7.7); BASOPHIL % 0.1 % (0.0-2.0); HEMATOCRIT 36.8 % (39.0-51.0); HEMOGLOBIN 12.5 GM/DL (13.0-17.0); LYMPH % 4.6 % (9.0-44.0); LYMPHOCYTE # 0.7 TH/MM3 (1.0-4.8); MEAN CELL VOLUME 96.5 FL (80.0-100.0); MEAN CORPUSCULAR HEMOGLOBIN 32.8 PG (27.0-34.0); MEAN PLATELET VOLUME 7.9 FL (7.0-11.0); MONO % 6.9 % (0.0-8.0); NEUT % 88.4 % (16.0-70.0); PLATELET COUNT 516 TH/MM3 (150-450); RED BLOOD COUNT 3.81 MIL/MM3 (4.50-5.90); RED CELL DISTRIBUTION WIDTH 13.8 % (11.6-17.2); WHITE BLOOD COUNT 14.9 TH/MM3 (4.0-11.0)
[2017-08-16 20:34] LABS: INTERNATIONAL NORMALIZED RATIO 1.1 RATIO; PROTHROMBIN TIME - PATIENT 11.6 SEC (9.8-11.6)
--- NOTE | 2017-08-16 20:34 | RADRPT ---
EXAM DATE/TIME: 08/16/2017 19:30 [facility] COMPARISON: CHEST SINGLE AP, August 16, 2017, 18:50. INDICATIONS : Evaluate pneumothorax. Post chest tube placement. MEDICAL HISTORY : Emphysema. Chronic obstructive pulmonary disease. SURGICAL HISTORY : None. ENCOUNTER: Initial ACUITY: 1 week PAIN SCORE: 4/10 LOCATION: Right chest FINDINGS: Interval placement of large bore inferior right-sided chest tube with near resolution of loculated ri ght inferior pneumothorax. There is a stable right apical chest tube in place. Trace right pleural ef fusion. Stable subcutaneous emphysema the right chest wall. Limited exam is unchanged. CONCLUSION: 1. Interval resolution of loculated inferior right pneumothorax following placement of new inferior r ight-sided chest tube. 2. Stable right apical chest tube. 3. Trace right pleural effusion. Rivera Howell MD on August 16, 2017 at 20:30 Board Certified Radiologist. This report was verified electronically.
[2017-08-16 20:50] LABS: ALBUMIN 3.1 GM/DL (3.4-5.0); ALKALINE PHOSPHATASE 67 U/L (45-117); ALT (GPT) 50 U/L (12-78); AST (GOT) 43 U/L (15-37); BICARBONATE 28.6 MEQ/L (21.0-32.0); BLOOD UREA NITROGEN 25 MG/DL (7-18); CALCIUM 9.5 MG/DL (8.5-10.1); CHLORIDE 84 MEQ/L (98-107); CREATININE 0.76 MG/DL (0.60-1.30); GLOMERULAR FILTRATION RATE 104 ML/MIN (>89); GLUCOSE,RANDOM 151 MG/DL (74-106); TOTAL BILIRUBIN ADULT 0.3 MG/DL (0.2-1.0); TOTAL PROTEIN 7.4 GM/DL (6.4-8.2)
[2017-08-16 20:52] LABS: SODIUM (NA) 123 MEQ/L (136-145)
--- NOTE | 2017-08-16 23:05 | HHI.HP ---
[facility] Service Critical Care Medicine Primary Care Physician Valentin [facility] Admission Diagnosis Recurrent Pneumothorax Diagnosis: Travel History International Travel<30 Days: No Contact w/Intl Traveler <30 Da: No Traveled to Known Affected Are: No History of Present Illness 61-year-old male with past medical history of COPD who was recently started on home oxygen who has history of recurrent right pneumothorax. Spontaneous pneumothorax initially occurred 07/20 when he rolled over in bed. He has had 3 prior admissions for this with multiple chest tubes. He has bleb disease. He underwent pleurodesis 07/31/[address] Buenrostro. He had recurrent PTX following this and [facility] was planning for surgical management. However PTX started improving with chest tube to suction and surgery was deferred given his high operative risk (FEV1 1.6). He had residual R apical PTX and was discharged 08/11 with apical pigtail chest tube with pneumostat. He has been SOB x2 days, speaking short sentences. He had a followup CXR at the [facility] today in anticipation of his appt with Lori Barber tomorrow. CXR showed loculated PTX in R base and he was sent emergently to [facility] ED where ED physician placed a new chest tube. Lung has reexpanded. Past Family Social History Allergies: Coded Allergies: No Known Allergies (Verified Allergy, Unknown, 07/30/17) Past Medical History COPD Left lung nodules for which she has previously refused biopsy. 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 Ng at the [facility] He sees pain management for degenerative disc disease Peripheral neuropathy Depression Depression Allergic rhinitis Past Surgical History Left hip replacement Right knee replacement Reported Medications Claritin 10 mg by mouth daily Albuterol 2 puffs inhaled every 4 hours Hydrocodone 10/325 one by mouth every 6 hours Oxycodone 10/325 one by mouth every 4 hours Tramadol 50 mEq by mouth every 6 hours Gabapentin 800 g by mouth T8 3 times a day Trazodone 50 mEq by mouth daily at bedtime HCTZ 20 mg by mouth daily Symbicort 2 puffs inhaled every 12 hours Guaifenesin 400 mg by mouth daily Family History Father at age 72 of pulmonary embolism Mother at age 35 from multiple sclerosis Social History He is . He would like his to make decisions on his behalf if he is not able to He smoked 2 packs of cigarettes per day for over 40 years. He quit 07/20/17 No alcohol use. No drug use Physical Exam Vital Signs Vital Signs Date Time Temp Pulse Resp B/P (MAP) Pulse Ox O2 Delivery O2 Flow Rate FiO2 08/16/17 21:08 90 20 138/71 (93) 95 Room Air 08/16/17 20:11 100 20 111/67 (82) 100 Non-Rebreather 15.00 08/16/17 19:40 99 20 119/65 (83) 99 Non-Rebreather 15.00 08/16/17 19:38 102 20 118/68 (85) 100 Non-Rebreather 15.00 08/16/17 19:35 100 Non-Rebreather 15.00 08/16/17 19:11 108 16 143/79 (100) 100 Non-Rebreather 15.00 08/16/17 19:01 114 24 99 Non-Rebreather 15.00 08/16/17 18:57 115 24 162/85 (110) 99 Physical Exam GENERAL: Elderly thin male who is sitting up in ED stretcher. SKIN: Warm and dry. Erythema and scaling of upper right chest at site of dressing. HEAD: Atraumatic. Normocephalic. EYES: Pupils equal and round. No scleral icterus. No injection or drainage. ENT: No nasal bleeding or discharge. Mucous membranes pink and moist. NECK: Trachea midline. No JVD. CARDIOVASCULAR: Regular rate and rhythm. No murmurs rubs or gallops. RESPIRATORY: Breath sounds are distant bilaterally. There is a pigtail in apex of right chest which does not appear dislodged. It was not placed to suction, pneumostat still in place. Chest tube in place right lateral chest wall to -20 cm suction with no airleak. s GASTROINTESTINAL: Abdomen soft, slightly protruberant but non-tender. MUSCULOSKELETAL: Extremities without clubbing, cyanosis, or edema. No obvious deformities. NEUROLOGICAL: Awake and alert. No obvious cranial nerve deficits. Motor grossly within normal limits. Normal speech. Oriented Laboratory Laboratory Tests Test 08/16/17 19:30 White Blood Count 14.9 Red Blood Count 3.81 Hemoglobin 12.5 Hematocrit 36.8 Mean Corpuscular Volume 96.5 Mean Corpuscular Hemoglobin 32.8 Mean Corpuscular Hemoglobin Concent 34.0 Red Cell Distribution Width 13.8 Platelet Count 516 Mean Platelet Volume 7.9 Neutrophils (%) (Auto) 88.4 Lymphocytes (%) (Auto) 4.6 Monocytes (%) (Auto) 6.9 Eosinophils (%) (Auto) 0.0 Basophils (%) (Auto) 0.1 Neutrophils # (Auto) 13.1 Lymphocytes # (Auto) 0.7 Monocytes # (Auto) 1.0 Eosinophils # (Auto) 0.0 Basophils # (Auto) 0.0 CBC Comment DIFF FINAL Differential Comment Prothrombin Time 11.6 Prothromb Time International Ratio 1.1 Activated Partial Thromboplast Time 26.1 Blood Urea Nitrogen 25 Creatinine 0.76 Random Glucose 151 Total Protein 7.4 Albumin 3.1 Calcium Level 9.5 Alkaline Phosphatase 67 Aspartate Amino Transf (AST/SGOT) 43 Alanine Aminotransferase (ALT/SGPT) 50 Total Bilirubin 0.3 Sodium Level 123 Potassium Level 4.6 Chloride Level 84 Carbon Dioxide Level 28.6 Anion Gap 10 Estimat Glomerular Filtration Rate 104 Result Diagram: 08/16/17192908/16/171929 Caprini VTE Risk Assessment Caprini VTE Risk Assessment: Mod/High Risk (score >= 2) Caprini Risk Assessment Model Point Value = 1 Point Value = 2 Point Value = 3 Point Value = 5 Age 41-60 Minor surgery BMI > 25 kg/m2 Swollen legs Varicose veins or History of unexplained or recurrent spontaneous Oral contraceptives or hormone replacement Sepsis (< 1 month) Serious lung disease, including pneumonia (< 1 month) Abnormal pulmonary function Acute myocardial infarction Congestive heart failure (< 1 month) History of inflammatory bowel disease Medical patient at bed rest Age 61-74 Arthroscopic surgery Major open surgery (> 45 min) Laparoscopic surgery (> 45 min) Malignancy Confined to bed (> 72 hours) Immobilizing plaster cast Central venous access Age >= 75 History of VTE Family history of VTE Factor V Leiden Prothrombin [id number] Lupus anticoagulant Anticardiolipin antibodies Elevated serum homocysteine Heparin-induced thrombocytopenia Other congenital or acquired thrombophilia Stroke (< 1 month) Elective arthroplasty Hip, pelvis, or leg fracture Acute spinal cord injury (< 1 month) Prophylaxis Regimen Total Risk Factor Score Risk Level Prophylaxis Regimen 0-1 Low Early ambulation 2 Moderate Order ONE of the following: *Sequential Compression Device (SCD) *Heparin 5000 units SQ BID 3-4 Higher Order ONE of the following medications: *Heparin 5000 units SQ TID *Enoxaparin/Lovenox 40 mg SQ daily (WT < 150 kg, CrCl > 30 mL/min) *Enoxaparin/Lovenox 30 mg SQ daily (WT < 150 kg, CrCl > 10-29 mL/min) *Enoxaparin/Lovenox 30 mg SQ BID (WT < 150 kg, CrCl > 30 mL/min) AND/OR *Sequential Compression Device (SCD) 5 or more Highest Order ONE of the following medications: *Heparin 5000 units SQ TID (Preferred with Epidurals) *Enoxaparin/Lovenox 40 mg SQ daily (WT < 150 kg, CrCl > 30 mL/min) *Enoxaparin/Lovenox 30 mg SQ daily (WT < 150 kg, CrCl > 10-29 mL/min) *Enoxaparin/Lovenox 30 mg SQ BID (WT < 150 kg, CrCl > 30 mL/min) AND *Sequential Compression Device (SCD) Assessment and Plan Assessment and Plan NEURO: Peripheral neuropathy Neurontin 800 mg by mouth 3 times a day Oxycodone as needed for pain. Dilaudid as needed for breakthrough pain. RESP: COPD with chronic hypoxia Emphysema Current right pneumothorax Prior chest tube pleurodesis 07/31/17 Tobacco abuse Lft upper lobe Pulmonary nodules Has R apical pigtail catheter ...appears placed 08/01/17 Additional chest tube placed right lateral chest wall 08/17/17. Follow-up chest x-ray with improvement of pneumothorax. There is residual right apical pneumothorax.[facility] following , consult for further recommendations. [facility] DuoNeb every 4 hours. Albuterol every 2 hours as needed CV: Monitor Hemodynamics. GI: NPO FEN/RENAL: Chronic hyponatremia Likely secondary to HCTZ. HCTZ on hold. NS 50/hr, serial sodium and avoid correction >8 MEq over 24 hours. NS discontinued morning of 08/17 based on f/u lab. NPO ID: Leukocytosis, likely reactive. Afebrile. Monitor for signs and symptoms of infection HEME: Chronic Anemia Does not meet transfusion threshold ENDO: Monitor bedside glucose PROPH: SCDs and Lovenox for DVT prophylaxis. Famotidine for stress ulcer prophylaxis ACCESS: Peripheral IV Level 3 H and P Callie Estrella MD Aug 16, 2017 23:05
[2017-08-16] MEDS ORDERED: SODIUM CHLOR 0.9% 1000 ML INJ 1,000 ML IV SCH (23:15)
[2017-08-16] MEDS: oxyCODONE/ACETAMINOPHEN 10 MG/325 MG TAB PO PRN (23:42)
[2017-08-17] VITALS (13 sets, daily range): BP systolic 108–158; BP diastolic 58–87; PULSE 82–105; RESP 16–24; TEMP 95.9–98.4; O2SAT 92–100
[2017-08-17] MEDS ORDERED: MELATONIN 5 MG TAB PO ONE (01:30)
[2017-08-17] MEDS: oxyCODONE/ACETAMINOPHEN 5 MG/325 MG TAB PO PRN (03:21)
[2017-08-17] MEDS: oxyCODONE/ACETAMINOPHEN 10 MG/325 MG TAB PO PRN ×6 (04:20→20:05)
[2017-08-17 05:18] LABS: CREATININE 0.69 MG/DL (0.60-1.30)
[2017-08-17] MEDS: HYDROmorphone HCL PF 2 MG/ML VIAL IV PUSH PRN ×3 (05:53→18:15)
[2017-08-17] MEDS: GABAPENTIN 400 MG CAP PO SCH ×3 (08:31→18:15)
[2017-08-17] MEDS: LORATADINE 10 MG TAB PO SCH (08:31)
[2017-08-17] MEDS: NICOTINE 21 MG/24 HR PATCH T-DERMAL SCH (08:35)
[2017-08-17] MEDS: RESP: ALBUTEROL 2.5 MG/IPRATROPIUM 0.5 MG NEB (SCH) NEB ×4 (09:14→19:39)
--- NOTE | 2017-08-17 11:21 | HHI.CCPN ---
Subjective Remarks/Hospital Course 61-year-old male with past medical history of COPD who was recently started on home oxygen who has history of recurrent right pneumothorax. Spontaneous pneumothorax initially occurred 07/20 when he rolled over in bed. He has had 3 prior admissions for this with multiple chest tubes. He has bleb disease. He underwent pleurodesis 07/31/[address] Buenrostro. He had recurrent PTX following this and [facility] was planning [facility]. However PTX started improving with chest tube to suction and surgery was deferred given his high operative risk (FEV1 1.6). He had residual R apical PTX and was discharged 08/11 with apical pigtail chest tube with pneumostat. He has been SOB x2 days, speaking short sentences. He had a followup CXR at the OR today in anticipation of his appt with Lori Barber tomorrow. CXR showed loculated PTX in R base and he was sent emergently to [facility] ED where ED physician placed a new chest tube. Lung has reexpanded. 08/17: Persistent air leak. Discussed with Dr. Gallardo. Agree, conservative treatment is preferable after pleurodesis. Continue CTs to suction. Objective Vital Signs Date Time Temp Pulse Resp B/P (MAP) Pulse Ox O2 Delivery O2 Flow Rate FiO2 08/17/17 10:00 98 08/17/17 09:17 99 Nasal Cannula 3.00 08/17/17 08:00 97.6 22 152/79 (103) Intake and Output 08/17/17 08/17/17 08/18/17 08:00 16:00 00:00 Intake Total 529 ml Output Total 197 ml Balance 332 ml Result Diagram: 08/16/17 19308/17/17 0437 Objective Remarks GENERAL: Elderly thin male. SKIN: Warm and dry. Erythema and scaling of upper right chest at site of dressing. HEAD: Atraumatic. Normocephalic. EYES: Pupils equal and round. No scleral icterus. No injection or drainage. ENT: No nasal bleeding or discharge. Mucous membranes pink and moist. NECK: Trachea midline. Airway widely patent. CARDIOVASCULAR: Regular rate and rhythm. No murmurs rubs or gallops. No JVD. RESPIRATORY: Breath sounds are distant bilaterally. There is a pigtail in apex of right chest which does not appear dislodged. It was not placed to suction, pneumostat still in place. Chest tube in place right lateral chest wall to -20 cm suction with continuous airleak GASTROINTESTINAL: Abdomen soft, slightly protruberant but non-tender. MUSCULOSKELETAL: Extremities without clubbing, cyanosis, or edema. No obvious deformities. Well perfused. NEUROLOGICAL: Awake and alert. O X 3. Motor grossly within normal limits. Normal speech. A/P Assessment and Plan NEURO: Peripheral neuropathy Neurontin 800 mg by mouth 3 times a day Oxycodone as needed for pain. Dilaudid as needed for breakthrough pain. RESP: COPD with chronic hypoxia Emphysema Current right pneumothorax Prior chest tube pleurodesis 07/31/17 Tobacco abuse Lft upper lobe Pulmonary nodules Has R apical pigtail catheter ...appears placed 08/01/17 Additional chest tube placed right lateral chest wall 08/17/17. Follow-up chest x-ray with improvement of pneumothorax. There is residual right apical pneumothorax.[facility] , consult for further recommendations. [facility] DuoNeb every 4 hours. Albuterol every 2 hours as needed CV: Monitor Hemodynamics. GI: NPO FEN/RENAL: Chronic hyponatremia Likely secondary to HCTZ. HCTZ on hold. NS 50/hr, serial sodium and avoid correction >8 MEq over 24 hours. NS discontinued morning of 08/17 based on f/u lab. NPO ID: Leukocytosis, likely reactive. Afebrile. Monitor for signs and symptoms of infection HEME: Chronic Anemia Does not meet transfusion threshold ENDO: Monitor bedside glucose PROPH: SCDs and Lovenox for DVT prophylaxis. Famotidine for stress ulcer prophylaxis ACCESS: Peripheral IV Overall impression: Severe COPD with air leak, recurrent problem. No Easy fix. If air leak slows a little might try sclerosis again. Pradeep Caballero MD Aug 17, 2017 11:21
[2017-08-17] MEDS: ENOXAPARIN SODIUM 40 MG/0.4 ML SYRINGE SQ SCH (11:51)
--- NOTE | 2017-08-17 15:31 | PD.CAR.PN ---
CVT Progress Note Subjective/Hospital Course: 61-year-old male with past medical history of COPD who was recently started on home oxygen who has history of recurrent right pneumothorax. Spontaneous pneumothorax initially occurred 07/20 when he rolled over in bed. He has had 3 prior admissions for this with multiple chest tubes. He has bleb disease. He underwent pleurodesis 07/31/[address] Buenrostro. He had recurrent PTX following this and [facility] was planning for surgical management. However PTX started improving with chest tube to suction and surgery was deferred given his high operative risk (FEV1 0.6). He had residual R apical PTX and was discharged 08/11 with apical pigtail chest tube with pneumostat. He has been SOB x2 days, speaking short sentences. He had a followup CXR at the [facility] today in anticipation of his appt with Lori Barber tomorrow. CXR showed loculated PTX in R base and he was sent emergently to [facility] ED where ED physician placed a new chest tube. Lung has reexpanded. 08/17: Dr Barber spoke with Dr Caballero , continue conservative treatment for now , pt is high risk for thoracic surgery with FEV1 0.[address] to suction. Right upper pig tail chest tube dc . Objective: GENERAL: SKIN: Warm and dry.still SOB with any exertion HEAD: Normocephalic. EYES: No scleral icterus. No injection or drainage. NECK: Supple, trachea midline. No JVD or lymphadenopathy. CARDIOVASCULAR: Regular rate and rhythm without murmurs, gallops, or rubs. RESPIRATORY: Breath sounds equal bilaterally. No accessory muscle use. diminished in bases, right upper chest tube dc , right lateral chest tube in place to wall suction GASTROINTESTINAL: Abdomen soft, non-tender, nondistended. MUSCULOSKELETAL: No cyanosis, or edema. BACK: Nontender without obvious deformity. No CVA tenderness. Vital Signs Date Time Temp Pulse Resp B/P (MAP) Pulse Ox O2 Delivery O2 Flow Rate FiO2 08/17/17 12:00 98.0 90 24 147/76 (99) 99 08/17/17 12:00 90 08/17/17 10:00 98 08/17/17 09:17 99 Nasal Cannula 3.00 08/17/17 08:00 93 08/17/17 08:00 97.6 93 22 152/79 (103) 100 08/17/17 07:00 100 Nasal Cannula 4.00 08/17/17 06:00 97 08/17/17 04:00 82 08/17/17 04:00 98.4 82 16 116/58 (77) 96 08/17/17 02:00 84 08/17/17 00:00 100 08/17/17 00:00 100 18 137/79 (98) 100 08/16/17 22:05 98 Nasal Cannula 4.00 08/16/17 22:00 102 08/16/17 22:00 100 Non-Rebreather 15.00 08/16/17 22:00 98.2 102 26 167/84 (111) 100 08/16/17 21:08 90 20 138/71 (93) 95 Room Air 08/16/17 20:11 100 20 111/67 (82) 100 Non-Rebreather 15.00 08/16/17 19:40 99 20 119/65 (83) 99 Non-Rebreather 15.00 08/16/17 19:38 102 20 118/68 (85) 100 Non-Rebreather 15.00 08/16/17 19:35 100 Non-Rebreather 15.00 08/16/17 19:11 108 16 143/79 (100) 100 Non-Rebreather 15.00 08/16/17 19:01 114 24 99 Non-Rebreather 15.00 08/16/17 18:57 115 24 162/85 (110) 99 Labs: Laboratory Tests Test 08/17/17 04:37 08/17/17 11:26 Blood Urea Nitrogen 21 MG/DL (7-18) Creatinine 0.69 MG/DL (0.60-1.30) Random Glucose 83 MG/DL (74-106) Calcium Level 9.0 MG/DL (8.5-10.1) Sodium Level 128 MEQ/L (136-145) 128 MEQ/L (136-145) Potassium Level 4.0 MEQ/L (3.5-5.1) Chloride Level 90 MEQ/L (98-107) Carbon Dioxide Level 32.0 MEQ/L (21.0-32.0) Anion Gap 6 MEQ/L (5-15) Estimat Glomerular Filtration Rate 116 ML/MIN (>89) Thyroid Stimulating Hormone 3rd Gen 0.608 uIU/ML (0.358-3.740) Result Diagram: 08/16/17 1930 08/17/17 1126 (1) Recurrent spontaneous pneumothorax Plan: right pigtail chest tube dc right lateral chest tube to wall suction f/u CXR conservative treatment for now (2) Tobacco use disorder (3) COPD (chronic obstructive pulmonary disease) Michelle Adler Aug 17, 2017 15:31
[2017-08-17] MEDS: traZODone HCL 50 MG TAB PO SCH (20:05)
[2017-08-17] MEDS: FAMOTIDINE 20 MG TAB PO SCH (20:05)
--- NOTE | 2017-08-17 21:43 | EKG ---
Date Performed: 08/17/2017 Time Performed: 11:52:47 PTAGE: 61 years EKG: Sinus rhythm MARKED T-WAVE ABNORMALITY, CONSIDER ANTERIOR ISCHEMIA ABNORMAL ECG PREVIOUS TRACING : 07/30/2017 18.13 Compared to the previous tracing T wave abnormalities are n ew DOCTOR: Leon Clay Interpretating Date/Time 08/17/2017 21:41:40
[2017-08-18] VITALS: BP 105/62; PULSE 98; RESP 17; TEMP 96.2; O2SAT 93
[2017-08-18] MEDS: HYDROmorphone HCL PF 2 MG/ML VIAL IV PUSH PRN ×6 (02:07→23:40)
[2017-08-18] MEDS: oxyCODONE/ACETAMINOPHEN 10 MG/325 MG TAB PO PRN ×5 (03:38→21:49)
--- NOTE | 2017-08-18 07:21 | RADRPT ---
EXAM DATE/TIME: 08/18/2017 06:15 [facility] COMPARISON: CHEST SINGLE AP, August 03, 2017, 12:22. CHEST SINGLE AP, August 07, 2017, 12:02. CHEST SINGLE AP, August 16, 2017, 18:50. CHEST SINGLE AP, August 16, 2017, 19:30. INDICATIONS : Short of breath, recurrent spontaneous pneumothorax, evaluate chest tube and right side pneumothorax MEDICAL HISTORY : Emphysema. Chronic obstructive pulmonary disease. spontaneous pneumothorax x 5 SURGICAL HISTORY : chest tube ENCOUNTER: Subsequent ACUITY: 1 week PAIN SCORE: 4/10 LOCATION: Right chest FINDINGS: A single AP portable erect expiratory view of the chest was obtained and again demonstrates a right-s ided chest tube in place. The previously noted small bore right-sided chest tube has been removed. A small right apical and basilar pneumothorax is now visualized. There is hyperinflation of the lungs a nd the heart size remains within normal limits. There is mild patchy opacity at the left lung base. T he patient is rotated to the left. Multiple overlying retrocardiac region present. CONCLUSION: 1. Interval removal of small bore right-sided chest tube with small right apical and basilar pneumoth orax. Moi Chavez MD on August 18, 2017 at 7:15 Board Certified Radiologist. This report was verified electronically.
[2017-08-18 08:00] VITALS: BP 158/77; PULSE 106; RESP 20; TEMP 96.2; O2SAT 92
[2017-08-18] MEDS: GABAPENTIN 400 MG CAP PO SCH ×3 (08:20→17:22)
[2017-08-18] MEDS: FAMOTIDINE 20 MG TAB PO SCH ×2 (08:20→20:50)
[2017-08-18] MEDS: LORATADINE 10 MG TAB PO SCH (08:21)
[2017-08-18] MEDS: NICOTINE 21 MG/24 HR PATCH T-DERMAL SCH (08:21)
[2017-08-18] MEDS: ENOXAPARIN SODIUM 40 MG/0.4 ML SYRINGE SQ SCH (10:25)
[2017-08-18 12:00] VITALS: BP 129/71; PULSE 108; RESP 20; TEMP 96.3; O2SAT 94
[2017-08-18 12:21] LABS: CALCIUM 9.4 MG/DL (8.5-10.1); CREATININE 0.84 MG/DL (0.60-1.30)
--- NOTE | 2017-08-18 13:56 | PD.CAR.PN ---
CVT Progress Note Subjective/Hospital Course: 61-year-old male with past medical history of COPD who was recently started on home oxygen who has history of recurrent right pneumothorax. Spontaneous pneumothorax initially occurred 07/20 when he rolled over in bed. He has had 3 prior admissions for this with multiple chest tubes. He has bleb disease. He underwent pleurodesis 07/31/[address] Buenrostro. He had recurrent PTX following this and [facility] was planning for surgical management. However PTX started improving with chest tube to suction and surgery was deferred given his high operative risk (FEV1 0.6). He had residual R apical PTX and was discharged 08/11 with apical pigtail chest tube with pneumostat. He has been SOB x2 days, speaking short sentences. He had a followup CXR at the [place] today in anticipation of his appt with Lori Barber tomorrow. CXR showed loculated PTX in R base and he was sent emergently to [facility] ED where ED physician placed a new chest tube. Lung has reexpanded. 08/17: Dr Barber spoke with Dr Caballero , continue conservative treatment for now , pt is high risk for thoracic surgery with FEV1 0.[address] to suction. Right upper pig tail chest tube dc . 08/18 chest tube to 20cm wall suction, no air leak minimal drainage continue current suction, still has small right apical PTX check CXR on Monday Objective: GENERAL: thin male SKIN: Warm and dry. HEAD: Normocephalic. EYES: No scleral icterus. No injection or drainage. NECK: Supple, trachea midline. No JVD or lymphadenopathy. CARDIOVASCULAR: Regular rate and rhythm without murmurs, gallops, or rubs. RESPIRATORY: Breath sounds equal bilaterally. No accessory muscle use. diminished throughout, right chest tube to wall suction at 20cm, no air leak GASTROINTESTINAL: Abdomen soft, non-tender, nondistended. MUSCULOSKELETAL: No cyanosis, or edema. BACK: Nontender without obvious deformity. No CVA tenderness. Vital Signs Date Time Temp Pulse Resp B/P (MAP) Pulse Ox O2 Delivery O2 Flow Rate FiO2 08/18/17 12:00 96.3 108 20 129/71 (90) 94 08/18/17 08:00 96.2 106 20 158/77 (104) 92 08/18/17 05:01 20 08/18/17 02:37 18 08/18/17 00:00 96.2 98 17 105/62 (76) 93 08/17/17 22:02 94 Nasal Cannula 2.00 08/17/17 20:00 96.5 105 17 108/64 (79) 92 08/17/17 18:30 Nasal Cannula 2.00 08/17/17 18:13 95.9 103 16 145/83 (103) 98 08/17/17 16:00 98.2 97 20 158/87 (110) 98 08/17/17 16:00 97 08/17/17 14:00 95 Labs: Laboratory Tests Test 08/18/17 10:43 Blood Urea Nitrogen 19 MG/DL (7-18) Creatinine 0.84 MG/DL (0.60-1.30) Random Glucose 188 MG/DL (74-106) Calcium Level 9.4 MG/DL (8.5-10.1) Sodium Level 131 MEQ/L (136-145) Potassium Level 3.8 MEQ/L (3.5-5.1) Chloride Level 92 MEQ/L (98-107) Carbon Dioxide Level 32.0 MEQ/L (21.0-32.0) Anion Gap 7 MEQ/L (5-15) Estimat Glomerular Filtration Rate 93 ML/MIN (>89) Result Diagram: 08/16/17 1930 08/18/17 1043 (1) Recurrent spontaneous pneumothorax Plan: keep right lateral chest tube to wall suction f/u CXR conservative treatment for now recheck CXR on Monday (2) Tobacco use disorder (3) COPD (chronic obstructive pulmonary disease) Plan: on mandie blood Jacqueline R. ARNP Aug 18, 2017 13:56
--- NOTE | 2017-08-18 15:31 | HHI.PR ---
Subjective Remarks Pt would like an increase on his dilaudid for breakthrough. no worsening SOB. no nausea or vomiting. Objective Vitals Vital Signs Date Time Temp Pulse Resp B/P (MAP) Pulse Ox O2 Delivery O2 Flow Rate FiO2 08/18/17 12:00 96.3 108 20 129/71 (90) 94 08/18/17 08:00 96.2 106 20 158/77 (104) 92 08/18/17 05:01 20 08/18/17 02:37 18 08/18/17 00:00 96.2 98 17 105/62 (76) 93 08/17/17 22:02 94 Nasal Cannula 2.00 08/17/17 20:00 96.5 105 17 108/64 (79) 92 08/17/17 18:30 Nasal Cannula 2.00 08/17/17 18:13 95.9 103 16 145/83 (103) 98 08/17/17 16:00 98.2 97 20 158/87 (110) 98 08/17/17 16:00 97 I/O 08/17/17 08/17/17 08/17/17 08/18/17 08/18/17 08/18/17 07:00 15:00 23:00 07:00 15:00 23:00 Intake Total 629 ml 240 ml Output Total 387 ml 350 ml Balance 242 ml -110 ml Intake Oral 240 ml 240 ml IV Total 389 ml Output Urine Total 365 ml 350 ml Chest Tube Drainage Total 22 ml # Voids 2 Result Diagram: 08/16/17 1930 08/18/17 1043 Imaging Last Impressions Chest X-Ray 08/18/17 0600 Signed Impressions: Service Date/Time: Friday, August 18, 2017 06:15 - CONCLUSION: 1. Interval removal of small bore right-sided chest tube with small right apical and basilar pneumothorax. Moi Chavez MD Objective Remarks GENERAL: Elderly thin male, sitting up in bed. EYES: EOMI. NECK: Trachea midline. Airway widely patent. CARDIOVASCULAR: Regular rate and rhythm. No murmurs RESPIRATORY: Breath sounds are distant bilaterally. chest tube in place GASTROINTESTINAL: Abdomen soft, non-tender. MUSCULOSKELETAL: Extremities without edema. No obvious deformities. Well perfused. NEUROLOGICAL: Awake and alert. Motor grossly within normal limits. Normal speech. A/P Assessment and Plan NEURO: Peripheral neuropathy Neurontin 800 mg by mouth 3 times a day Oxycodone as needed for pain. Dilaudid as needed for breakthrough pain. RESP: COPD with chronic hypoxia Emphysema Current right pneumothorax Prior chest tube pleurodesis 07/31/17 Tobacco abuse Lft upper lobe Pulmonary nodules Has R apical pigtail catheter , placed 08/01/17 Additional chest tube placed right lateral chest wall 08/17/17. Follow-up chest x-ray with improvement of pneumothorax. There is residual right apical pneumothorax.[facility] has been following. s/p Right upper pig tail chest tube removed 08/17 Repeat chest x-ray shows Left apical basilar pneumothorax. Management per CT sx. [facility] as an [facility] DuoNeb every 4 hours. Albuterol every 2 hours as needed CV: Monitor Hemodynamics. GI: NPO FEN/RENAL: Chronic hyponatremia Likely secondary to HCTZ. HCTZ on hold.serial sodium and avoid correction >8 MEq over 24 hours. 131 today regular diet. ID: Leukocytosis, likely reactive. Afebrile. Monitor for signs and symptoms of infection HEME: Chronic Anemia Does not meet transfusion threshold ENDO: Monitor bedside glucose PROPH: SCDs and Lovenox for DVT prophylaxis. Famotidine for stress ulcer prophylaxis Discharge Planning awaiting clearance from CT sx Jaclyn Daniels MD Aug 18, 2017 15:31
[2017-08-18 15:41] VITALS: O2SAT 98
[2017-08-18] MEDS: RESP: ALBUTEROL 2.5 MG/IPRATROPIUM 0.5 MG NEB (SCH) NEB ×2 (15:41→19:13)
[2017-08-18 16:00] VITALS: BP 135/83; PULSE 100; RESP 18; TEMP 96.9; O2SAT 93
[2017-08-18 20:00] VITALS: BP 111/69; PULSE 95; RESP 18; TEMP 98.4; O2SAT 94
[2017-08-18] MEDS: BUDESONIDE-FORMOTEROL 160/4.5 MCG INHALER INH SCH (20:50)
[2017-08-18] MEDS: traZODone HCL 50 MG TAB PO SCH (20:50)
[2017-08-19] VITALS (7 sets, daily range): BP systolic 119–143; BP diastolic 63–76; PULSE 84–99; RESP 16–20; TEMP 96.4–97.6; O2SAT 93–98
[2017-08-19] MEDS: oxyCODONE/ACETAMINOPHEN 10 MG/325 MG TAB PO PRN ×6 (02:16→23:01)
[2017-08-19] MEDS: HYDROmorphone HCL PF 2 MG/ML VIAL IV PUSH PRN ×5 (04:26→20:48)
--- NOTE | 2017-08-19 06:23 | RADRPT ---
EXAM DATE/TIME: 08/19/2017 05:51 [facility] COMPARISON: CHEST SINGLE AP, August 18, 2017, 6:15. INDICATIONS : Evaluate for pneumothorax- right side chest tube MEDICAL HISTORY : Chronic obstructive pulmonary disease. Emphysema. SURGICAL HISTORY : None. ENCOUNTER: Subsequent ACUITY: 1 month PAIN SCORE: 8/10 LOCATION: Bilateral chest FINDINGS: Bibasilar atelectasis again noted not significantly changed. Right chest tube remains in place. No pn eumothorax seen. Heart size stable, within normal limits. CONCLUSION: No change bibasilar consolidation and right chest tube. No pneumothorax. Smooth Pathak MD on August 19, 2017 at 6:21 Board Certified Radiologist. This report was verified electronically.
[2017-08-19] MEDS: RESP: ALBUTEROL 2.5 MG/IPRATROPIUM 0.5 MG NEB (SCH) NEB ×4 (07:51→21:01)
[2017-08-19] MEDS: BUDESONIDE-FORMOTEROL 160/4.5 MCG INHALER INH SCH ×2 (08:08→20:46)
[2017-08-19] MEDS: FAMOTIDINE 20 MG TAB PO SCH ×2 (08:09→20:47)
[2017-08-19] MEDS: GABAPENTIN 400 MG CAP PO SCH ×3 (08:09→16:23)
[2017-08-19] MEDS: NICOTINE 21 MG/24 HR PATCH T-DERMAL SCH (08:09)
[2017-08-19] MEDS: LORATADINE 10 MG TAB PO SCH (08:09)
[2017-08-19 08:59] LABS: BICARBONATE 28.8 MEQ/L (21.0-32.0); CALCIUM 9.1 MG/DL (8.5-10.1); CREATININE 0.74 MG/DL (0.60-1.30)
[2017-08-19] MEDS: ENOXAPARIN SODIUM 40 MG/0.4 ML SYRINGE SQ SCH (10:23)
[2017-08-19] MEDS: AZITHROMYCIN 250 MG TAB PO SCH (11:30)
[2017-08-19] MEDS: cefTRIAXone INJ 1,000 MG in SODIUM CHLORIDE 0.9% INJ 100 ML IV SCH (11:30)
--- NOTE | 2017-08-19 11:47 | HHI.PR ---
Subjective Remarks Pt states that pain better controlled w current pain regimen. Pt states that he has been coughing some dark green sputum. no worsening SOB. no nausea or vomiting. Objective Vitals Vital Signs Date Time Temp Pulse Resp B/P (MAP) Pulse Ox O2 Delivery O2 Flow Rate FiO2 08/19/17 10:53 17 08/19/17 09:20 17 08/19/17 08:08 94 Nasal Cannula 2.00 08/19/17 08:00 97.6 84 18 140/75 (96) 94 08/19/17 07:52 97 Nasal Cannula 1.00 08/19/17 00:00 97.6 89 20 143/74 (97) 98 08/18/17 20:10 97 Nasal Cannula 2.00 08/18/17 20:00 98.4 95 18 111/69 (83) 94 08/18/17 16:00 96.9 100 18 135/83 (100) 93 08/18/17 15:41 98 Nasal Cannula 2.00 08/18/17 12:00 96.3 108 20 129/71 (90) 94 I/O 08/18/17 08/18/17 08/18/17 08/19/17 08/19/17 08/19/17 07:00 15:00 23:00 07:00 15:00 23:00 Intake Total 240 ml 1400 ml Output Total 356 ml 602 ml 600 ml Balance -116 ml 798 ml -600 ml Intake Oral 240 ml 1400 ml Output Urine Total 350 ml 600 ml 600 ml Chest Tube Drainage Total 6 ml 2 ml 0 ml # Bowel Movements 0 Result Diagram: 08/16/17 19308/19/17 06 Imaging Last Impressions Chest X-Ray 08/19/17 06 Signed Impressions: Service Date/Time: Saturday, August 19, 2017 05:51 - CONCLUSION: No change bibasilar consolidation and right chest tube. No pneumothorax. Smooth Pathak MD Objective Remarks GENERAL: Elderly thin male, sitting up in bed. EYES: EOMI. NECK: Trachea midline. Airway widely patent. CARDIOVASCULAR: Regular rate and rhythm. No murmurs RESPIRATORY: Breath sounds are distant bilaterally. chest tube in place GASTROINTESTINAL: Abdomen soft, non-tender. MUSCULOSKELETAL: Extremities without edema. No obvious deformities. Well perfused. NEUROLOGICAL: Awake and alert. Motor grossly within normal limits. Normal speech. A/P Assessment and Plan NEURO: Peripheral neuropathy Neurontin 800 mg by mouth 3 times a day Oxycodone as needed for pain. Dilaudid as needed for breakthrough pain. RESP: COPD with chronic hypoxia Emphysema Current right pneumothorax Prior chest tube pleurodesis 07/31/17 Tobacco abuse Lft upper lobe Pulmonary nodules Has R apical pigtail catheter , placed 08/01/17 Additional chest tube placed right lateral chest wall 08/17/17. Follow-up chest x-ray with improvement of pneumothorax. There is residual right apical pneumothorax.[facility] has been following. s/p Right upper pig tail chest tube removed 08/17 Repeat chest x-ray shows Left apical basilar pneumothorax w some consolidation. Management per CT sx. I have added rocephin/azithro as pt is coughing up some dark green sputum. Followed as an [facility]. DuoNeb every 4 hours. Albuterol every 2 hours as needed FEN/RENAL: Chronic hyponatremia Likely secondary to HCTZ. HCTZ on hold.serial sodium and avoid correction >8 MEq over 24 hours. 133 today regular diet. ID: Leukocytosis, likely reactive. Afebrile. Monitor for signs and symptoms of infection HEME: Chronic Anemia Does not meet transfusion threshold ENDO: Monitor bedside glucose PROPH: SCDs and Lovenox for DVT prophylaxis. Famotidine for stress ulcer prophylaxis Discharge Planning awaiting clearance from CT sx Jaclyn Daniels MD Aug 19, 2017 11:47
[2017-08-19] MEDS: traZODone HCL 50 MG TAB PO SCH (20:46)
[2017-08-19] MEDS: SODIUM CHLORIDE 0.9% FLUSH 10 ML FLUSH IVF PRN (20:48)
[2017-08-19] MEDS: ZOLPIDEM TARTRATE 5 MG TAB PO PRN (23:06)
[2017-08-20 02:07] VITALS: BP 151/81; PULSE 93; RESP 18; TEMP 98.5; O2SAT 95
[2017-08-20] MEDS: oxyCODONE/ACETAMINOPHEN 10 MG/325 MG TAB PO PRN ×5 (03:09→20:16)
[2017-08-20] MEDS: HYDROmorphone HCL PF 2 MG/ML VIAL IV PUSH PRN ×5 (05:21→22:17)
[2017-08-20] MEDS: SODIUM CHLORIDE 0.9% FLUSH 10 ML FLUSH IVF PRN (05:21)
[2017-08-20 06:02] LABS: AUTOMATED NEUTROPHIL # 7.9 TH/MM3 (1.8-7.7); BASOPHIL # 0.1 TH/MM3 (0-0.2); BASOPHIL % 0.6 % (0.0-2.0); EOSINOPHIL # 0.4 TH/MM3 (0-0.4); EOSINOPHIL % 3.9 % (0.0-4.0); HEMATOCRIT 31.8 % (39.0-51.0); LYMPH % 11.5 % (9.0-44.0); LYMPHOCYTE # 1.3 TH/MM3 (1.0-4.8); MEAN CELL VOLUME 96.7 FL (80.0-100.0); MEAN CORPUSCULAR HEMOGLOBIN 33.5 PG (27.0-34.0); MEAN CORPUSCULAR HGB CONC 34.6 % (32.0-36.0); MEAN PLATELET VOLUME 7.2 FL (7.0-11.0); MONO % 12.2 % (0.0-8.0); MONOCYTE # 1.3 TH/MM3 (0-0.9); NEUT % 71.8 % (16.0-70.0); PLATELET COUNT 536 TH/MM3 (150-450); RED BLOOD COUNT 3.28 MIL/MM3 (4.50-5.90); RED CELL DISTRIBUTION WIDTH 13.9 % (11.6-17.2)
[2017-08-20 06:20] LABS: CALCIUM 8.6 MG/DL (8.5-10.1); CREATININE 0.69 MG/DL (0.60-1.30)
[2017-08-20] MEDS: FAMOTIDINE 20 MG TAB PO SCH ×2 (07:31→20:16)
[2017-08-20] MEDS: GABAPENTIN 400 MG CAP PO SCH ×3 (07:31→16:07)
[2017-08-20] MEDS: AZITHROMYCIN 250 MG TAB PO SCH (07:31)
[2017-08-20] MEDS: RESP: ALBUTEROL 2.5 MG/IPRATROPIUM 0.5 MG NEB (SCH) NEB ×4 (07:52→19:54)
[2017-08-20 08:00] VITALS: BP 148/76; PULSE 88; RESP 17; TEMP 97.9; O2SAT 95; O2SAT 96
[2017-08-20] MEDS: NICOTINE 21 MG/24 HR PATCH T-DERMAL SCH (09:00)
[2017-08-20] MEDS: LORATADINE 10 MG TAB PO SCH (09:00)
[2017-08-20] MEDS: BUDESONIDE-FORMOTEROL 160/4.5 MCG INHALER INH SCH ×2 (09:02→20:17)
[2017-08-20] MEDS: ENOXAPARIN SODIUM 40 MG/0.4 ML SYRINGE SQ SCH (09:43)
[2017-08-20] MEDS: cefTRIAXone INJ 1,000 MG in SODIUM CHLORIDE 0.9% INJ 100 ML IV SCH (10:20)
[2017-08-20 12:00] VITALS: BP 107/67; PULSE 84; RESP 18; TEMP 98.3; O2SAT 96
--- NOTE | 2017-08-20 12:10 | HHI.PR ---
Subjective Remarks Pt states his cough seems to be improving. less sputum. no nausea or vomiting. pain controlled on current regimen Objective Vitals Vital Signs Date Time Temp Pulse Resp B/P (MAP) Pulse Ox O2 Delivery O2 Flow Rate FiO2 08/20/17 08:00 97.9 88 17 148/76 (100) 95 08/20/17 07:30 Nasal Cannula 3.00 08/20/17 02:07 98.5 93 18 151/81 (104) 95 08/19/17 21:03 96 Nasal Cannula 1.00 08/19/17 20:45 92 Nasal Cannula 2.00 Humidified 08/19/17 20:00 96.8 98 18 129/76 (93) 93 08/19/17 17:38 17 08/19/17 16:00 97.2 99 18 140/73 (95) 93 I/O 08/19/17 08/19/17 08/19/17 08/20/17 08/20/17 08/20/17 07:00 15:00 23:00 07:00 15:00 23:00 Intake Total 100 ml 1200 ml Output Total 600 ml 600 ml 700 ml Balance -600 ml 100 ml 600 ml -700 ml Intake Oral 1200 ml IV Total 100 ml Output Urine Total 600 ml 600 ml 700 ml Chest Tube Drainage Total 0 ml 0 ml Result Diagram: 08/20/17 0511 08/20/17 0511 Imaging Last Impressions Chest X-Ray 08/19/17 0600 Signed Impressions: Service Date/Time: Saturday, August 19, 2017 05:51 - CONCLUSION: No change bibasilar consolidation and right chest tube. No pneumothorax. Smooth Pathak MD Objective Remarks GENERAL: Elderly thin male, sitting up in bed. EYES: EOMI. NECK: Trachea midline. Airway widely patent. CARDIOVASCULAR: Regular rate and rhythm. No murmurs RESPIRATORY: Breath sounds are distant bilaterally. chest tube in place GASTROINTESTINAL: Abdomen soft, non-tender. MUSCULOSKELETAL: Extremities without edema. No obvious deformities. Well perfused. NEUROLOGICAL: Awake and alert. Motor grossly within normal limits. Normal speech. A/P Assessment and Plan NEURO: Peripheral neuropathy Neurontin 800 mg by mouth 3 times a day Oxycodone as needed for pain. Dilaudid as needed for breakthrough pain. RESP: COPD with chronic hypoxia Emphysema Current right pneumothorax Prior chest tube pleurodesis 07/31/17 Tobacco abuse Lft upper lobe Pulmonary nodules Has R apical pigtail catheter , placed 08/01/17 Additional chest tube placed right lateral chest wall 08/17/17. Follow-up chest x-ray with improvement of pneumothorax. There is residual right apical pneumothorax.[facility] has been following. s/p Right upper pig tail chest tube removed 08/17 Repeat chest x-ray shows Left apical basilar pneumothorax w some consolidation. Management per CT sx. on rocephin/azithro and seems to be responding Followed as an [facility]. DuoNeb every 4 hours. Albuterol every 2 hours as needed FEN/RENAL: Chronic hyponatremia Likely secondary to HCTZ. HCTZ on hold.serial sodium and avoid correction >8 MEq over 24 hours. 136 today regular diet. ID: Leukocytosis, likely reactive. Afebrile. resolved. Monitor for signs and symptoms of infection HEME: Chronic Anemia Does not meet transfusion threshold ENDO: Monitor bedside glucose PROPH: SCDs and Lovenox for DVT prophylaxis. Famotidine for stress ulcer prophylaxis Discharge Planning awaiting clearance from CT sx Jaclyn Daniels MD Aug 20, 2017 12:10
[2017-08-20 16:00] VITALS: BP 141/68; PULSE 92; RESP 17; TEMP 98.1; O2SAT 93
[2017-08-20] MEDS ORDERED: MAGNESIUM HYDROXIDE SUSP 30 ML CUP PO ONE (18:30)
[2017-08-20 19:54] VITALS: O2SAT 97
[2017-08-20 20:00] VITALS: BP 138/74; PULSE 92; RESP 20; TEMP 97.8; O2SAT 95
[2017-08-20] MEDS: traZODone HCL 50 MG TAB PO SCH (20:17)
[2017-08-21] VITALS (7 sets, daily range): BP systolic 143–157; BP diastolic 70–88; PULSE 86–94; RESP 18–22; TEMP 96.2–97.9; O2SAT 90–96
[2017-08-21] MEDS: oxyCODONE/ACETAMINOPHEN 10 MG/325 MG TAB PO PRN ×6 (00:28→22:07)
[2017-08-21] MEDS: ZOLPIDEM TARTRATE 5 MG TAB PO PRN (00:30)
[2017-08-21] MEDS: HYDROmorphone HCL PF 2 MG/ML VIAL IV PUSH PRN ×5 (03:30→20:20)
[2017-08-21] MEDS: FAMOTIDINE 20 MG TAB PO SCH ×2 (07:45→20:19)
[2017-08-21] MEDS: LORATADINE 10 MG TAB PO SCH ×2 (07:45→07:49)
[2017-08-21] MEDS: NICOTINE 21 MG/24 HR PATCH T-DERMAL SCH ×2 (07:45→07:49)
[2017-08-21] MEDS: AZITHROMYCIN 250 MG TAB PO SCH (07:45)
[2017-08-21] MEDS: GABAPENTIN 400 MG CAP PO SCH ×3 (07:45→16:15)
[2017-08-21] MEDS: POLYETHYLENE GLYCOL 17 GM PKG PO SCH (07:46)
[2017-08-21] MEDS: BUDESONIDE-FORMOTEROL 160/4.5 MCG INHALER INH SCH ×2 (07:46→20:19)
[2017-08-21] MEDS: RESP: ALBUTEROL 2.5 MG/IPRATROPIUM 0.5 MG NEB (SCH) NEB (07:59)
[2017-08-21] MEDS: ENOXAPARIN SODIUM 40 MG/0.4 ML SYRINGE SQ SCH (09:07)
--- NOTE | 2017-08-21 10:29 | HHI.PR ---
Subjective Remarks Pt doing well. Pain controlled and request that current regimen be kept. cough is much improved. No nausea or vomiting. Objective Vitals Vital Signs Date Time Temp Pulse Resp B/P (MAP) Pulse Ox O2 Delivery O2 Flow Rate FiO2 08/21/17 08:00 96.9 86 21 146/78 (100) 91 08/21/17 07:59 93 08/21/17 07:45 Nasal Cannula 2.00 08/21/17 00:00 97.6 94 20 143/71 (95) 94 08/20/17 20:08 Nasal Cannula 2.00 08/20/17 20:00 97.8 92 20 138/74 (95) 95 08/20/17 19:54 97 Nasal Cannula 1.00 08/20/17 18:39 17 08/20/17 17:12 18 08/20/17 16:00 98.1 92 17 141/68 (92) 93 08/20/17 12:00 98.3 84 18 107/67 (80) 96 I/O 08/20/17 08/20/17 08/20/17 08/21/17 08/21/17 08/21/17 07:00 15:00 23:00 07:00 15:00 23:00 Intake Total 480 ml 720 ml Output Total 700 ml 705 ml 1002 ml Balance -700 ml -225 ml -282 ml Intake Oral 480 ml 720 ml Output Urine Total 700 ml 700 ml 1000 ml Chest Tube Drainage Total 0 ml 5 ml 2 ml # Bowel Movements 0 Result Diagram: 08/20/17 0511 08/20/17 0511 Imaging Last Impressions Chest X-Ray 08/19/17 0600 Signed Impressions: Service Date/Time: Saturday, August 19, 2017 05:51 - CONCLUSION: No change bibasilar consolidation and right chest tube. No pneumothorax. Smooth Pathak MD Objective Remarks GENERAL: Elderly thin male, sitting up in bed. EYES: EOMI. NECK: Trachea midline. Airway widely patent. CARDIOVASCULAR: Regular rate and rhythm. No murmurs RESPIRATORY: Breath sounds are distant bilaterally. chest tube in place GASTROINTESTINAL: Abdomen soft, non-tender. MUSCULOSKELETAL: Extremities without edema. No obvious deformities. Well perfused. NEUROLOGICAL: Awake and alert. Motor grossly within normal limits. Normal speech. A/P Assessment and Plan NEURO: Peripheral neuropathy Neurontin 800 mg by mouth 3 times a day Oxycodone as needed for pain. Dilaudid as needed for breakthrough pain. RESP: COPD with chronic hypoxia Emphysema Current right pneumothorax Prior chest tube pleurodesis 07/31/17 Tobacco abuse Lft upper lobe Pulmonary nodules Has R apical pigtail catheter , placed 08/01/17 Additional chest tube placed right lateral chest wall 08/17/17. Follow-up chest x-ray with improvement of pneumothorax. There is residual right apical pneumothorax. [facility] has been following. s/p Right upper pig tail chest tube removed 08/17 Repeat chest x-ray shows Left apical basilar pneumothorax w some consolidation. Management per CT sx. on rocephin/azithro and seems to be responding [facility] an [facility] DuoNeb every 4 hours. Albuterol every 2 hours as needed FEN/RENAL: Chronic hyponatremia Likely secondary to HCTZ. HCTZ on hold.serial sodium and avoid correction >8 MEq over 24 hours. 136 now regular diet. ID: Leukocytosis, likely reactive. Afebrile. resolved. Monitor for signs and symptoms of infection HEME: Chronic Anemia Does not meet transfusion threshold ENDO: Monitor bedside glucose PROPH: SCDs and Lovenox for DVT prophylaxis. Famotidine for stress ulcer prophylaxis Discharge Planning awaiting clearance from CT sx Pt requests that he get an ativan prior to CT removal. Continue Abx for now Jaclyn Daniels MD Aug 21, 2017 10:29
[2017-08-21] MEDS ORDERED: LORazepam 2 MG/ML VIAL IV PUSH PRN (10:30)
[2017-08-21] MEDS: RESP: ALBUTEROL 2.5 MG/3 ML NEB (PRN) NEB ×2 (11:52→18:44)
[2017-08-21] MEDS: cefTRIAXone INJ 1,000 MG in SODIUM CHLORIDE 0.9% INJ 100 ML IV SCH (11:58)
[2017-08-21] MEDS: traZODone HCL 50 MG TAB PO SCH (20:19)
[2017-08-22] VITALS: BP 147/78; PULSE 92; RESP 17; TEMP 97.6; O2SAT 97
[2017-08-22] MEDS: ZOLPIDEM TARTRATE 5 MG TAB PO PRN (00:31)
[2017-08-22] MEDS: HYDROmorphone HCL PF 2 MG/ML VIAL IV PUSH PRN ×3 (00:31→08:28)
[2017-08-22] MEDS: oxyCODONE/ACETAMINOPHEN 10 MG/325 MG TAB PO PRN ×5 (02:04→18:38)
[2017-08-22 08:00] VITALS: BP 158/79; PULSE 88; RESP 20; TEMP 96.5; O2SAT 91
[2017-08-22] MEDS: LORATADINE 10 MG TAB PO SCH (08:28)
[2017-08-22] MEDS: AZITHROMYCIN 250 MG TAB PO SCH (08:28)
[2017-08-22] MEDS: FAMOTIDINE 20 MG TAB PO SCH ×2 (08:28→21:35)
[2017-08-22] MEDS: NICOTINE 21 MG/24 HR PATCH T-DERMAL SCH (08:28)
[2017-08-22] MEDS: POLYETHYLENE GLYCOL 17 GM PKG PO SCH (08:28)
[2017-08-22] MEDS: GABAPENTIN 400 MG CAP PO SCH ×3 (08:28→17:38)
--- NOTE | 2017-08-22 10:00 | RADRPT ---
EXAM DATE/TIME: 08/22/2017 09:22 [facility] COMPARISON: CHEST SINGLE AP, August 19, 2017, 5:51. INDICATIONS : Rule out pneumothorax. MEDICAL HISTORY : Emphysema. Chronic obstructive pulmonary disease. SURGICAL HISTORY : None. ENCOUNTER: Subsequent ACUITY: 1 month PAIN SCORE: 0/10 LOCATION: Right chest FINDINGS: The cardiac silhouette is enlarged in transverse diameter. There is prominence of the aortic knob is with calcification characteristic of atherosclerotic vascular disease. A right chest tube is in place . There is no evidence of pneumothorax. CONCLUSION: There is no evidence of pneumothorax. Pj Li MD on August 22, 2017 at 9:57 Board Certified Radiologist. This report was verified electronically.
[2017-08-22] MEDS: ENOXAPARIN SODIUM 40 MG/0.4 ML SYRINGE SQ SCH (11:20)
[2017-08-22] MEDS: cefTRIAXone INJ 1,000 MG in SODIUM CHLORIDE 0.9% INJ 100 ML IV SCH (11:20)
[2017-08-22 12:00] VITALS: BP 136/76; PULSE 87; RESP 18; TEMP 95.7; O2SAT 94
--- NOTE | 2017-08-22 13:24 | HHI.PR ---
Subjective Remarks VERY CONCERNED ABOUT IV PAIN MEDS HAVE DW HIM THAT HE CANNOT TAKE THEM AT HOME AND NEEDS TO GET USED TO THE ORAL MEDICATIONS AGAIN DW SURGERY AND DW PT AND RN CHEST TUBE TO BE CLAMPED TODAY Objective Vitals Vital Signs Date Time Temp Pulse Resp B/P (MAP) Pulse Ox O2 Delivery O2 Flow Rate FiO2 08/22/17 12:00 95.7 87 18 136/76 (96) 94 08/22/17 08:00 96.5 88 20 158/79 (105) 91 08/22/17 08:00 Nasal Cannula 2.00 08/22/17 00:00 97.6 92 17 147/78 (101) 97 08/21/17 20:25 Nasal Cannula 2.00 08/21/17 20:00 96.2 91 18 157/79 (105) 92 08/21/17 18:44 96 Nasal Cannula 2.00 08/21/17 16:00 97.9 93 22 150/70 (96) 90 I/O 08/21/17 08/21/17 08/21/17 08/22/17 08/22/17 08/22/17 07:00 15:00 23:00 07:00 15:00 23:00 Intake Total 720 ml 100 ml 875 ml 960 ml Output Total 1002 ml 1475 ml 1800 ml Balance -282 ml 100 ml -600 ml -840 ml Intake Oral 720 ml 875 ml 960 ml IV Total 100 ml Output Urine Total 1000 ml 1475 ml 1800 ml Chest Tube Drainage Total 2 ml 0 ml # Bowel Movements 1 Result Diagram: 08/20/17 0511 08/20/17 0511 Other Results Laboratory Tests Test 08/20/17 05:11 White Blood Count 11.0 TH/MM3 Red Blood Count 3.28 MIL/MM3 Hemoglobin 11.0 GM/DL Hematocrit 31.8 % Mean Corpuscular Volume 96.7 FL Mean Corpuscular Hemoglobin 33.5 PG Mean Corpuscular Hemoglobin Concent 34.6 % Red Cell Distribution Width 13.9 % Platelet Count 536 TH/MM3 Mean Platelet Volume 7.2 FL Neutrophils (%) (Auto) 71.8 % Lymphocytes (%) (Auto) 11.5 % Monocytes (%) (Auto) 12.2 % Eosinophils (%) (Auto) 3.9 % Basophils (%) (Auto) 0.6 % Neutrophils # (Auto) 7.9 TH/MM3 Lymphocytes # (Auto) 1.3 TH/MM3 Monocytes # (Auto) 1.3 TH/MM3 Eosinophils # (Auto) 0.4 TH/MM3 Basophils # (Auto) 0.1 TH/MM3 CBC Comment DIFF FINAL Differential Comment Blood Urea Nitrogen 14 MG/DL Creatinine 0.69 MG/DL Random Glucose 112 MG/DL Calcium Level 8.6 MG/DL Sodium Level 136 MEQ/L Potassium Level 3.7 MEQ/L Chloride Level 99 MEQ/L Carbon Dioxide Level 30.0 MEQ/L Anion Gap 7 MEQ/L Estimat Glomerular Filtration Rate 116 ML/MIN Imaging Last Impressions Chest X-Ray 08/22/17 0000 Signed Impressions: Service Date/Time: Tuesday, August 22, 2017 09:22 - CONCLUSION: There is no evidence of pneumothorax. Pj Li MD Objective Remarks GENERAL: Awake alert and oriented talkative and cooperative appears to be in no distress but overly concerned about IV pain medications--very anxious SKIN: Warm and dry. HEAD: Atraumatic. Normocephalic. EYES: Pupils equal and round. No scleral icterus. No injection or drainage. Extraocular muscles intact ENT: No nasal bleeding or discharge. Mucous membranes pink and moist. Tongue midline NECK: Trachea midline. No JVD. Supple CARDIOVASCULAR: Regular rate and rhythm. S1 and S2 no S3 or S4 RESPIRATORY: No accessory muscle use. Rhonchi and coarse breath sounds bilaterally. Breath sounds equal bilaterally. Chest tube on right GASTROINTESTINAL: Abdomen soft, non-tender, nondistended. Hepatic and splenic margins not palpable. MUSCULOSKELETAL: Extremities without clubbing, cyanosis, or edema. No obvious deformities. NEUROLOGICAL: Awake and alert. No obvious cranial nerve deficits. Motor grossly within normal limits. Five out of 5 muscle strength in the arms and legs. Normal speech. PSYCHIATRIC: Appropriate mood and affect; insight and judgment normal. Very anxious Procedures RIGHT PIGTAIL CATHETER FOR CHEST PNEUMOTHORAX Medications and IVs Current Medications Sodium Chloride (NS Flush) 2 ml UNSCH PRN IVF FLUSH AFTER USING IV ACCESS Last administered on 08/20/17 05:21; Start 08/16/17 at 19:30 Cefazolin Sodium 1000 mg/Sodium Chloride 100 ml @ 200 mls/hr ONCE ONCE IV Last administered on 08/16/17 19:59; Start 08/16/17 at 19:45; Stop 08/16/17 at 20:26; Status DC Gabapentin (Neurontin) 800 mg TID PO Last administered on 08/22/17 08:28; Start 08/17/17 at 09:00 Loratadine (Claritin) 10 mg DAILY PO Last administered on 08/22/17 08:28; Start 08/17/17 at 09:00 Trazodone HCl (Desyrel) 50 mg HS PO Last administered on 08/17/17 20:05; Start 08/17/17 at 21:00 Sodium Chloride 1,000 ml @ 50 mls/hr Q20H IV Last administered on 08/16/17 23:41; Start 08/16/17 at 23:15; Stop 08/17/17 at 05:30; Status DC Oxycodone/ Acetaminophen (Percocet 5-325 Mg) 1 tab Q4H PRN PO PAIN 1-5/10 Last administered on 08/17/17 03:21; Start 08/16/17 at 23:15 Oxycodone/ Acetaminophen (Percocet 10-325 Mg) 1 tab Q4H PRN PO PAIN 6-10/10 Last administered on 08/22/17 11:19; Start 08/16/17 at 23:15 Nicotine (Habitrol 21 Mg Patch.24 Hr) 1 patch DAILY T-DERMAL Last administered on 08/22/17 08:28; Start 08/17/17 at 09:00 Hydromorphone HCl (Dilaudid Pf Inj) 0.5 mg Q4H PRN IV PUSH BREAKTHROUGH PAIN Last administered on 08/18/17 15:09; Start 08/16/17 at 23:30; Stop 08/18/17 at 15:24; Status DC Albuterol/ Ipratropium (Duoneb Neb) 1 ampule Q4HR WHILE AWAKE NEB NEB Last administered on 08/20/17 19:54; Start 08/17/17 at 08:00; Stop 08/21/17 at 07: 59; Status DC Albuterol Sulfate (Albuterol Neb) 2.5 mg Q2HR NEB PRN NEB WHEEZING Last administered on 08/21/17 18:44; Start 08/16/17 at 23:45 Melatonin (Melatonin) 5 mg ONCE ONCE PO ; Start 08/17/17 at 01:30; Stop 08/17 at 01:48; Status DC Enoxaparin Sodium (Lovenox Inj) 40 mg Q24H SQ Last administered on 08/22/17 11: 20; Start 08/17/17 at 11:00 Famotidine (Pepcid) 20 mg BID PO Last administered on 08/22/17 08:28; Start at 21:00 Budesonide/ Formoterol Fumarate (Symbicort 160-4.5 Mcg Inh) 2 puff Q12HR INH Last administered on 08/21/17 20:19; Start 08/18/17 at 21:00 Hydromorphone HCl (Dilaudid Pf Inj) 1 mg Q4H PRN IV PUSH BREAKTHROUGH PAIN Last administered on 08/22/17 08:28; Start 08/18/17 at 16:00 Zolpidem Tartrate (Ambien) 5 mg HS PRN PO INSOMNIA Last administered on 00:31; Start 08/18/17 at 15:30 Ceftriaxone Sodium 1000 mg/ Sodium Chloride 100 ml @ 200 mls/hr Q24H IV Last administered on 08/22/17 11:20; Start 08/19/17 at 11:15 Azithromycin (Zithromax) 500 mg DAILY PO Last administered on 08/22/17 08:28; Start 08/19/17 at 11:15 Magnesium Hydroxide (Milk Of Magnhan Liq) 30 ml ONCE ONCE PO Last administered on 08/20/17t 18:35; Start 08/20/17 at 18:30; Stop 08/20/17 at 18 :31; Status DC Polyethylene Glycol (Miralax) 17 gm DAILY PO Last administered on 08/22/17 08: 28; Start 08/21/17 at 09:00 Lorazepam (Ativan Inj) 1 mg ONCE PRN IV PUSH ANXIETY; Start 08/21/17 at 10:30; Stop 08/21/17 at 18:00; Status DC A/P Assessment and Plan Assessment and Plan NEURO: Peripheral neuropathy Neurontin 800 mg by mouth 3 times a day Oxycodone as needed for pain. Dilaudid as needed for breakthrough pain. RESP: COPD with chronic hypoxia Emphysema Current right pneumothorax Prior chest tube pleurodesis 07/31/17 Tobacco abuse Lft upper lobe Pulmonary nodules Has R apical pigtail catheter , placed 08/01/17 Additional chest tube placed right lateral chest wall 08/17/17. Follow-up chest x-ray with improvement of pneumothorax. There is residual right apical pneumothorax. [facility] has been following. s/p Right upper pig tail chest tube removed 08/17 Repeat chest x-ray shows Left apical basilar pneumothorax w some consolidation. Management per CT sx. on rocephin/azithro and seems to be responding [facility] an [facility] DuoNeb every 4 hours. Albuterol every 2 hours as needed FEN/RENAL: Chronic hyponatremia Likely secondary to HCTZ. HCTZ on hold.serial sodium and avoid correction >8 MEq over 24 hours. 136 now regular diet. ID: Leukocytosis, likely reactive. Afebrile. resolved. Monitor for signs and symptoms of infection HEME: Chronic Anemia Does not meet transfusion threshold ENDO: Monitor bedside glucose PROPH: SCDs and Lovenox for DVT prophylaxis. Famotidine for stress ulcer prophylaxis Discharge Planning awaiting clearance from CT sx Pt requests that he get an ativan prior to CT removal. Continue Abx for now WANTS IV PAIN MEDS Wean off IV pain meds Yovani An DO Aug 22, 2017 13:23
--- NOTE | 2017-08-22 13:54 | PD.CAR.PN ---
CVT Progress Note Subjective/Hospital Course: 61-year-old male with past medical history of COPD who was recently started on home oxygen who has history of recurrent right pneumothorax. Spontaneous pneumothorax initially occurred 07/20 when he rolled over in bed. He has had 3 prior admissions for this with multiple chest tubes. He has bleb disease. He underwent pleurodesis 07/31/[address] Buenrostro. He had recurrent PTX following this and [facility] was planning for surgical management. However PTX started improving with chest tube to suction and surgery was deferred given his high operative risk (FEV1 0.6). He had residual R apical PTX and was discharged 08/11 with apical pigtail chest tube with pneumostat. He has been SOB x2 days, speaking short sentences. He had a followup CXR at the [facility] today in anticipation of his appt with Lori Barber tomorrow. CXR showed loculated PTX in R base and he was [place] emergently [place] [facility] [place] physician [place] a new chest tube. Lung has reexpanded. 08/17: Dr Barber spoke with Dr Caballero , continue conservative treatment for now , pt is high risk for thoracic surgery with FEV1 0.[address] to suction. Right upper pig tail chest tube dc . 08/18 chest tube to 20cm wall suction, no air leak minimal drainage continue current suction, still has small right apical PTX check CXR on Tuesday 08/22 CXR noted on 08/19 no PTX repeat CXR today no PTX, chest tube to water seal, no air leak recheck CXR in am, if no PTX with DC chest tube Objective: GENERAL: SKIN: Warm and dry. HEAD: Normocephalic. EYES: No scleral icterus. No injection or drainage. NECK: Supple, trachea midline. No JVD or lymphadenopathy. CARDIOVASCULAR: Regular rate and rhythm without murmurs, gallops, or rubs. RESPIRATORY: diminished through out , no wheezing , chest tube now to water seal, minimal drainage GASTROINTESTINAL: Abdomen soft, non-tender, nondistended. MUSCULOSKELETAL: No cyanosis, or edema. BACK: Nontender without obvious deformity. No CVA tenderness. Vital Signs Date Time Temp Pulse Resp B/P (MAP) Pulse Ox O2 Delivery O2 Flow Rate FiO2 08/22/17 12:00 95.7 87 18 136/76 (96) 94 08/22/17 08:00 96.5 88 20 158/79 (105) 91 08/22/17 08:00 Nasal Cannula 2.00 08/22/17 00:00 97.6 92 17 147/78 (101) 97 08/21/17 20:25 Nasal Cannula 2.00 08/21/17 20:00 96.2 91 18 157/79 (105) 92 08/21/17 18:44 96 Nasal Cannula 2.00 08/21/17 16:00 97.9 93 22 150/70 (96) 90 Result Diagram: 08/20/17 0511 08/20/17 0511 (1) Recurrent spontaneous pneumothorax Plan: right lateral chest tube to water seal eval for removal in am (2) Tobacco use disorder (3) COPD (chronic obstructive pulmonary disease) Plan: on nebs, Michelle Pederson Aug 22, 2017 13:54
[2017-08-22 16:00] VITALS: BP 144/75; PULSE 79; RESP 16; TEMP 97.4; O2SAT 95
[2017-08-22 20:00] VITALS: BP 148/77; PULSE 90; RESP 19; TEMP 97.4; O2SAT 94
[2017-08-22] MEDS: BUDESONIDE-FORMOTEROL 160/4.5 MCG INHALER INH SCH (21:34)
[2017-08-22] MEDS: traZODone HCL 50 MG TAB PO SCH (21:35)
[2017-08-23] VITALS: BP 152/81; PULSE 86; RESP 18; TEMP 97.2; O2SAT 100
--- NOTE | 2017-08-23 06:55 | RADRPT ---
EXAM DATE/TIME: 08/23/2017 06:39 [facility] COMPARISON: CHEST SINGLE AP, August 22, 2017, 9:22. INDICATIONS : Pneumothorax. MEDICAL HISTORY : Chronic obstructive pulmonary disease. Emphysema. SURGICAL HISTORY : Chest tube. ENCOUNTER: Subsequent ACUITY: 1 month PAIN SCORE: 0/10 LOCATION: Right chest FINDINGS: A single portable frontal view of the chest shows a right-sided thoracostomy tube. There is a new sub pulmonic pneumothorax on the right. The lungs are clear. No effusions. Heart is normal in size. Scoli otic curvature to the spine. CONCLUSION: New small subpulmonic pneumothorax on the right. Ben Nixon Jr., MD on August 23, 2017 at 6:52 Board Certified Radiologist. This report was verified electronically.
[2017-08-23 07:08] LABS: AUTOMATED NEUTROPHIL # 8.7 TH/MM3 (1.8-7.7); BASOPHIL % 0.4 % (0.0-2.0); EOSINOPHIL # 0.2 TH/MM3 (0-0.4); EOSINOPHIL % 1.8 % (0.0-4.0); HEMATOCRIT 32.8 % (39.0-51.0); HEMOGLOBIN 11.2 GM/DL (13.0-17.0); LYMPH % 9.8 % (9.0-44.0); LYMPHOCYTE # 1.1 TH/MM3 (1.0-4.8); MEAN CELL VOLUME 95.9 FL (80.0-100.0); MEAN CORPUSCULAR HEMOGLOBIN 32.9 PG (27.0-34.0); MEAN CORPUSCULAR HGB CONC 34.3 % (32.0-36.0); MEAN PLATELET VOLUME 6.7 FL (7.0-11.0); MONO % 10.7 % (0.0-8.0); MONOCYTE # 1.2 TH/MM3 (0-0.9); NEUT % 77.3 % (16.0-70.0); PLATELET COUNT 538 TH/MM3 (150-450); RED BLOOD COUNT 3.42 MIL/MM3 (4.50-5.90); RED CELL DISTRIBUTION WIDTH 14.3 % (11.6-17.2); WHITE BLOOD COUNT 11.2 TH/MM3 (4.0-11.0)
[2017-08-23 07:35] LABS: ALBUMIN 2.3 GM/DL (3.4-5.0); AST (GOT) 16 U/L (15-37); BICARBONATE 29.4 MEQ/L (21.0-32.0); BLOOD UREA NITROGEN 12 MG/DL (7-18); CALCIUM 8.6 MG/DL (8.5-10.1); CHLORIDE 103 MEQ/L (98-107); CREATININE 0.69 MG/DL (0.60-1.30); GLOMERULAR FILTRATION RATE 116 ML/MIN (>89); GLUCOSE,RANDOM 101 MG/DL (74-106); MAGNESIUM 2.4 MG/DL (1.5-2.5); SODIUM (NA) 139 MEQ/L (136-145)
[2017-08-23 07:36] LABS: ALT (GPT) 22 U/L (12-78); PHOSPHORUS 3.3 MG/DL (2.5-4.9)
[2017-08-23 07:44] LABS: ALKALINE PHOSPHATASE 44 U/L (45-117); FREE T4 1.17 NG/DL (0.76-1.46); TOTAL BILIRUBIN ADULT 0.3 MG/DL (0.2-1.0); TOTAL PROTEIN 5.9 GM/DL (6.4-8.2)
[2017-08-23 08:00] VITALS: BP 145/71; PULSE 81; RESP 17; TEMP 96.6; O2SAT 99
[2017-08-23] MEDS: oxyCODONE/ACETAMINOPHEN 10 MG/325 MG TAB PO PRN ×4 (08:19→21:05)
[2017-08-23] MEDS: BUDESONIDE-FORMOTEROL 160/4.5 MCG INHALER INH SCH (08:20)
[2017-08-23] MEDS: GABAPENTIN 400 MG CAP PO SCH ×3 (08:23→18:19)
[2017-08-23] MEDS: LORATADINE 10 MG TAB PO SCH ×2 (08:23→10:18)
[2017-08-23] MEDS: POLYETHYLENE GLYCOL 17 GM PKG PO SCH (08:24)
[2017-08-23] MEDS: AZITHROMYCIN 250 MG TAB PO SCH (08:25)
[2017-08-23] MEDS: NICOTINE 21 MG/24 HR PATCH T-DERMAL SCH (08:25)
[2017-08-23] MEDS: FAMOTIDINE 20 MG TAB PO SCH ×2 (08:25→21:00)
[2017-08-23] MEDS: LORazepam 0.5 MG TAB PO PRN ×2 (10:13→18:18)
[2017-08-23] MEDS: ENOXAPARIN SODIUM 40 MG/0.4 ML SYRINGE SQ SCH (10:13)
[2017-08-23] MEDS: cefTRIAXone INJ 1,000 MG in SODIUM CHLORIDE 0.9% INJ 100 ML IV SCH (10:14)
--- NOTE | 2017-08-23 10:28 | HHI.PR ---
Subjective Remarks Follow-up for pneumothorax patient's nurse at the bedside. denied any SOB or cough. patient very anxious and wants CT removed today. he asking for anxiety medication. he stated he was on anxiety medication but it was discontinued today. when I looked with nurse there is no anti anxiety medication ever written. Patient asking for anxiety medication. no other complaints. Objective Vitals Vital Signs Date Time Temp Pulse Resp B/P (MAP) Pulse Ox O2 Delivery O2 Flow Rate FiO2 08/23/17 08:00 96.6 81 17 145/71 (95) 99 08/23/17 00:00 97.2 86 18 152/81 (104) 100 08/22/17 20:00 94 Nasal Cannula 2.00 08/22/17 20:00 97.4 90 19 148/77 (100) 94 08/22/17 16:00 97.4 79 16 144/75 (98) 95 08/22/17 12:30 20 08/22/17 12:00 95.7 87 18 136/76 (96) 94 I/O 08/22/17 08/22/17 08/22/17 08/23/17 08/23/17 08/23/17 07:00 15:00 23:00 07:00 15:00 23:00 Intake Total 960 ml 1175 ml 240 ml Output Total 1800 ml 1300 ml 375 ml Balance -840 ml -125 ml -135 ml Intake Oral 960 ml 1175 ml 240 ml Output Urine Total 1800 ml 1300 ml 375 ml # Bowel Movements 1 Result Diagram: 08/23/17 0631 08/23/17 0631 Objective Remarks GENERAL: in NAD Resp: CTA B/L chest tube in place. CARDIOVASCULAR: Regular rate and rhythm without murmurs, gallops, or rubs. RESPIRATORY: Breath sounds equal bilaterally. No accessory muscle use. GASTROINTESTINAL: Abdomen soft, non-tender, nondistended. MUSCULOSKELETAL: No cyanosis, or edema. BACK: Nontender without obvious deformity. No CVA tenderness. Procedures RIGHT PIGTAIL CATHETER FOR CHEST PNEUMOTHORAX Medications and IVs Current Medications Sodium Chloride (NS Flush) 2 ml UNSCH PRN IVF FLUSH AFTER USING IV ACCESS Last administered on 08/20/17t 05:21; Start 08/16/17 at 19:30 Cefazolin Sodium 1000 mg/Sodium Chloride 100 ml @ 200 mls/hr ONCE ONCE IV Last administered on 08/16/17 19:59; Start 08/16/17 at 19:45; Stop 08/16/17 at 20:26; Status DC Gabapentin (Neurontin) 800 mg TID PO Last administered on 08/23/17 08:23; Start 08/17/17 at 09:00 Loratadine (Claritin) 10 mg DAILY PO Last administered on 08/23/17 10:18; Start 08/17/17 at 09:00 Trazodone HCl (Desyrel) 50 mg HS PO Last administered on 08/22/17 21:35; Start 08/17/17 at 21:00 Sodium Chloride 1,000 ml @ 50 mls/hr Q20H IV Last administered on 08/16/17 23:41; Start 08/16/17 at 23:15; Stop 08/17/17 at 05:30; Status DC Oxycodone/ Acetaminophen (Percocet 5-325 Mg) 1 tab Q4H PRN PO PAIN 1-5/10 Last administered on 08/17/17 03:21; Start 08/16/17 at 23:15 Oxycodone/ Acetaminophen (Percocet 10-325 Mg) 1 tab Q4H PRN PO PAIN 6-10/10 Last administered on 08/23/17 08:19; Start 08/16/17 at 23:15 Nicotine (Habitrol 21 Mg Patch.24 Hr) 1 patch DAILY T-DERMAL Last administered on 08/22/17 08:28; Start 08/17/17 at 09:00 Hydromorphone HCl (Dilaudid Pf Inj) 0.5 mg Q4H PRN IV PUSH BREAKTHROUGH PAIN Last administered on 08/18/17 15:09; Start 08/16/17 at 23:30; Stop 08/18/17 at 15:24; Status DC Albuterol/ Ipratropium (Duoneb Neb) 1 ampule Q4HR WHILE AWAKE NEB NEB Last administered on 08/20/17 19:54; Start 08/17/17 at 08:00; Stop 08/21/17 at 07: 59; Status DC Albuterol Sulfate (Albuterol Neb) 2.5 mg Q2HR NEB PRN NEB WHEEZING Last administered on 08/21/17 18:44; Start 08/16/17 at 23:45 Melatonin (Melatonin) 5 mg ONCE ONCE PO ; Start 08/17/17 at 01:30; Stop 08/17 at 01:48; Status DC Enoxaparin Sodium (Lovenox Inj) 40 mg Q24H SQ Last administered on 08/23/17 10: 13; Start 08/17/17 at 11:00 Famotidine (Pepcid) 20 mg BID PO Last administered on 08/23/17 08:25; Start at 21:00 Budesonide/ Formoterol Fumarate (Symbicort 160-4.5 Mcg Inh) 2 puff Q12HR INH Last administered on 08/23/17 08:20; Start 08/18/17 at 21:00 Hydromorphone HCl (Dilaudid Pf Inj) 1 mg Q4H PRN IV PUSH BREAKTHROUGH PAIN Last administered on 08/22/17 08:28; Start 08/18/17 at 16:00 Zolpidem Tartrate (Ambien) 5 mg HS PRN PO INSOMNIA Last administered on 00:31; Start 08/18/17 at 15:30 Ceftriaxone Sodium 1000 mg/ Sodium Chloride 100 ml @ 200 mls/hr Q24H IV Last administered on 08/23/17 10:14; Start 08/19/17 at 11:15 Azithromycin (Zithromax) 500 mg DAILY PO Last administered on 08/23/17 08:25; Start 08/19/17 at 11:15 Magnesium Hydroxide (Milk Of Magnesia Liq) 30 ml ONCE ONCE PO Last administered on 08/20/17t 18:35; Start 08/20/17 at 18:30; Stop 08/20/17 at 18 :31; Status DC Polyethylene Glycol (Miralax) 17 gm DAILY PO Last administered on 08/23/17 08: 24; Start 08/21/17 at 09:00 Lorazepam (Ativan Inj) 1 mg ONCE PRN IV PUSH ANXIETY; Start 08/21/17 at 10:30; Stop 08/21/17 at 18:00; Status DC Lorazepam (Ativan) 0.5 mg Q8H PRN PO anxiety Last administered on 08/23/17 10: 13; Start 08/23/17 at 10:00 A/P Assessment and Plan This is a 59-year-old male presented with pneumothorax Pneumothorax -Status post prior chest tube pleurodesis 07/31/17 -Has R apical pigtail catheter , placed 08/01/17 -chest tube placed right lateral chest wall 08/17/17. -Repeat chest x-ray done today showed new small subpleural right pneumothorax. -Chest [address] surgery who are following patient. -DuoNeb every 4 hours. Albuterol every 2 hours as needed Left upper lobe Pulmonary nodules. -[facility]. COPD with chronic hypoxia/emphysema -Stable asymptomatic. Continue home meds. Tobacco abuse -smoking cessation Peripheral neuropathy -Neurontin 800 mg by mouth 3 times a day -Oxycodone as needed for pain. Chronic hyponatremia -Likely secondary to HCTZ. HCTZ on hold. -Resolved. Leukocytosis -Resolved. Most likely reactive. No signs of infection. Chronic Anemia -Asymptomatic. Follow up as outpatient. PROPH: SCDs and Lovenox for DVT prophylaxis. Famotidine for stress ulcer prophylaxis Laisha Longoria MD Aug 23, 2017 10:27
[2017-08-23 12:00] VITALS: BP 140/65; PULSE 75; RESP 17; TEMP 98.5; O2SAT 95
--- NOTE | 2017-08-23 15:35 | PD.CAR.PN ---
CVT Progress Note Subjective/Hospital Course: 61-year-old male with past medical history of COPD who was recently started on home oxygen who has history of recurrent right pneumothorax. Spontaneous pneumothorax initially occurred 07/20 when he rolled over in bed. He has had 3 prior admissions for this with multiple chest tubes. He has bleb disease. He underwent pleurodesis 07/31/[address] Buenrostro. He had recurrent PTX following this and [facility] was planning for [facility] management. However PTX started improving with chest tube to suction and surgery was deferred given his high operative risk (FEV1 0.6). He had residual R apical PTX and was discharged 08/11 with apical pigtail chest tube with pneumostat. He has been SOB x2 days, speaking short sentences. He had a followup CXR at the CT today in anticipation of his appt with Lori Barber tomorrow. CXR showed loculated PTX in R base and he was sent emerg[place] [facility] [place] physician placed a new chest tube. Lung has reexpanded. 08/17: Dr Barber spoke with Dr Caballero , continue conservative treatment for now , pt is high risk for thoracic surgery with FEV1 0.[address] to suction. Right upper pig tail chest tube dc . 08/18 chest tube to 20cm wall suction, no air leak minimal drainage continue current suction, still has small right apical PTX check CXR on Monday/ CXR noted on 08/19 no PTX repeat CXR today no PTX, chest tube to water seal, no air leak recheck CXR in am, if no PTX with DC chest tube / CXR with new right sub pulmonic PTX, chest tube back to 10cm suction pt has very friable lungs, unfortunately did not tolerate Pneumostat in the past recheck CXR in am , has no air leak Objective: GENERAL: very painful SKIN: Warm and dry. dressing in place right chest wall HEAD: Normocephalic. EYES: No scleral icterus. No injection or drainage. NECK: Supple, trachea midline. No JVD or lymphadenopathy. CARDIOVASCULAR: Regular rate and rhythm without murmurs, gallops, or rubs. chest tube back to wall suction, no air leak RESPIRATORY: Breath sounds equal bilaterally. No accessory muscle use. GASTROINTESTINAL: Abdomen soft, non-tender, nondistended. MUSCULOSKELETAL: No cyanosis, or edema. BACK: Nontender without obvious deformity. No CVA tenderness. Vital Signs Date Time Temp Pulse Resp B/P (MAP) Pulse Ox O2 Delivery O2 Flow Rate FiO2 08/23/17 12:00 98.5 75 17 140/65 (90) 95 08/23/17 08:20 99 Nasal Cannula 2.00 08/23/17 08:00 96.6 81 17 145/71 (95) 99 08/23/17 00:00 97.2 86 18 152/81 (104) 100 08/22/17 20:00 94 Nasal Cannula 2.00 08/22/17 20:00 97.4 90 19 148/77 (100) 94 08/22/17 16:00 97.4 79 16 144/75 (98) 95 Labs: Laboratory Tests Test 08/23/17 06:31 White Blood Count 11.2 TH/MM3 (4.0-11.0) Red Blood Count 3.42 MIL/MM3 (4.50-5.90) Hemoglobin 11.2 GM/DL (13.0-17.0) Hematocrit 32.8 % (39.0-51.0) Mean Corpuscular Volume 95.9 FL (80.0-100.0) Mean Corpuscular Hemoglobin 32.9 PG (27.0-34.0) Mean Corpuscular Hemoglobin Concent 34.3 % (32.0-36.0) Red Cell Distribution Width 14.3 % (11.6-17.2) Platelet Count 538 TH/MM3 (150-450) Mean Platelet Volume 6.7 FL (7.0-11.0) Neutrophils (%) (Auto) 77.3 % (16.0-70.0) Lymphocytes (%) (Auto) 9.8 % (9.0-44.0) Monocytes (%) (Auto) 10.7 % (0.0-8.0) Eosinophils (%) (Auto) 1.8 % (0.0-4.0) Basophils (%) (Auto) 0.4 % (0.0-2.0) Neutrophils # (Auto) 8.7 TH/MM3 (1.8-7.7) Lymphocytes # (Auto) 1.1 TH/MM3 (1.0-4.8) Monocytes # (Auto) 1.2 TH/MM3 (0-0.9) Eosinophils # (Auto) 0.2 TH/MM3 (0-0.4) Basophils # (Auto) 0.0 TH/MM3 (0-0.2) CBC Comment DIFF FINAL Differential Comment Blood Urea Nitrogen 12 MG/DL (7-18) Creatinine 0.69 MG/DL (0.60-1.30) Random Glucose 101 MG/DL (74-106) Total Protein 5.9 GM/DL (6.4-8.2) Albumin 2.3 GM/DL (3.4-5.0) Calcium Level 8.6 MG/DL (8.5-10.1) Phosphorus Level 3.3 MG/DL (2.5-4.9) Magnesium Level 2.4 MG/DL (1.5-2.5) Alkaline Phosphatase 44 U/L (45-117) Aspartate Amino Transf (AST/SGOT) 16 U/L (15-37) Alanine Aminotransferase (ALT/SGPT) 22 U/L (12-78) Total Bilirubin 0.3 MG/DL (0.2-1.0) Sodium Level 139 MEQ/L (136-145) Potassium Level 3.6 MEQ/L (3.5-5.1) Chloride Level 103 MEQ/L (98-107) Carbon Dioxide Level 29.4 MEQ/L (21.0-32.0) Anion Gap 7 MEQ/L (5-15) Estimat Glomerular Filtration Rate 116 ML/MIN (>89) Free Thyroxine 1.17 NG/DL (0.76-1.46) Thyroid Stimulating Hormone 3rd Gen 0.676 uIU/ML (0.358-3.740) Result Diagram: 08/23/1763008/23/17630 (1) Recurrent spontaneous pneumothorax Plan: right lateral chest tube back to 10cm suction (2) Tobacco use disorder (3) COPD (chronic obstructive pulmonary disease) Plan: on mandie blood Jacqueline R. ARNP Aug 23, 2017 15:34
[2017-08-23 16:00] VITALS: BP 133/79; PULSE 92; RESP 17; TEMP 97; O2SAT 98
[2017-08-23 16:35] LABS: HEMOGLOBIN A1C 5.7 % (4.3-6.0)
[2017-08-23 18:08] VITALS: O2SAT 98
[2017-08-23 20:00] VITALS: BP 138/69; PULSE 92; RESP 21; TEMP 96.3; O2SAT 100
[2017-08-23] MEDS: RESP: ALBUTEROL 2.5 MG/3 ML NEB (PRN) NEB (20:07)
[2017-08-23] MEDS: traZODone HCL 50 MG TAB PO SCH (21:00)
[2017-08-23] MEDS: SODIUM CHLORIDE 0.9% FLUSH 10 ML FLUSH IVF PRN (21:05)
[2017-08-24] VITALS: BP 133/71; PULSE 89; RESP 21; TEMP 96.6; O2SAT 96
[2017-08-24] MEDS: oxyCODONE/ACETAMINOPHEN 10 MG/325 MG TAB PO PRN ×5 (01:23→18:28)
[2017-08-24] MEDS: ZOLPIDEM TARTRATE 5 MG TAB PO PRN (01:23)
[2017-08-24] MEDS: LORazepam 0.5 MG TAB PO PRN ×2 (06:44→18:28)
--- NOTE | 2017-08-24 07:41 | RADRPT ---
EXAM DATE/TIME: 08/24/2017 06:31 [facility] COMPARISON: CHEST SINGLE AP, August 23, 2017, 6:39. INDICATIONS : Short of breath, evaluate right chest tube and pneumothorax MEDICAL HISTORY : Chronic obstructive pulmonary disease. Emphysema. SURGICAL HISTORY : chest tube ENCOUNTER: Subsequent ACUITY: 1 month PAIN SCORE: 0/10 LOCATION: Right chest FINDINGS: There is mild consolidation again seen right apex and right base, not significantly changed. Trace le ft base atelectasis also stable. No large effusion demonstrated. No perceptible pneumothorax. Right c hest tube remains in place. Heart size stable, normal. CONCLUSION: No significant change. Smooth Pathak MD on August 24, 2017 at 7:39 Board Certified Radiologist. This report was verified electronically.
[2017-08-24 08:00] VITALS: BP 141/62; PULSE 73; RESP 17; TEMP 96; O2SAT 96
[2017-08-24 08:16] LABS: HEMATOCRIT 30.1 % (39.0-51.0); HEMOGLOBIN 10.4 GM/DL (13.0-17.0); MEAN CELL VOLUME 96.9 FL (80.0-100.0); MEAN CORPUSCULAR HEMOGLOBIN 33.5 PG (27.0-34.0); MEAN CORPUSCULAR HGB CONC 34.5 % (32.0-36.0); MEAN PLATELET VOLUME 7.1 FL (7.0-11.0); PLATELET COUNT 496 TH/MM3 (150-450); RED CELL DISTRIBUTION WIDTH 14.3 % (11.6-17.2); WHITE BLOOD COUNT 10.4 TH/MM3 (4.0-11.0)
[2017-08-24 08:21] LABS: BICARBONATE 30.3 MEQ/L (21.0-32.0); CALCIUM 8.7 MG/DL (8.5-10.1); CREATININE 0.66 MG/DL (0.60-1.30)
[2017-08-24] MEDS: BUDESONIDE-FORMOTEROL 160/4.5 MCG INHALER INH SCH ×2 (09:00→20:54)
[2017-08-24] MEDS: NICOTINE 21 MG/24 HR PATCH T-DERMAL SCH ×2 (09:00→09:23)
--- NOTE | 2017-08-24 09:21 | HHI.PR ---
Subjective Remarks Follow-up for pneumothorax Patient found sleeping in bed. I will patient. He denies any shortness of breathing or cough. He had no complaints. He remains afebrile. Objective Vitals Vital Signs Date Time Temp Pulse Resp B/P (MAP) Pulse Ox O2 Delivery O2 Flow Rate FiO2 08/24/17 08:00 96.0 73 17 141/62 (88) 96 08/24/17 00:00 96.6 89 21 133/71 (91) 96 08/23/17 20:00 96.3 92 21 138/69 (92) 100 08/23/17 18:08 98 Nasal Cannula 2.00 08/23/17 16:00 97.0 92 17 133/79 (97) 98 08/23/17 12:00 98.5 75 17 140/65 (90) 95 I/O 08/23/17 08/23/17 08/23/17 08/24/17 08/24/17 08/24/17 07:00 15:00 23:00 07:00 15:00 23:00 Intake Total 240 ml 100 ml 1320 ml 280 ml Output Total 375 ml 400 ml 850 ml 800 ml Balance -135 ml -300 ml 470 ml -520 ml Intake Oral 240 ml 1320 ml 280 ml IV Total 100 ml Output Urine Total 375 ml 400 ml 850 ml 800 ml # Bowel Movements 1 Result Diagram: 08/24/1721 08/24/17 0621 Objective Remarks GENERAL: in NAD Resp: scant amount of diffuse expiratory wheezing that resolved with taking deep breaths. Chest tube in place. CARDIOVASCULAR: Regular rate and rhythm without murmurs, gallops, or rubs. RESPIRATORY: Breath sounds equal bilaterally. No accessory muscle use. GASTROINTESTINAL: Abdomen soft, non-tender, nondistended. MUSCULOSKELETAL: No cyanosis, or edema. BACK: Nontender without obvious deformity. No CVA tenderness. Procedures RIGHT PIGTAIL CATHETER FOR CHEST PNEUMOTHORAX Medications and IVs Current Medications Sodium Chloride (NS Flush) 2 ml UNSCH PRN IVF FLUSH AFTER USING IV ACCESS Last administered on 08/23/17at 21:05; Start 08/16/17 at 19:30 Cefazolin Sodium 1000 mg/Sodium Chloride 100 ml @ 200 mls/hr ONCE ONCE IV Last administered on 08/16/17t 19:59; Start 08/16/17 at 19:45; Stop 08/16/17 at 20:26; Status DC Gabapentin (Neurontin) 800 mg TID PO Last administered on 08/23/17 18:19; Start 08/17/17 at 09:00 Loratadine (Claritin) 10 mg DAILY PO Last administered on 08/23/17 10:18; Start 08/17/17 at 09:00 Trazodone HCl (Desyrel) 50 mg HS PO Last administered on 08/22/17 21:35; Start 08/17/17 at 21:00 Sodium Chloride 1,000 ml @ 50 mls/hr Q20H IV Last administered on 08/16/17 23:41; Start 08/16/17 at 23:15; Stop 08/17/17 at 05:30; Status DC Oxycodone/ Acetaminophen (Percocet 5-325 Mg) 1 tab Q4H PRN PO PAIN 1-5/10 Last administered on 08/17/17 03:21; Start 08/16/17 at 23:15 Oxycodone/ Acetaminophen (Percocet 10-325 Mg) 1 tab Q4H PRN PO PAIN 6-10/10 Last administered on 08/24/17 05:23; Start 08/16/17 at 23:15 Nicotine (Habitrol 21 Mg Patch.24 Hr) 1 patch DAILY T-DERMAL Last administered on 08/22/17 08:28; Start 08/17/17 at 09:00 Hydromorphone HCl (Dilaudid Pf Inj) 0.5 mg Q4H PRN IV PUSH BREAKTHROUGH PAIN Last administered on 08/18/17 15:09; Start 08/16/17 at 23:30; Stop 08/18/17 at 15:24; Status DC Albuterol/ Ipratropium (Duoneb Neb) 1 ampule Q4HR WHILE AWAKE NEB NEB Last administered on 08/20/17 19:54; Start 08/17/17 at 08:00; Stop 08/21/17 at 07: 59; Status DC Albuterol Sulfate (Albuterol Neb) 2.5 mg Q2HR NEB PRN NEB WHEEZING Last administered on 08/23/17 20:07; Start 08/16/17 at 23:45 Melatonin (Melatonin) 5 mg ONCE ONCE PO ; Start 08/17/17 at 01:30; Stop 08/17 at 01:48; Status DC Enoxaparin Sodium (Lovenox Inj) 40 mg Q24H SQ Last administered on 08/23/17 10: 13; Start 08/17/17 at 11:00 Famotidine (Pepcid) 20 mg BID PO Last administered on 08/23/17 21:00; Start at 21:00 Budesonide/ Formoterol Fumarate (Symbicort 160-4.5 Mcg Inh) 2 puff Q12HR INH Last administered on 08/23/17 08:20; Start 08/18/17 at 21:00 Hydromorphone HCl (Dilaudid Pf Inj) 1 mg Q4H PRN IV PUSH BREAKTHROUGH PAIN Last administered on 08/22/17 08:28; Start 08/18/17 at 16:00; Stop 08/23/17 at 10:28; Status DC Zolpidem Tartrate (Ambien) 5 mg HS PRN PO INSOMNIA Last administered on 01:23; Start 08/18/17 at 15:30 Ceftriaxone Sodium 1000 mg/ Sodium Chloride 100 ml @ 200 mls/hr Q24H IV Last administered on 08/23/17 10:14; Start 08/19/17 at 11:15 Azithromycin (Zithromax) 500 mg DAILY PO Last administered on 08/23/17 08:25; Start 08/19/17 at 11:15 Magnesium Hydroxide (Milk Of Magnesia Liq) 30 ml ONCE ONCE PO Last administered on 08/20/17t 18:35; Start 08/20/17 at 18:30; Stop 08/20/17 at 18 :31; Status DC Polyethylene Glycol (Miralax) 17 gm DAILY PO Last administered on 08/23/17 08: 24; Start 08/21/17 at 09:00 Lorazepam (Ativan Inj) 1 mg ONCE PRN IV PUSH ANXIETY; Start 08/21/17 at 10:30; Stop 08/21/17 at 18:00; Status DC Lorazepam (Ativan) 0.5 mg Q8H PRN PO anxiety Last administered on 08/24/17 06: 44; Start 08/23/17 at 10:00 A/P Assessment and Plan This is a 59-year-old male presented with pneumothorax Pneumothorax -Status post prior chest tube pleurodesis 07/31/17 -Has R apical pigtail catheter , placed 08/01/17 -chest tube placed right lateral chest wall 08/17/17. -Repeat chest x-ray done on 08/23 new small subpleural right pneumothorax. Chest tube now back to 10 cm suctioning. -Chest [address] surgery who are following patient. -DuoNeb every 4 hours. Albuterol every 2 hours as needed Left upper lobe Pulmonary nodules. -[facility]. COPD with chronic hypoxia/emphysema -Stable asymptomatic. Continue home meds. Tobacco abuse -smoking cessation Peripheral neuropathy -Neurontin 800 mg by mouth 3 times a day -Oxycodone as needed for pain. Chronic hyponatremia -Likely secondary to HCTZ. HCTZ on hold. -Resolved. Leukocytosis -Resolved. Most likely reactive. No signs of infection. -Resolved. Chronic Anemia -Asymptomatic. Follow up as outpatient. Anxiety -Patient given Ativan when necessary. He stated that it is situational due to being in the hospital with chest tube. Patient educated that this will not be given as outpatient. PROPH: SCDs and Lovenox for DVT prophylaxis. Famotidine for stress ulcer prophylaxis Laisha Longoria MD Aug 24, 2017 09:21
[2017-08-24] MEDS: LORATADINE 10 MG TAB PO SCH (09:23)
[2017-08-24] MEDS: GABAPENTIN 400 MG CAP PO SCH ×3 (09:23→18:00)
[2017-08-24] MEDS: cefTRIAXone INJ 1,000 MG in SODIUM CHLORIDE 0.9% INJ 100 ML IV SCH (09:23)
[2017-08-24] MEDS: ENOXAPARIN SODIUM 40 MG/0.4 ML SYRINGE SQ SCH (09:23)
[2017-08-24] MEDS: POLYETHYLENE GLYCOL 17 GM PKG PO SCH (09:23)
[2017-08-24] MEDS: FAMOTIDINE 20 MG TAB PO SCH ×2 (09:24→20:54)
[2017-08-24] MEDS: AZITHROMYCIN 250 MG TAB PO SCH (09:24)
--- NOTE | 2017-08-24 10:18 | HHI.FF ---
Face to Face Verification Diagnosis: (1) COPD exacerbation (2) Pneumothorax on right (3) Tobacco use disorder (4) Hypertension (5) Lung nodule, solitary Physical Therapy Order: Evaluate and Treat, Improve ambulation, Strength and gait training Home Health Nursing Order: Medical education Signs/symptoms of disease process Medication education-adverse effect I have seen patient Joel Johnson on 08/24/17. My clinical findings support the need for the requested home health care services because: Ltd mobility - disease progression Patient has SOB I certify that my clinical findings support that this patient is homebound because: Hx COPD- exertion dyspnea/weakness Laisha Longoria MD Aug 24, 2017 10:18
[2017-08-24 12:00] VITALS: BP 134/63; PULSE 88; RESP 18; TEMP 97.3; O2SAT 92
[2017-08-24 16:00] VITALS: BP 131/64; PULSE 74; RESP 16; TEMP 97.4; O2SAT 93
--- NOTE | 2017-08-24 16:16 | PD.CAR.PN ---
CVT Progress Note Subjective/Hospital Course: 61-year-old male with past medical history of COPD who was recently started on home oxygen who has history of recurrent right pneumothorax. Spontaneous pneumothorax initially occurred 07/20 when he rolled over in bed. He has had 3 prior admissions for this with multiple chest tubes. He has bleb disease. He underwent pleurodesis 07/31/[address] Buenrostro. He had recurrent PTX following this and [facility] was planning for [facility] management. However PTX started improving with chest tube to suction and surgery was deferred given his high operative risk (FEV1 0.6). He had residual R apical PTX and was discharged 08/11 with apical pigtail chest tube with pneumostat. He has been SOB x2 days, speaking short sentences. He had a followup CXR [facility] today in anticipation of his appt with Lori Barber tomorrow. CXR showed loculated PTX in R base and he was sent emergently to [facility] ED where ED physician placed a new chest tube. Lung has reexpanded. 08/17: Dr Barber spoke with Dr Caballero , continue conservative treatment for now , pt is high risk for thoracic surgery with FEV1 0.[address] to suction. Right upper pig tail chest tube dc . 08/18 chest tube to 20cm wall suction, no air leak minimal drainage continue current suction, still has small right apical PTX check CXR on Tuesday 08/22 CXR noted on 08/19 no PTX repeat CXR today no PTX, chest tube to water seal, no air leak recheck CXR in am, if no PTX with DC chest tube 08/23 CXR with new right sub pulmonic PTX, chest tube back to 10cm suction pt has very friable lungs, unfortunately did not tolerate Pneumostat in the past recheck CXR in am , has no air leak .. 08/24 cxr no ptx, will attempt water seal again cxr in am Objective: Vital Signs Date Time Temp Pulse Resp B/P (MAP) Pulse Ox O2 Delivery O2 Flow Rate FiO2 08/24/17 12:00 97.3 88 18 134/63 (86) 92 08/24/17 10:26 Nasal Cannula 2.00 21 08/24/17 08:00 96.0 73 17 141/62 (88) 96 08/24/17 00:00 96.6 89 21 133/71 (91) 96 08/23/17 21:30 100 Nasal Cannula 2.00 08/23/17 20:00 96.3 92 21 138/69 (92) 100 08/23/17 18:08 98 Nasal Cannula 2.00 Labs: Laboratory Tests Test 08/24/17 06:21 White Blood Count 10.4 TH/MM3 (4.0-11.0) Red Blood Count 3.10 MIL/MM3 (4.50-5.90) Hemoglobin 10.4 GM/DL (13.0-17.0) Hematocrit 30.1 % (39.0-51.0) Mean Corpuscular Volume 96.9 FL (80.0-100.0) Mean Corpuscular Hemoglobin 33.5 PG (27.0-34.0) Mean Corpuscular Hemoglobin Concent 34.5 % (32.0-36.0) Red Cell Distribution Width 14.3 % (11.6-17.2) Platelet Count 496 TH/MM3 (150-450) Mean Platelet Volume 7.1 FL (7.0-11.0) Blood Urea Nitrogen 13 MG/DL (7-18) Creatinine 0.66 MG/DL (0.60-1.30) Random Glucose 98 MG/DL (74-106) Calcium Level 8.7 MG/DL (8.5-10.1) Sodium Level 138 MEQ/L (136-145) Potassium Level 3.5 MEQ/L (3.5-5.1) Chloride Level 102 MEQ/L (98-107) Carbon Dioxide Level 30.3 MEQ/L (21.0-32.0) Anion Gap 6 MEQ/L (5-15) Estimat Glomerular Filtration Rate 122 ML/MIN (>89) Result Diagram: 08/24/17 0621 08/24/17 0621 (1) Recurrent spontaneous pneumothorax Plan: right lateral chest tube back to 10cm suction (2) Tobacco use disorder (3) COPD (chronic obstructive pulmonary disease) Plan: on mandie blood Jacqueline R. ARNP Aug 24, 2017 16:16
[2017-08-24 20:00] VITALS: BP 137/76; PULSE 104; RESP 20; TEMP 95.5; O2SAT 95
[2017-08-24] MEDS: traZODone HCL 50 MG TAB PO SCH (20:54)
[2017-08-24 22:16] VITALS: O2SAT 95
[2017-08-24] MEDS: oxyCODONE/ACETAMINOPHEN 5 MG/325 MG TAB PO PRN (22:41)
[2017-08-25] VITALS (7 sets, daily range): BP systolic 134–178; BP diastolic 67–81; PULSE 77–96; RESP 18–21; TEMP 95.7–98.1; O2SAT 9–99
[2017-08-25] MEDS: ZOLPIDEM TARTRATE 5 MG TAB PO PRN (01:43)
[2017-08-25] MEDS: oxyCODONE/ACETAMINOPHEN 10 MG/325 MG TAB PO PRN ×6 (02:46→23:42)
[2017-08-25] MEDS: LORazepam 0.5 MG TAB PO PRN ×2 (07:08→17:54)
--- NOTE | 2017-08-25 07:29 | RADRPT ---
EXAM DATE/TIME: 08/25/2017 06:44 [place] COMPARISON: No previous studies available for comparison. INDICATIONS : Short of breath, cough, evaluate right chest tube MEDICAL HISTORY : Chronic obstructive pulmonary disease. Emphysema. pneumothorax SURGICAL HISTORY : chest tube ENCOUNTER: Subsequent ACUITY: 1 month PAIN SCORE: 0/10 LOCATION: Right chest FINDINGS: Mild basilar consolidation and small pleural effusion again seen on the right. Right chest tube remai ns in place. There is some scarring of the right apex but I don't see a pneumothorax. Left lung remai ns reasonably clear. Heart size stable, normal. CONCLUSION: No significant change consolidation and small oral effusion on the right with a chest tube. No pneumo thorax seen. Smooth Pathak MD on August 25, 2017 at 7:27 Board Certified Radiologist. This report was verified electronically.
[2017-08-25] MEDS: NICOTINE 21 MG/24 HR PATCH T-DERMAL SCH (09:00)
[2017-08-25] MEDS: AZITHROMYCIN 250 MG TAB PO SCH (09:15)
[2017-08-25] MEDS: FAMOTIDINE 20 MG TAB PO SCH ×2 (09:15→22:32)
[2017-08-25] MEDS: BUDESONIDE-FORMOTEROL 160/4.5 MCG INHALER INH SCH ×2 (09:15→22:36)
[2017-08-25] MEDS: LORATADINE 10 MG TAB PO SCH (09:15)
[2017-08-25] MEDS: GABAPENTIN 400 MG CAP PO SCH ×3 (09:15→17:54)
[2017-08-25] MEDS: POLYETHYLENE GLYCOL 17 GM PKG PO SCH (09:15)
[2017-08-25] MEDS: ENOXAPARIN SODIUM 40 MG/0.4 ML SYRINGE SQ SCH (11:19)
--- NOTE | 2017-08-25 12:40 | HHI.PR ---
Subjective Remarks Follow-up for pneumothorax Patient denies any shortness of breathing or cough. He has no complaints. He remains afebrile. Objective Vitals Vital Signs Date Time Temp Pulse Resp B/P (MAP) Pulse Ox O2 Delivery O2 Flow Rate FiO2 08/25/17 12:00 96.8 88 18 142/70 (94) 97 08/25/17 08:00 95.7 82 18 157/74 (101) 95 08/25/17 04:00 97.4 77 21 166/77 (106) 96 08/25/17 03:46 18 08/25/17 01:43 20 08/25/17 00:00 98.1 92 21 155/72 (99) 9 08/24/17 22:16 95 Nasal Cannula 2.00 08/24/17 20:56 95 2.00 08/24/17 20:00 95.5 104 20 137/76 (96) 95 08/24/17 16:00 97.4 74 16 131/64 (86) 93 I/O 08/24/17 08/24/17 08/24/17 08/25/17 08/25/17 08/25/17 07:00 15:00 23:00 07:00 15:00 23:00 Intake Total 280 ml 1040 ml 240 ml Output Total 800 ml 1150 ml 304 ml Balance -520 ml -110 ml -64 ml Intake Oral 280 ml 1040 ml 240 ml Output Urine Total 800 ml 1150 ml 300 ml Chest Tube Drainage Total 4 ml # Bowel Movements 1 Result Diagram: 08/24/17 0621 08/24/17 0621 Imaging Last Impressions Chest X-Ray 08/25/17 0600 Signed Impressions: Service Date/Time: Friday, August 25, 2017 06:44 - CONCLUSION: No significant change consolidation and small oral effusion on the right with a chest tube. No pneumothorax seen. Smooth Pathak MD Objective Remarks GENERAL: in NAD Resp: scant amount of diffuse expiratory wheezing that resolved with taking deep breaths. Chest tube in place. CARDIOVASCULAR: Regular rate and rhythm without murmurs, gallops, or rubs. RESPIRATORY: Breath sounds equal bilaterally. No accessory muscle use. GASTROINTESTINAL: Abdomen soft, non-tender, nondistended. MUSCULOSKELETAL: No cyanosis, or edema. BACK: Nontender without obvious deformity. No CVA tenderness. Procedures RIGHT PIGTAIL CATHETER FOR CHEST PNEUMOTHORAX Medications and IVs Current Medications Sodium Chloride (NS Flush) 2 ml UNSCH PRN IVF FLUSH AFTER USING IV ACCESS Last administered on 08/23/17 21:05; Start 08/16/17 at 19:30 Cefazolin Sodium 1000 mg/Sodium Chloride 100 ml @ 200 mls/hr ONCE ONCE IV Last administered on 08/16/17 19:59; Start 08/16/17 at 19:45; Stop 08/16/17 at 20:26; Status DC Gabapentin (Neurontin) 800 mg TID PO Last administered on 08/25/17 12:15; Start 08/17/17 at 09:00 Loratadine (Claritin) 10 mg DAILY PO Last administered on 08/25/17 09:15; Start 08/17/17 at 09:00 Trazodone HCl (Desyrel) 50 mg HS PO Last administered on 08/22/17 21:35; Start 08/17/17 at 21:00 Sodium Chloride 1,000 ml @ 50 mls/hr Q20H IV Last administered on 08/16/17 23:41; Start 08/16/17 at 23:15; Stop 08/17/17 at 05:30; Status DC Oxycodone/ Acetaminophen (Percocet 5-325 Mg) 1 tab Q4H PRN PO PAIN 1-5/10 Last administered on 08/24/17 22:41; Start 08/16/17 at 23:15 Oxycodone/ Acetaminophen (Percocet 10-325 Mg) 1 tab Q4H PRN PO PAIN 6-10/10 Last administered on 08/25/17 11:19; Start 08/16/17 at 23:15 Nicotine (Habitrol 21 Mg Patch.24 Hr) 1 patch DAILY T-DERMAL Last administered on 08/22/17 08:28; Start 08/17/17 at 09:00 Hydromorphone HCl (Dilaudid Pf Inj) 0.5 mg Q4H PRN IV PUSH BREAKTHROUGH PAIN Last administered on 08/18/17 15:09; Start 08/16/17 at 23:30; Stop 08/18/17 at 15:24; Status DC Albuterol/ Ipratropium (Duoneb Neb) 1 ampule Q4HR WHILE AWAKE NEB NEB Last administered on 08/20/17 19:54; Start 08/17/17 at 08:00; Stop 08/21/17 at 07: 59; Status DC Albuterol Sulfate (Albuterol Neb) 2.5 mg Q2HR NEB PRN NEB WHEEZING Last administered on 08/23/17 20:07; Start 08/16/17 at 23:45 Melatonin (Melatonin) 5 mg ONCE ONCE PO ; Start 08/17/17 at 01:30; Stop 08/17 at 01:48; Status DC Enoxaparin Sodium (Lovenox Inj) 40 mg Q24H SQ Last administered on 08/25/17 11: 19; Start 08/17/17 at 11:00 Famotidine (Pepcid) 20 mg BID PO Last administered on 08/25/17 09:15; Start at 21:00 Budesonide/ Formoterol Fumarate (Symbicort 160-4.5 Mcg Inh) 2 puff Q12HR INH Last administered on 08/25/17 09:15; Start 08/18/17 at 21:00 Hydromorphone HCl (Dilaudid Pf Inj) 1 mg Q4H PRN IV PUSH BREAKTHROUGH PAIN Last administered on 08/22/17 08:28; Start 08/18/17 at 16:00; Stop 08/23/17 at 10:28; Status DC Zolpidem Tartrate (Ambien) 5 mg HS PRN PO INSOMNIA Last administered on 01:43; Start 08/18/17 at 15:30 Ceftriaxone Sodium 1000 mg/ Sodium Chloride 100 ml @ 200 mls/hr Q24H IV Last administered on 08/24/17 09:23; Start 08/19/17 at 11:15; Stop 08/25/17 at 10:27 ; Status DC Azithromycin (Zithromax) 500 mg DAILY PO Last administered on 08/25/17 09:15; Start 08/19/17 at 11:15; Stop 08/25/17 at 10:27; Status DC Magnesium Hydroxide (Milk Of Magnesia Liq) 30 ml ONCE ONCE PO Last administered on 08/20/17 18:35; Start 08/20/17 at 18:30; Stop 08/20/17 at 18 :31; Status DC Polyethylene Glycol (Miralax) 17 gm DAILY PO Last administered on 08/25/17at 09: 15; Start 08/21/17 at 09:00 Lorazepam (Ativan Inj) 1 mg ONCE PRN IV PUSH ANXIETY; Start 08/21/17 at 10:30; Stop 08/21/17 at 18:00; Status DC Lorazepam (Ativan) 0.5 mg Q8H PRN PO anxiety Last administered on 08/25/17at 07: 08; Start 08/23/17 at 10:00 Levofloxacin (Levaquin) 750 mg DAILY PO ; Start 08/26/17 at 09:00; Stop 08/28/17 at 08:59 A/P Assessment and Plan This is a 59-year-old male presented with pneumothorax Pneumothorax -Status post prior chest tube pleurodesis 07/31/17 -Has R apical pigtail catheter , placed 08/01/17 -chest tube placed right lateral chest wall 08/17/17. -Repeat chest x-ray done on 08/23 new small subpleural right pneumothorax. Chest tube now back to 10 cm suctioning. -Chest [address] surgery who are following patient. -DuoNeb every 4 hours. Albuterol every 2 hours as needed Left upper lobe Pulmonary nodules with left lung consolidation. -Chest x-ray stable. Patient currently on Rocephin and Zithromax. Since patient clinically is doing well we will discontinue IV antibiotics and start oral Levaquin. -[facility] as an [facility]. COPD with chronic hypoxia/emphysema -Stable asymptomatic. Continue home meds. Tobacco abuse -smoking cessation Peripheral neuropathy -Neurontin 800 mg by mouth 3 times a day -Oxycodone as needed for pain. Chronic hyponatremia -Likely secondary to HCTZ. HCTZ on hold. -Resolved. Leukocytosis -Resolved. Most likely reactive. No signs of infection. -Resolved. Chronic Anemia -Asymptomatic. Follow up as outpatient. Anxiety -Patient given Ativan when necessary. He stated that it is situational due to being in the hospital with chest tube. Patient educated that this will not be given as outpatient. PROPH: SCDs and Lovenox for DVT prophylaxis. Famotidine for stress ulcer prophylaxis Laisha Longoria MD Aug 25, 2017 12:40
--- NOTE | 2017-08-25 14:17 | PD.CAR.PN ---
CVT Progress Note Subjective/Hospital Course: 61-year-old male with past medical history of COPD who was recently started on home oxygen who has history of recurrent right pneumothorax. Spontaneous pneumothorax initially occurred 07/20 when he rolled over in bed. He has had 3 prior admissions for this with multiple chest tubes. He has bleb disease. He underwent pleurodesis 07/31/[address] Buenrostro. He had recurrent PTX following this and [facility] was planning [facility]. However PTX started improving with chest tube to suction and surgery was deferred given his high operative risk (FEV1 0.6). He had residual R apical PTX and was discharged 08/11 with apical pigtail chest tube with pneumostat. He has been SOB x2 days, speaking short sentences. He had a followup CXR at the OR today in anticipation of his appt with Lori Barber tomorrow. CXR showed loculated PTX in R base and he was sent emergently to [facility] ED where ED physician placed a new chest tube. Lung has reexpanded. 08/17: Dr Barber spoke with Dr Caballero , continue conservative treatment for now , pt is high risk for thoracic surgery with FEV1 0.[address] to suction. Right upper pig tail chest tube dc . 08/18 chest tube to 20cm wall suction, no air leak minimal drainage continue current suction, still has small right apical PTX check CXR on Tuesday 08/22 CXR noted on 08/19 no PTX repeat CXR today no PTX, chest tube to water seal, no air leak recheck CXR in am, if no PTX with DC chest tube 08/23 CXR with new right sub pulmonic PTX, chest tube back to 10cm suction pt has very friable lungs, unfortunately did not tolerate Pneumostat in the past recheck CXR in am , has no air leak .. 08/24 cxr no ptx, will attempt water seal again cxr in am 08/25 no PTX on CXR will keep to water seal, hold on removing today re-eval CXR on monday am, then if CXR stable / clamp tubing for 24 hrs then eval for removal consult pt Objective: GENERAL: SKIN: Warm and dry. dressing in place right lateral chest wall HEAD: Normocephalic. EYES: No scleral icterus. No injection or drainage. NECK: Supple, trachea midline. No JVD or lymphadenopathy. CARDIOVASCULAR: Regular rate and rhythm without murmurs, gallops, or rubs. RESPIRATORY: Breath sounds equal bilaterally. No accessory muscle use. GASTROINTESTINAL: Abdomen soft, non-tender, nondistended. MUSCULOSKELETAL: No cyanosis, or edema. BACK: Nontender without obvious deformity. No CVA tenderness. Vital Signs Date Time Temp Pulse Resp B/P (MAP) Pulse Ox O2 Delivery O2 Flow Rate FiO2 08/25/17 12:00 96.8 88 18 142/70 (94) 97 08/25/17 08:00 95.7 82 18 157/74 (101) 95 08/25/17 04:00 97.4 77 21 166/77 (106) 96 08/25/17 03:46 18 08/25/17 01:43 20 08/25/17 00:00 98.1 92 21 155/72 (99) 9 08/24/17 22:16 95 Nasal Cannula 2.00 08/24/17 20:56 95 2.00 08/24/17 20:00 95.5 104 20 137/76 (96) 95 08/24/17 16:00 97.4 74 16 131/64 (86) 93 Result Diagram: 08/24/17 0621 08/24/17 0621 (1) Recurrent spontaneous pneumothorax Plan: chest tube to water seal , eval on monday to clamp for 24 hrs, then eval for removal pt needs to be OOB, ambulate re-consult PT (2) Tobacco use disorder (3) COPD (chronic obstructive pulmonary disease) Plan: on mandie blood Jacqueline R. ARNP Aug 25, 2017 14:17
[2017-08-25] MEDS: traZODone HCL 50 MG TAB PO SCH (21:00)
[2017-08-26] VITALS: BP 136/62; PULSE 93; RESP 18; TEMP 96.3; O2SAT 97
[2017-08-26] MEDS: ZOLPIDEM TARTRATE 5 MG TAB PO PRN (01:18)
[2017-08-26] MEDS: oxyCODONE/ACETAMINOPHEN 10 MG/325 MG TAB PO PRN ×5 (06:15→23:17)
[2017-08-26 08:00] VITALS: BP 162/83; PULSE 82; RESP 17; TEMP 96; O2SAT 97
[2017-08-26] MEDS: BUDESONIDE-FORMOTEROL 160/4.5 MCG INHALER INH SCH ×2 (08:31→20:16)
[2017-08-26] MEDS: POLYETHYLENE GLYCOL 17 GM PKG PO SCH (08:39)
[2017-08-26] MEDS: LORATADINE 10 MG TAB PO SCH (08:39)
[2017-08-26] MEDS: GABAPENTIN 400 MG CAP PO SCH ×3 (08:40→17:03)
[2017-08-26] MEDS: LEVOFLOXACIN 750 MG TAB PO SCH (08:40)
[2017-08-26] MEDS: FAMOTIDINE 20 MG TAB PO SCH ×2 (08:40→20:16)
[2017-08-26] MEDS: NICOTINE 21 MG/24 HR PATCH T-DERMAL SCH (08:40)
[2017-08-26] MEDS: LORazepam 0.5 MG TAB PO PRN (10:31)
--- NOTE | 2017-08-26 10:36 | HHI.PR ---
Subjective Remarks f/u for PTX patient has no complaints. He stated he is walking around his room with no difficulty. Denied any SOB or cough. he stated he is doing well. Objective Vitals Vital Signs Date Time Temp Pulse Resp B/P (MAP) Pulse Ox O2 Delivery O2 Flow Rate FiO2 08/26/17 08:00 Room Air 08/26/17 08:00 96.0 82 17 162/83 (109) 97 08/26/17 00:00 96.3 93 18 136/62 (86) 97 08/25/17 20:00 96.3 96 18 134/67 (89) 96 08/25/17 17:40 99 21 08/25/17 16:00 96.5 90 18 178/81 (113) 99 08/25/17 12:00 96.8 88 18 142/70 (94) 97 I/O 08/25/17 08/25/17 08/25/17 08/26/17 08/26/17 08/26/17 07:00 15:00 23:00 07:00 15:00 23:00 Intake Total 240 ml 2100 ml 360 ml Output Total 304 ml 1750 ml 600 ml Balance -64 ml 350 ml -240 ml Intake Oral 240 ml 2100 ml 360 ml Output Urine Total 300 ml 1750 ml 600 ml Chest Tube Drainage Total 4 ml 0 ml 0 ml # Bowel Movements 1 0 Result Diagram: 08/24/1762008/24/17 0621 Objective Remarks GENERAL: in NAD Resp: CTA B/L Chest tube in place. CARDIOVASCULAR: Regular rate and rhythm without murmurs, gallops, or rubs. RESPIRATORY: Breath sounds equal bilaterally. No accessory muscle use. GASTROINTESTINAL: Abdomen soft, non-tender, nondistended. MUSCULOSKELETAL: No cyanosis, or edema. BACK: Nontender without obvious deformity. No CVA tenderness. Procedures RIGHT PIGTAIL CATHETER FOR CHEST PNEUMOTHORAX Medications and IVs Current Medications Sodium Chloride (NS Flush) 2 ml UNSCH PRN IVF FLUSH AFTER USING IV ACCESS Last administered on 08/23/17at 21:05; Start 08/16/17 at 19:30 Cefazolin Sodium 1000 mg/Sodium Chloride 100 ml @ 200 mls/hr ONCE ONCE IV Last administered on 08/16/17t 19:59; Start 08/16/17 at 19:45; Stop 08/16/17 at 20:26; Status DC Gabapentin (Neurontin) 800 mg TID PO Last administered on 08/26/17 08:40; Start 08/17/17 at 09:00 Loratadine (Claritin) 10 mg DAILY PO Last administered on 08/26/17 08:39; Start 08/17/17 at 09:00 Trazodone HCl (Desyrel) 50 mg HS PO Last administered on 08/22/17 21:35; Start 08/17/17 at 21:00 Sodium Chloride 1,000 ml @ 50 mls/hr Q20H IV Last administered on 08/16/17 23:41; Start 08/16/17 at 23:15; Stop 08/17/17 at 05:30; Status DC Oxycodone/ Acetaminophen (Percocet 5-325 Mg) 1 tab Q4H PRN PO PAIN 1-5/10 Last administered on 08/24/17 22:41; Start 08/16/17 at 23:15 Oxycodone/ Acetaminophen (Percocet 10-325 Mg) 1 tab Q4H PRN PO PAIN 6-10/10 Last administered on 08/26/17 06:15; Start 08/16/17 at 23:15 Nicotine (Habitrol 21 Mg Patch.24 Hr) 1 patch DAILY T-DERMAL Last administered on 08/22/17 08:28; Start 08/17/17 at 09:00 Hydromorphone HCl (Dilaudid Pf Inj) 0.5 mg Q4H PRN IV PUSH BREAKTHROUGH PAIN Last administered on 08/18/17 15:09; Start 08/16/17 at 23:30; Stop 08/18/17 at 15:24; Status DC Albuterol/ Ipratropium (Duoneb Neb) 1 ampule Q4HR WHILE AWAKE NEB NEB Last administered on 08/20/17 19:54; Start 08/17/17 at 08:00; Stop 08/21/17 at 07: 59; Status DC Albuterol Sulfate (Albuterol Neb) 2.5 mg Q2HR NEB PRN NEB WHEEZING Last administered on 08/23/17 20:07; Start 08/16/17 at 23:45 Melatonin (Melatonin) 5 mg ONCE ONCE PO ; Start 08/17/17 at 01:30; Stop 08/17 at 01:48; Status DC Enoxaparin Sodium (Lovenox Inj) 40 mg Q24H SQ Last administered on 08/25/17 11: 19; Start 08/17/17 at 11:00 Famotidine (Pepcid) 20 mg BID PO Last administered on 08/26/17 08:40; Start at 21:00 Budesonide/ Formoterol Fumarate (Symbicort 160-4.5 Mcg Inh) 2 puff Q12HR INH Last administered on 08/26/17 08:31; Start 08/18/17 at 21:00 Hydromorphone HCl (Dilaudid Pf Inj) 1 mg Q4H PRN IV PUSH BREAKTHROUGH PAIN Last administered on 08/22/17 08:28; Start 08/18/17 at 16:00; Stop 08/23/17 at 10:28; Status DC Zolpidem Tartrate (Ambien) 5 mg HS PRN PO INSOMNIA Last administered on 01:18; Start 08/18/17 at 15:30 Ceftriaxone Sodium 1000 mg/ Sodium Chloride 100 ml @ 200 mls/hr Q24H IV Last administered on 08/24/17 09:23; Start 08/19/17 at 11:15; Stop 08/25/17 at 10:27 ; Status DC Azithromycin (Zithromax) 500 mg DAILY PO Last administered on 08/25/17 09:15; Start 08/19/17 at 11:15; Stop 08/25/17 at 10:27; Status DC Magnesium Hydroxide (Milk Of Magnesia Liq) 30 ml ONCE ONCE PO Last administered on 08/20/17t 18:35; Start 08/20/17 at 18:30; Stop 08/20/17 at 18 :31; Status DC Polyethylene Glycol (Miralax) 17 gm DAILY PO Last administered on 08/25/17 09: 15; Start 08/21/17 at 09:00 Lorazepam (Ativan Inj) 1 mg ONCE PRN IV PUSH ANXIETY; Start 08/21/17 at 10:30; Stop 08/21/17 at 18:00; Status DC Lorazepam (Ativan) 0.5 mg Q8H PRN PO anxiety Last administered on 08/25/17 17: 54; Start 08/23/17 at 10:00 Levofloxacin (Levaquin) 750 mg DAILY PO Last administered on 08/26/17at 08:40; Start 08/26/17 at 09:00; Stop 08/28/17 at 08:59 A/P Assessment and Plan This is a 59-year-old male presented with pneumothorax Pneumothorax -Status post prior chest tube pleurodesis 07/31/17 -Has R apical pigtail catheter , placed 08/01/17 -chest tube placed right lateral chest wall 08/17/17. -Repeat chest x-ray done on 08/23 new small subpleural right pneumothorax. - repeat CXR 08/25 negative. - Per CT will clamp on Monday if continues to do well and if does well can be removed. -DuoNeb every 4 hours. Albuterol every 2 hours as needed Left upper lobe Pulmonary nodules with left lung consolidation. -Chest x-ray stable. s/p Rocephin and azithromycin. -will place on levaquin. COPD with chronic hypoxia/emphysema -Stable asymptomatic. Continue home meds. Tobacco abuse -smoking cessation Peripheral neuropathy -Neurontin 800 mg by mouth 3 times a day -Oxycodone as needed for pain. Chronic hyponatremia -Likely secondary to HCTZ. HCTZ on hold. -Resolved. Leukocytosis -Resolved. Most likely reactive. No signs of infection. -Resolved. Chronic Anemia -Asymptomatic. Follow up as outpatient. Anxiety -Patient given Ativan when necessary. He stated that it is situational due to being in the hospital with chest tube. Patient educated that this will not be given as outpatient. PROPH: SCDs and Lovenox for DVT prophylaxis. Famotidine for stress ulcer prophylaxis Discharge Planning complicated case due to multiple Ptx. Possible d/c on Monday. Laisha Longoria MD Aug 26, 2017 10:36
[2017-08-26 12:00] VITALS: BP 169/82; PULSE 96; RESP 17; TEMP 95.9; O2SAT 94
[2017-08-26] MEDS: ENOXAPARIN SODIUM 40 MG/0.4 ML SYRINGE SQ SCH (12:18)
[2017-08-26 16:00] VITALS: BP 140/71; PULSE 94; RESP 17; TEMP 96.7; O2SAT 97
[2017-08-26] MEDS: traZODone HCL 50 MG TAB PO SCH (20:16)
[2017-08-26 20:35] VITALS: BP 159/75; PULSE 89; RESP 21; TEMP 96.2; O2SAT 96
[2017-08-27 00:28] VITALS: BP 139/67; PULSE 90; RESP 21; TEMP 97.6; O2SAT 96
[2017-08-27] MEDS: ZOLPIDEM TARTRATE 5 MG TAB PO PRN (00:52)
[2017-08-27] MEDS: oxyCODONE/ACETAMINOPHEN 10 MG/325 MG TAB PO PRN ×5 (03:32→20:25)
[2017-08-27 04:00] VITALS: BP 146/68; PULSE 77; RESP 16; TEMP 98.2; O2SAT 97
--- NOTE | 2017-08-27 05:36 | RADRPT ---
EXAM DATE/TIME: 08/27/2017 04:57 [facility] COMPARISON: CHEST SINGLE AP, August 23, 2017, 6:39. CHEST SINGLE AP, August 07, 2017, 12:02. CHEST SINGLE AP , August 25, 2017, 6:44. INDICATIONS : Rule out pneumothorax. MEDICAL HISTORY : Chronic obstructive pulmonary disease. Emphysema. pneumothorax SURGICAL HISTORY : chest tube ENCOUNTER: Subsequent ACUITY: 1 month PAIN SCORE: 0/10 LOCATION: Bilateral chest FINDINGS: Single AP view of the chest. Decrease in right basilar opacity indicating decreased parenchymal opaci ty/pleural effusion. Right apical opacity unchanged. Right-sided chest tube remains in place. No evid ence of pneumothorax. CONCLUSION: Decrease in right lung base opacity indicating decreased parenchymal opacity/decreased pleural effusi on. Jack Oseguera MD on August 27, 2017 at 5:32 Board Certified Radiologist. This report was verified electronically.
[2017-08-27 08:00] VITALS: BP 172/84; PULSE 75; RESP 17; TEMP 96.7; O2SAT 100
[2017-08-27] MEDS: BUDESONIDE-FORMOTEROL 160/4.5 MCG INHALER INH SCH ×2 (08:06→20:25)
[2017-08-27] MEDS: NICOTINE 21 MG/24 HR PATCH T-DERMAL SCH (08:06)
[2017-08-27] MEDS: LORATADINE 10 MG TAB PO SCH (08:07)
[2017-08-27] MEDS: GABAPENTIN 400 MG CAP PO SCH ×3 (08:07→17:32)
[2017-08-27] MEDS: LEVOFLOXACIN 750 MG TAB PO SCH (08:07)
[2017-08-27] MEDS: FAMOTIDINE 20 MG TAB PO SCH ×2 (08:08→20:25)
[2017-08-27] MEDS: POLYETHYLENE GLYCOL 17 GM PKG PO SCH (08:08)
--- NOTE | 2017-08-27 10:27 | HHI.PR ---
Subjective Remarks f/u PTX patient stated he feels great. he is very anxious to go home and asking about the clamping. Denied any SOB or cough. remains afebrile. Objective Vitals Vital Signs Date Time Temp Pulse Resp B/P (MAP) Pulse Ox O2 Delivery O2 Flow Rate FiO2 08/27/17 08:00 96.7 75 17 172/84 (113) 100 08/27/17 08:00 Room Air 08/27/17 04:00 98.2 77 16 146/68 (94) 97 08/27/17 03:33 18 08/27/17 00:28 97.6 90 21 139/67 (91) 96 08/26/17 20:35 96.2 89 21 159/75 (103) 96 08/26/17 20:18 2.00 08/26/17 16:00 96.7 94 17 140/71 (94) 97 08/26/17 12:00 95.9 96 17 169/82 (111) 94 I/O 08/26/17 08/26/17 08/26/17 08/27/17 08/27/17 08/27/17 07:00 15:00 23:00 07:00 15:00 23:00 Intake Total 360 ml 1920 ml 680 ml Output Total 600 ml 450 ml 400 ml Balance -240 ml 1470 ml 280 ml Intake Oral 360 ml 1920 ml 680 ml Output Urine Total 600 ml 450 ml 400 ml Chest Tube Drainage Total 0 ml 0 ml # Voids 4 # Bowel Movements 0 0 0 Result Diagram: 08/24/1762008/24/1721 Objective Remarks GENERAL: in NAD Resp: CTA B/L Chest tube in place. CARDIOVASCULAR: Regular rate and rhythm without murmurs, gallops, or rubs. RESPIRATORY: Breath sounds equal bilaterally. No accessory muscle use. GASTROINTESTINAL: Abdomen soft, non-tender, nondistended. MUSCULOSKELETAL: No cyanosis, or edema. BACK: Nontender without obvious deformity. No CVA tenderness. Procedures RIGHT PIGTAIL CATHETER FOR CHEST PNEUMOTHORAX Medications and IVs Current Medications Sodium Chloride (NS Flush) 2 ml UNSCH PRN IVF FLUSH AFTER USING IV ACCESS Last administered on 08/23/17at 21:05; Start 08/16/17 at 19:30 Cefazolin Sodium 1000 mg/Sodium Chloride 100 ml @ 200 mls/hr ONCE ONCE IV Last administered on 08/16/17 19:59; Start 08/16/17 at 19:45; Stop 08/16/17 at 20:26; Status DC Gabapentin (Neurontin) 800 mg TID PO Last administered on 08/27/17 08:07; Start 08/17/17 at 09:00 Loratadine (Claritin) 10 mg DAILY PO Last administered on 08/27/17 08:07; Start 08/17/17 at 09:00 Trazodone HCl (Desyrel) 50 mg HS PO Last administered on 08/22/17 21:35; Start 08/17/17 at 21:00 Sodium Chloride 1,000 ml @ 50 mls/hr Q20H IV Last administered on 08/16/17 23:41; Start 08/16/17 at 23:15; Stop 08/17/17 at 05:30; Status DC Oxycodone/ Acetaminophen (Percocet 5-325 Mg) 1 tab Q4H PRN PO PAIN 1-5/10 Last administered on 08/24/17 22:41; Start 08/16/17 at 23:15 Oxycodone/ Acetaminophen (Percocet 10-325 Mg) 1 tab Q4H PRN PO PAIN 6-10/10 Last administered on 08/27/17 08:08; Start 08/16/17 at 23:15 Nicotine (Habitrol 21 Mg Patch.24 Hr) 1 patch DAILY T-DERMAL Last administered on 08/22/17 08:28; Start 08/17/17 at 09:00 Hydromorphone HCl (Dilaudid Pf Inj) 0.5 mg Q4H PRN IV PUSH BREAKTHROUGH PAIN Last administered on 08/18/17 15:09; Start 08/16/17 at 23:30; Stop 08/18/17 at 15:24; Status DC Albuterol/ Ipratropium (Duoneb Neb) 1 ampule Q4HR WHILE AWAKE NEB NEB Last administered on 08/20/17 19:54; Start 08/17/17 at 08:00; Stop 08/21/17 at 07: 59; Status DC Albuterol Sulfate (Albuterol Neb) 2.5 mg Q2HR NEB PRN NEB WHEEZING Last administered on 08/23/17 20:07; Start 08/16/17 at 23:45 Melatonin (Melatonin) 5 mg ONCE ONCE PO ; Start 08/17/17 at 01:30; Stop 08/17 at 01:48; Status DC Enoxaparin Sodium (Lovenox Inj) 40 mg Q24H SQ Last administered on 08/26/17 12: 18; Start 08/17/17 at 11:00 Famotidine (Pepcid) 20 mg BID PO Last administered on 08/27/17 08:08; Start at 21:00 Budesonide/ Formoterol Fumarate (Symbicort 160-4.5 Mcg Inh) 2 puff Q12HR INH Last administered on 08/27/17 08:06; Start 08/18/17 at 21:00 Hydromorphone HCl (Dilaudid Pf Inj) 1 mg Q4H PRN IV PUSH BREAKTHROUGH PAIN Last administered on 08/22/17 08:28; Start 08/18/17 at 16:00; Stop 08/23/17 at 10:28; Status DC Zolpidem Tartrate (Ambien) 5 mg HS PRN PO INSOMNIA Last administered on 00:52; Start 08/18/17 at 15:30 Ceftriaxone Sodium 1000 mg/ Sodium Chloride 100 ml @ 200 mls/hr Q24H IV Last administered on 08/24/17 09:23; Start 08/19/17 at 11:15; Stop 08/25/17 at 10:27 ; Status DC Azithromycin (Zithromax) 500 mg DAILY PO Last administered on 08/25/17 09:15; Start 08/19/17 at 11:15; Stop 08/25/17 at 10:27; Status DC Magnesium Hydroxide (Milk Of Magnesia Liq) 30 ml ONCE ONCE PO Last administered on 08/20/17t 18:35; Start 08/20/17 at 18:30; Stop 08/20/17 at 18 :31; Status DC Polyethylene Glycol (Miralax) 17 gm DAILY PO Last administered on 08/27/17 08: 08; Start 08/21/17 at 09:00 Lorazepam (Ativan Inj) 1 mg ONCE PRN IV PUSH ANXIETY; Start 08/21/17 at 10:30; Stop 08/21/17 at 18:00; Status DC Lorazepam (Ativan) 0.5 mg Q8H PRN PO anxiety Last administered on 08/26/17at 10: 31; Start 08/23/17 at 10:00 Levofloxacin (Levaquin) 750 mg DAILY PO Last administered on 08/27/17at 08:07; Start 08/26/17 at 09:00; Stop 08/28/17 at 08:59 A/P Assessment and Plan This is a 59-year-old male presented with pneumothorax Pneumothorax -Status post prior chest tube pleurodesis 07/31/17 -Has R apical pigtail catheter , placed 08/01/17 -chest tube placed right lateral chest wall 08/17/17. -Repeat chest x-ray done on 08/23 new small subpleural right pneumothorax. - repeat CXR 08/25 negative. -CXR 08/27 decrease RLL opacity. - Per CT will clamp on today if continues to do well and if does well can be removed pending their recs for today. -DuoNeb every 4 hours. Albuterol every 2 hours as needed Left upper lobe Pulmonary nodules with left lung consolidation. -Chest x-ray stable. s/p Rocephin and azithromycin. -on levaquin. COPD with chronic hypoxia/emphysema -Stable asymptomatic. Continue home meds. Tobacco abuse -smoking cessation Peripheral neuropathy -Neurontin 800 mg by mouth 3 times a day -Oxycodone as needed for pain. Chronic hyponatremia -Likely secondary to HCTZ. HCTZ on hold. -Resolved. Leukocytosis -Resolved. Most likely reactive. No signs of infection. -Resolved. Chronic Anemia -Asymptomatic. Follow up as outpatient. Anxiety -Patient given Ativan when necessary. He stated that it is situational due to being in the hospital with chest tube. Patient educated that this will not be given as outpatient. PROPH: SCDs and Lovenox for DVT prophylaxis. Famotidine for stress ulcer prophylaxis Discharge Planning complicated case due to multiple Ptx. Possible d/c on Monday. Laisha Longoria MD Aug 27, 2017 10:27
--- NOTE | 2017-08-27 11:00 | PD.CAR.PN ---
CVT Progress Note Subjective/Hospital Course: 61-year-old male with past medical history of COPD who was recently started on home oxygen who has history of recurrent right pneumothorax. Spontaneous pneumothorax initially occurred 07/20 when he rolled over in bed. He has had 3 prior admissions for this with multiple chest tubes. He has bleb disease. He underwent pleurodesis 07/31/[address] Buenrostro. He had recurrent PTX following this and [facility] was planning for surgical management. However PTX started improving with chest tube to suction and surgery was deferred given his high operative risk (FEV1 0.6). He had residual R apical PTX and was discharged 08/11 with apical pigtail chest tube with pneumostat. He has been SOB x2 days, speaking short sentences. He had a followup CXR at the [facility] today in anticipation of his appt with Lori Barber tomorrow. CXR showed loculated PTX in R base and he was sent emergently to [facility] ED where ED physician placed a new chest tube. Lung has reexpanded. 08/17: Dr Barber spoke with Dr Caballero , continue conservative treatment for now , pt is high risk for thoracic surgery with FEV1 0.[address] to suction. Right upper pig tail chest tube dc . 08/18 chest tube to 20cm wall suction, no air leak minimal drainage continue current suction, still has small right apical PTX check CXR on Tuesday 08/22 CXR noted on 08/19 no PTX repeat CXR today no PTX, chest tube to water seal, no air leak recheck CXR in am, if no PTX with DC chest tube 08/23 CXR with new right sub pulmonic PTX, chest tube back to 10cm suction pt has very friable lungs, unfortunately did not tolerate Pneumostat in the past recheck CXR in am , has no air leak .. 08/24 cxr no ptx, will attempt water seal again cxr in am 08/25 no PTX on CXR will keep to water seal, hold on removing today re-eval CXR on monday am, then if CXR stable / clamp tubing for 24 hrs then eval for removal consult pt 08/27 Doing well. Denies SOB CXR looks better No air-leak on CT. Will clamp CT today with CXR in am If am CXR without changes maybe able to D/C CT tomorrow. Objective: Vital Signs Date Time Temp Pulse Resp B/P (MAP) Pulse Ox O2 Delivery O2 Flow Rate FiO2 08/27/17 08:00 96.7 75 17 172/84 (113) 100 08/27/17 08:00 Room Air 08/27/17 04:00 98.2 77 16 146/68 (94) 97 08/27/17 03:33 18 08/27/17 00:28 97.6 90 21 139/67 (91) 96 08/26/17 20:35 96.2 89 21 159/75 (103) 96 08/26/17 20:18 2.00 08/26/17 16:00 96.7 94 17 140/71 (94) 97 08/26/17 12:00 95.9 96 17 169/82 (111) 94 Result Diagram: 08/24/17 0621 08/24/17 0621 (1) Recurrent spontaneous pneumothorax Plan: chest tube to water seal , eval on monday to clamp for 24 hrs, then eval for removal pt needs to be OOB, ambulate re-consult PT (2) Tobacco use disorder (3) COPD (chronic obstructive pulmonary disease) Plan: on banners, Teresa Wang MD Aug 27, 2017 11:00
[2017-08-27] MEDS: ENOXAPARIN SODIUM 40 MG/0.4 ML SYRINGE SQ SCH (11:56)
[2017-08-27] MEDS: LORazepam 0.5 MG TAB PO PRN (11:57)
[2017-08-27 12:00] VITALS: BP 147/78; PULSE 96; RESP 17; TEMP 96; O2SAT 97
[2017-08-27 16:00] VITALS: BP 154/75; PULSE 83; RESP 17; TEMP 95.5; O2SAT 94
[2017-08-27 20:00] VITALS: BP 141/72; PULSE 82; RESP 18; TEMP 96.4; O2SAT 95
[2017-08-27] MEDS: traZODone HCL 50 MG TAB PO SCH (20:25)
[2017-08-28] MEDS: oxyCODONE/ACETAMINOPHEN 10 MG/325 MG TAB PO PRN ×4 (00:26→13:07)
[2017-08-28 00:40] VITALS: BP 142/67; PULSE 80; RESP 16; TEMP 97.9; O2SAT 97
[2017-08-28] MEDS: ZOLPIDEM TARTRATE 5 MG TAB PO PRN (01:46)
[2017-08-28 05:27] VITALS: BP 146/65; PULSE 78; RESP 18; TEMP 97.4; O2SAT 94
[2017-08-28 08:00] VITALS: BP 171/80; PULSE 85; RESP 18; TEMP 96; O2SAT 99
--- NOTE | 2017-08-28 08:06 | RADRPT ---
EXAM DATE/TIME: 08/28/2017 07:53 [facility] COMPARISON: CHEST SINGLE AP, August 27, 2017, 4:57. INDICATIONS : Rule out pneumothorax. MEDICAL HISTORY : Chronic obstructive pulmonary disease. Emphysema. pneumothorax SURGICAL HISTORY : Chest tube. ENCOUNTER: Subsequent ACUITY: 3 weeks PAIN SCORE: 0/10 LOCATION: Bilateral chest FINDINGS: PA and lateral views of the chest demonstrates hyperinflation which can be seen with CO PD. Right-sided chest tube without pneumothorax. Scattered interstitial densities greater in the uppe r lobes. Heart is normal in size. The mediastinal contours are unremarkable. Osseous structures are intact. CONCLUSION: Hyperinflation which can be seen with COPD. Right sided chest tube without pneu mothorax. Interstitial changes. Gasper Thornton MD on August 28, 2017 at 8:03 Board Certified Radiologist. This report was verified electronically.
[2017-08-28] MEDS: NICOTINE 21 MG/24 HR PATCH T-DERMAL SCH (09:00)
[2017-08-28] MEDS: POLYETHYLENE GLYCOL 17 GM PKG PO SCH (09:00)
[2017-08-28] MEDS: LORATADINE 10 MG TAB PO SCH (09:11)
[2017-08-28] MEDS: ENOXAPARIN SODIUM 40 MG/0.4 ML SYRINGE SQ SCH (09:11)
[2017-08-28] MEDS: GABAPENTIN 400 MG CAP PO SCH ×2 (09:11→13:06)
[2017-08-28] MEDS: FAMOTIDINE 20 MG TAB PO SCH (09:11)
[2017-08-28] MEDS: BUDESONIDE-FORMOTEROL 160/4.5 MCG INHALER INH SCH (09:17)
--- NOTE | 2017-08-28 10:08 | HHI.PR ---
Subjective Remarks f/u for Ptx patient has no complaints. Denied any SOB or cough. He is very anxious to home. He stated CT is going to be pull out soon. Objective Vitals Vital Signs Date Time Temp Pulse Resp B/P (MAP) Pulse Ox O2 Delivery O2 Flow Rate FiO2 08/28/17 08:00 96.0 85 18 171/80 (110) 99 08/28/17 05:27 97.4 78 18 146/65 (92) 94 08/28/17 01:26 18 08/28/17 00:40 97.9 80 16 142/67 (92) 97 08/27/17 21:00 Room Air 08/27/17 20:00 96.4 82 18 141/72 (95) 95 08/27/17 16:00 95.5 83 17 154/75 (101) 94 08/27/17 12:00 96.0 96 17 147/78 (101) 97 I/O 08/27/17 08/27/17 08/27/17 08/28/17 08/28/17 08/28/17 07:00 15:00 23:00 07:00 15:00 23:00 Intake Total 680 ml 960 ml 780 ml Output Total 400 ml 450 ml Balance 280 ml 510 ml 780 ml Intake Oral 680 ml 960 ml 780 ml Output Urine Total 400 ml 450 ml # Voids 4 6 4 # Bowel Movements 0 1 Result Diagram: 08/24/17 0621 08/24/17 0621 Imaging Last Impressions Chest X-Ray 08/28/17 0600 Signed Impressions: Service Date/Time: Monday, August 28, 2017 07:53 - CONCLUSION: Hyperinflation which can be seen with COPD. Right sided chest tube without pneumothorax. Interstitial changes. Gasper Thornton MD Objective Remarks GENERAL: in NAD Resp: CTA B/L Chest tube in place. CARDIOVASCULAR: Regular rate and rhythm without murmurs, gallops, or rubs. RESPIRATORY: Breath sounds equal bilaterally. No accessory muscle use. GASTROINTESTINAL: Abdomen soft, non-tender, nondistended. MUSCULOSKELETAL: No cyanosis, or edema. BACK: Nontender without obvious deformity. No CVA tenderness. Procedures RIGHT PIGTAIL CATHETER FOR CHEST PNEUMOTHORAX Medications and IVs Current Medications Sodium Chloride (NS Flush) 2 ml UNSCH PRN IVF FLUSH AFTER USING IV ACCESS Last administered on 08/23/17 21:05; Start 08/16/17 at 19:30 Cefazolin Sodium 1000 mg/Sodium Chloride 100 ml @ 200 mls/hr ONCE ONCE IV Last administered on 08/16/17 19:59; Start 08/16/17 at 19:45; Stop 08/16/17 at 20:26; Status DC Gabapentin (Neurontin) 800 mg TID PO Last administered on 08/28/17 09:11; Start 08/17/17 at 09:00 Loratadine (Claritin) 10 mg DAILY PO Last administered on 08/28/17 09:11; Start 08/17/17 at 09:00 Trazodone HCl (Desyrel) 50 mg HS PO Last administered on 08/22/17 21:35; Start 08/17/17 at 21:00 Sodium Chloride 1,000 ml @ 50 mls/hr Q20H IV Last administered on 08/16/17 23:41; Start 08/16/17 at 23:15; Stop 08/17/17 at 05:30; Status DC Oxycodone/ Acetaminophen (Percocet 5-325 Mg) 1 tab Q4H PRN PO PAIN 1-5/10 Last administered on 08/24/17 22:41; Start 08/16/17 at 23:15 Oxycodone/ Acetaminophen (Percocet 10-325 Mg) 1 tab Q4H PRN PO PAIN 6-10/10 Last administered on 08/28/17 09:10; Start 08/16/17 at 23:15 Nicotine (Habitrol 21 Mg Patch.24 Hr) 1 patch DAILY T-DERMAL Last administered on 08/22/17 08:28; Start 08/17/17 at 09:00 Hydromorphone HCl (Dilaudid Pf Inj) 0.5 mg Q4H PRN IV PUSH BREAKTHROUGH PAIN Last administered on 08/18/17 15:09; Start 08/16/17 at 23:30; Stop 08/18/17 at 15:24; Status DC Albuterol/ Ipratropium (Duoneb Neb) 1 ampule Q4HR WHILE AWAKE NEB NEB Last administered on 08/20/17 19:54; Start 08/17/17 at 08:00; Stop 08/21/17 at 07: 59; Status DC Albuterol Sulfate (Albuterol Neb) 2.5 mg Q2HR NEB PRN NEB WHEEZING Last administered on 08/23/17 20:07; Start 08/16/17 at 23:45 Melatonin (Melatonin) 5 mg ONCE ONCE PO ; Start 08/17/17 at 01:30; Stop 08/17 at 01:48; Status DC Enoxaparin Sodium (Lovenox Inj) 40 mg Q24H SQ Last administered on 08/28/17 09: 11; Start 08/17/17 at 11:00 Famotidine (Pepcid) 20 mg BID PO Last administered on 08/28/17 09:11; Start at 21:00 Budesonide/ Formoterol Fumarate (Symbicort 160-4.5 Mcg Inh) 2 puff Q12HR INH Last administered on 08/28/17 09:17; Start 08/18/17 at 21:00 Hydromorphone HCl (Dilaudid Pf Inj) 1 mg Q4H PRN IV PUSH BREAKTHROUGH PAIN Last administered on 08/22/17 08:28; Start 08/18/17 at 16:00; Stop 08/23/17 at 10:28; Status DC Zolpidem Tartrate (Ambien) 5 mg HS PRN PO INSOMNIA Last administered on 01:46; Start 08/18/17 at 15:30 Ceftriaxone Sodium 1000 mg/ Sodium Chloride 100 ml @ 200 mls/hr Q24H IV Last administered on 08/24/17 09:23; Start 08/19/17 at 11:15; Stop 08/25/17 at 10:27 ; Status DC Azithromycin (Zithromax) 500 mg DAILY PO Last administered on 08/25/17 09:15; Start 08/19/17 at 11:15; Stop 08/25/17 at 10:27; Status DC Magnesium Hydroxide (Milk Of Magnesia Liq) 30 ml ONCE ONCE PO Last administered on 08/20/17t 18:35; Start 08/20/17 at 18:30; Stop 08/20/17 at 18 :31; Status DC Polyethylene Glycol (Miralax) 17 gm DAILY PO Last administered on 08/27/17 08: 08; Start 08/21/17 at 09:00 Lorazepam (Ativan Inj) 1 mg ONCE PRN IV PUSH ANXIETY; Start 08/21/17 at 10:30; Stop 08/21/17 at 18:00; Status DC Lorazepam (Ativan) 0.5 mg Q8H PRN PO anxiety Last administered on 08/27/17at 11: 57; Start 08/23/17 at 10:00 Levofloxacin (Levaquin) 750 mg DAILY PO Last administered on 08/27/17at 08:07; Start 08/26/17 at 09:00; Stop 08/28/17 at 08:59; Status DC A/P Assessment and Plan This is a 59-year-old male presented with pneumothorax Pneumothorax -Status post prior chest tube pleurodesis 07/31/17 -Has R apical pigtail catheter , placed 08/01/17 -chest tube placed right lateral chest wall 08/17/17. -Repeat chest x-ray done on 08/23 new small subpleural right pneumothorax. - repeat CXR 08/25 negative. -CXR 08/27 decrease RLL opacity. -CXR 08/[address] in place with no PTX. patient will have CT removed today. -DuoNeb every 4 hours. Albuterol every 2 hours as needed Left upper lobe Pulmonary nodules with left lung consolidation. -Chest x-ray stable. s/p Rocephin and azithromycin. -on levaquin. COPD with chronic hypoxia/emphysema -Stable asymptomatic. Continue home meds. Tobacco abuse -smoking cessation Peripheral neuropathy -Neurontin 800 mg by mouth 3 times a day -Oxycodone as needed for pain. Chronic hyponatremia -Likely secondary to HCTZ. HCTZ on hold. -Resolved. Leukocytosis -Resolved. Most likely reactive. No signs of infection. -Resolved. Chronic Anemia -Asymptomatic. Follow up as outpatient. Anxiety -Patient given Ativan when necessary. He stated that it is situational due to being in the hospital with chest tube. Patient educated that this will not be given as outpatient. PROPH: SCDs and Lovenox for DVT prophylaxis. Famotidine for stress ulcer prophylaxis Discharge Planning d/c today if stable after CT removal and okay with CTS Laisha Longoria MD Aug 28, 2017 10:08
[2017-08-28] MEDS ORDERED: OXYC1TAB63 PO (10:20)
[2017-08-28] MEDS ORDERED: FAMO20TA2 PO (10:20)
[2017-08-28] MEDS ORDERED: POLY17S PO (10:20)
[2017-08-28] MEDS ORDERED: AMLO5TAB2 PO (10:21)
--- NOTE | 2017-08-28 10:25 | HHI.DS ---
Discharge Summary Admission Date Aug 16, 2017 at 20:06 Discharge Date: Aug 28, 2017 Admitting Diagnosis Recurrent Pneumothorax (1) Recurrent spontaneous pneumothorax ICD Code: J93.83 - Other pneumothorax Diagnosis: Principal Status: Acute (2) Lung nodule, solitary ICD Code: R91.1 - Solitary pulmonary nodule Diagnosis: Secondary Status: Acute (3) Pneumonia ICD Code: J18.9 - Pneumonia, unspecified organism Diagnosis: Principal (4) COPD (chronic obstructive pulmonary disease) ICD Code: J44.9 - Chronic obstructive pulmonary disease, unspecified Diagnosis: Secondary Status: Chronic (5) Hypertension ICD Code: I10 - Essential (primary) hypertension Diagnosis: Secondary Status: Chronic Procedures RIGHT PIGTAIL CATHETER FOR CHEST PNEUMOTHORAX Brief History - From Admission 61-year-old male with past medical history of COPD who was recently started on home oxygen who has history of recurrent right pneumothorax. Spontaneous pneumothorax initially occurred 07/20 when he rolled over in bed. He has had 3 prior admissions for this with multiple chest tubes. He has bleb disease. He underwent pleurodesis 07/31/[address] Buenrostro. He had recurrent PTX following this and [facility] was planning for surgical management. However PTX started improving with chest tube to suction and surgery was deferred given his high operative risk (FEV1 1.6). He had residual R apical PTX and was discharged 08/11 with apical pigtail chest tube with pneumostat. He has been SOB x2 days, speaking short sentences. [facility] his appt with Lori Barber tomorrow. CXR showed loculated PTX in R base and he was sent emergently [place] [facility] [place] ED physician placed a new chest tube. Lung has reexpanded. CBC/BMP: 08/24/17 0621 08/24/17 0621 Imaging Last Impressions Chest X-Ray 08/28/17 1200 Signed Impressions: Service Date/Time: Monday, August 28, 2017 12:11 - CONCLUSION: 1. No significant pneumothorax status post right chest tube removal. Rivera Howell MD PE at Discharge GENERAL: in NAD Resp: CTA B/L CARDIOVASCULAR: Regular rate and rhythm without murmurs, gallops, or rubs. RESPIRATORY: Breath sounds equal bilaterally. No accessory muscle use. GASTROINTESTINAL: Abdomen soft, non-tender, nondistended. MUSCULOSKELETAL: No cyanosis, or edema. BACK: Nontender without obvious deformity. No CVA tenderness. Pt update on day of discharge per nurse CT surgery cleared patient was discharge. see progress note from today. Hospital Course This is a 59-year-old male presented with pneumothorax Pneumothorax -Status post prior chest tube pleurodesis 07/31/17 -Has R apical pigtail catheter , placed 08/01/17 -chest tube placed right lateral chest wall 08/17/17. -Repeat chest x-ray done on 08/23 new small subpleural right pneumothorax. - repeat CXR 08/25 negative. -CXR 08/27 decrease RLL opacity. -CXR 08/[address] in place with no PTX. CT removed on 08/28 and patient did well. Left upper lobe Pulmonary nodules with left lung consolidation. -Chest x-ray stable. initially on Rocephin and azithromycin then transition to levaquin. COPD with chronic hypoxia/emphysema -Stable asymptomatic. Continue home meds. Tobacco abuse -smoking cessation Peripheral neuropathy -Neurontin 800 mg by mouth 3 times a day -Oxycodone as needed for pain. Chronic hyponatremia -Likely secondary to HCTZ. HCTZ on hold. -Resolved when held. HTN -start on amlodipine. Leukocytosis -Resolved. Most likely reactive. No signs of infection. -Resolved. Chronic Anemia -Asymptomatic. Follow up as outpatient. Anxiety -Patient given Ativan when necessary. He stated that it is situational due to being in the hospital with chest tube. Patient educated that this will not be given as outpatient. Pt Condition on Discharge: Stable Discharge Disposition: Disch w/ Home Health Serv Discharge Time: <= 30 minutes Discharge Instructions DIET: Follow Instructions for: Heart Healthy Diet Activities you can perform: Regular-No Restrictions Follow up Referrals: PCP Follow-up - 1 Week Pulmonology - 2 Weeks New Medications: Amlodipine (Amlodipine) 5 Mg Tab 5 MG PO DAILY for Blood Pressure Management, #30 TAB 0 Refills Famotidine (Famotidine) 20 Mg Tab 20 MG PO BID for GERD, #60 TAB 0 Refills Oxycodone HCl/Acetaminophen (Oxycodone-Acetaminophen 5-325) 5 Mg-325 Mg Tablet 1-2 TAB PO Q4H PRN for moderate to severe pain, #20 TAB 0 Refills Polyethylene Glycol 3350 Powder (Polyethylene Glycol 3350 Powder) 17 Gram Pow 17 GM PO DAILY for constipation, #1 BOTTLE 0 Refills Continued Medications: Albuterol 18 GM Inh (Ventolin Hfa 18 GM Inh) 90 Mcg/Act Aer 2 PUFF INH Q4-6H PRN for SHORTNESS OF BREATH, #1 INHALER 0 Refills Budesonide-Formoterol Inh (Symbicort Inh) 160-4.5 Mcg/Act Aero 2 PUFF INH Q12HR, #1 INHALER 0 Refills Gabapentin (Gabapentin) 800 Mg Tab 800 MG PO TID, #90 TAB 0 Refills Loratadine (Claritin) 10 Mg Cap 10 MG PO DAILY for Allergy Management, CAP 0 Refills Nicotine (Nicotine Transdermal Syst) 21 Mg/24 Hour Dis Oxygen (O2) (Oxygen (O2)) Device LITER RAE.CANULA CONTINUOUS for Prevent Hypoxemia, #2 Oxygen Concentrator Portable Gaseous 2 L/min via Nasal Canula Continuous For 99 months Trazodone (Trazodone) 50 Mg Tab 50 MG PO HS for Control Depression, #30 TAB 0 Refills Discontinued Medications: Guaifenesin (Guaifenesin) 400 Mg Tab 400 DAILY Hydrochlorothiazide (Hydrochlorothiazide) 25 Mg Tab 25 MG PO DAILY, #30 TAB Hydrocodone/Acetaminophen (Hydrocodone-Acetamin 10-325 mg) 10 Mg-325 Mg Tablet 1 TAB PO Q6H PRN for PAIN SCALE 6 TO 10, #30 TAB Oxycodone HCl/Acetaminophen (Oxycodone-Acetaminophen 10-325) 10 Mg-325 Mg Tablet 1 TAB PO Q4H PRN for PAIN SCALE 6 TO 10, #30 TAB Tramadol (Tramadol) 50 Mg Tab 50 MG PO Q6H PRN for PAIN, TAB 0 Refills Laisha Longoria MD Aug 28, 2017 10:25
--- NOTE | 2017-08-28 10:25 | HHI.DCPOC ---
Discharge Care Plan Diagnosis: (1) Lung nodule, solitary (2) Recurrent spontaneous pneumothorax (3) Pneumonia (4) COPD (chronic obstructive pulmonary disease) (5) Hypertension Goals to Promote Your Health * To prevent worsening of your condition and complications * To maintain your health at the optimal level Directions to Meet Your Goals Take your medications as prescribed Follow your dietary instruction Follow activity as directed Keep your appointments as scheduled Take your immunizations and boosters as scheduled If your symptoms worsen call your PCP, if no PCP go to Urgent Care Center or Emergency Room Smoking is Dangerous to Your Health. Avoid second hand smoke Call the 24-hour hour crisis hotline for domestic abuse at Laisha Longoria MD Aug 28, 2017 10:25
[2017-08-28] MEDS ORDERED: amLODIPine BESYLATE 5 MG TAB PO SCH (11:00)
--- NOTE | 2017-08-28 11:19 | PD.CAR.PN ---
CVT Progress Note Subjective/Hospital Course: 61-year-old male with past medical history of COPD who was recently started on home oxygen who has history of recurrent right pneumothorax. Spontaneous pneumothorax initially occurred 07/20 when he rolled over in bed. He has had 3 prior admissions for this with multiple chest tubes. He has bleb disease. He underwent pleurodesis 07/31/[address] Buenrostro. He had recurrent PTX following this and [facility] was planning for surgical management. However PTX started improving with chest tube to suction and surgery was deferred given his high operative risk (FEV1 0.6). He had residual R apical PTX and was discharged 08/11 with apical pigtail chest tube with pneumostat. He has been SOB x2 days, speaking short sentences. He had a [facility]up [facility] today in anticipation of his appt with Lori Barber tomorrow. CXR showed loculated PTX in R base and he was sent emergently to [facility] [place] ED where ED physician placed a new chest tube. Lung has reexpanded. 08/17: Dr Barber spoke with Dr Caballero , continue conservative treatment for now , pt is high risk for thoracic surgery with FEV1 0.[address] to suction. Right upper pig tail chest tube dc . 08/18 chest tube to 20cm wall suction, no air leak minimal drainage continue current suction, still has small right apical PTX check CXR on Tuesday 08/22 CXR noted on 08/19 no PTX repeat CXR today no PTX, chest tube to water seal, no air leak recheck CXR in am, if no PTX with DC chest tube 08/23 CXR with new right sub pulmonic PTX, chest tube back to 10cm suction pt has very friable lungs, unfortunately did not tolerate Pneumostat in the past recheck CXR in am , has no air leak .. 08/24 cxr no ptx, will attempt water seal again cxr in am 08/25 no PTX on CXR will keep to water seal, hold on removing today re-eval CXR on monday am, then if CXR stable / clamp tubing for 24 hrs then eval for removal consult pt 08/27 Doing well. Denies SOB CXR looks better No air-leak on CT. Will clamp CT today with CXR in am If am CXR without changes maybe able to D/C CT tomorrow. 08/28 chest tube clamped overnight no PTX on CXR chest tube removed without difficulty recheck cxr at 12 noon, if stable then ok to dc home no f/u with us needs to keep current dressing in place x 48 hrs, then ok to remove and shower Objective: GENERAL: SKIN: Warm and dry. HEAD: Normocephalic. EYES: No scleral icterus. No injection or drainage. NECK: Supple, trachea midline. No JVD or lymphadenopathy. CARDIOVASCULAR: Regular rate and rhythm without murmurs, gallops, or rubs. RESPIRATORY: Breath sounds equal bilaterally. No accessory muscle use diminished bilaterally , no wheezing / chest tube removed . GASTROINTESTINAL: Abdomen soft, non-tender, nondistended. MUSCULOSKELETAL: No cyanosis, or edema. BACK: Nontender without obvious deformity. No CVA tenderness. Vital Signs Date Time Temp Pulse Resp B/P (MAP) Pulse Ox O2 Delivery O2 Flow Rate FiO2 08/28/17 08:00 96.0 85 18 171/80 (110) 99 08/28/17 05:27 97.4 78 18 146/65 (92) 94 08/28/17 01:26 18 08/28/17 00:40 97.9 80 16 142/67 (92) 97 08/27/17 21:00 Room Air 08/27/17 20:00 96.4 82 18 141/72 (95) 95 08/27/17 16:00 95.5 83 17 154/75 (101) 94 08/27/17 12:00 96.0 96 17 147/78 (101) 97 Result Diagram: 08/24/17 0621 08/24/17 0621 (1) Recurrent spontaneous pneumothorax Plan: chest tube removed, ok to dc if 12noon cxr stable and no ptx (2) Tobacco use disorder (3) COPD (chronic obstructive pulmonary disease) Plan: on mandie blood Jacqueline R. ARNP Aug 28, 2017 11:19
[2017-08-28] MEDS: LORazepam 0.5 MG TAB PO PRN (11:35)
--- NOTE | 2017-08-28 13:31 | RADRPT ---
EXAM DATE/TIME: 08/28/2017 12:11 [place] COMPARISON: CHEST SINGLE AP, August 27, 2017, 4:57. INDICATIONS : Evalute right side for pneumothorax post chest tube removal. MEDICAL HISTORY : Congestive heart failure. Emphysema. pneumothorax SURGICAL HISTORY : chest tube ENCOUNTER: Subsequent ACUITY: 3 weeks PAIN SCORE: 0/10 LOCATION: Right chest FINDINGS: Interval removal of right-sided chest tube without significant pneumothorax. No new focal pleural or parenchymal opacities. Redemonstration of biapical scarring and mild diffuse interstitial prominence. Cardiomediastinal contours are stable. Remainder of the exam is unchanged. CONCLUSION: 1. No significant pneumothorax status post right chest tube removal. Rivera Howell MD on August 28, 2017 at 13:26 Board Certified Radiologist. This report was verified electronically.
== END 2017-08-28 14:22 | disposition home health service (06) | DRG 199 ==
LOC: NEPE 18:24 → NEDA 20:06 → N03B 21:54 → N07B 08-17 18:05
PROVIDERS: ADMIT Family Medicine; ATTEND Family Medicine
PROC: 0W9930Z Drainage of Right Pleural Cavity with Drainage Device, Percutaneous Approach (ICD-10-PCS; principal; 2017-08-16)
DX: J93.83 Other pneumothorax (principal); J18.9 Pneumonia, unspecified organism; Z99.81 Dependence on supplemental oxygen; E87.1 Hypo-osmolality and hyponatremia; J44.0 Chronic obstructive pulmonary disease with (acute) lower respiratory infection; Z96.651 Presence of right artificial knee joint; G62.9 Polyneuropathy, unspecified; F32.9 Major depressive disorder, single episode, unspecified; Z96.642 Presence of left artificial hip joint; R09.02 Hypoxemia; T50.2X5A Adverse effect of carbonic-anhydrase inhibitors, benzothiadiazides and other diuretics, initial encounter; D64.9 Anemia, unspecified; R91.1 Solitary pulmonary nodule; I10 Essential (primary) hypertension; F41.9 Anxiety disorder, unspecified; Z87.891 Personal history of nicotine dependence
CPT/HCPCS: 32551; 71010; 71045; 71046; 80048; 80053; 83036; 83735; 83935; 84100; 84295; 84439; 84443; 85025; 85027; 85610; 85730; 87641; 93005; 94150; 94640; 94664; 96374; J0690; J0696; J1170; J1650; J7030; J7613

== ENCOUNTER 2017-12-28 16:18 | Emergency (ER) | payer OTHER ==
[2017-12-28] MEDS: METHOCARBAMOL 500 MG TAB PO (17:45)
[2017-12-28 18:53] LABS: AUTOMATED NEUTROPHIL # 9.1 TH/MM3 (1.8-7.7); BASOPHIL # 0.1 TH/MM3 (0-0.2); BASOPHIL % 0.6 % (0.0-2.0); EOSINOPHIL # 0.2 TH/MM3 (0-0.4); EOSINOPHIL % 1.8 % (0.0-4.0); HEMATOCRIT 42.5 % (39.0-51.0); HEMO FLAGS DIFF FINAL; HEMOGLOBIN 13.9 GM/DL (13.0-17.0); LYMPH % 13.8 % (9.0-44.0); LYMPHOCYTE # 1.7 TH/MM3 (1.0-4.8); MEAN CELL VOLUME 92.1 FL (80.0-100.0); MEAN CORPUSCULAR HEMOGLOBIN 30.2 PG (27.0-34.0); MEAN CORPUSCULAR HGB CONC 32.8 % (32.0-36.0); MONO % 8.4 % (0.0-8.0); NEUT % 75.4 % (16.0-70.0); PLATELET COUNT 593 TH/MM3 (150-450); RED BLOOD COUNT 4.61 MIL/MM3 (4.50-5.90); RED CELL DISTRIBUTION WIDTH 16.7 % (11.6-17.2); WHITE BLOOD COUNT 12.1 TH/MM3 (4.0-11.0)
[2017-12-28 19:10] LABS: ALBUMIN 3.6 GM/DL (3.4-5.0); ALT (GPT) 19 U/L (12-78); ANION GAP 7 MEQ/L (5-15); AST (GOT) 17 U/L (15-37); BICARBONATE 27.3 MEQ/L (21.0-32.0); BLOOD UREA NITROGEN 27 MG/DL (7-18); CALCIUM 9.5 MG/DL (8.5-10.1); CHLORIDE 108 MEQ/L (98-107); CREATININE 0.94 MG/DL (0.60-1.30); GLOMERULAR FILTRATION RATE 81 ML/MIN (>89); GLUCOSE,RANDOM 82 MG/DL (74-106); MAGNESIUM 2.4 MG/DL (1.5-2.5); POTASSIUM 4.2 MEQ/L (3.5-5.1); SODIUM (NA) 142 MEQ/L (136-145)
[2017-12-28 19:12] LABS: APTT (PATIENT) 25.6 SEC (24.3-30.1); INTERNATIONAL NORMALIZED RATIO 1.2 RATIO; PROTHROMBIN TIME - PATIENT 12.1 SEC (9.8-11.6)
[2017-12-28 19:15] LABS: ALKALINE PHOSPHATASE 74 U/L (45-117); TOTAL BILIRUBIN ADULT 0.3 MG/DL (0.2-1.0); TOTAL PROTEIN 7.6 GM/DL (6.4-8.2); TROPONIN I LESS THAN 0.02 NG/ML (0.02-0.05)
[2017-12-28 19:26] LABS: CREATINE KINASE 80 U/L (39-308)
[2017-12-28] MEDS: KETOROLAC TROMETHAMINE 30 MG/ML (IVP) VIAL IV PUSH (19:54)
[2017-12-28 20:47] LABS: B-TYPE NATRIURETIC PEPTIDE 114 PG/ML (0-100)
[2017-12-28 20:48] LABS: D-DIMER LESS THAN 0.19 MG/L FEU (0.00-0.50)
== END 2017-12-28 22:31 | disposition home or self-care (01) ==
LOC: NEPC 16:18
DX: R07.89 Other chest pain (principal); J44.9 Chronic obstructive pulmonary disease, unspecified; R00.0 Tachycardia, unspecified; I50.9 Heart failure, unspecified; F41.9 Anxiety disorder, unspecified; F17.210 Nicotine dependence, cigarettes, uncomplicated; Z85.828 Personal history of other malignant neoplasm of skin; Z79.899 Other long term (current) drug therapy
CPT/HCPCS: 71045; 80053; 82550; 83735; 83880; 84484; 85025; 85379; 85610; 85730; 93005; 96374; 99285-25

== ENCOUNTER 2018-01-19 17:08 | Inpatient (IN) | payer OTHER ==
[~2018-01-19] VITALS: Ht 170.2 cm; Wt 58.9 kg
[~2018-01-19 17:08] MED LIST changes: +AMLO5TAB2 PO; -ECASA81 PO; +FAMO20TA2 PO; +GABA800T PO; -GUAI400T32; -HYDR-3583 PO; -HYDR25TA5 PO; +IBUP-232 PO; -METO25TA3 PO; -OXYC1TAB36 PO; +OXYC1TAB63 PO; +PERC5TAB12 PO; +POLY17S PO
[2018-01-19 17:15] VITALS: BP 159/81; PULSE 100; RESP 22; TEMP 99.1; O2SAT 98
[2018-01-19 17:40] VITALS: O2SAT 100
[2018-01-19] MEDS ORDERED: RESP: ALBUTEROL 2.5 MG/IPRATROPIUM 0.5 MG NEB (SCH) INH ONE (18:00)
[2018-01-19] MEDS ORDERED: SODIUM CHLORIDE 0.9% FLUSH 10 ML FLUSH IVF PRN (18:00)
[2018-01-19] MEDS: RESP: ALBUTEROL 2.5 MG/3 ML NEB (SCH) INH (18:01)
[2018-01-19 18:12] LABS: AUTOMATED NEUTROPHIL # 9.2 TH/MM3 (1.8-7.7); BASOPHIL % 0.2 % (0.0-2.0); EOSINOPHIL # 0.1 TH/MM3 (0-0.4); EOSINOPHIL % 0.5 % (0.0-4.0); HEMATOCRIT 42.1 % (39.0-51.0); HEMOGLOBIN 14.6 GM/DL (13.0-17.0); LYMPH % 12.9 % (9.0-44.0); LYMPHOCYTE # 1.5 TH/MM3 (1.0-4.8); MEAN CELL VOLUME 89.7 FL (80.0-100.0); MEAN CORPUSCULAR HEMOGLOBIN 31.1 PG (27.0-34.0); MEAN CORPUSCULAR HGB CONC 34.7 % (32.0-36.0); MEAN PLATELET VOLUME 7.1 FL (7.0-11.0); MONO % 7.4 % (0.0-8.0); MONOCYTE # 0.9 TH/MM3 (0-0.9); PLATELET COUNT 444 TH/MM3 (150-450); RED BLOOD COUNT 4.69 MIL/MM3 (4.50-5.90); RED CELL DISTRIBUTION WIDTH 14.7 % (11.6-17.2); WHITE BLOOD COUNT 11.6 TH/MM3 (4.0-11.0)
[2018-01-19 18:17] LABS: BILIRUBIN, URINE NEG (NEG); BLOOD, URINE SMALL (NEG); GLUCOSE,URINE NEG (NEG); KETONE, URINE NEG (NEG); NITRITE,URINE NEG (NEG); URINE COLOR YELLOW (YELLW/STRAW); URINE LEUKOCYTE ESTERASE NEG (NEG)
--- NOTE | 2018-01-19 18:27 | PD ---
HPI Chief Complaint: Chest Pain Time Seen by Provider: 17:31 Travel History International Travel<30 days: No Contact w/Intl Traveler<30days: No Traveled to known affect area: No History of Present Illness HPI This is a 62-year-old male with a history of COPD, recent pneumonia, who presents today with complaints of shortness of breath, anterior chest pain, and cough. Patient also was being treated for a sinus infection. Patient reports green sinus discharge. There is no reported fevers, chills. There is no reported vomiting. Patient does state that he is extremely weak. He is normally ambulatory however does have a power wheelchair that he uses occasionally at home. According to both the patient and his , he has been so weak that he has not been able to ambulate. Patient denies any history of coronary artery disease. He has had previous pneumothoraces in the past. He reports that those were secondary to blebs from his COPD. PFSH Past Medical History Arthritis: Yes Asthma: No Anxiety: Yes Depression: No Cancer: Yes (basal cell carcinoma eyebrow) Cardiovascular Problems: Yes (THORACIC ANEURYSM ) High Cholesterol: No Chemotherapy: No COPD: Yes Diabetes: No Endocrine: No Gastrointestinal Disorders: Yes GERD: No Genitourinary: No Hepatitis: No Hiatal Hernia: Yes (left inguinal hernia ) Hypertension: Yes Immune Disorder: No Implanted Vascular Access Dvce: Yes Medical other: No Musculoskeletal: Yes (DJD, Neuropathy (LLE), IVDS) Neurologic: Yes Psychiatric: Yes (anxiety ) Respiratory: Yes (EMPHYSEMA, LUNG COLLAPSE) Immunizations Current: Yes Radiation Therapy: No Sleep Apnea: No Thyroid Disease: No Ulcer: No Past Surgical History Abdominal Surgery: No AICD: No Arteriovenous Shunt: No Cardiac Surgery: No Ear Surgery: No Endocrine Surgery: No Eye Surgery: No Genitourinary Surgery: No Insulin Pump: No Joint Replacement: Yes Neurologic Surgery: No Oral Surgery: Yes (Tonsils removed) Pacemaker: No Thoracic Surgery: Yes (mutliple chest tube placements since JUN 2017) Tonsillectomy: Yes Other Surgery: Yes (CANCEROUS MOLE LEFT BROW, INGUINAL HERNIA REPAIR) Social History Alcohol Use: No Tobacco Use: No (1 PACK PER 3 DAYS; stopped Jul 20, 2017) Substance Use: No Allergies-Medications (Allergen,Severity, Reaction): Coded Allergies: No Known Allergies (Verified Allergy, Unknown, 07/30/17) Reported Meds & Prescriptions Reported Meds & Active Scripts Active Ibuprofen 600 Mg Tab 600 Mg PO Q6H PRN Percocet (Oxycodone-Acetaminophen) 5-325 mg Tab 1 Tab PO Q6H PRN Amlodipine (Amlodipine Besylate) 5 Mg Tab 5 Mg PO DAILY Polyethylene Glycol 3350 Powder (Polyethylene Glycol) 17 Gram Pow 17 Gm PO DAILY Famotidine 20 Mg Tab 20 Mg PO BID Oxycodone-Acetaminophen 5-325 (Oxycodone HCl/Acetaminophen) 5 Mg-325 Mg Tablet 1 -2 Tab PO Q4H PRN Oxygen (O2) Device Liter RAE.CANULA CONTINUOUS Oxygen Concentrator Portable Gaseous 2 L/min via Nasal Canula Continuous For 99 months Reported Gabapentin 800 Mg Tab 800 Mg PO TID Claritin (Loratadine) 10 Mg Cap 10 Mg PO DAILY Nicotine Transdermal Syst (Nicotine) 21 Mg/24 Hour Dis Ventolin Hfa 18 GM Inh (Albuterol Sulfate) 90 Mcg/Act Aer 2 Puff INH Q4-6H PRN Symbicort Inh (Budesonide/Formoterol Fumarate) 160-4.5 Mcg/Act Aero 2 Puff INH Q12HR Trazodone (Trazodone HCl) 50 Mg Tab 50 Mg PO HS Review of Systems Except as stated in HPI: all other systems reviewed are Neg General / Constitutional: No: Fever HENT: No: Headaches, Lightheadedness, Neck Pain Cardiovascular: Positive: Chest Pain or Discomfort (Anterior, pleuritic), Palpitations, Tachycardia, No: Irregular Rhythm Respiratory: Positive: Cough, Shortness of Breath, Wheezing Gastrointestinal: No: Nausea, Vomiting, Abdominal Pain Genitourinary: Positive: Decreased Urinary Output, No: Dysuria Musculoskeletal: Positive: Weakness, No: Pain Neurologic: Positive: Weakness (Generalized), No: Headache ( generalized), Change in Mentation Physical Exam Narrative GENERAL: Thin cachectic male in moderate respiratory discomfort. SKIN: Focused skin assessment warm/dry. HEAD: Atraumatic. Normocephalic. EYES: Pupils equal and round. No scleral icterus. No injection or drainage. ENT: No nasal bleeding or discharge. Mucous membranes pink and moist. NECK: Trachea midline. Supple. CARDIOVASCULAR: Regular rate and rhythm. No murmur appreciated. RESPIRATORY: Mild accessory muscle use. Bilateral expiratory wheezes. Decreased breath sounds at the bases. No rales appreciated. GASTROINTESTINAL: Abdomen soft, non-tender, nondistended. No pulsatile masses appreciated. MUSCULOSKELETAL: No obvious deformities. No clubbing. No cyanosis. No edema. NEUROLOGICAL: Awake and alert. No obvious cranial nerve deficits. Motor grossly within normal limits. Normal speech. Data Data Last Documented VS Vital Signs Date Time Temp Pulse Resp B/P (MAP) Pulse Ox O2 Delivery O2 Flow Rate FiO2 01/19/18 17:41 94 98 Room Air 01/19/18 17:15 99.1 22 159/81 (107) Orders Orders Complete Blood Count With Diff (01/19/18 17:48) Comprehensive Metabolic Panel (01/19/18 17:48) Ckmb (Isoenzyme) Profile (01/19/18 17:48) Troponin I (01/19/18 17:48) Urinalysis - C+S If Indicated (01/19/18 17:48) Iv Access Insert/Monitor (01/19/18 17:48) Ecg Monitoring (01/19/18 17:48) Oximetry (01/19/18 17:48) Oxygen Administration (01/19/18 17:48) Chest, Pa & Lat (01/19/18 17:48) Sodium Chloride 0.9% Flush (Ns Flush) (01/19/18 18:00) Albuterol-Ipratropium Neb (Duoneb Neb) (01/19/18 18:00) Albuterol Neb (Albuterol Neb) (01/19/18 18:00) Electrocardiogram (01/19/18 17:30) Labs Laboratory Tests Test 01/19/18 17:45 White Blood Count 11.6 TH/MM3 Red Blood Count 4.69 MIL/MM3 Hemoglobin 14.6 GM/DL Hematocrit 42.1 % Mean Corpuscular Volume 89.7 FL Mean Corpuscular Hemoglobin 31.1 PG Mean Corpuscular Hemoglobin Concent 34.7 % Red Cell Distribution Width 14.7 % Platelet Count 444 TH/MM3 Mean Platelet Volume 7.1 FL Neutrophils (%) (Auto) 79.0 % Lymphocytes (%) (Auto) 12.9 % Monocytes (%) (Auto) 7.4 % Eosinophils (%) (Auto) 0.5 % Basophils (%) (Auto) 0.2 % Neutrophils # (Auto) 9.2 TH/MM3 Lymphocytes # (Auto) 1.5 TH/MM3 Monocytes # (Auto) 0.9 TH/MM3 Eosinophils # (Auto) 0.1 TH/MM3 Basophils # (Auto) 0.0 TH/MM3 CBC Comment DIFF FINAL Differential Comment Urine Color YELLOW Urine Turbidity CLEAR Urine pH 7.0 Urine Specific Duck 1.008 Urine Protein NEG mg/dL Urine Glucose (UA) NEG mg/dL Urine Ketones NEG mg/dL Urine Occult Blood SMALL Urine Nitrite NEG Urine Bilirubin NEG Urine Urobilinogen LESS THAN 2.0 MG/DL Urine Leukocyte Esterase NEG Urine RBC 3 /hpf Urine WBC 1 /hpf Microscopic Urinalysis Comment CULT NOT INDICATED MDM Medical Decision Making Medical Screen Exam Complete: Yes Emergency Medical Condition: Yes Differential Diagnosis COPD exacerbation versus CHF versus pneumonia versus pneumothorax Pradeep Ochoa MD Jan 19, 2018 18:27
[2018-01-19 18:46] LABS: ALBUMIN 3.8 GM/DL (3.4-5.0); ALT (GPT) 32 U/L (12-78); AST (GOT) 32 U/L (15-37); BICARBONATE 26.1 MEQ/L (21.0-32.0); BLOOD UREA NITROGEN 12 MG/DL (7-18); CALCIUM 9.2 MG/DL (8.5-10.1); CHLORIDE 76 MEQ/L (98-107); CREATININE 0.82 MG/DL (0.60-1.30); GLOMERULAR FILTRATION RATE 95 ML/MIN (>89); GLUCOSE,RANDOM 101 MG/DL (74-106)
[2018-01-19] MEDS ORDERED: TRAM50TA PO (18:47)
[2018-01-19 18:48] LABS: ALKALINE PHOSPHATASE 80 U/L (45-117); TOTAL BILIRUBIN ADULT 0.6 MG/DL (0.2-1.0); TOTAL PROTEIN 7.8 GM/DL (6.4-8.2); TROPONIN I 0.04 NG/ML (0.02-0.05)
[2018-01-19 18:49] LABS: SODIUM (NA) 118 MEQ/L (136-145)
--- NOTE | 2018-01-19 19:05 | RADRPT ---
EXAM DATE: 01/19/2018 7:01 PM EDT AGE/SEX: 62 years / Male INDICATIONS: Shortness of breath. CLINICAL DATA: This is the patient's initial encounter. Patient reports that signs and symptoms have been present for 2 weeks and indicates a pain score of 0/10. MEDICAL/SURGICAL HISTORY: Chronic obstructive pulmonary disease. Emphysema. None. COMPARISON: [facility] [place], CHEST PA & LAT, 08/28/2017. . FINDINGS: Frontal and lateral views of the chest demonstrate a normal-sized cardiac silhouette. Patient is unde rinflated and rotated secondary to the thoracic scoliosis. There is atelectasis at the lung bases. No effusion, consolidation, or pneumothorax is visualized. Lucency in the upper lung zones is stable. B ones and soft tissues demonstrate no acute finding. CONCLUSION: No acute cardiopulmonary abnormality is identified. There are stable background lung findings charact eristic of emphysema. Electronically signed by: Smooth Nunez MD 01/19/2018 7:04 PM EDT
[2018-01-19 20:00] VITALS: BP 173/81; PULSE 100; RESP 20; TEMP 98.3; O2SAT 96
[2018-01-19] MEDS ORDERED: NS + KCL 20 MEQ INJ 1,000 ML IV SCH (20:00)
[2018-01-19 20:12] VITALS: BP 168/84; PULSE 104; RESP 24; O2SAT 98
[2018-01-19] MEDS ORDERED: HYDROmorphone HCL PF 2 MG/ML VIAL IVS ONE (20:15)
[2018-01-19] MEDS ORDERED: LACTULOSE SYRUP 20 GM/30 ML CUP PO PRN (21:00)
[2018-01-19] MEDS: traZODone HCL 50 MG TAB PO SCH (21:00)
[2018-01-19] MEDS ORDERED: NALOXONE HCL 0.4 MG/ML AMP IV PUSH PRN (21:00)
[2018-01-19] MEDS ORDERED: MAGNESIUM HYDROXIDE SUSP 30 ML CUP PO PRN (21:00)
[2018-01-19] MEDS ORDERED: SENNOSIDES 8.6 MG TAB PO PRN (21:00)
[2018-01-19] MEDS ORDERED: SODIUM CHLORIDE 0.9% FLUSH 10 ML FLUSH IV FLUSH PRN (21:00)
[2018-01-19] MEDS ORDERED: BISACODYL 10 MG SUPP RECTAL PRN (21:00)
[2018-01-19] MEDS ORDERED: ACETAMINOPHEN 325 MG TAB PO PRN (21:00)
[2018-01-19] MEDS: DOCUSATE SODIUM 50 MG/SENNA 8.6 MG TAB PO SCH (21:00)
[2018-01-19] MEDS ORDERED: ONDANSETRON ODT 4 MG TAB PO PRN (21:45)
[2018-01-19] MEDS ORDERED: POTASSIUM CHLORIDE 20 MEQ CONTROLLED RELEASE TAB PO ONE (22:00)
--- NOTE | 2018-01-19 22:07 | HHI.HP ---
[facility] Admission Diagnosis chest pain, hyponatremia, hypokalemia, dyspnea Diagnoses: Travel History International Travel<30 Days: No Contact w/Intl Traveler <30 Da: No Traveled to Known Affected Are: No History of Present Illness 62-year-old male with past medical history significant for COPD, chronic pain, hypertension and known thoracic aortic aneurysm presents to the emergency department for the evaluation of multiple symptoms. He reports that he has been having thick mucus and congestion for approximately 1 week and on Monday was seen in urgent care facility that prescribed him doxycycline. He states his symptoms have improved somewhat on Doxy however he still complains of thick mucus. Patient also reports severe fatigue that began today and a 2 day history of chest pain/tightness/pressure. The pressure is nonradiating. He endorses shortness of breath which is baseline. He denies any abdominal pain. No nausea/vomiting/diarrhea. No lateralizing signs/symptoms. He is found to be severely hyponatremic and hypokalemic on arrival to the emergency department. Review of Systems Except as stated in HPI: all other systems reviewed are Neg Past Family Social History Past Medical History COPD, chronic pain, hypertension and known thoracic aortic aneurysm Past Surgical History Right knee surgery Left hip replacement Hernia repair Left knee arthroscopically Tonsillectomy Reported Medications Reported Meds & Active Scripts Active Ibuprofen 600 Mg Tab 600 Mg PO Q6H PRN Amlodipine (Amlodipine Besylate) 5 Mg Tab 5 Mg PO DAILY Polyethylene Glycol 3350 Powder (Polyethylene Glycol) 17 Gram Pow 17 Gm PO DAILY Famotidine 20 Mg Tab 20 Mg PO BID Oxycodone-Acetaminophen 5-325 (Oxycodone HCl/Acetaminophen) 5 Mg-325 Mg Tablet 1 -2 Tab PO Q4H PRN Reported Tramadol (Tramadol HCl) 50 Mg Tab 50 Mg PO Q4H PRN Gabapentin 800 Mg Tab 800 Mg PO TID Ventolin Hfa 18 GM Inh (Albuterol Sulfate) 90 Mcg/Act Aer 2 Puff INH Q4-6H PRN Symbicort Inh (Budesonide/Formoterol Fumarate) 160-4.5 Mcg/Act Aero 2 Puff INH Q12HR Trazodone (Trazodone HCl) 50 Mg Tab 50 Mg PO HS Allergies: Coded Allergies: No Known Allergies (Verified Allergy, Unknown, 07/30/17) Family History Negative for CAD/DM Social History Quit tobacco July 202016. Denies alcohol and illicit drugs. Physical Exam Vital Signs Vital Signs Date Time Temp Pulse Resp B/P (MAP) Pulse Ox O2 Delivery O2 Flow Rate FiO2 01/19/18 21:08 01/19/18 20:12 104 24 168/84 (112) 98 Room Air 01/19/18 17:41 94 98 Room Air 01/19/18 17:40 100 Room Air 01/19/18 17:40 100 Room Air 01/19/18 17:15 99.1 100 22 159/81 (107) 98 Physical Exam GENERAL: Thin, male sitting up in bed SKIN: No rashes, ecchymoses or lesions. Cool and dry. HEAD: Atraumatic. Normocephalic. No temporal or scalp tenderness. EYES: Pupils equal round and reactive. Extraocular motions intact. No scleral icterus. No injection or drainage. ENT: Nose without bleeding, purulent drainage or septal hematoma. Throat without erythema, tonsillar hypertrophy or exudate. Uvula midline. Airway patent. NECK: Trachea midline. No JVD or lymphadenopathy. Supple, nontender, no meningeal signs. CARDIOVASCULAR: Regular rate and rhythm without murmurs, gallops, or rubs. RESPIRATORY: Clear to auscultation. Breath sounds equal bilaterally. No wheezes , rales, or rhonchi. Poor air movement. GASTROINTESTINAL: Abdomen soft, non-tender, nondistended. No hepato-splenomegaly , or palpable masses. No guarding. MUSCULOSKELETAL: Extremities without clubbing, cyanosis, or edema. No joint tenderness, effusion, or edema noted. No calf tenderness. NEUROLOGICAL: Awake and alert. Cranial nerves II through XII intact. Motor and sensory grossly within normal limits. Normal speech. Laboratory Laboratory Tests Test 01/19/18 17:45 White Blood Count 11.6 Red Blood Count 4.69 Hemoglobin 14.6 Hematocrit 42.1 Mean Corpuscular Volume 89.7 Mean Corpuscular Hemoglobin 31.1 Mean Corpuscular Hemoglobin Concent 34.7 Red Cell Distribution Width 14.7 Platelet Count 444 Mean Platelet Volume 7.1 Neutrophils (%) (Auto) 79.0 Lymphocytes (%) (Auto) 12.9 Monocytes (%) (Auto) 7.4 Eosinophils (%) (Auto) 0.5 Basophils (%) (Auto) 0.2 Neutrophils # (Auto) 9.2 Lymphocytes # (Auto) 1.5 Monocytes # (Auto) 0.9 Eosinophils # (Auto) 0.1 Basophils # (Auto) 0.0 CBC Comment DIFF FINAL Differential Comment Urine Color YELLOW Urine Turbidity CLEAR Urine pH 7.0 Urine Specific [place] 1.008 Urine Protein NEG Urine Glucose (UA) NEG Urine Ketones NEG Urine Occult Blood SMALL Urine Nitrite NEG Urine Bilirubin NEG Urine Urobilinogen LESS THAN 2.0 Urine Leukocyte Esterase NEG Urine RBC 3 Urine WBC 1 Microscopic Urinalysis Comment CULT NOT INDICATED Blood Urea Nitrogen 12 Creatinine 0.82 Random Glucose 101 Total Protein 7.8 Albumin 3.8 Calcium Level 9.2 Alkaline Phosphatase 80 Aspartate Amino Transf (AST/SGOT) 32 Alanine Aminotransferase (ALT/SGPT) 32 Total Bilirubin 0.6 Sodium Level 118 Potassium Level 2.9 Chloride Level 76 Carbon Dioxide Level 26.1 Anion Gap 16 Estimat Glomerular Filtration Rate 95 Total Creatine Kinase 145 Creatine Kinase MB 4.1 Troponin I 0.04 Result Diagram: 01/19/18 1745 01/19/18 174 Caprini VTE Risk Assessment Caprini VTE Risk Assessment: Mod/High Risk (score >= 2) Caprini Risk Assessment Model Point Value = 1 Point Value = 2 Point Value = 3 Point Value = 5 Age 41-60 Minor surgery BMI > 25 kg/m2 Swollen legs Varicose veins or History of unexplained or recurrent spontaneous Oral contraceptives or hormone replacement Sepsis (< 1 month) Serious lung disease, including pneumonia (< 1 month) Abnormal pulmonary function Acute myocardial infarction Congestive heart failure (< 1 month) History of inflammatory bowel disease Medical patient at bed rest Age 61-74 Arthroscopic surgery Major open surgery (> 45 min) Laparoscopic surgery (> 45 min) Malignancy Confined to bed (> 72 hours) Immobilizing plaster cast Central venous access Age >= 75 History of VTE Family history of VTE Factor V Leiden Prothrombin [id number] Lupus anticoagulant Anticardiolipin antibodies Elevated serum homocysteine Heparin-induced thrombocytopenia Other congenital or acquired thrombophilia Stroke (< 1 month) Elective arthroplasty Hip, pelvis, or leg fracture Acute spinal cord injury (< 1 month) Prophylaxis Regimen Total Risk Factor Score Risk Level Prophylaxis Regimen 0-1 Low Early ambulation 2 Moderate Order ONE of the following: *Sequential Compression Device (SCD) *Heparin 5000 units SQ BID 3-4 Higher Order ONE of the following medications: *Heparin 5000 units SQ TID *Enoxaparin/Lovenox 40 mg SQ daily (WT < 150 kg, CrCl > 30 mL/min) *Enoxaparin/Lovenox 30 mg SQ daily (WT < 150 kg, CrCl > 10-29 mL/min) *Enoxaparin/Lovenox 30 mg SQ BID (WT < 150 kg, CrCl > 30 mL/min) AND/OR *Sequential Compression Device (SCD) 5 or more Highest Order ONE of the following medications: *Heparin 5000 units SQ TID (Preferred with Epidurals) *Enoxaparin/Lovenox 40 mg SQ daily (WT < 150 kg, CrCl > 30 mL/min) *Enoxaparin/Lovenox 30 mg SQ daily (WT < 150 kg, CrCl > 10-29 mL/min) *Enoxaparin/Lovenox 30 mg SQ BID (WT < 150 kg, CrCl > 30 mL/min) AND *Sequential Compression Device (SCD) Assessment and Plan Assessment and Plan Assessment/plan: 1. Electrolyte abnormalities Patient with a sodium of 118 and a potassium of 2.9 Status post p.o. repletion and IV fluids with K supplementation Fluid restriction Monitor BMP 2. Chest pain/pressure EKG significant for LVH, no ST segment elevations or depressions, personally reviewed Initial troponin negative ACS rule out pending; serial troponins/EKGs 3. Upper respiratory infection Chest x-ray with no acute abnormalities, personally reviewed Continue treatment with doxycycline to complete antibiotic course Mucinex 4. COPD Supplemental oxygen as needed DuoNeb's Continue home inhaler 5. Chronic pain Had a lengthy discussion with patient's who requests that he does not receive excessive pain medication as he often exhibits drug-seeking behavior in the hospital Continue tramadol 6. Hypertension Continue home medications 7. History of thoracic aortic aneurysm Per patient, aneurysm is less than 5 cm Follow-up as outpatient FEN Heart healthy diet with fluid restriction Electrolytes: As above Heparin NS +20 KCl at 60 cc/hour Physician Certification 2 Midnight Certification Type: Admission for Inpatient Services Order for Inpatient Services The services are ordered in accordance with Medicare regulations or non- Medicare payer requirements, as applicable. In the case of services not specified as inpatient-only, they are appropriately provided as inpatient services in accordance with the 2-midnight benchmark. Estimated LOS (days): 2 2 days is the estimated time the patient will need to remain in the hospital, assuming treatment plan goals are met and no additional complications. Post-Hospital Plan: Not yet determined Carolyn Bautista MD Jan 19, 2018 22:07
[2018-01-19] MEDS: guaiFENesin E.R. 600 MG TAB PO SCH (22:54)
[2018-01-19] MEDS: SODIUM CHLORIDE 0.9% FLUSH 10 ML FLUSH IV FLUSH SCH (22:55)
[2018-01-19] MEDS: BUDESONIDE-FORMOTEROL 160/4.5 MCG INHALER INH SCH (22:55)
[2018-01-19] MEDS: HEPARIN SODIUM - SQ 10,000 UNITS/ML VIAL SQ SCH (22:55)
[2018-01-19] MEDS: FAMOTIDINE 20 MG TAB PO SCH (22:56)
[2018-01-19] MEDS ORDERED: oxyCODONE/ACETAMINOPHEN 10 MG/325 MG TAB PO ONE (23:30)
[2018-01-19] MEDS: MELATONIN 5 MG TAB PO ONE (23:30)
[2018-01-20] VITALS (10 sets, daily range): BP systolic 150–177; BP diastolic 63–94; PULSE 89–113; RESP 18–22; TEMP 97.4–98.6; O2SAT 94–99
[2018-01-20] MEDS: MELATONIN 5 MG TAB PO ONE (00:21)
[2018-01-20 01:32] LABS: TROPONIN I 0.03 NG/ML (0.02-0.05)
[2018-01-20] MEDS: traZODone HCL 50 MG TAB PO SCH ×3 (02:58→21:49)
[2018-01-20] MEDS: RESP: ALBUTEROL 2.5 MG/IPRATROPIUM 0.5 MG NEB (PRN) NEB ×3 (03:14→20:49)
[2018-01-20] MEDS: traMADol HCL 50 MG TAB PO PRN ×2 (05:29→09:14)
[2018-01-20 05:47] LABS: AUTOMATED NEUTROPHIL # 9.9 TH/MM3 (1.8-7.7); BASOPHIL % 0.2 % (0.0-2.0); EOSINOPHIL % 0.2 % (0.0-4.0); HEMATOCRIT 41.8 % (39.0-51.0); HEMOGLOBIN 14.4 GM/DL (13.0-17.0); LYMPH % 14.2 % (9.0-44.0); LYMPHOCYTE # 1.8 TH/MM3 (1.0-4.8); MEAN CORPUSCULAR HGB CONC 34.4 % (32.0-36.0); MONO % 7.1 % (0.0-8.0); MONOCYTE # 0.9 TH/MM3 (0-0.9); NEUT % 78.3 % (16.0-70.0); PLATELET COUNT 532 TH/MM3 (150-450); RED BLOOD COUNT 4.65 MIL/MM3 (4.50-5.90); WHITE BLOOD COUNT 12.6 TH/MM3 (4.0-11.0)
[2018-01-20 06:16] LABS: BICARBONATE 25.9 MEQ/L (21.0-32.0); CALCIUM 9.9 MG/DL (8.5-10.1); CREATININE 0.95 MG/DL (0.60-1.30)
[2018-01-20 06:20] LABS: TROPONIN I 0.03 NG/ML (0.02-0.05)
[2018-01-20] MEDS: SODIUM CHLORIDE 0.9% FLUSH 10 ML FLUSH IV FLUSH SCH ×2 (09:00→20:45)
[2018-01-20] MEDS: HEPARIN SODIUM - SQ 10,000 UNITS/ML VIAL SQ SCH ×2 (09:03→20:47)
[2018-01-20] MEDS: GABAPENTIN 400 MG CAP PO SCH ×3 (09:08→18:20)
[2018-01-20] MEDS: guaiFENesin E.R. 600 MG TAB PO SCH ×2 (09:08→20:44)
[2018-01-20] MEDS: DOCUSATE SODIUM 50 MG/SENNA 8.6 MG TAB PO SCH ×2 (09:10→20:46)
[2018-01-20] MEDS: FAMOTIDINE 20 MG TAB PO SCH ×2 (09:12→20:46)
[2018-01-20] MEDS: DOXYCYCLINE HYCLATE 100 MG CAP PO SCH ×2 (09:12→20:46)
[2018-01-20] MEDS: amLODIPine BESYLATE 5 MG TAB PO SCH (09:12)
[2018-01-20] MEDS: BUDESONIDE-FORMOTEROL 160/4.5 MCG INHALER INH SCH ×2 (09:21→20:45)
[2018-01-20] MEDS ORDERED: LIDOCAINE HCL 5% PATCH T-DERMAL ONE (09:45)
[2018-01-20] MEDS: LIDOCAINE HCL 5% PATCH T-DERMAL SCH (10:47)
--- NOTE | 2018-01-20 13:33 | HHI.PR ---
Subjective Remarks Nursing reports that the patient is repetitively asking for narcotic pain medication. Initially a lidocaine patch was offered to him as he complained mainly of back pain, however the patient directly refuse this patch. Upon my visit with the patient in person, he says that his back pain has started worsening recently. Says that he has trouble ambulating safely and thus has a wheelchair at home. For his back pain he says he was [facility] but he declined this. He says he has had shots in his back in the past, and has turned down neurosurgical intervention in the past as well. In regards to the chest pain, the patient says he has had this for about 2 months and this usually acts up during episodes of ambulation. Objective Vital Signs Date Time Temp Pulse Resp B/P (MAP) Pulse Ox O2 Delivery O2 Flow Rate FiO2 01/20/18 12:21 104 01/20/18 09:31 97 Nasal Cannula 1.00 01/20/18 07:00 113 01/20/18 04:00 98.6 101 18 150/63 (92) 96 01/20/18 04:00 89 01/20/18 00:10 97 01/20/18 00:00 98.4 89 19 158/79 (105) 99 01/19/18 21:08 01/19/18 20:12 104 24 168/84 (112) 98 Room Air 01/19/18 20:00 98.3 100 20 173/81 (111) 96 01/19/18 17:41 94 98 Room Air 01/19/18 17:40 100 Room Air 01/19/18 17:40 100 Room Air 01/19/18 17:15 99.1 100 22 159/81 (107) 98 I/O 01/19/18 01/19/18 01/19/18 01/20/18 01/20/18 01/20/18 07:00 15:00 23:00 07:00 15:00 23:00 Output Total 600 ml 700 ml Balance -600 ml -700 ml Output Urine Total 600 ml 700 ml # Voids 2 Result Diagram: 01/20/18 0515 01/20/18 0515 Objective Remarks Heart sounds regular rate rhythm, no murmurs Unlabored breathing Appears to be a little bit restless but in some distress secondary to pain, now has a lidocaine patch on his lower back Has very obvious sternal and left sided rib cage tenderness to palpation diffusely which the patient affirms is indeed the chest pain that he complains of A/P Assessment and Plan 62-year-old white male originally admitted for generalized weakness secondary to metabolic disturbance Gen weakness -Mostly multifactorial in origin, originally electrolyte abnormalities which are now corrected -CK levels however are rising, will trend this and start IV fluids, may consider obtaining a sed rate/CRP to see if there is any element of polymyositis involved -We will have PT/OT evaluate the patient Hyponatremia -Resolved. Immediately stopping IV fluids given the drastic change in concentration of sodium. Patient was counseled and warned about the signs of central pontine myelitis is the case this was something that did come about. It is possible that the initial sodium level was a falsely exaggerated lower read where it was more indicative of volume depletion as opposed to sodium concentration. Hypokalemia -Resolved with IV potassium. Supplement p.o. potassium Acute on chronic back pain -We will obtain MRI of the low back, continue lidocaine patch, continue tramadol , will start low-dose [place]. Explained to the patient that we will not write for a liberal narcotic regimen upon discharge if no further new findings are found upon workup -that he will need to eventually follow up with a outpatient pain management physician. COPD -Continue home Symbicort acute sinusitis - continue home Doxycycline Sebastián Corrigan MD Jan 20, 2018 13:33
--- NOTE | 2018-01-20 14:35 | EKG ---
Date Performed: 01/20/2018 Time Performed: 00:05:50 PTAGE: 62 years EKG: Sinus rhythm Baseline artifact Borderline left axis deviation Prominent precordial voltage Nonspecific T-wave margarito nge Abnormal ECG PREVIOUS TRACING 01/19/2018 Since previous tracing, T-waves more inverted anteriorly. Clinical correlation is recommended. DOCTOR: Yuniel Sims Interpretating Date/Time 01/20/2018 14:34:02
--- NOTE | 2018-01-20 14:35 | EKG ---
Date Performed: 01/19/2018 Time Performed: 17:30:13 PTAGE: 62 years EKG: Technically poor tracing with marked baseline artifact Sinus rhythm with sinus arrhythmia Intraventricular conduction disturbance Prominent precordial voltage Nonspecif ic T-wave change PREVIOUS TRACING : 12/28/2017 16.37 Since previous tracing, axis is less leftward, otherw ise no significant change. DOCTOR: Yuniel Sims Interpretating Date/Time 01/20/2018 14:33:10
[2018-01-20] MEDS: ACETAMINOPHEN/HYDROcodone 325 MG/5 MG TAB PO PRN ×2 (14:37→20:46)
--- NOTE | 2018-01-20 14:37 | EKG ---
Date Performed: 01/20/2018 Time Performed: 07:26:20 PTAGE: 62 years EKG: Sinus tachycardia with 1 PVC Borderline left axis deviation Diffuse nonspecific ST-T change Abnormal ECG PREVIOUS TRACING 01/20/2018 Since previous tracing, T-waves improved anteriorly. Clinical kaity elation is recommended. DOCTOR: Yuniel Sims Interpretating Date/Time 01/20/2018 14:35:19
[2018-01-20] MEDS ORDERED: MELATONIN 5 MG TAB PO PRN (16:30)
--- NOTE | 2018-01-20 17:12 | RADRPT ---
EXAM DATE: 01/20/2018 4:55 PM EDT AGE/SEX: 62 years / Male INDICATIONS: . Intractable back pain. CLINICAL DATA: This is the patient's initial encounter. Patient reports that signs and symptoms have been present for 1 day and indicates a pain score of 6/10. MEDICAL/SURGICAL HISTORY: Chronic obstructive pulmonary disease. Hypertension. Thoracic aortic aneurysm. Inguinal hernia repair. Total knee replacement, right. Tonsillectomy. Left hip replace ment. COMPARISON: No prior [facility] exams available for comparison. TECHNIQUE: Multiplanar, multisequence MRI of the lumbar spine was performed without contrast. Patie nt was scanned in a sitting position; neutral, flexion, and extension scans were performed in the sa gittal plane. FINDINGS: There is levoconvex curvature of the lumbar spine. There are a few millimeters of degenera tive-appearing anterolisthesis at L4/L5. Chronic endplate and cavity seen of L2, L3 and L4 vertebral bodies. There is mild to moderate, chronic compression deformity of the L1 superior endplate. No acut e fracture or acute appearing malalignment. T12-L1: The disc is slightly desiccated and there is diffuse bulging of the annulus. Mild bilateral facet osteoarthritis. No significant foraminal or spinal stenosis. L1-L2: The disc is desiccated but otherwise within normal limits. Mild bilateral facet osteoarthrit is. No foraminal or spinal stenosis. L2-L3: The disc is desiccated and has mild loss of height. Small, broad but especially right parace ntral/foraminal disc protrusion present. Mild bilateral facet osteoarthritis. There is mild right for aminal stenosis. L3-L4: The disc is desiccated. Very mild loss of height. There is diffuse bulging of the disc annul us and mild to moderate bilateral facet osteoarthritis. There is mild to moderate right and mild left foraminal stenosis. L4-L5: The disc is desiccated and has moderate loss of height. Grade 1 degenerative anterolisthesis . There is a small, broad/diffuse posterior disc protrusion and moderate bilateral facet osteoarthrit is. A short segment anterior annular fissure is present. There is mild bilateral foraminal stenosis. L5-S1: The disc is desiccated and has moderate to severe loss of height, especially towards the lef t. Small, broad/diffuse disc osteophyte complex and mild to moderate bilateral facet osteoarthritis. There is mild right and moderate left foraminal stenosis. CONCLUSION: 1. Scoliosis and multilevel degenerative changes as above. Chronic endplate compression fractures of L1, L2 and L3. There is no acute fracture or acute appearing malalignment demonstrated. 2. Up to moderate degrees of foraminal stenosis. Please see above. No significant spinal stenosis de monstrated. Electronically signed by: Smooth Pathak MD 01/20/2018 5:11 PM EDT
[2018-01-21] VITALS: BP 121/76; PULSE 84; PULSE 91; RESP 20; TEMP 97.8; O2SAT 98
[2018-01-21 04:00] VITALS: BP 150/82; PULSE 83; PULSE 95; RESP 20; TEMP 97.3; O2SAT 94
[2018-01-21 08:00] VITALS: BP 152/91; PULSE 100; PULSE 104; RESP 20; TEMP 97.5; O2SAT 98
[2018-01-21] MEDS: SODIUM CHLORIDE 0.9% FLUSH 10 ML FLUSH IV FLUSH SCH (08:57)
[2018-01-21] MEDS: guaiFENesin E.R. 600 MG TAB PO SCH (08:57)
[2018-01-21] MEDS: FAMOTIDINE 20 MG TAB PO SCH (08:57)
[2018-01-21] MEDS: ACETAMINOPHEN/HYDROcodone 325 MG/5 MG TAB PO PRN (08:57)
[2018-01-21] MEDS: DOCUSATE SODIUM 50 MG/SENNA 8.6 MG TAB PO SCH (08:58)
[2018-01-21] MEDS: GABAPENTIN 400 MG CAP PO SCH ×2 (08:58→12:11)
[2018-01-21] MEDS: HEPARIN SODIUM - SQ 10,000 UNITS/ML VIAL SQ SCH (08:58)
[2018-01-21] MEDS: amLODIPine BESYLATE 5 MG TAB PO SCH (08:58)
[2018-01-21] MEDS: DOXYCYCLINE HYCLATE 100 MG CAP PO SCH (08:58)
[2018-01-21] MEDS: LIDOCAINE HCL 5% PATCH T-DERMAL SCH (08:59)
[2018-01-21] MEDS: BUDESONIDE-FORMOTEROL 160/4.5 MCG INHALER INH SCH (09:00)
[2018-01-21] MEDS ORDERED: REMOVE OLD PATCH T-DERMAL SCH (09:00)
[2018-01-21 12:00] VITALS: BP 152/87; PULSE 101; RESP 20; TEMP 98; O2SAT 96
[2018-01-21 12:24] LABS: BICARBONATE 24.7 MEQ/L (21.0-32.0); CALCIUM 9.2 MG/DL (8.5-10.1); CREATININE 0.91 MG/DL (0.60-1.30)
[2018-01-21] MEDS ORDERED: HYDR-3516 PO (12:41)
--- NOTE | 2018-01-21 12:50 | HHI.DCPOC ---
Discharge Care Plan Diagnosis: (1) Hypokalemia (2) Hyponatremia Additional Problems Have your electrolytes rechecked within 1 week by your PCP. Goals to Promote Your Health * To prevent worsening of your condition and complications * To maintain your health at the optimal level Directions to Meet Your Goals Take your medications as prescribed Follow your dietary instruction Follow activity as directed Keep your appointments as scheduled Take your immunizations and boosters as scheduled If your symptoms worsen call your PCP, if no PCP go to Urgent Care Center or Emergency Room Smoking is Dangerous to Your Health. Avoid second hand smoke Call the 24-hour hour crisis hotline for domestic abuse at Sebastián Corrigan MD Jan 21, 2018 12:49
[2018-01-21] MEDS ORDERED: POTASSIUM CHLORIDE 20 MEQ CONTROLLED RELEASE TAB PO ONE (13:15)
[2018-01-21] MEDS ORDERED: KLOR25TA2 PO (13:17)
[2018-01-21] MEDS ORDERED: MAGNESIUM SULFATE 1 GM PREMIX 100 ML IV PRN (13:30)
--- NOTE | 2018-01-21 14:27 | HHI.FF ---
Face to Face Verification Diagnosis: (1) Unstable gait (2) Hyponatremia (3) Hypokalemia Physical Therapy Order: Evaluate and Treat Home Health Nursing Order: Signs/symptoms of disease process Nursing assessment with vital signs I have seen patient Joel Johnson on 01/21/18. My clinical findings support the need for the requested home health care services because: High risk of falls I certify that my clinical findings support that this patient is homebound because: Unsteady gait/balance Sebastián Corrigan MD Jan 21, 2018 14:27
[2018-01-21] MEDS ORDERED: POTA-163 PO (15:54)
== END 2018-01-21 16:00 | disposition home health service (06) | DRG 641 ==
LOC: NEPE 17:08 → NEDA 20:03 → N04B 21:02
PROVIDERS: ADMIT Hospitalist; ATTEND Hospitalist
DX: E87.6 Hypokalemia (principal); I10 Essential (primary) hypertension; E87.1 Hypo-osmolality and hyponatremia; M19.90 Unspecified osteoarthritis, unspecified site; J44.9 Chronic obstructive pulmonary disease, unspecified; J06.9 Acute upper respiratory infection, unspecified; F41.9 Anxiety disorder, unspecified; J01.90 Acute sinusitis, unspecified; G89.29 Other chronic pain; Z87.891 Personal history of nicotine dependence; Z79.891 Long term (current) use of opiate analgesic; Z79.899 Other long term (current) drug therapy
CPT/HCPCS: 71046; 72148; 80048; 80053; 81001; 82550; 82552; 83735; 84484; 85025; 85652; 86140; 93005; 94640; 94664; J1170; J1644; J3480; J7613

== ENCOUNTER 2018-04-04 13:07 | Inpatient (IN) ==
[2018-04-04] MEDS ORDERED: Sod Chloride 0.9% Inj 1,000 ML IV.SIG ONE (14:29)
--- NOTE | 2018-04-04 14:32 | ED ---
HPI General Chief complaint: Weakness Stated complaint: weakness Time Seen by Provider: 04/04/18 14:22 Source: patient, family, RN notes reviewed and old records reviewed History of Present Illness HPI narrative: 62yM presenting with generalized weakness and cough. The patient states that for the past 2-3 days he's had a cough productive of thick mucous; today, he began to feel so weak that he was unable to ambulate to and from the bathroom. He reports similar symptoms 2 month ago, when he was found to have low sodium/ potassium. Denies fever or chills, chest pain, palpitations, nausea or vomiting, diarrhea, or dysuria. He admits to decreased appetite. History of COPD, not on home O2, not on chronic steroids, s/p pleurodesis and has had multiple pneumothoraces. Related Data Home Medications Medication Instructions Recorded Confirmed albuterol sulfate 1.25 mg INHALATION Q4H PRN 04/04/18 04/04/18 albuterol sulfate 2 puff INHALATION Q4-6H PRN 04/04/18 04/04/18 budesonide-formoterol [Symbicort] 2 puff INHALATION BID 04/04/18 04/04/18 cetirizine [Zyrtec] 10 mg PO DAILY 04/04/18 04/04/18 gabapentin 900 mg PO TID 04/04/18 04/04/18 guaifenesin [Mucinex] 1,200 mg PO BID 04/04/18 04/04/18 hydroxyzine HCl 50 mg PO QID PRN 04/04/18 04/04/18 tiotropium bromide 1 cap INHALATION DAILY 04/04/18 04/04/18 tramadol 50 mg PO QID 04/04/18 04/04/18 trazodone 75 mg PO DAILY 04/04/18 04/04/18 Allergies Allergy/AdvReac Type Severity Reaction Status Date / Time No Known Allergies Allergy Verified 04/04/18 14:24 Review of Systems ROS: all other systems reviewed are negative Constitutional Denies fever(s) and Reports weakness Eyes Denies blurry vision ENT Reports nasal congestion Cardiovascular Denies chest pain Respiratory Reports cough Gastrointestinal Denies nausea Genitourinary Denies dysuria Musculoskeletal Comments: Chronic low back pain Neurologic Denies confusion Psychiatric Denies confusion PMFSH History History Provided By: Patient Medical History Medical History Anxiety (Acute) COPD (chronic obstructive pulmonary disease) (Acute) Collapse of right lung (Acute) Degenerative disc disease (Acute) Degenerative joint disease (Acute) Hypertension (Acute) Thoracic aneurysm without mention of rupture (Acute) Surgical History Surgical History History of hip replacement (Acute) History of knee replacement (Acute) Social History Social History Substance History: Past History Second Hand Smoke Exposure: No Smoking Status: Former smoker Tobacco Type: Cigarettes How Often Do You Have a Drink Containing Alcohol: Never Recent Travel in [place] within the Last 8 Weeks: No Recent Out of Country Travel within the Last 8 Weeks: No Exam Const General: no acute distress and frail appearing HENMT Head: normocephalic and atraumatic Face and sinus: normal facial exam Eyes General: appearance normal, both eyes and all related structures Pupils: PERRL Chest Chest: normal inspection of the chest Resp Effort & Inspection: normal respiratory effort Auscultation: no rhonchi and no wheezes Other: Pursed-lip breathing, no wheezing Cardio Rate: regular rate Rhythm: regular rhythm GI Inspection: non-distended Palpation: soft and nontender Skin General: no rashes or lesions noted Neuro General: alert, awake, oriented x3 and no focal motor deficits Extrem Other: No lower extremity edema Psych Affect: normal affect Course Initial Documented Vital Signs Temperature 97.4 F L 04/04/18 13:11 Pulse Rate 91 H 04/04/18 13:11 Respiratory Rate 18 04/04/18 13:11 Blood Pressure 170/78 H 04/04/18 13:11 Pulse Oximetry 95 04/04/18 13:11 Last Documented Vital Signs Temperature 97.4 F L 04/04/18 13:11 Pulse Rate 84 04/04/18 14:35 Respiratory Rate 22 04/04/18 14:35 Blood Pressure 168/102 H 04/04/18 14:35 Pulse Oximetry 99 04/04/18 14:35 Medical Decision Making [facility] Narrative Medical decision making narrative: Assessment: 62yM presenting with weakness and cough Plan: EKG and monitor Labs UA CXR Addendum: Patient found to have acute symptomatic hyponatremia (127) and hypokalemia. He will need observation and correction of serum sodium. Patient and his understand and agree with plan. Case discussed with Dr. Steele ( [facility]). Medical Screen Exam Complete: Yes Emergency Medical Condition: Yes Differential Diagnosis Differential Diagnosis: Differential diagnosis includes, but is not limited to: pneumonia, ACS, arrhythmia, pleural effusion, PTX, electrolyte abnormality, dehydration, anemia Lab Data Lab results reviewed: Yes I reviewed the patient's lab results. Result diagrams: 04/04/18 14:32 04/04/18 14:32 Lab Results 04/04/18 04/04/18 04/04/18 Range/Units 14:32 14:32 14:32 WBC 10.3 (4.0-11.0) th/mm3 RBC 4.17 L (4.50-5.90) mil/mm3 Hgb 13.3 (13.0-17.0) gm/dL Hct 38.6 L (39.0-51.0) % MCV 92.4 (80.0-100.0) fL MCH 31.8 (27.0-34.0) pg MCHC 34.4 (32.0-36.0) % RDW 14.0 (11.6-17.2) % Plt Count 416 (150-450) th/mm3 MPV 7.0 (7.0-11.0) fL Neut % (Auto) 78.4 H (16.0-70.0) % Lymph % (Auto) 9.6 (9.0-44.0) % [place] % (Auto) 10.0 H (0.0-8.0) % Eos % (Auto) 1.5 (0.0-4.0) % Baso % (Auto) 0.5 (0.0-2.0) % Neut # (Auto) 8.1 H (1.8-7.7) th/mm3 Lymph # (Auto) 1.0 (1.0-4.8) th/mm3 [place] # (Auto) 1.0 H (0.0-0.9) th/mm3 Eos # (Auto) 0.2 (0.0-0.4) th/mm3 Baso # (Auto) 0.1 (0.0-0.2) th/mm3 WBC Differential . Differential Comment Auto diff final Sodium 127 L (136-145) meq/L Potassium 3.1 L (3.5-5.1) meq/L Chloride 88 L (98-107) meq/L Carbon Dioxide 26.0 (21.0-32.0) meq/L Anion Gap 13 (5-15) meq/L BUN 10 (7-18) mg/dL Creatinine 0.78 (0.60-1.30) mg/dL Estimated GFR Greater than 89 (>89) mL/min Random Glucose 95 (74-106) mg/dL Calcium 9.2 (8.5-10.1) mg/dL Phosphorus 3.1 (2.5-4.9) mg/dL Magnesium 2.0 (1.5-2.5) mg/dL Total Bilirubin 0.5 (0.2-1.0) mg/dL AST 13 L (15-37) U/L ALT 24 (12-78) U/L Alkaline Phosphatase 67 (45-117) U/L Troponin I Less than 0.02 L (0.02-0.05) ng/mL Total Protein 7.5 (6.4-8.2) g/dL Albumin 3.4 (3.4-5.0) g/dL TSH (0.358-3.740) uIU/mL 04/04/18 Range/Units 14:32 WBC (4.0-11.0) th/mm3 RBC (4.50-5.90) mil/mm3 Hgb (13.0-17.0) gm/dL Hct (39.0-51.0) % MCV (80.0-100.0) fL MCH (27.0-34.0) pg MCHC (32.0-36.0) % RDW (11.6-17.2) % Plt Count (150-450) th/mm3 MPV (7.0-11.0) fL Neut % (Auto) (16.0-70.0) % Lymph % (Auto) (9.0-44.0) % [place] % (Auto) (0.0-8.0) % Eos % (Auto) (0.0-4.0) % Baso % (Auto) (0.0-2.0) % Neut # (Auto) (1.8-7.7) th/mm3 Lymph # (Auto) (1.0-4.8) th/mm3 [place] # (Auto) (0.0-0.9) th/mm3 Eos # (Auto) (0.0-0.4) th/mm3 Baso # (Auto) (0.0-0.2) th/mm3 WBC Differential Differential Comment Sodium (136-145) meq/L Potassium (3.5-5.1) meq/L Chloride (98-107) meq/L Carbon Dioxide (21.0-32.0) meq/L Anion Gap (5-15) meq/L BUN (7-18) mg/dL Creatinine (0.60-1.30) mg/dL Estimated GFR (>89) mL/min Random Glucose (74-106) mg/dL Calcium (8.5-10.1) mg/dL Phosphorus (2.5-4.9) mg/dL Magnesium (1.5-2.5) mg/dL Total Bilirubin (0.2-1.0) mg/dL AST (15-37) U/L ALT (12-78) U/L Alkaline Phosphatase (45-117) U/L Troponin I (0.02-0.05) ng/mL Total Protein (6.4-8.2) g/dL Albumin (3.4-5.0) g/dL TSH 0.684 (0.358-3.740) uIU/mL Imaging Data Radiologist's impression: Chest X-Ray 04/04/18 14:29 CONCLUSION: The lungs are hyperinflated consistent with COPD. No acute infiltrate or effusion. ECG Data Attestation: I personally reviewed and interpreted this ECG as follows: Interpretation: Rate: 90 BPM Rhythm: Sinus [place]: Normal Intervals: Normal intervals, no blocks, QTc 428 ms Q waves: V2 T waves: Analysis limited due to motion artifact, no obvious inversions ST segments: Analysis limited due to motion artifact, no obvious elevations or depressions Impression: Non-specific EKG, no changes as compared to EKG from 01/20/2018. Discharge Plan Discharge Disposition Patient Disposition: 30 Still Patient Discharge Condition Condition: Good Discharge Details Diagnosis: Acute hyponatremia, Acute hypokalemia, Weakness Physicians Team ED Provider: Zuleyma Lagunas Primary Care Provider: [facility],Physician 's Rxs /Orders / Referrals /Forms Prescriptions: No Action trazodone 50 mg Tablet 75 mg PO DAILY RF: 0 cetirizine [Zyrtec] 10 mg Tablet 10 mg PO DAILY RF: 0 albuterol sulfate 1.25 mg/3 mL Solution For Nebulization 1.25 mg INHALATION Q4H PRN (Reason: Shortness Of Breath) RF: 0 hydroxyzine HCl 50 mg Tablet 50 mg PO QID PRN (Reason: Anxiety) RF: 0 tramadol 50 mg Tablet 50 mg PO QID RF: 0 gabapentin 300 mg Capsule 900 mg PO TID RF: 0 albuterol sulfate 90 mcg/actuation Hfa Aerosol Inhaler 2 puff INHALATION Q4-6H PRN (Reason: Shortness Of Breath) RF: 0 tiotropium bromide 18 mcg Capsule, W/Inhalation Device 1 cap INHALATION DAILY RF: 0 budesonide-formoterol [Symbicort] 160-4.5 mcg/actuation Hfa Aerosol Inhaler 2 puff INHALATION BID RF: 0 guaifenesin [Mucinex] 1,200 mg Tablet Extended Release 12hr 1,200 mg PO BID RF: 0 Discharge Interventions Interventions: Vital Signs Last Done: 04/04/18 14:35 Status ED Status: With Doctor
--- NOTE | 2018-04-04 15:04 | XR ---
EXAM DATE: 04/04/2018 2:52 PM EDT AGE/SEX: 62 years / Male INDICATIONS: Cough. Patient complains of shortness of breath and chest pain inferior sternum area. CLINICAL DATA: This is the patient's initial encounter. Patient reports that signs and symptoms have been present for 1 day and indicates a pain score of 2/10. MEDICAL/SURGICAL HISTORY: Hypertension. Chronic obstructive pulmonary disease. Congestive hea rt failure. Emphysema. Pneumothorax, Aneurysm. None. COMPARISON: [facility] [place], CHEST PA & LAT, 01/19/2018. . FINDINGS: A single AP view of the chest demonstrates the lungs to be symmetrically aerated without evidence of mass, infiltrate or effusion. The lungs are hyperaerated bilaterally. The cardiomediastinal contours are unremarkable. Osseous structures are intact. CONCLUSION: The lungs are hyperinflated consistent with COPD. No acute infiltrate or effusion. Electronically signed by: Ben Nixon MD 04/04/2018 3:03 PM EDT
[2018-04-04 15:05] LABS: Baso # (Auto) 0.1 th/mm3 (0.0-0.2); Baso % (Auto) 0.5 % (0.0-2.0); Eos # (Auto) 0.2 th/mm3 (0.0-0.4); Eos % (Auto) 1.5 % (0.0-4.0); Hematocrit 38.6 % (39.0-51.0); Hemoglobin 13.3 gm/dL (13.0-17.0); Lymph % (Auto) 9.6 % (9.0-44.0); Mean Corpuscular HGB Conc 34.4 % (32.0-36.0); Mean Corpuscular Hemoglobin 31.8 pg (27.0-34.0); Mean Corpuscular Volume 92.4 fL (80.0-100.0); Neut # (Auto) 8.1 th/mm3 (1.8-7.7); Neut % (Auto) 78.4 % (16.0-70.0); Platelet Count 416 th/mm3 (150-450); Red Blood Count 4.17 mil/mm3 (4.50-5.90); White Blood Count 10.3 th/mm3 (4.0-11.0)
[2018-04-04 15:21] LABS: Alanine Aminotransferase 24 U/L (12-78); Albumin 3.4 g/dL (3.4-5.0); Anion Gap 13 meq/L (5-15); Aspartate Aminotransferase 13 U/L (15-37); Blood Urea Nitrogen 10 mg/dL (7-18); Calcium 9.2 mg/dL (8.5-10.1); Chloride 88 meq/L (98-107); Glomerular Filtration Rate Greater Than 89 mL/min (>89); Glucose,Random 95 mg/dL (74-106); Potassium 3.1 meq/L (3.5-5.1); Sodium 127 meq/L (136-145)
[2018-04-04 15:22] LABS: Phosphorus 3.1 mg/dL (2.5-4.9)
[2018-04-04 15:23] LABS: Alkaline Phosphatase 67 U/L (45-117); Total Protein 7.5 g/dL (6.4-8.2)
[2018-04-04 16:16] LABS: Bilirubin,Urine Negative (Negative); Clarity,Urine Hazy (Clear); Color,Urine Yellow (Yellw/Straw); Glucose,Urine (UA) Negative (Negative); Leukocyte Esterase,Urine Negative (Negative); Mucus,Urine Few /lpf (Occasional); Nitrite,Urine Negative (Negative); Specific Gravity,Urine 1.014 (1.002-1.035)
[2018-04-04] MEDS ORDERED: Acetaminophen 325 MG Tablet PO PRN (16:19)
--- NOTE | 2018-04-04 16:59 | P.HPIM ---
History of Present Illness Primary Care Physician: [facility] Chief Complaint: Weakness History of Present Illness: The patient is a 62-year-old male with past medical history of COPD and degenerative joint disease who is presenting to the hospital with weakness and worsening cough. The patient says that he has been coughing up clear colored, sticky mucus. He feels short of breath and congested. He has had a decreased appetite over the past few days along with weight loss. He feels like he has no strength, especially in the lower extremities. He is complaining of worsening back pain. He says he is on pain medication through the [facility]. He says he has had shots in the back but they have not worked. He has numbness and tingling down his legs. He says he struggles with sciatica. He says he has been drinking Ensure to try to gain some weight back. He has been off of home oxygen for many months. He follows at the [facility] for his medical needs. He has been struggling with anxiety and recently hydroxyzine has been added to his regimen. - Diagnosis (1) Acute hyponatremia (2) Acute hypokalemia (3) Weakness Review of Systems All other systems reviewed negative except as stated in HPI PMFSH - History History Provided By: Patient - Medical History Medical History: Medical History (Last Updated 04/04/18 @ 14:47 by Shawnee De La Torre RN) Anxiety COPD (chronic obstructive pulmonary disease) Collapse of right lung Degenerative disc disease Degenerative joint disease Hypertension Thoracic aneurysm without mention of rupture - Surgical History Surgical History: Surgical History (Last Updated 04/04/18 @ 14:47 by Shawnee De La Torre RN) History of hip replacement History of knee replacement - Family History Family History: Family History (Last Updated 04/04/18 @ 16:51 by Moi Weinstein DO) Other Multiple sclerosis - Tobacco History Second Hand Smoke Exposure: No Tobacco Use In Past 30 Days: No Smoking Status: Former smoker Tobacco Type: Cigarettes - Alcohol History How Often Do You Have a Drink Containing Alcohol: Never - Substance Use History Substance History: Past History - Substance Use Type Alcohol Status: Sustained Remission Reason for Use: Calm Down - Travel History Recent Travel in the [place] Within the Last 8 Weeks: No Recent Travel Out of the Country Within the Last 8 Weeks: No - Immunization History Tetanus Immunization: >5 Years Hx Influenza Vaccine This Season: No Medications and Allergies Active Medications: Active Medications Acetaminophen (Tylenol) 650 mg PO Q4H PRN PRN Reason: Temp > 100.4 Albuterol (Albuterol Neb (Prn)) 1.25 mg NEB Q4HR NEB PRN PRN Reason: Shortness Of Breath Albuterol (Duoneb Neb (Jacqueline)) 1 ampul NEB Q6HR WHILE AWAKE NEB [facility] Budesonide/Formoterol Fumarate (Symbicort 160/4.5 Mcg Inh) 2 puff INH BID [facility] Cetirizine HCl (Zyrtec) 10 mg PO DAILY [facility] Gabapentin (Neurontin) 900 mg PO TID [facility] Guaifenesin (Mucinex Er) 1,200 mg PO BID [facility] Hydromorphone HCl (Dilaudid Pf Inj) 0.5 mg IV.PUSH Q4H PRN PRN Reason: BREAKTHROUGH PAIN Hydroxyzine HCl (Atarax) 50 mg PO QID PRN PRN Reason: ANXIETY Ketorolac Tromethamine (Toradol Inj) 30 mg IV.PUSH Q6H PRN PRN Reason: PAIN 6-10;IF UNABLE TO TAKE PO Tiotropium Endeavor (Spiriva 18 Mcg Inh) 18 mcg INH DAILY [facility] Tramadol HCl (Ultram) 50 mg PO QID PRN PRN Reason: PAIN 3-5; IF UABLE TO TAKE PO Trazodone HCl (Desyrel) 75 mg PO DAILY [facility] Allergies Allergy/AdvReac Type Severity Reaction Status Date / Time No Known Allergies Allergy Verified 04/04/18 14:24 Home Medications Medication Instructions Recorded Confirmed Type albuterol sulfate 1.25 mg INHALATION Q4H PRN 04/04/18 04/04/18 History albuterol sulfate 2 puff INHALATION Q4-6H PRN 04/04/18 04/04/18 History budesonide-formoterol [Symbicort] 2 puff INHALATION BID 04/04/18 04/04/18 History cetirizine [Zyrtec] 10 mg PO DAILY 04/04/18 04/04/18 History gabapentin 900 mg PO TID 04/04/18 04/04/18 History guaifenesin [Mucinex] 1,200 mg PO BID 04/04/18 04/04/18 History hydroxyzine HCl 50 mg PO QID PRN 04/04/18 04/04/18 History tiotropium bromide 1 cap INHALATION DAILY 04/04/18 04/04/18 History tramadol 50 mg PO QID 04/04/18 04/04/18 History trazodone 75 mg PO DAILY 04/04/18 04/04/18 History Exam Vital signs: Vital Signs 04/04/18 13:11 04/04/18 14:30 04/04/18 14:35 Temperature 97.4 F L Pulse Rate 91 H 92 H 84 Respiratory Rate 18 22 Blood Pressure 170/78 H 168/102 H Pulse Oximetry 95 99 Intake & Output 04/03/18 04/04/18 04/04/18 18:59 06:59 18:59 Weight 56.699 kg Narrative: general: uncomfortable HEENT: NC in place lungs: CTAB cardiac: RRR GI: nontender extremities: no edema neuro: no gross deficits psych: anxious Results - Labs CBC & Chem 7: 04/04/18 14:32 04/04/18 14:32 Labs: Short CBC 04/04/18 Range/Units 14:32 WBC 10.3 (4.0-11.0) th/mm3 Hgb 13.3 (13.0-17.0) gm/dL Hct 38.6 L (39.0-51.0) % Plt Count 416 (150-450) th/mm3 BMP 04/04/18 14:32 Sodium 127 L Potassium 3.1 L Chloride 88 L Carbon Dioxide 26.0 BUN 10 Creatinine 0.78 Calcium 9.2 Cardiac Enzymes 04/04/18 Range/Units 14:32 Troponin I Less than 0.02 L (0.02-0.05) ng/mL Liver Function 04/04/18 Range/Units 14:32 Total Bilirubin 0.5 (0.2-1.0) mg/dL AST 13 L (15-37) U/L ALT 24 (12-78) U/L Alkaline Phosphatase 67 (45-117) U/L Albumin 3.4 (3.4-5.0) g/dL Urine 04/04/18 Range/Units 15:44 Urine Color Yellow (Yellw/Straw) Urine Clarity Hazy H (Clear) Urine pH 7.0 (5.0-8.5) Ur Specific [place] 1.014 (1.002-1.035) Urine Protein Negative (Neg-Trace) mg/dL Urine Glucose (UA) Negative (Negative) mg/dL - Imaging Impressions Chest X-Ray 04/04/18 14:29 CONCLUSION: The lungs are hyperinflated consistent with COPD. No acute infiltrate or effusion. Caprini VTE Risk Assessment Caprini VTE Risk Assessment: Moderate/High Risk (score >= 2) Caprini Risk Assessment Model: Point Value = 1 Point Value = 2 Point Value = 3 Point Value = 5 Age 41-60 Minor surgery BMI > 25 kg/m2 Swollen legs Varicose veins or History of unexplained or recurrent spontaneous Oral contraceptives or hormone replacement Sepsis (< 1 month) Serious lung disease, including pneumonia (< 1 month) Abnormal pulmonary function Acute myocardial infarction Congestive heart failure (< 1 month) History of inflammatory bowel disease Medical patient at bed rest Age 61-74 Arthroscopic surgery Major open surgery (> 45 min) Laparoscopic surgery (> 45 min) Malignancy Confined to bed (> 72 hours) Immobilizing plaster cast Central venous access Age >= 75 History of VTE Family history of VTE Factor V Leiden Prothrombin [id number] Lupus anticoagulant Anticardiolipin antibodies Elevated serum homocysteine Heparin-induced thrombocytopenia Other congenital or acquired thrombophilia Stroke (< 1 month) Elective arthroplasty Hip, pelvis, or leg fracture Acute spinal cord injury (< 1 month) Prophylaxis Regimen: Total Risk Factor Score Risk Level Prophylaxis Regimen 0-1 Low Early ambulation 2 Moderate Order ONE of the following: *Sequential Compression Device (SCD) *Heparin 5000 units SQ BID 3-4 Higher Order ONE of the following medications: *Heparin 5000 units SQ TID *Enoxaparin/Lovenox 40 mg SQ daily (WT < 150 kg, CrCl > 30 mL/min) *Enoxaparin/Lovenox 30 mg SQ daily (WT < 150 kg, CrCl > 10-29 mL/min) *Enoxaparin/Lovenox 30 mg SQ BID (WT < 150 kg, CrCl > 30 mL/min) AND/OR *Sequential Compression Device (SCD) 5 or more Highest Order ONE of the following medications: *Heparin 5000 units SQ TID (Preferred with Epidurals) *Enoxaparin/Lovenox 40 mg SQ daily (WT < 150 kg, CrCl > 30 mL/min) *Enoxaparin/Lovenox 30 mg SQ daily (WT < 150 kg, CrCl > 10-29 mL/min) *Enoxaparin/Lovenox 30 mg SQ BID (WT < 150 kg, CrCl > 30 mL/min) AND *Sequential Compression Device (SCD) Assessment and Plan - Assessment (1) Acute hyponatremia Code(s): E87.1 - Hypo-osmolality and hyponatremia Status: Acute (2) Acute hypokalemia Code(s): E87.6 - Hypokalemia Status: Acute (3) Weakness Code(s): R53.1 - Weakness Status: Acute - Plan Hyponatremia Acute on chronic. Appears hypovolemic on exam. -continue IVFs and follow BMP. -ADAT. Add Ensure. Hypokalemia S/t decreased PO intake. -IVFs with KCl. -follow BMP. -ADAT. Weakness/ Acute on chronic back pain Pt expresses increased weakness lately as well as increasing degenerative joint disease and sciatica. -PT/ OT evals. -case management consult for C vs SNF. -pain management with Tramadol and Toradol as needed. Dilaudid for breakthrough pain. Wean as tolerated. COPD Possible exacerbation with increased mucous production. Has history of pneumothoraces x 4. CXR unremarkable. -sputum culture. -standing and as needed nebs. -continue Symbicort. -encourage ambulation. -incentive spirometry. PPx: SCDs
[2018-04-04] MEDS ORDERED: Ketorolac Inj 30 MG/ML (IVP) Vial IV.PUSH PRN (17:00)
[2018-04-04] MEDS: Gabapentin 300 MG Capsule PO SCH (17:19)
[2018-04-04] MEDS: KCL 20 mEq/D5W/NaCl 0.9% Inj 1,000 ML IV.CONT SCH (17:21)
[2018-04-04] MEDS: HYDROmorphone PF Inj 2 MG/ML Vial IV.PUSH PRN (19:30)
[2018-04-04] MEDS: guaiFENesin 600 MG ER Tablet PO SCH (20:25)
[2018-04-05] MEDS ORDERED: Melatonin 5 MG Tablet PO ONE (02:57)
[2018-04-05] MEDS: HYDROmorphone PF Inj 2 MG/ML Vial IV.PUSH PRN (05:07)
[2018-04-05] MEDS: KCL 20 mEq/D5W/NaCl 0.9% Inj 1,000 ML IV.CONT SCH (05:12)
[2018-04-05] MEDS: Budesonide-Formoterol 160/4.5 MCG 6 GM Inhaler INH SCH ×3 (06:19→21:08)
[2018-04-05 07:29] LABS: Baso % (Auto) 0.4 % (0.0-2.0); Eos # (Auto) 0.3 th/mm3 (0.0-0.4); Eos % (Auto) 2.7 % (0.0-4.0); Hematocrit 36.6 % (39.0-51.0); Hemoglobin 12.4 gm/dL (13.0-17.0); Lymph # (Auto) 0.9 th/mm3 (1.0-4.8); Lymph % (Auto) 9.3 % (9.0-44.0); Mean Corpuscular HGB Conc 33.8 % (32.0-36.0); Mean Corpuscular Hemoglobin 31.4 pg (27.0-34.0); Mean Corpuscular Volume 92.9 fL (80.0-100.0); Mean Platelet Volume 7.2 fL (7.0-11.0); Mono # (Auto) 0.9 th/mm3 (0.0-0.9); Mono % (Auto) 8.7 % (0.0-8.0); Neut # (Auto) 7.8 th/mm3 (1.8-7.7); Neut % (Auto) 78.9 % (16.0-70.0); Platelet Count 396 th/mm3 (150-450); Red Blood Count 3.94 mil/mm3 (4.50-5.90); Red Cell Distribution Width 14.1 % (11.6-17.2); White Blood Count 9.9 th/mm3 (4.0-11.0)
[2018-04-05 08:00] LABS: Alanine Aminotransferase 20 U/L (12-78); Alkaline Phosphatase 63 U/L (45-117); Anion Gap 8 meq/L (5-15); Aspartate Aminotransferase 15 U/L (15-37); Blood Urea Nitrogen 9 mg/dL (7-18); Calcium 8.9 mg/dL (8.5-10.1); Carbon Dioxide 25.7 meq/L (21.0-32.0); Chloride 97 meq/L (98-107); Glomerular Filtration Rate Greater Than 89 mL/min (>89); Glucose,Random 101 mg/dL (74-106); Potassium 3.8 meq/L (3.5-5.1); Sodium 131 meq/L (136-145); Total Protein 6.6 g/dL (6.4-8.2)
[2018-04-05] MEDS ORDERED: Tiotropium Bromide 18 MCG/ACT Inhaler INH SCH (09:00)
[2018-04-05] MEDS: Gabapentin 300 MG Capsule PO SCH ×3 (09:30→17:58)
[2018-04-05] MEDS: traZODone 50 MG Tablet PO SCH (09:30)
[2018-04-05] MEDS: guaiFENesin 600 MG ER Tablet PO SCH ×2 (09:30→21:04)
[2018-04-05] MEDS ORDERED: Naloxone Inj 0.4 MG/ML Vial IV.PUSH PRN (11:17)
[2018-04-05] MEDS ORDERED: oxyCODONE/Acetaminophen 10/325 Tablet PO PRN (11:17)
[2018-04-05] MEDS ORDERED: Morphine Inj 4 MG/ML Vial IV.PUSH PRN (11:17)
[2018-04-05] MEDS ORDERED: HYDROmorphone PF Inj 2 MG/ML Vial IV.PUSH PRN (11:51)
--- NOTE | 2018-04-05 12:45 | ECG ---
Date Performed: 04/04/2018 Time Performed: 14:20:21 PTAGE: 62 years EKG: Sinus rhythm WITH OCCASIONAL SUPRAVENTRICULAR PREMATURE COMPLEXES NONSPECIFIC T-WAVE ABNORMALITY BORDERLINE ECG S kailee the PREVIOUS TRACING , no significant change noted PREVIOUS TRACIN01/20/2018 07.26 DOCTOR: Pj Bhatti Interpretating Date/Time 04/05/2018 12:44:31
--- NOTE | 2018-04-05 17:56 | P.PN ---
Subjective Interval history: Seen sitting on the side of the bed in significant pain. He tells me that he has had back pain for many years and typically is controlled with tramadol and a TENS unit. States that he tweaked his back yesterday which is what is causing his worsening pain. Discussed options for pain control and agreed to try Percocet with morphine breakthrough rather than Dilaudid. He also has a lot of anxiety that is exacerbated by his pain. Denies any chest pain. Has had some shortness of breath and cough. No nausea vomiting or diarrhea. No fevers or chills. Physical Exam Vital signs: Vital Signs 04/04/18 17:52 04/04/18 18:28 04/04/18 20:23 Temperature 98.7 F Pulse Rate 92 H 100 H Respiratory Rate 16 20 18 Blood Pressure 137/86 Pulse Oximetry 96 04/04/18 20:45 04/05/18 00:00 04/05/18 03:17 Temperature 97.3 F L Pulse Rate 100 H 84 80 Respiratory Rate 18 18 18 Blood Pressure 133/66 Pulse Oximetry 95 98 04/05/18 04:57 04/05/18 07:43 04/05/18 08:00 Temperature 97.4 F L 97.8 F Pulse Rate 86 85 92 H Respiratory Rate 18 16 16 Blood Pressure 139/69 139/78 Pulse Oximetry 98 98 96 04/05/18 11:20 04/05/18 12:00 04/05/18 16:00 Temperature 97.5 F L 97.5 F L Pulse Rate 92 H 107 H 95 H Respiratory Rate 20 16 16 Blood Pressure 167/81 H 160/77 H Pulse Oximetry 96 97 Intake & Output 04/04/18 04/05/18 04/05/18 18:59 06:59 18:59 Intake Total 1000 / 1000 1000 / 1000 440 / 440 Output Total 200 / 200 1350 / 1350 Balance 800 / 800 1000 / 1000 -910 / -910 Weight 56.699 kg Intake: IV 1000 / 1000 1000 / 1000 D5W/NS + KCL 20 mEq Inj 1,000 1000 / 1000 ML @ 75 mls/hr IV.CONT .[id number] MARTI Rx#:[id number] NS Inj 1,000 ML @ Wide Open IV. 1000 / 1000 SIG BOLUS ONE Rx#:[id number] Oral 440 / 440 Output: Urine 200 / 200 1350 / 1350 Other: # Voids 2 # Bowel Movements 1 Weight On Admission 56.699 kg Narrative: GENERAL: Well-nourished, well-developed adult male in mild distress. SKIN: Warm and dry. HEAD: Atraumatic. Normocephalic. CARDIOVASCULAR: Regular rate and rhythm. RESPIRATORY: No accessory muscle use. Clear to auscultation. Breath sounds equal bilaterally. GASTROINTESTINAL: Abdomen soft, non-tender, non-distended. Positive bowel sounds. MUSCULOSKELETAL: Extremities without clubbing, cyanosis, or edema. No obvious deformities. Spinal tenderness. NEUROLOGICAL: Awake and alert. No obvious cranial nerve deficits. Motor grossly within normal limits. Normal speech. PSYCHIATRIC: Anxious Results - Labs CBC & Chem 7: 04/05/18 06:45 04/05/18 06:45 Laboratory Results - last 24 hr 04/05/18 04/05/18 06:45 06:45 WBC 9.9 RBC 3.94 L Hgb 12.4 L Hct 36.6 L MCV 92.9 MCH 31.4 MCHC 33.8 RDW 14.1 Plt Count 396 MPV 7.2 Neut % (Auto) 78.9 H Lymph % (Auto) 9.3 [place] % (Auto) 8.7 H Eos % (Auto) 2.7 Baso % (Auto) 0.4 Neut # (Auto) 7.8 H Lymph # (Auto) 0.9 L [place] # (Auto) 0.9 Eos # (Auto) 0.3 Baso # (Auto) 0.0 WBC Differential . Differential Comment Auto diff final Sodium 131 L Potassium 3.8 Chloride 97 L D Carbon Dioxide 25.7 Anion Gap 8 BUN 9 Creatinine 0.66 Estimated GFR Greater than 89 Random Glucose 101 Calcium 8.9 Total Bilirubin 0.4 AST 15 ALT 20 Alkaline Phosphatase 63 Total Protein 6.6 D Albumin 3.0 L Microbiology 04/04/18 17:35 Sputum - Expectorated Sputum Gram Stain - Final 04/04/18 17:35 Sputum - Expectorated Sputum Sputum Culture - Preliminary Heavy growth normal respiratory nash at 24 hours Assessment and Plan - Assessment (1) Acute hyponatremia Code(s): E87.1 - Hypo-osmolality and hyponatremia Status: Acute (2) Acute hypokalemia Code(s): E87.6 - Hypokalemia Status: Acute (3) Weakness Code(s): R53.1 - Weakness Status: Acute - Plan 62-year-old male presenting with increased back pain and shortness of breath. Past medical history includes degenerative joint disease and COPD. Hyponatremia Acute on chronic. Appears hypovolemic on exam. -continue IVFs and follow BMP. Improving. -ADAT. Add Ensure. Hypokalemia S/t decreased PO intake. -IVFs with KCl. Stopped 04/04 - 2L total - K now WNL -follow BMP. -ADAT. Weakness/ Acute on chronic back pain Pt expresses increased weakness lately as well as increasing degenerative joint disease and sciatica. -PT/ OT evals. -case management consult for C vs SNF. -pain management with Percocet. Morphine for breakthrough pain. Wean as tolerated. COPD Possible exacerbation with increased mucous production. Has history of pneumothoraces x 4. CXR unremarkable. -sputum culture -heavy growth normal respiratory nash -standing and as needed nebs. -continue Symbicort. -encourage ambulation. -incentive spirometry. PPx: SCDs Discussed with: Patient and nurse
[2018-04-05] MEDS ORDERED: Temazepam 15 MG Capsule PO PRN (22:21)
[2018-04-06] MEDS: Gabapentin 300 MG Capsule PO SCH ×2 (09:07→13:10)
[2018-04-06] MEDS: Budesonide-Formoterol 160/4.5 MCG 6 GM Inhaler INH SCH (09:07)
[2018-04-06] MEDS: guaiFENesin 600 MG ER Tablet PO SCH (09:07)
[2018-04-06] MEDS: traZODone 50 MG Tablet PO SCH (09:07)
[2018-04-06 10:32] LABS: Anion Gap 9 meq/L (5-15); Blood Urea Nitrogen 12 mg/dL (7-18); Calcium 8.9 mg/dL (8.5-10.1); Carbon Dioxide 26.4 meq/L (21.0-32.0); Chloride 98 meq/L (98-107); Glomerular Filtration Rate Greater Than 89 mL/min (>89); Glucose,Random 118 mg/dL (74-106); Potassium 3.6 meq/L (3.5-5.1); Sodium 133 meq/L (136-145)
[2018-04-06 11:42] VITALS: BP 142/69; PULSE 98; RESP 18; TEMP 98.4; O2SAT 95
--- NOTE | 2018-04-06 14:09 | P.PN ---
Subjective Interval history: Patient seen sitting up in bed. He tells me he feels much better and that his back pain is currently well controlled. He would like to go home. Denies any chest pain or shortness of breath. Denies any nausea vomiting or diarrhea. Is tolerating meals well. Physical Exam Vital signs: Vital Signs 04/05/18 16:00 04/05/18 19:53 04/05/18 20:00 Temperature 97.5 F L 98.5 F Pulse Rate 95 H 108 H Respiratory Rate 16 20 18 Blood Pressure 160/77 H 135/73 Pulse Oximetry 97 97 04/05/18 20:40 04/05/18 23:47 04/06/18 04:00 Temperature 99.6 F 97.5 F L Pulse Rate 102 H 90 90 Respiratory Rate 22 20 18 Blood Pressure 141/64 H 156/75 H Pulse Oximetry 96 97 97 04/06/18 07:18 04/06/18 08:00 04/06/18 11:41 Temperature 97.6 F 98.4 F Pulse Rate 102 H 96 H 98 H Respiratory Rate 18 20 18 Blood Pressure 147/74 H 142/69 H Pulse Oximetry 98 95 Intake & Output 04/05/18 04/06/18 04/06/18 18:59 06:59 18:59 Intake Total 1440 / 1440 Output Total 1350 / 1350 Balance 90 / 90 Intake: IV 1000 / 1000 D5W/NS + KCL 20 mEq Inj 1,000 1000 / 1000 ML @ 75 mls/hr IV.CONT .[id number] MARTI Rx#:[id number] Oral 440 / 440 Output: Urine 1350 / 1350 Other: # Voids 1 # Bowel Movements 1 Narrative: GENERAL: Well-nourished, well-developed adult male in no distress. SKIN: Warm and dry. HEAD: Atraumatic. Normocephalic. CARDIOVASCULAR: Regular rate and rhythm. RESPIRATORY: No accessory muscle use. Clear to auscultation. Breath sounds equal bilaterally. GASTROINTESTINAL: Abdomen soft, non-tender, non-distended. Positive bowel sounds. MUSCULOSKELETAL: Extremities without clubbing, cyanosis, or edema. No obvious deformities. Spinal tenderness. NEUROLOGICAL: Awake and alert. No obvious cranial nerve deficits. Motor grossly within normal limits. Normal speech. PSYCHIATRIC: Anxious Results - Labs CBC & Chem 7: 04/05/18 06:45 04/06/18 09:02 Laboratory Results - last 24 hr 04/06/18 09:02 Sodium 133 L Potassium 3.6 Chloride 98 Carbon Dioxide 26.4 Anion Gap 9 BUN 12 Creatinine 0.71 Estimated GFR Greater than 89 Random Glucose 118 H Calcium 8.9 Magnesium 2.0 Microbiology 04/04/18 17:35 Sputum - Expectorated Sputum Gram Stain - Final 04/04/18 17:35 Sputum - Expectorated Sputum Sputum Culture - Preliminary Staphylococcus aureus Assessment and Plan - Assessment (1) Acute hyponatremia Code(s): E87.1 - Hypo-osmolality and hyponatremia Status: Acute (2) Acute hypokalemia Code(s): E87.6 - Hypokalemia Status: Acute (3) Weakness Code(s): R53.1 - Weakness Status: Acute - Plan 62-year-old male presenting with increased back pain and shortness of breath. Past medical history includes degenerative joint disease and COPD. Hyponatremia Acute on chronic. Appears hypovolemic on exam. -continue IVFs and follow BMP. Improved. -ADAT. Add Ensure. Hypokalemia S/t decreased PO intake. -IVFs with KCl. Stopped 04/04 - 2L total - K now WNL -follow BMP. -ADAT. Weakness/ Acute on chronic back pain Pt expresses increased weakness lately as well as increasing degenerative joint disease and sciatica. -PT/ OT evals. -case management consult for [facility] as indicated by PT. -pain management with Percocet. Morphine for breakthrough pain. Wean as tolerated. COPD Possible exacerbation with increased mucous production. Has history of pneumothoraces x 4. CXR unremarkable. -sputum culture -heavy growth normal respiratory nash -standing and as needed nebs. -continue Symbicort. -encourage ambulation. -incentive spirometry. PPx: SCDs Discussed with: Patient and nurse Discharge planning: Patient is okay to discharge with home health.
--- NOTE | 2018-04-06 14:12 | P.DCO ---
- Home Health Nursing Order: Medical education, Signs/symptoms of disease process, Medication education-adverse effect, Nursing assessment with vital signs - Home Health Aide Order: To assist in: Bathing and personal care - Certification I have seen patient Joel Johnson on 04/06/18. My clinical findings support the need for the requested home health care services because: Limited mobility due to disease progression, Patient has SOB, Deconditioned with increased weakness, Limited ability to care for self, High risk of falls I certify that my clinical findings support that this patient is homebound because: Hx COPD - exertion dyspnea/weakness, Unsteady gait/balance, Unsafe to leave home unassisted, Unable to use public transportation
--- NOTE | 2018-04-06 14:16 | P.DS ---
Date of admission: 04/06/18 09:15 Primary care physician: [facility] Attending physician on discharge: Dev Panda Anticipated date of discharge: 04/06/18 Brief History from admission: The patient is a 62-year-old male with past medical history of COPD and degenerative joint disease who is presenting to the hospital with weakness and worsening cough. The patient says that he has been coughing up clear colored, sticky mucus. He feels short of breath and congested. He has had a decreased appetite over the past few days along with weight loss. He feels like he has no strength, especially in the lower extremities. He is complaining of worsening back pain. He says he is on pain medication through the [facility]. He says he has had shots in the back but they have not worked. He has numbness and tingling down his legs. He says he struggles with sciatica. He says he has been drinking Ensure to try to gain some weight back. He has been off of home oxygen for many months. He follows at the [facility] for his medical needs. He has been struggling with anxiety and recently hydroxyzine has been added to his regimen. DS: Diagnosis - Discharge Diagnosis (1) Weakness Status: Acute (2) Impaired mobility and ADLs Status: Acute (3) Acute hyponatremia Status: Acute (4) Acute hypokalemia Status: Acute DS: Summary Hospital Course: 62-year-old male presenting with increased back pain and shortness of breath. Past medical history includes degenerative joint disease and COPD. Noted to have both hyponatremia and hypokalemia on admission. Improved with IVF fluid. Chronic back pain and degenerative joint disease contributes to overall weakness and limited ability to perform ADLs. Patient does use a wheelchair at home. Mild exacerbation of COPD. Has a history of pneumothoraces x 4. CXR unremarkable. Chest x-ray normal. Improved with nebs. - Time Spent with Patient Total time spent providing and/or coordinating discharge services: Less than 30 minutes - Quality: VTE Deep Vein Thrombosis/Pulmonary Embolism Present on Admission: No Exam Vital signs: Vital Signs 04/05/18 16:00 04/05/18 19:53 04/05/18 20:00 Temperature 97.5 F L 98.5 F Pulse Rate 95 H 108 H Respiratory Rate 16 20 18 Blood Pressure 160/77 H 135/73 Pulse Oximetry 97 97 04/05/18 20:40 04/05/18 23:47 04/06/18 04:00 Temperature 99.6 F 97.5 F L Pulse Rate 102 H 90 90 Respiratory Rate 22 20 18 Blood Pressure 141/64 H 156/75 H Pulse Oximetry 96 97 97 04/06/18 07:18 04/06/18 08:00 04/06/18 11:41 Temperature 97.6 F 98.4 F Pulse Rate 102 H 96 H 98 H Respiratory Rate 18 20 18 Blood Pressure 147/74 H 142/69 H Pulse Oximetry 98 95 Intake & Output 04/05/18 04/06/18 04/06/18 18:59 06:59 18:59 Intake Total 1440 / 1440 Output Total 1350 / 1350 Balance 90 / 90 Intake: IV 1000 / 1000 D5W/NS + KCL 20 mEq Inj 1,000 1000 / 1000 ML @ 75 mls/hr IV.CONT .[id number] MARTI Rx#:[id number] Oral 440 / 440 Output: Urine 1350 / 1350 Other: # Voids 1 # Bowel Movements 1 Narrative: GENERAL: Well-nourished, well-developed adult male in no distress. SKIN: Warm and dry. HEAD: Atraumatic. Normocephalic. CARDIOVASCULAR: Regular rate and rhythm. RESPIRATORY: No accessory muscle use. Clear to auscultation. Breath sounds equal bilaterally. GASTROINTESTINAL: Abdomen soft, non-tender, non-distended. Positive bowel sounds. MUSCULOSKELETAL: Extremities without clubbing, cyanosis, or edema. No obvious deformities. Spinal tenderness. NEUROLOGICAL: Awake and alert. No obvious cranial nerve deficits. Motor grossly within normal limits. Normal speech. PSYCHIATRIC: Anxious Results Procedures completed during hospitalization: none Labs on day of discharge: Labs from last 24 hours 04/06/18 09:02 Sodium 133 L Potassium 3.6 Chloride 98 Carbon Dioxide 26.4 Anion Gap 9 BUN 12 Creatinine 0.71 Estimated GFR Greater than 89 Random Glucose 118 H Calcium 8.9 Magnesium 2.0 Preliminary micro results at discharge 04/04/18 17:35 Sputum Culture - Preliminary Sputum - Expectorated Sputum Staphylococcus aureus - Impressions ITS Impressions Chest X-Ray 04/04/18 14:29 CONCLUSION: The lungs are hyperinflated consistent with COPD. No acute infiltrate or effusion. Discharge Plan - Discharge Disposition Patient Disposition: 06 Disch W/Home Health Service - Discharge Condition Condition: Stable - Discharge Order Discharge Orders: Discharge Order (Routine); Ordered 04/06/18 Ordered By: Екатерина Milian - Discharge Details Discharge Comment: Pending Na at baseline and PT eval - will need home health. - Physicians Team Primary Care Provider: [facility] Attending Provider: Dev Panda
== END 2018-04-06 18:16 | disposition home health service (06) ==
LOC: NEPC 13:07 → NEDA 13:07 → NEPFCDU 16:50
PROVIDERS: ADMIT Hospitalist; ATTEND Hospitalist